=== PATIENT | male | born 1955 | race Two or more races ===

== ENCOUNTER 2020-07-31 11:45 | Emergency (ER) | payer MEDICARE, OTHER ==
[~2020-07-31] VITALS: Ht 175.3 cm; Wt 90.7 kg
[2020-07-31 11:53] VITALS: BP 145/84
[2020-07-31] MEDS ORDERED: METOPROLOL SUCC50 MG ORAL (11:57)
[2020-07-31] MEDS ORDERED: AMBIEN10 M1 ORAL (11:57)
[2020-07-31] MEDS ORDERED: QUETIAPINE FUM300 MG ORAL (11:57)
[2020-07-31] MEDS ORDERED: CLONAZEPAM1 M1 PO (11:57)
[2020-07-31] MEDS ORDERED: NORVASC10 MG ORAL (11:57)
[2020-07-31] MEDS ORDERED: RISPERIDONE2 MG ORAL (11:57)
[2020-07-31] MEDS ORDERED: OMEPRAZOLE20 M3 ORAL (11:57)
[2020-07-31] MEDS ORDERED: UROXATRAL10 MG ORAL (11:57)
[2020-07-31] MEDS ORDERED: MICARDIS40 MG ORAL (11:57)
[2020-07-31] MEDS ORDERED: Fluorescein Strips RIGHT EYE ONE (12:00)
--- NOTE | 2020-07-31 12:08 | Emergency Room Report ---
History of Present Illness General Chief Complaint: Headache Source: Patient, EMS Present Illness HPI Disclaimer: Please note that this report is being documented using DRAGON technology. This can lead to erroneous entry secondary to incorrect interpretation by the dictating instrument. HPI: 65-year-old male presents from retirement today for evaluation of headache and right eye pain. Symptoms began this morning. He reports redness, burning and photosensitivity in the right eye. Reports increased lacrimation and discharge. Denies swelling of the upper or lower lids, pain with extraocular movements. Denies blurred vision or loss of vision. He reports generalized throbbing headache. Denies vertigo, lightheadedness, loss of consciousness, recent head injury. Denies fever, chills. No exacerbating or relieving factors. PMH: Schizophrenia, hypertension, COPD, neuroleptic malignant syndrome PSH: Reviewed Allergies: Reviewed Social Hx: Reviewed Allergies: Coded Allergies: No Known Allergies (Unverified , 07/31/20) COVID-19 Screening Contact w/high risk pt: No Experienced COVID-19 symptoms?: No COVID-19 Testing performed INFORMATION ASSURANCE: No Nursing Documentation-PMH Hx Hypertension: Yes Hx COPD: Yes History Of Psychiatric Problem: Yes - schezophrenia Review of Systems All Other Systems: negative except mentioned in HPI Physical Exam Vital Signs Date Time Temp Pulse Resp B/P (MAP) Pulse Ox O2 Delivery O2 Flow Rate FiO2 07/31/20 11:45 98.2 89 20 95 Room Air 07/31/20 11:53 145/84 General: Awake and alert, no acute distress HEENT: NC/AT. EOMI. PERRLA. Right conjunctiva injected. No chemosis, no hypopyon, no hyphema. Upper and lower lids are nonedematous. Increased lacrimation in the right eye but no purulent drainage. No exophthalmos. Visual acuity: 20/70 OD, 20/70 OS, 20/70 OU. Russell lamp examination: Mild uptake in evidence of superficial corneal abrasion at the 12 o'clock position. No dendrites, no ulcerations, negative Aris sign. Resp: Normal work of breathing Skin: Intact. No abrasions, laceration or rash over the exposed skin MSK: Normal tone and bulk. Moving all extremities. No obvious deformity. Neuro: Awake and alert. Mentating appropriately Medical Decision Making Diagnostic Impression: Primary Impression: Headache Additional Impressions: Corneal abrasion Qualified Codes: S05.01XA - Injury of conjunctiva and corneal abrasion without foreign body, right eye, initial encounter Preseptal cellulitis of right eye ER Course 65-year-old duration of right eye pain and headache. Differential includes was not limited to corneal abrasion, corneal ulcer, conjunctivitis, blepharitis, orbital cellulitis, acute angle-closure glaucoma, intracranial hemorrhage, intracranial mass, entrapment. Patient arrives with stable vital signs no acute distress. He has injected sclera on the right side and what appears to be an early corneal abrasion at the 12 o'clock position. I was unable to obtain reliable measurements of intraocular pressure due to poor patient cooperation with exam. No evidence of entrapment. Head of the bed is elevated. CT scan of the head did not show signs of increased intracranial pressure, mass, bleed or other major findings aside from mild right periorbital soft tissue swelling. This may represent an early preseptal cellulitis. Patient be treated with oral Augmentin and ofloxacin drops. Given Tylenol for headache. Discussed with his PMD, Dr. Liu. Patient stable for outpatient follow-up and will return to a retirement facility. Close follow-up with ophthalmology recommended. Instructed to return with new or worsening symptoms. Arrange for transport Laboratory Tests Test 07/31/20 12:45 Urine Color Pale yellow Urine Appearance Clear Urine pH 8 (4.5-8.0) Urine Specific [place] 1.015 (1.005-1.035) Urine Protein Negative (NEGATIVE) Urine Glucose (UA) Negative (NEGATIVE) Urine Ketones 1+ (NEGATIVE) H Urine Blood Negative (NEGATIVE) Urine Nitrite Negative (NEGATIVE) Urine Bilirubin Negative (NEGATIVE) Urine Urobilinogen Normal MG/DL (0.0-1.0) Urine Leukocyte Esterase Negative (NEGATIVE) Last Vital Signs Date Time Temp Pulse Resp B/P (MAP) Pulse Ox O2 Delivery O2 Flow Rate FiO2 07/31/20 11:53 98.2 76 20 145/84 95 Room Air Disposition: SNF Condition: Stable Scripts Ofloxacin (OCUFLOX) 5 Ml Drops 2 DROP OP Q6HR for 5 Days, #100 ML Prov: Khoa Garcia MD 07/31/20 Amoxicillin/Potassium Clav 875-125* (AUGMENTIN 875-125 TABLET*) 1 Each Tablet 1 TAB ORAL TWICE A DAY, #14 TAB Prov: Khoa Garcia MD 07/31/20 Khoa Garcia MD Jul 31, 2020 12:08
--- NOTE | 2020-07-31 13:03 | Diagnostic Imaging Report ---
CT HEAD WITHOUT CONTRAST INDICATION: Headache and vision changes Technique: Continuous helical CT scanning of the head was performed without intravenous contrast material. Axial and coronal 5 mm sections were generated. Radiation dose was minimized using automated exposure control DOSE: Total Dose Length Product - DLP 1152.[address] Dose Index - CTDIvol(s) 53.4 mGy. COMPARISON: None available FINDINGS: There is no acute intracranial hemorrhage, mass effect or cortical edema. The ventricles, cisterns and sulci are normal for age. Visualized mastoid air cells are clear. Mild bilateral maxillary sinus mucosal thickening. No focal lesions of the bony calvarium or soft tissues of the scalp are seen. There is mild right periorbital soft tissue swelling. IMPRESSION: 1. No evidence of acute intracranial hemorrhage, mass effect or cortical edema. MRI may be obtained for more sensitive evaluation as clinically indicated. 2. Mild right periorbital soft tissue swelling. The CT scanner at [facility] is accredited by the [place] [employer] and the scans are performed using protocols designed to limit radiation exposure to as low as reasonably achievable to attain images of sufficient resolution adequate for diagnostic evaluation.
[2020-07-31] MEDS ORDERED: OCUFLOX5 ML OP (13:15)
[2020-07-31] MEDS ORDERED: AUGMENTIN 875-1 EAC1 ORAL (13:15)
[2020-07-31 13:23] LABS: APPEARANCE,URINE CLEAR; BILIRUBIN, URINE NEGATIVE (NEGATIVE); COLOR,URINE PALE YELLOW; GLUCOSE, URINE (UA) NEGATIVE (NEGATIVE); KETONES,URINE 1+ (NEGATIVE); LEUKOCYTE ESTERASE ,URINE NEGATIVE (NEGATIVE); NITRITE,URINE NEGATIVE (NEGATIVE); PH,URINE 8 (4.5-8.0); PROTEIN,URINE NEGATIVE (NEGATIVE); UROBILINOGEN,URINE NORMAL MG/DL (0.0-1.0)
[2020-07-31] MEDS ORDERED: Augmentin 875mg Tab ORAL ONE (13:30)
[2020-07-31] MEDS ORDERED: Acetaminophen 500mg (ES) tab ORAL ONE (13:30)
[2020-07-31 14:07] VITALS: BP 140/80
== END 2020-07-31 14:11 ==
LOC: EDBD 11:45 → EMR 12:28
DX: R51.9 Headache, unspecified (principal); S05.01XA Injury of conjunctiva and corneal abrasion without foreign body, right eye, initial encounter; L03.213 Periorbital cellulitis; J44.9 Chronic obstructive pulmonary disease, unspecified; I10 Essential (primary) hypertension; F20.9 Schizophrenia, unspecified
CPT/HCPCS: 70450; 81003; 99284

== ENCOUNTER 2020-10-09 09:18 | Inpatient (IN) | payer MEDICARE, OTHER ==
[~2020-10-09] VITALS: Ht 175.3 cm; Wt 87.5 kg
[~2020-10-09 09:18] MED LIST: AMBIEN10 M1 ORAL; AUGMENTIN 875-1 EAC1 ORAL; CLONAZEPAM1 M1 PO; METOPROLOL SUCC50 MG ORAL; MICARDIS40 MG ORAL; NORVASC10 MG ORAL; OCUFLOX5 ML OP; OMEPRAZOLE20 M3 ORAL; QUETIAPINE FUM300 MG ORAL; RISPERIDONE2 MG ORAL; UROXATRAL10 MG ORAL
--- NOTE | 2020-10-09 09:34 | NUR ---
ED Nurse Note: Pt was brought in by ambulance from [facility] d/t bilateral eye pain with 6/10 scale, (-) blurring vision, (+) flu like symptoms of nausea, stomachache and coughing all symptoms onset was last night. Pt is AOx4, calm and cooperative to care, ambulatory with a steady gait, VSS, breathing even and unlabored, afebrile on triage. Pt's a FULL CODE. Pt was placed onbed, droplet isolation prec in placed.
--- NOTE | 2020-10-09 09:37 | NUR ---
ED Nurse Note: ERMD at bedside.
[2020-10-09 09:39] VITALS: BP 164/84
--- NOTE | 2020-10-09 10:16 | Emergency Room Report ---
History of Present Illness General Chief Complaint: General Complaint Source: Patient Present Illness HPI 65-year-old male presents for evaluation. Brought in from boarding care. Noted to have a cough. Afebrile. Denies chest pain or shortness of breath. Also states he has had left eye pain. Patient does have a psych history and is a poor historian. Unable to provide further detail at this time. No other aggravating relieving factors. No other associated symptoms Allergies: Coded Allergies: No Known Allergies (Unverified , 07/31/20) COVID-19 Screening Contact w/high risk pt: No Experienced COVID-19 symptoms?: Yes COVID-19 Testing performed HORTICULTURE SUPERVISOR: No Patient History Past Medical History: HTN, COPD, psych hx Past Surgical History: none Pertinent Family History: none Social History: Denies: smoking, alcohol use, drug use Immunizations: UTD Reviewed Nursing Documentation: PMH: Agreed; PSxH: Agreed Nursing Documentation-PMH Past Medical History: No History, Except For Hx Hypertension: Yes Hx COPD: Yes Review of Systems All Other Systems: negative except mentioned in HPI Physical Exam Vital Signs Date Time Temp Pulse Resp B/P (MAP) Pulse Ox O2 Delivery O2 Flow Rate FiO2 10/09/20 09:19 98.2 88 18 164/84 (110) 94 Room Air Sp02 EP Interpretation: reviewed, normal General Appearance: no apparent distress, alert, GCS 15, non-toxic Head: normocephalic, atraumatic Eyes: bilateral eye PERRL, bilateral eye EOMI, bilateral eye Scleral Injection ENT: hearing grossly normal, normal pharynx, no angioedema, normal voice Neck: full range of motion, supple/symm/no masses Respiratory: chest non-tender, lungs clear, normal breath sounds, speaking full sentences Cardiovascular #1: regular rate, rhythm, no edema Cardiovascular #2: 2+ carotid (R), 2+ carotid (L), 2+ radial (R), 2+ radial (L), 2+ dorsalis pedis (R), 2+ dorsalis pedis (L) Gastrointestinal: normal bowel sounds, non tender, soft, non-distended, no guarding, no rebound Rectal: deferred Genitourinary: normal inspection, no CVA tenderness Musculoskeletal: back normal, normal range of motion, gait/station normal, non- tender Neurologic: alert, motor strength/tone normal, oriented x3, sensory intact, responsive, speech normal Psychiatric: judgement/insight normal, memory normal, mood/affect normal, no suicidal/homicidal ideation Reflexes: 3+ bicep (R), 3+ bicep (L), 3+ tricep (R), 3+ tricep (L), 3+ knee (R), 3+ knee (L) Skin: no rash Lymphatic: no adenopathy Medical Decision Making Diagnostic Impression: Primary Impression: Corneal abrasion Qualified Codes: S05.02XA - Injury of conjunctiva and corneal abrasion without foreign body, left eye, initial encounter Additional Impression: COVID-19 ER Course Hospital Course 65-year-old male presents with cough, weakness, eye pain Differential diagnoses include: Pneumonia, CHF exacerbation, pneumothorax, fluid overload Clinical course Patient placed on stretcher. In isolation.i wore full PPE.. After initial history and physical, I ordered labs, IV fluids, chest x-ray Labs -leukopenia noted, hemoglobin/hematocrit stable, electrolytes ok, CXR - NSR no acute ischemic changes interpreted by me Covid positive Discussed with assisted-living they are not able to accept patient back due to isolation. There is a corneal abrasion noted to the left eye. Ocuflox given D-dimer mildly elevated. Given Lovenox Case discussed with Dr. Liu and he agreed to the patient to his service for further care and support I feel this is a highly complex case requiring extensive working including EKG/Rhythm strip, Xray/CT/US, Blood/urine lab work, repeat exams while in ED, and administration of strong opiates/narcotics for pain control, admission to hospital or close patient follow up. Diagnosis - corneal abrasion, COVID 19 Patient admitted to floor in serious condition Laboratory Tests Test 10/09/20 10:00 White Blood Count 4.7 K/UL (4.8-10.8) L Red Blood Count 4.46 M/UL (4.70-6.10) L Hemoglobin 13.1 G/DL (14.2-18.0) L Hematocrit 35.9 % (42.0-52.0) L Mean Corpuscular Volume 80 FL (80-99) Mean Corpuscular Hemoglobin 29.3 PG (27.0-31.0) Mean Corpuscular Hemoglobin Concent 36.5 G/DL (32.0-36.0) H Red Cell Distribution Width 14.5 % (11.6-14.8) Platelet Count 187 K/UL (150-450) Mean Platelet Volume 6.6 FL (6.5-10.1) Neutrophils (%) (Auto) 58.0 % (45.0-75.0) Lymphocytes (%) (Auto) 30.1 % (20.0-45.0) Monocytes (%) (Auto) 10.9 % (1.0-10.0) H Eosinophils (%) (Auto) 0.5 % (0.0-3.0) Basophils (%) (Auto) 0.7 % (0.0-2.0) Prothrombin Time 11.2 SEC (9.30-11.50) Prothromb Time International Ratio 1.0 (0.9-1.1) Activated Partial Thromboplast Time 31 SEC (23-33) D-Dimer 1.13 mg/L FEU (0.00-0.49) H Urine Color Pale yellow Urine Appearance Clear Urine pH 8 (4.5-8.0) Urine Specific [place] 1.015 (1.005-1.035) Urine Protein Negative (NEGATIVE) Urine Glucose (UA) Negative (NEGATIVE) Urine Ketones 2+ (NEGATIVE) H Urine Blood Negative (NEGATIVE) Urine Nitrite Negative (NEGATIVE) Urine Bilirubin Negative (NEGATIVE) Urine Urobilinogen Normal MG/DL (0.0-1.0) Urine Leukocyte Esterase Negative (NEGATIVE) Sodium Level 138 MMOL/L (136-145) Potassium Level 3.8 MMOL/L (3.5-5.1) Chloride Level 104 MMOL/L (98-107) Carbon Dioxide Level 28 MMOL/L (21-32) Anion Gap 6 mmol/L (5-15) Blood Urea Nitrogen 12 mg/dL (7-18) Creatinine 1.3 MG/DL (0.55-1.30) Estimat Glomerular Filtration Rate 55.1 mL/min (>60) Glucose Level 125 MG/DL (74-106) H Calcium Level 8.1 MG/DL (8.5-10.1) L Ferritin 47 NG/ML (8-388) Total Bilirubin 0.3 MG/DL (0.2-1.0) Aspartate Amino Transf (AST/SGOT) 23 U/L (15-37) Alanine Aminotransferase (ALT/SGPT) 26 U/L (12-78) Alkaline Phosphatase 61 U/L (46-116) Lactate Dehydrogenase 187 U/L (81-234) C-Reactive Protein, Quantitative 2.0 mg/dL (0.00-0.90) H Total Protein 7.8 G/DL (6.4-8.2) Albumin 3.7 G/DL (3.4-5.0) Globulin 4.1 g/dL Albumin/Globulin Ratio 0.9 (1.0-2.7) L Chest X-Ray Diagnostic Results Chest X-Ray Diagnostic Results : Chest X-Ray Ordered: Yes # of Views/Limited/Complete: 1 View Indication: Other EP Interpretation: Yes Interpretation: no consolidation, no effusion, no pneumothorax, no acute cardiopulmonary disease Impression: No acute disease Electronically Signed by: Electronically signed by Alexys Marrero MD Last Vital Signs Date Time Temp Pulse Resp B/P (MAP) Pulse Ox O2 Delivery O2 Flow Rate FiO2 10/09/20 09:39 98.2 18 164/84 94 Room Air 10/09/20 09:39 88 Status: improved Disposition: ADMITTED INPATIENT Condition: Serious Referrals: Deng Liu MD (PCP) Alexys Marrero MD Oct 09, 2020 10:16
--- NOTE | 2020-10-09 10:16 | NUR ---
ED Nurse Note: x-ray at bedside.
[2020-10-09 10:34] LABS: APPEARANCE,URINE CLEAR; BASOPHILS % (AUTO) 0.7 % (0.0-2.0); BILIRUBIN, URINE NEGATIVE (NEGATIVE); COLOR,URINE PALE YELLOW; EOSINOPHILS % (AUTO) 0.5 % (0.0-3.0); GLUCOSE, URINE (UA) NEGATIVE (NEGATIVE); HEMATOCRIT 35.9 % (42.0-52.0); HEMOGLOBIN 13.1 G/DL (14.2-18.0); KETONES,URINE 2+ (NEGATIVE); LEUKOCYTE ESTERASE ,URINE NEGATIVE (NEGATIVE); LYMPHOCYTES % (AUTO) 30.1 % (20.0-45.0); MEAN CORPUSCULAR VOLUME 80 FL (80-99); MONOCYTES % (AUTO) 10.9 % (1.0-10.0); NITRITE,URINE NEGATIVE (NEGATIVE); PH,URINE 8 (4.5-8.0); PLATELET COUNT 187 K/UL (150-450); PROTEIN,URINE NEGATIVE (NEGATIVE); RED BLOOD COUNT 4.46 M/UL (4.70-6.10); RED CELL DISTRIBUTION WIDTH 14.5 % (11.6-14.8); UROBILINOGEN,URINE NORMAL MG/DL (0.0-1.0); WHITE BLOOD COUNT 4.7 K/UL (4.8-10.8)
[2020-10-09 10:56] LABS: CALCIUM 8.1 MG/DL (8.5-10.1); CREATININE 1.3 MG/DL (0.55-1.30); POTASSIUM 3.8 MMOL/L (3.5-5.1)
[2020-10-09 11:01] LABS: ALBUMIN 3.7 G/DL (3.4-5.0); ALBUMIN/GLOBULIN RATIO 0.9 (1.0-2.7); BILIRUBIN,TOTAL 0.3 MG/DL (0.2-1.0)
--- NOTE | 2020-10-09 11:01 | Diagnostic Imaging Report ---
Indication: Cough Technique: XRAY Chest 1v Comparison: None Findings: Heart size and mediastinal contours are within normal limits for AP technique. There is no focal airspace consolidation, pneumothorax or pleural effusion. Osseous structures demonstrate no acute abnormality. Impression: No radiographic evidence of acute cardiopulmonary disease.
[2020-10-09 13:18] VITALS: BP 158/82
[2020-10-09] MEDS ORDERED: Azithromycin 500 MG in NS 275 ML IV ONE (14:45)
[2020-10-09] MEDS ORDERED: cefTRIAXone 1 GM in NS 55 ML IVPB ONE (14:45)
[2020-10-09] MEDS ORDERED: Enoxaparin 40mg Inj SUBQ ONE (14:45)
[2020-10-09 16:44] VITALS: BP 134/70
--- NOTE | 2020-10-09 16:49 | Consultation ---
Consult Note Consult Note Date of Admission: 10/09/2020 DATE OF CONSULTATION: 10/09/2020 CONSULTING PHYSICIAN: Colton Shell MD. ATTENDING PHYSICIAN: Dr. Liu REASON FOR CONSULTATION: COVID-19, cough HISTORY OF PRESENT ILLNESS: This is a 65-year-old male with past medical history of COPD, hypertension, neuroleptic malignant syndrome, and schizophrenia, who presented to the emergency room from [facility] with 6 out of 10 bilateral eye pain, intermittent dry cough and upset stomach. Patient also tested positive for COVID-19 in the ER. Initial laboratory studies are notable for leukopenia, stable H&H with electrolytes that are within normal limits. EKG showed normal sinus rhythm. Chest x-ray showed no evidence of acute cardiopulmonary disease. On exam he is in bed with eyes closed. He does not appear to be short of breath or in acute distress. Patient is saturating well on room air. He is found to be not coughing during my exam. He requests food at this time. Patient denies chest pain, headache, nausea, vomiting, shortness of breath. Patient received IV azithromycin, ceftriaxone, Lovenox, and IV fluids in the ER and is awaiting admission for further management of conjunctivitis and monitoring/management of symptoms associated with COVID-19 positivity. PAST MEDICAL HISTORY: COPD, hypertension, schizophrenia, neuroleptic malignant syndrome MEDICATIONS: Notable for tamsulosin, amlodipine, clonazepam, metoprolol, omeprazole, Quetiapine, risperidone, zolpidem tartrate, and telmisartan ALLERGIES: No known allergies FAMILY HISTORY: Noncontributory PERSONAL/SOCIAL HISTORY: Resident of [facility] facility REVIEW OF SYSTEMS: Negative except for mentioned in HPI PHYSICAL EXAMINATION: VITAL SIGNS: Blood pressure 158/82, heart rate 85, respiratory rate 19, weight 90.7 kg, height 175 cm. HEENT: Head exam reveals that the head is normocephalic, atraumatic without deformity or unusual swelling. Bilateral eyelids edematous and erythematous. CHEST AND LUNGS: Reveals clear, normal, symmetrical breath sounds with no adventitious sounds. CARDIOVASCULAR: Reveals normal S1, S2 without murmurs, rubs, or clicks. ABDOMEN: Obese, soft with no tenderness or organomegaly. A well-healed midline linear vertical scar in the abdomen noted RECTAL: Deferred. MUSCULOSKELETAL: There is no tenderness to palpation. Range of motion is normal. NEUROLOGICAL: Alert and oriented x3 , nonfocal LABORATORY DATA: Laboratory testing shows WBC 4.7, hemoglobin 13.1, hematocrit 35.9. Chemistries show glucose 125, calcium 8.1, CRP 2.0 Coagulation panel shows D-dimer 1.13 Urinalysis shows 2+ ketones, otherwise unremarkable Assessment/Plan 1. COVID-19 infection -Patient is currently saturating well on room air - s/p Azithromycin and ceftriaxone IV once in ER -Given his normoxemia without fever, clear lung sounds, and negative CXR, no specific therapy is required at this time -Continue monitoring SaO2 and provide supplemental oxygen as needed 2. Conjunctivitis -Per primary MD 3. Elevated CRP, D-dimer - s/p Lovenox in ER - DVX ppx recommended 4. Hypertension - recommend continuing home antihypertensive meds - monitor BP The care for this patient was discussed with my supervising physician. Time spent for this case was approximately 31 minutes. Piyush Dent Oct 09, 2020 16:49
--- NOTE | 2020-10-09 17:28 | NUR ---
ED Nurse Note: mrsa cre vre swabs taken sent to lab
--- NOTE | 2020-10-09 17:31 | NUR ---
ED Nurse Note: REPORT GIVEN TO GONZALEZ SUTHERLAND
--- NOTE | 2020-10-09 17:53 | Cardiac Electrophysiology PN ---
Subjective Subjective [id number] Objective Last 24 Hour Vital Signs Date Time Temp Pulse Resp B/P (MAP) Pulse Ox O2 Delivery O2 Flow Rate FiO2 10/09/20 17:36 98.0 77 19 128/74 98 Room Air 10/09/20 16:44 98.6 87 20 134/70 95 Room Air 10/09/20 13:18 98.2 85 19 158/82 99 Room Air 10/09/20 09:39 98.2 18 164/84 94 Room Air 10/09/20 09:39 88 18 Room Air 10/09/20 09:19 98.2 88 18 164/84 (110) 94 Room Air Laboratory Tests Test 10/09/20 10:00 White Blood Count 4.7 K/UL (4.8-10.8) L Red Blood Count 4.46 M/UL (4.70-6.10) L Hemoglobin 13.1 G/DL (14.2-18.0) L Hematocrit 35.9 % (42.0-52.0) L Mean Corpuscular Volume 80 FL (80-99) Mean Corpuscular Hemoglobin 29.3 PG (27.0-31.0) Mean Corpuscular Hemoglobin Concent 36.5 G/DL (32.0-36.0) H Red Cell Distribution Width 14.5 % (11.6-14.8) Platelet Count 187 K/UL (150-450) Mean Platelet Volume 6.6 FL (6.5-10.1) Neutrophils (%) (Auto) 58.0 % (45.0-75.0) Lymphocytes (%) (Auto) 30.1 % (20.0-45.0) Monocytes (%) (Auto) 10.9 % (1.0-10.0) H Eosinophils (%) (Auto) 0.5 % (0.0-3.0) Basophils (%) (Auto) 0.7 % (0.0-2.0) Prothrombin Time 11.2 SEC (9.30-11.50) Prothromb Time International Ratio 1.0 (0.9-1.1) Activated Partial Thromboplast Time 31 SEC (23-33) D-Dimer 1.13 mg/L FEU (0.00-0.49) H Urine Color Pale yellow Urine Appearance Clear Urine pH 8 (4.5-8.0) Urine Specific [place] 1.015 (1.005-1.035) Urine Protein Negative (NEGATIVE) Urine Glucose (UA) Negative (NEGATIVE) Urine Ketones 2+ (NEGATIVE) H Urine Blood Negative (NEGATIVE) Urine Nitrite Negative (NEGATIVE) Urine Bilirubin Negative (NEGATIVE) Urine Urobilinogen Normal MG/DL (0.0-1.0) Urine Leukocyte Esterase Negative (NEGATIVE) Sodium Level 138 MMOL/L (136-145) Potassium Level 3.8 MMOL/L (3.5-5.1) Chloride Level 104 MMOL/L (98-107) Carbon Dioxide Level 28 MMOL/L (21-32) Anion Gap 6 mmol/L (5-15) Blood Urea Nitrogen 12 mg/dL (7-18) Creatinine 1.3 MG/DL (0.55-1.30) Estimat Glomerular Filtration Rate 55.1 mL/min (>60) Glucose Level 125 MG/DL (74-106) H Calcium Level 8.1 MG/DL (8.5-10.1) L Ferritin 47 NG/ML (8-388) Total Bilirubin 0.3 MG/DL (0.2-1.0) Aspartate Amino Transf (AST/SGOT) 23 U/L (15-37) Alanine Aminotransferase (ALT/SGPT) 26 U/L (12-78) Alkaline Phosphatase 61 U/L (46-116) Lactate Dehydrogenase 187 U/L (81-234) C-Reactive Protein, Quantitative 2.0 mg/dL (0.00-0.90) H Total Protein 7.8 G/DL (6.4-8.2) Albumin 3.7 G/DL (3.4-5.0) Globulin 4.1 g/dL Albumin/Globulin Ratio 0.9 (1.0-2.7) L Microbiology Date/Time Source Procedure Growth Status 10/09/20 17:14 Rectum Received 10/09/20 10:00 Nasopharynx SARS-CoV-2 RdRp Gene Assay - Final Complete Kirit Dave MD Oct 09, 2020 17:53
[2020-10-09 17:55] VITALS: BP 115/63
--- NOTE | 2020-10-09 17:55 | NUR ---
NURSE NOTES: PATIENT RECEIVED FROM ER VIA [facility]IN. AOX4. DENIES SOB/CP. NO REPSIRATORY DISTRESS NOTED.
--- NOTE | 2020-10-09 18:35 | NUR ---
NURSE NOTES: PLACED CALL TO DR. LOPEZ. RETURN CALL RECEIVED. ORDERS RECEIVED.
--- NOTE | 2020-10-09 19:02 | Consultation ---
DATE OF CONSULTATION: 10/09/2020 CARDIOLOGY CONSULTATION CONSULTING PHYSICIAN: Kirit Dave MD REFERRING PHYSICIAN: Deng Liu MD REASON FOR CONSULTATION: Shortness of breath and cough in a patient who is COVID-19 positive. HISTORY OF PRESENT ILLNESS: Patient is a 65-year-old gentleman with history of hypertension, COPD, neuroleptic malignant syndrome, and schizophrenia, who was brought to the emergency room from [facility] with bilateral eye pain as well as intermittent cough and upset stomach. Patient was tested positive for COVID-19 in the emergency room. Patient was noted to have leukopenia and EKG showed sinus rhythm and chest x-ray showed no acute cardiopulmonary process. Patient is saturating normally on room air. Patient was admitted and a Cardiology consultation was requested for further evaluation. REVIEW OF SYSTEMS: Negative other than what was mentioned in the history of present illness. PAST MEDICAL HISTORY: As mentioned above. FAMILY HISTORY: Noncontributory. MEDICATIONS: Per reconciliation include metoprolol, amlodipine, Flomax, and telmisartan. ALLERGIES: He has no known drug allergies. SOCIAL HISTORY: Resident of care home facility. Does not drink alcohol or use drugs. PHYSICAL EXAMINATION: VITAL SIGNS: Blood pressure 153/80, pulse is 85, respirations 19. HEAD AND NECK: Shows mild JVD. Bilateral eyelids are edematous and erythematous. LUNGS: Clear. CARDIOVASCULAR: Shows regular S1 and S2 with no gallop. ABDOMEN: Soft. EXTREMITIES: 1+ pitting edema. LABORATORY DATA: Labs show white count of 4.7, hemoglobin 13, hematocrit of 36. Glucose 125. Calcium 8.1. ASSESSMENT AND PLAN: 1. Shortness of breath. This is likely due to patient's COVID-19 infection. Currently saturating well on room air. Patient received azithromycin and ceftriaxone in the emergency room. Further evaluation by Dr. Shell. 2. Hypertension. We will resume patient's antihypertensive medications as an outpatient, which were amlodipine 10 mg daily and Toprol-XL 50 mg daily. For blood pressure, patient is also on Micardis 40 mg daily. 3. Psychiatric history. Thank you very much for allowing me to participate in the care of this patient. Please do not hesitate to contact me for any questions regarding my evaluation. Kirit Dave M.D. DR: SEE JOB#: [id number] CC:
--- NOTE | 2020-10-09 19:45 | NUR ---
NURSE HAND-OFF: Important Events on Shift: NONE Patient Status: STABLE Diet: REGULAR Pending Orders: N/A Pending Results/Labs: N/A Pending MD notification: N/A Latest Vital Signs: Temperature 97.7 , Pulse 82 , B/P 115 /63 , Respiratory Rate 18 , O2 SAT 94 , Room Air. Vital Sign Comment: STABLE Latest Barreto Fall Score: Fall Risk: Safety Measures: Call light , Bed Alarm , Side Rails , Bed position . Fall Precautions: Report given to CAROLINA SHELBY RN.
[2020-10-09 20:00] VITALS: BP 138/76
--- NOTE | 2020-10-09 20:00 | NUR ---
NURSE NOTES: Pt is in bed calm. No acute distress noted. Room air. No SOB or cough, no fever. Admission orders acknowledged from DR. Rodriguez. Admission process will be completed. Pt has no wound on the body. Pt has a hospital gown on and jeans pants on, he refuses to take the jeans off for now. He has belongings: cell phone and $86 leary per ER on belonging sheet, which he states that are in his pocket and refuses to show for confirmation purpose. Patient is otherwise cooperative and calm. Fall precaution in place. Pt oriented to the room. bed locked low in position,side rails up and call light within reach. Pt instructed to call for assistance before getting out of bed. Pt will be monitored.
[2020-10-09] MEDS ORDERED: Zolpidem 5mg tab ORAL PRN (20:15)
[2020-10-09] MEDS: Dyna-Hex 2% Top Sol 2oz TOPIC SCH (21:00)
[2020-10-09] MEDS: Irbesartan 150mg tablet ORAL SCH (21:00)
[2020-10-09] MEDS: Zolpidem 5mg tab ORAL PRN (22:37)
--- NOTE | 2020-10-10 00:01 | History and Physical Report ---
DATE OF ADMISSION: 10/09/2020 HISTORY OF PRESENT ILLNESS: The patient comes from [facility]. The patient has some cough. Denies shortness of breath. Denies fever or chills. The patient also has some left eye pain. Does have history of schizophrenia and psychosis from schizoaffective. The patient is relatively a poor historian. Denies tachycardia. Denies headache. Denies nausea, vomiting, or diarrhea. The patient is found to have COVID positive and is admitted for COVID positive respiratory insufficiency and also eye pain. PAST MEDICAL HISTORY: Significant for COPD, hypertension, history of schizoaffective, history of tachycardia, history of hepatitis C, anxiety, GERD, and psychosis. PAST SURGICAL HISTORY: None. MEDICATIONS: Micardis, risperidone, omeprazole, metoprolol, Klonopin. ALLERGIES: No known allergies. FAMILY HISTORY: Noncontributory. SOCIAL HISTORY: Denies history of smoking. No history of alcohol or illicit drugs. REVIEW OF SYSTEMS: HEENT: Denies headaches. Denies shortness of breath. He does have some cough. CARDIOVASCULAR: Denies chest pain. GASTROINTESTINAL: Denies nausea, vomiting, or diarrhea. EXTREMITIES: Denies pain. CENTRAL NERVOUS SYSTEM: Denies change in speech pattern. Does have change in vision pattern in terms of mild drainage that went away. The patient complains of left eye pain. PHYSICAL EXAMINATION: VITAL SIGNS: Temperature is 98.2, pulse is 88, blood pressure 164/84. HEENT: PERRLA. NECK: Supple. CHEST: Clear to auscultation CARDIOVASCULAR: Regular rate and rhythm. No murmurs or extra sounds. GASTROINTESTINAL: Soft, nontender, nondistended. No organomegaly. EXTREMITIES: No edema. Moves all four extremities. NEUROLOGIC: Sensory intact to light touch. Reflexes equal on both sides. Moves all four extremities. LABORATORY DATA: WBC of 4.7, hemoglobin 13.1, and platelets 187. Sodium 138, potassium 3.8, BUN of 12, creatinine 1.3. ASSESSMENT AND PLAN: COVID positive pneumonia. Some mild blurred vision, change and eye pain. I have asked Dr. Dave, Dr. Alek Sabillon, Dr. Colton Shell, and Dr. Harsh Bowser to see the patient for the management of COVID positive as well as further to put the patient on anticoagulation because of COVID and Dr. Dave for the consideration of history of arrhythmia as well and Dr. Shell for the COVID positive treatment as well. Deng Liu M.D. DR: Brandon JOB#: [id number] CC:
[2020-10-10 04:00] VITALS: BP 125/75
--- NOTE | 2020-10-10 05:00 | NUR ---
NURSE NOTES: Pt is awake, alert and ambulatory. No SOB, room air. Pt is cooperative and calm.
--- NOTE | 2020-10-10 06:40 | Consultation ---
History of Present Illness General Chief Complaint: General Complaint Present Illness Allergies: Coded Allergies: No Known Allergies (Unverified , 07/31/20) Medication History Scheduled Alfuzosin 10Mg (Uroxatral), 10 MG ORAL DAILY, (Reported) Amlodipine Besylate (Norvasc), 10 MG ORAL DAILY, (Reported) Amoxicillin/Potassium Clav 875-125* (Augmentin 875-125 Tablet*), 1 TAB ORAL TWICE A DAY Metoprolol Succinate* (Metoprolol Succinate*), 50 MG ORAL DAILY, (Reported) Ofloxacin (Ocuflox), 2 DROP OP Q6HR Omeprazole (Omeprazole), 20 MG ORAL DAILY, (Reported) Quetiapine Fumarate (Quetiapine Fumarate), 300 MG ORAL DAILY, (Reported) Telmisartan (Micardis), 40 MG ORAL BID, (Reported) Scheduled PRN Zolpidem Tartrate* (Ambien*), 10 MG ORAL HS PRN for Insomnia, (Reported) Miscellaneous Medications Clonazepam (Clonazepam), 1 MG PO, (Reported) Risperidone (Risperidone), 2 MG ORAL, (Reported) Patient History Healthcare decision maker Resuscitation status Advanced Directive on File Physical Exam Last 24 Hour Vital Signs Date Time Temp Pulse Resp B/P (MAP) Pulse Ox O2 Delivery O2 Flow Rate FiO2 10/10/20 04:00 97.8 80 18 125/75 (92) 96 10/09/20 21:04 Room Air 10/09/20 21:00 138/76 10/09/20 20:00 97.5 80 18 138/76 (96) 96 10/09/20 17:55 97.7 82 18 115/63 (80) 94 10/09/20 17:36 98.0 77 19 128/74 98 Room Air 10/09/20 16:44 98.6 87 20 134/70 95 Room Air 10/09/20 13:18 98.2 85 19 158/82 99 Room Air 10/09/20 09:39 98.2 18 164/84 94 Room Air 10/09/20 09:39 88 18 Room Air 10/09/20 09:19 98.2 88 18 164/84 (110) 94 Room Air Intake and Output 10/09/20 10/10/20 19:00 07:00 Intake Total 880 ml Balance 880 ml Intake Oral 880 ml # Voids 1 3 Laboratory Tests Test 10/09/20 10:00 White Blood Count 4.7 K/UL (4.8-10.8) L Red Blood Count 4.46 M/UL (4.70-6.10) L Hemoglobin 13.1 G/DL (14.2-18.0) L Hematocrit 35.9 % (42.0-52.0) L Mean Corpuscular Volume 80 FL (80-99) Mean Corpuscular Hemoglobin 29.3 PG (27.0-31.0) Mean Corpuscular Hemoglobin Concent 36.5 G/DL (32.0-36.0) H Red Cell Distribution Width 14.5 % (11.6-14.8) Platelet Count 187 K/UL (150-450) Mean Platelet Volume 6.6 FL (6.5-10.1) Neutrophils (%) (Auto) 58.0 % (45.0-75.0) Lymphocytes (%) (Auto) 30.1 % (20.0-45.0) Monocytes (%) (Auto) 10.9 % (1.0-10.0) H Eosinophils (%) (Auto) 0.5 % (0.0-3.0) Basophils (%) (Auto) 0.7 % (0.0-2.0) Prothrombin Time 11.2 SEC (9.30-11.50) Prothromb Time International Ratio 1.0 (0.9-1.1) Activated Partial Thromboplast Time 31 SEC (23-33) D-Dimer 1.13 mg/L FEU (0.00-0.49) H Urine Color Pale yellow Urine Appearance Clear Urine pH 8 (4.5-8.0) Urine Specific [place] 1.015 (1.005-1.035) Urine Protein Negative (NEGATIVE) Urine Glucose (UA) Negative (NEGATIVE) Urine Ketones 2+ (NEGATIVE) H Urine Blood Negative (NEGATIVE) Urine Nitrite Negative (NEGATIVE) Urine Bilirubin Negative (NEGATIVE) Urine Urobilinogen Normal MG/DL (0.0-1.0) Urine Leukocyte Esterase Negative (NEGATIVE) Sodium Level 138 MMOL/L (136-145) Potassium Level 3.8 MMOL/L (3.5-5.1) Chloride Level 104 MMOL/L (98-107) Carbon Dioxide Level 28 MMOL/L (21-32) Anion Gap 6 mmol/L (5-15) Blood Urea Nitrogen 12 mg/dL (7-18) Creatinine 1.3 MG/DL (0.55-1.30) Estimat Glomerular Filtration Rate 55.1 mL/min (>60) Glucose Level 125 MG/DL (74-106) H Calcium Level 8.1 MG/DL (8.5-10.1) L Ferritin 47 NG/ML (8-388) Total Bilirubin 0.3 MG/DL (0.2-1.0) Aspartate Amino Transf (AST/SGOT) 23 U/L (15-37) Alanine Aminotransferase (ALT/SGPT) 26 U/L (12-78) Alkaline Phosphatase 61 U/L (46-116) Lactate Dehydrogenase 187 U/L (81-234) C-Reactive Protein, Quantitative 2.0 mg/dL (0.00-0.90) H Total Protein 7.8 G/DL (6.4-8.2) Albumin 3.7 G/DL (3.4-5.0) Globulin 4.1 g/dL Albumin/Globulin Ratio 0.9 (1.0-2.7) L Microbiology Date/Time Source Procedure Growth Status 10/09/20 17:14 Rectum Received 10/09/20 10:00 Nasopharynx SARS-CoV-2 RdRp Gene Assay - Final Complete Height (Feet): 5 Height (Inches): 9.00 Weight (Pounds): 193 Medications Current Medications Medications (Trade) Dose Ordered Sig/Sidney Route PRN Reason Start Time Stop Time Status Last Admin Dose Admin Acetaminophen (Tylenol) 650 mg Q6H PRN ORAL For Headache 10/09/20 22:45 11/08/20 22:44 Alfuzosin HCl (Uroxatrol) 10 mg DAILY ORAL 10/10/20 09:00 11/09/20 08:59 Amlodipine Besylate (Norvasc) 10 mg DAILY ORAL 10/10/20 09:00 11/09/20 08:59 Chlorhexidine Gluconate (Beryl-Hex 2%) 1 applic QHS TOPIC 10/09/20 21:00 01/07/21 20:59 Clonazepam (KlonoPIN) 1 mg Q12HR ORAL 10/09/20 21:00 10/16/20 20:59 10/09/20 21:00 Irbesartan (Avapro) 150 mg Q12HR ORAL 10/09/20 21:00 01/07/21 20:59 10/09/20 21:00 Metoprolol Succinate (Toprol XL) 50 mg DAILY ORAL 10/10/20 09:00 01/08/21 08:59 Pantoprazole (Protonix) 40 mg DAILY ORAL 10/10/20 09:00 11/09/20 08:59 Quetiapine Fumarate (SEROqueL) 300 mg Q12HR ORAL 10/09/20 21:00 11/23/20 20:59 10/09/20 21:00 Risperidone (RisperDAL) 2 mg Q12HR ORAL 10/09/20 21:00 11/23/20 20:59 10/09/20 21:00 Zolpidem Tartrate (Ambien) 5 mg HSPRN PRN ORAL Insomnia 10/09/20 20:30 10/16/20 20:29 10/09/20 22:37 Assessment/Plan Assessment/Plan: Hematology Consultation Date of consultation: 10/10/2020 ATTENDING PHYSICIAN: Dr. Liu REASON FOR CONSULTATION: COVID-19, Anemia ID This is a 65-year-old male with past medical history of COPD, hypertension, neuroleptic malignant syndrome, and schizophrenia, who presented to the emergency room from [facility] with 6 out of 10 bilateral eye pain, intermittent dry cough and upset stomach. Patient also tested positive for COVID-19 in the ER. Initial laboratory studies are notable for leukopenia, stable H&H with electrolytes that are within normal limits. EKG showed normal sinus rhythm. Chest x-ray showed no evidence of acute cardiopulmonary disease. On exam he is in bed with eyes closed. He does not appear to be short of breath or in acute distress. Patient is saturating well on room air. He is found to b e not coughing during my exam. He requests food at this time. Patient denies chest pain, headache, nausea, vomiting, shortness of breath. Patient received IV azithromycin, ceftriaxone, Lovenox, and IV fluids in the ER. PAST MEDICAL HISTORY: COPD, hypertension, schizophrenia, neuroleptic malignant syndrome MEDICATIONS: Notable for tamsulosin, amlodipine, clonazepam, metoprolol, omeprazole, Quetiapine, risperidone, zolpidem tartrate, and telmisartan ALLERGIES: No known allergies FAMILY HISTORY: Noncontributory PERSONAL/SOCIAL HISTORY: [facility] REVIEW OF SYSTEMS: Negative except for mentioned in HPI PHYSICAL EXAMINATION: VITAL SIGNS: reviewed HEENT: Head exam reveals that the head is normocephalic, atraumatic without deformity or unusual swelling. CHEST AND LUNGS: Reveals clear, normal, symmetrical breath sounds with no adventitious sounds. CARDIOVASCULAR: Reveals normal S1, S2 without murmurs, rubs, or clicks. ABDOMEN: Obese, soft with no tenderness or organomegaly. A well-healed midline linear vertical scar in the abdomen ++ RECTAL: Deferred. MUSCULOSKELETAL: There is no tenderness to palpation. Range of motion is normal. NEUROLOGICAL: Alert and oriented x3 , nonfocal LABORATORY DATA: Laboratory testing shows WBC 4.7, hemoglobin 13.1, hematocrit 35.9. Chemistries show glucose 125, calcium 8.1, CRP 2.0 Coagulation panel shows D-dimer 1.13 Urinalysis shows 2+ ketones, otherwise unremarkable Imaging: reviewed Assessment/Plan 1. Leukopenia is related likely to COVID-19 infection++ --> Patient is currently saturating well on room air, per pulm --> s/p Azithromycin and ceftriaxone IV once in ER --> Continue monitoring SaO2 and provide supplemental oxygen as needed --> smear reviewed --> wbc 4.7 2. Anemia due to likely chronic disease, infection --> trend hgb as needed hgb 13 3. Elevated CRP, D-dimer --> s/p Lovenox in ER --> DVX ppx recommended --> duplex lower leg r/o dvt 4. Hypertension --> recommend continuing home antihypertensive meds --> as per cards 5. Covid 19 as per pulm/id 6. Dvt ppx lovenox sq Appreciate consultation and dw Rn Alek Sabillon MD Oct 10, 2020 06:40
[2020-10-10 07:10] LABS: BASOPHILS % (AUTO) 0.1 % (0.0-2.0); EOSINOPHILS % (AUTO) 0.1 % (0.0-3.0); HEMATOCRIT 36.8 % (42.0-52.0); HEMOGLOBIN 12.7 G/DL (14.2-18.0); LYMPHOCYTES % (AUTO) 43.3 % (20.0-45.0); MEAN CORPUSCULAR VOLUME 85 FL (80-99); MONOCYTES % (AUTO) 9.4 % (1.0-10.0); NEUTROPHILS % (AUTO) 47.1 % (45.0-75.0); PLATELET COUNT 169 K/UL (150-450); RED BLOOD COUNT 4.34 M/UL (4.70-6.10); RED CELL DISTRIBUTION WIDTH 13.1 % (11.6-14.8); WHITE BLOOD COUNT 3.8 K/UL (4.8-10.8)
--- NOTE | 2020-10-10 07:30 | NUR ---
NURSE HAND-OFF: Important Events on Shift:[New admit] Patient Status: [Stable] Diet: [Reg] Pending Orders: [] Pending Results/Labs:[] Pending MD notification:[] Latest Vital Signs: Temperature 97.8 , Pulse 80 , B/P 125 /75 , Respiratory Rate 18 , O2 SAT 96 , Room Air, O2 Flow Rate . Vital Sign Comment: [] Latest Barreto Fall Score: 35 Fall Risk: Medium Risk Safety Measures: Call light Within Reach, Bed Alarm Zone 1, Side Rails Side Rails x2, Bed position Low and Locked. Fall Precautions: Yellow Socks Yellow Gown Door Sign Patient Fall Education Report given to [DEYA Holly. Endorsed to apply SCDs after venous duplex. ].
[2020-10-10 07:35] LABS: ALBUMIN 3.3 G/DL (3.4-5.0); ALBUMIN/GLOBULIN RATIO 0.8 (1.0-2.7); ALKALINE PHOSPHATASE 56 U/L (46-116); ANION GAP 6 mmol/L (5-15); ASPARTATE AMINO TRANSFERASE 21 U/L (15-37); BILIRUBIN,TOTAL 0.4 MG/DL (0.2-1.0); BLOOD UREA NITROGEN 9 mg/dL (7-18); CALCIUM 7.8 MG/DL (8.5-10.1); CARBON DIOXIDE 28 MMOL/L (21-32); CHLORIDE 101 MMOL/L (98-107); POTASSIUM 3.4 MMOL/L (3.5-5.1); SODIUM 135 MMOL/L (136-145)
--- NOTE | 2020-10-10 07:45 | NUR ---
NURSE NOTES: RECEIVED PATIENT A/A/OX4. ABLE TO MAKE NEEDS KNOWN. IN BED CALM AND COMFORTABLE. NO ACUTE CARDIO-RESP DISTRESS NOTED. HOB ELEVATED. ABLE TO AMBULATE WITH ASSIST. TOLERATED FOOD INTAKE WELL. PIV PATENT AND INTACT. KEPT BED IN THE LOWEST POSITION. SIDERAILS ARE UPX3. CALL LIGHT IS WITHIN REACH. BED ALARM AND LOCK MODE ENGAGED. WILL CONT TO MONITOR.
[2020-10-10 08:00] VITALS: BP 121/77
[2020-10-10 08:35] LABS: ALANINE AMINOTRANSFERASE 24 U/L (12-78)
[2020-10-10] MEDS ORDERED: Irbesartan 150mg tablet ORAL SCH (09:00)
[2020-10-10] MEDS: Irbesartan 150mg tablet ORAL SCH ×2 (09:08→21:00)
[2020-10-10] MEDS: Metoprolol Succinate XL 50mg tab ORAL SCH (09:08)
[2020-10-10] MEDS: Enoxaparin 40mg Inj SUBQ SCH (09:10)
--- NOTE | 2020-10-10 11:36 | NUR ---
NURSE NOTES: MADE DR WASHINGTON AWARE OF THE K+3.4. AWAITING FOR A CALLBACK. Addendum: 10/10/20 at 1429 by CRYSTAL CHU LVN new order obtained and carried out.
[2020-10-10 12:00] VITALS: BP 137/76
--- NOTE | 2020-10-10 13:53 | Pulmonology Progress Note ---
Subjective Interval Events: none major reported per nursing Constitutional: Reports: no symptoms HEENT: Repors: other - eye pain Respiratory: Reports: no symptoms Cardiovascular: Reports: no symptoms Gastrointestinal/Abdominal: Reports: no symptoms Genitourinary: Reports: no symptoms Allergies: Coded Allergies: No Known Allergies (Unverified , 07/31/20) Objective Last 24 Hour Vital Signs Date Time Temp Pulse Resp B/P (MAP) Pulse Ox O2 Delivery O2 Flow Rate FiO2 10/10/20 12:00 98.2 80 21 137/76 (96) 97 10/10/20 09:09 76 121/77 10/10/20 09:08 121/77 10/10/20 09:08 76 121/77 10/10/20 09:00 Room Air 10/10/20 08:00 98.1 76 19 121/77 (92) 97 10/10/20 04:00 97.8 80 18 125/75 (92) 96 10/09/20 21:04 Room Air 10/09/20 21:00 138/76 10/09/20 20:00 97.5 80 18 138/76 (96) 96 10/09/20 17:55 97.7 82 18 115/63 (80) 94 10/09/20 17:36 98.0 77 19 128/74 98 Room Air 10/09/20 16:44 98.6 87 20 134/70 95 Room Air Intake and Output 10/09/20 10/10/20 19:00 07:00 Intake Total 880 ml Balance 880 ml Intake Oral 880 ml # Voids 1 3 Objective 10/10 on room air saturating well General Appearance: WD/WN, no acute distress HEENT: other - erythematous, edematous eyes Respiratory: lungs clear Cardiovascular: normal rate, regular rhythm Abdomen: soft, non tender Microbiology Date/Time Source Procedure Growth Status 10/09/20 17:14 Rectum Received 10/09/20 10:00 Nasopharynx SARS-CoV-2 RdRp Gene Assay - Final Complete Laboratory Tests 10/10/20 04:30: White Blood Count 3.8L, Red Blood Count 4.34L, Hemoglobin 12.7L, Hematocrit 36.8L, Mean Corpuscular Volume 85, Mean Corpuscular Hemoglobin 29.3, Mean Corpuscular Hemoglobin Concent 34.6, Red Cell Distribution Width 13.1, Platelet Count 169, Mean Platelet Volume 6.4L, Neutrophils (%) (Auto) 47.1, Lymphocytes (%) (Auto) 43.3, Monocytes (%) (Auto) 9.4, Eosinophils (%) (Auto) 0.1, Basophils (%) (Auto) 0.1, Sodium Level 135L, Potassium Level 3.4L, Chloride Level 101, Carbon Dioxide Level 28, Anion Gap 6, Blood Urea Nitrogen 9, Creatinine 1.0, Estimat Glomerular Filtration Rate > 60, Glucose Level 103, Calcium Level 7.8L, Total Bilirubin 0.4, Aspartate Amino Transf (AST/SGOT) 21, Alanine Aminotransferase (ALT/SGPT) 24, Alkaline Phosphatase 56, Troponin I 0.001, Pro-B-Type Natriuretic Peptide 301H, Total Protein 7.3, Albumin 3.3L, Globulin 4.0, Albumin/Globulin Ratio 0.8L Current Medications Medications (Trade) Dose Ordered Sig/Sidney Route PRN Reason Start Time Stop Time Status Last Admin Dose Admin Acetaminophen (Tylenol) 650 mg Q6H PRN ORAL For Headache 10/09/20 22:45 11/08/20 22:44 Alfuzosin HCl (Uroxatrol) 10 mg DAILY ORAL 10/10/20 09:00 11/09/20 08:59 10/10/20 13:23 Amlodipine Besylate (Norvasc) 10 mg DAILY ORAL 10/10/20 09:00 11/09/20 08:59 10/10/20 09:09 Chlorhexidine Gluconate (Beryl-Hex 2%) 1 applic QHS TOPIC 10/09/20 21:00 01/07/21 20:59 Clonazepam (KlonoPIN) 1 mg Q12HR ORAL 10/09/20 21:00 10/16/20 20:59 10/10/20 09:08 Enoxaparin Sodium (Lovenox) 40 mg DAILY SUBQ 10/10/20 09:00 01/08/21 08:59 10/10/20 09:10 Irbesartan (Avapro) 150 mg Q12HR ORAL 10/09/20 21:00 01/07/21 20:59 10/10/20 09:08 Metoprolol Succinate (Toprol XL) 50 mg DAILY ORAL 10/10/20 09:00 01/08/21 08:59 10/10/20 09:08 Pantoprazole (Protonix) 40 mg DAILY ORAL 10/10/20 09:00 11/09/20 08:59 10/10/20 09:08 Quetiapine Fumarate (SEROqueL) 300 mg Q12HR ORAL 10/09/20 21:00 11/23/20 20:59 10/10/20 09:08 Risperidone (RisperDAL) 2 mg Q12HR ORAL 10/09/20 21:00 11/23/20 20:59 10/10/20 09:09 Zolpidem Tartrate (Ambien) 5 mg HSPRN PRN ORAL Insomnia 10/09/20 20:30 10/16/20 20:29 10/09/20 22:37 Assessment/Plan Assessment/Plan 1. COVID-19 infection -Patient is currently saturating well on room air - s/p Azithromycin and ceftriaxone IV once in ER -Given his normoxemia without fever, clear lung sounds, and negative CXR, no specific therapy is required at this time -Continue monitoring SaO2 and provide supplemental oxygen as needed 2. Conjunctivitis -Per primary MD 3. Elevated CRP, D-dimer - s/p Lovenox in ER - Venous duplex US negative for DVT - no Lovenox 4. Hypertension - recommend continuing home antihypertensive meds - monitor BP 5. Kypokalemia - per primary MD The care for this patient was discussed with my supervising physician. Time spent for this case was approximately 31 minutes. Piyush Dent Oct 10, 2020 13:53
--- NOTE | 2020-10-10 14:00 | Diagnostic Imaging Report ---
Indication: Bilateral leg pain and shortness of breath Technique: Grayscale and duplex images of the bilateral lower extremity veins Comparison: Findings: Bilaterally, grayscale and duplex images demonstrate no evidence of intraluminal thrombus. Normal phasic Doppler waveforms, demonstrating normal augmentation response and no evidence of valvular insufficiency. Greater saphenous vein(s) and tibial veins are patent. Normal compressibility. Impression: Negative for evidence of lower extremity deep venous thrombosis bilaterally
--- NOTE | 2020-10-10 15:46 | Cardiac Electrophysiology PN ---
Assessment/Plan Assessment/Plan 1. Shortness of breath due to patient's COVID-19 infection. Currently saturating well on room air. Patient received azithromycin and ceftriaxone in the emergency room. Fu by Dr. Shell. 2. Hypertension. On amlodipine 10 mg daily and Toprol-XL 50 mg daily and Avapro 150 bid 3. Psychiatric history. Subjective Subjective In isolation for Covid. No CP. Eye irritation Objective Last 24 Hour Vital Signs Date Time Temp Pulse Resp B/P (MAP) Pulse Ox O2 Delivery O2 Flow Rate FiO2 10/10/20 12:00 98.2 80 21 137/76 (96) 97 10/10/20 09:09 76 121/77 10/10/20 09:08 121/77 10/10/20 09:08 76 121/77 10/10/20 09:00 Room Air 10/10/20 08:00 98.1 76 19 121/77 (92) 97 10/10/20 04:00 97.8 80 18 125/75 (92) 96 10/09/20 21:04 Room Air 10/09/20 21:00 138/76 10/09/20 20:00 97.5 80 18 138/76 (96) 96 10/09/20 17:55 97.7 82 18 115/63 (80) 94 10/09/20 17:36 98.0 77 19 128/74 98 Room Air 10/09/20 16:44 98.6 87 20 134/70 95 Room Air Intake and Output 10/09/20 10/10/20 19:00 07:00 Intake Total 880 ml Balance 880 ml Intake Oral 880 ml # Voids 1 3 Laboratory Tests Test 10/10/20 04:30 White Blood Count 3.8 K/UL (4.8-10.8) L Red Blood Count 4.34 M/UL (4.70-6.10) L Hemoglobin 12.7 G/DL (14.2-18.0) L Hematocrit 36.8 % (42.0-52.0) L Mean Corpuscular Volume 85 FL (80-99) Mean Corpuscular Hemoglobin 29.3 PG (27.0-31.0) Mean Corpuscular Hemoglobin Concent 34.6 G/DL (32.0-36.0) Red Cell Distribution Width 13.1 % (11.6-14.8) Platelet Count 169 K/UL (150-450) Mean Platelet Volume 6.4 FL (6.5-10.1) L Neutrophils (%) (Auto) 47.1 % (45.0-75.0) Lymphocytes (%) (Auto) 43.3 % (20.0-45.0) Monocytes (%) (Auto) 9.4 % (1.0-10.0) Eosinophils (%) (Auto) 0.1 % (0.0-3.0) Basophils (%) (Auto) 0.1 % (0.0-2.0) Sodium Level 135 MMOL/L (136-145) L Potassium Level 3.4 MMOL/L (3.5-5.1) L Chloride Level 101 MMOL/L (98-107) Carbon Dioxide Level 28 MMOL/L (21-32) Anion Gap 6 mmol/L (5-15) Blood Urea Nitrogen 9 mg/dL (7-18) Creatinine 1.0 MG/DL (0.55-1.30) Estimat Glomerular Filtration Rate > 60 mL/min (>60) Glucose Level 103 MG/DL (74-106) Calcium Level 7.8 MG/DL (8.5-10.1) L Total Bilirubin 0.4 MG/DL (0.2-1.0) Aspartate Amino Transf (AST/SGOT) 21 U/L (15-37) Alanine Aminotransferase (ALT/SGPT) 24 U/L (12-78) Alkaline Phosphatase 56 U/L (46-116) Troponin I 0.001 ng/mL (0.000-0.056) Pro-B-Type Natriuretic Peptide 301 pg/mL (0-125) H Total Protein 7.3 G/DL (6.4-8.2) Albumin 3.3 G/DL (3.4-5.0) L Globulin 4.0 g/dL Albumin/Globulin Ratio 0.8 (1.0-2.7) L Microbiology Date/Time Source Procedure Growth Status 10/09/20 17:14 Rectum Received 10/09/20 10:00 Nasopharynx SARS-CoV-2 RdRp Gene Assay - Final Complete Objective HEAD AND NECK: Shows mild JVD. Bilateral eyelids are edematous and erythematous. LUNGS: Clear. CARDIOVASCULAR: Shows regular S1 and S2 with no gallop. ABDOMEN: Soft. EXTREMITIES: 1+ pitting edema. Kirit Dave MD Oct 10, 2020 15:46
[2020-10-10 16:00] VITALS: BP 145/71
--- NOTE | 2020-10-10 16:45 | NUR ---
CASE MANAGEMENT:INITIAL REVIEW 65 YR OLD MALE BIBA FROM [facility] CC;GENERAL COMPLAINT SI;WEAKNESS. COVID-19 VIRAL INFECTION. 98.6 88 20 164/84 94% ON RA D-DIMER 1.13 UA+ KETONES COVID RAPID ~ POSITIVE CXR ~ No radiographic evidence of acute cardiopulmonary disease. IS;IVF NS BOLUS X2 ZITHROMAX IV ROCEPHIN IV LOVENOX SQ ADMITTED TO MED SURG MED SURG STATUS DCP;PENDING HOSPITAL STAY
--- NOTE | 2020-10-10 19:09 | NUR ---
NURSE HAND-OFF: Important Events on Shift:[uneventful day. no significant event] Patient Status: [stable] Diet: [reg] Pending Orders: [labs] Pending Results/Labs:[daily] Pending MD notification:[] Latest Vital Signs: Temperature 98.0 , Pulse 79 , B/P 145 /71 , Respiratory Rate 20 , O2 SAT 97 , Room Air, O2 Flow Rate . Vital Sign Comment: [] Latest Barreto Fall Score: 35 Fall Risk: Medium Risk Safety Measures: Call light Within Reach, Bed Alarm Zone 2, Side Rails Side Rails x3, Bed position Low and Locked. Fall Precautions: Yellow Socks Yellow Gown Door Sign Patient Fall Education Report given to [kassandra].
[2020-10-10 20:00] VITALS: BP 136/80
--- NOTE | 2020-10-10 20:50 | NUR ---
NURSE NOTES: Pt is in bed, awake and alert.Pt is calm. Pt able to ambulate. No acute distress noted. Room air. Pt instructed to call before getting out of bed. Fall precautions in place. bed locked low in position,side rails up and call light within reach.
[2020-10-10] MEDS: Dyna-Hex 2% Top Sol 2oz TOPIC SCH (21:00)
--- NOTE | 2020-10-10 22:12 | General Progress Note ---
Subjective ROS Limited/Unobtainable: Yes Allergies: Coded Allergies: No Known Allergies (Unverified , 07/31/20) Objective Last 24 Hour Vital Signs Date Time Temp Pulse Resp B/P (MAP) Pulse Ox O2 Delivery O2 Flow Rate FiO2 10/10/20 16:00 98.0 79 20 145/71 (95) 97 10/10/20 12:00 98.2 80 21 137/76 (96) 97 10/10/20 09:09 76 121/77 10/10/20 09:08 121/77 10/10/20 09:08 76 121/77 10/10/20 09:00 Room Air 10/10/20 08:00 98.1 76 19 121/77 (92) 97 10/10/20 04:00 97.8 80 18 125/75 (92) 96 Intake and Output 10/09/20 10/10/20 19:00 07:00 Intake Total 880 ml Balance 880 ml Intake Oral 880 ml # Voids 1 3 Laboratory Tests 10/10/20 04:30: White Blood Count 3.8L, Red Blood Count 4.34L, Hemoglobin 12.7L, Hematocrit 36.8L, Mean Corpuscular Volume 85, Mean Corpuscular Hemoglobin 29.3, Mean Corpuscular Hemoglobin Concent 34.6, Red Cell Distribution Width 13.1, Platelet Count 169, Mean Platelet Volume 6.4L, Neutrophils (%) (Auto) 47.1, Lymphocytes (%) (Auto) 43.3, Monocytes (%) (Auto) 9.4, Eosinophils (%) (Auto) 0.1, Basophils (%) (Auto) 0.1, Sodium Level 135L, Potassium Level 3.4L, Chloride Level 101, Carbon Dioxide Level 28, Anion Gap 6, Blood Urea Nitrogen 9, Creatinine 1.0, Estimat Glomerular Filtration Rate > 60, Glucose Level 103, Calcium Level 7.8L, Total Bilirubin 0.4, Aspartate Amino Transf (AST/SGOT) 21, Alanine Aminotransferase (ALT/SGPT) 24, Alkaline Phosphatase 56, Troponin I 0.001, Pro-B-Type Natriuretic Peptide 301H, Total Protein 7.3, Albumin 3.3L, Globulin 4.0, Albumin/Globulin Ratio 0.8L Height (Feet): 5 Height (Inches): 9.00 Weight (Pounds): 193 Assessment/Plan Problem List: (1) Headache ICD Codes: R51.9 - Headache, unspecified SNOMED: 94259974 (2) COVID-19 ICD Codes: U07.1 - COVID-19 SNOMED: 854650601 Status: progressing, tolerating diet Assessment/Plan: covid positive conjuctivitis abx per id Deng Gordillo MD Oct 10, 2020 22:12
[2020-10-10] MEDS: Zolpidem 5mg tab ORAL PRN (23:03)
[2020-10-11 04:00] VITALS: BP 120/78
--- NOTE | 2020-10-11 06:30 | NUR ---
NURSE NOTES: Pt is in bed calm. No acute distress noted.
--- NOTE | 2020-10-11 06:48 | Hematology/Onc Progress Note ---
Assessment/Plan Assessment/Plan Assessment/Plan 1. Leukopenia is related likely to COVID-19 infection++ --> Patient is currently saturating well on room air, per pulm --> s/p Azithromycin and ceftriaxone IV once in ER --> Continue monitoring SaO2 and provide supplemental oxygen as needed --> smear reviewed --> wbc 4.7-->3.8 2. Anemia due to likely chronic disease, infection --> trend hgb as needed hgb 13 3. Elevated CRP, D-dimer --> s/p Lovenox in ER --> DVX ppx recommended --> duplex lower leg r/o dvt 4. Hypertension --> recommend continuing home antihypertensive meds --> as per cards 5. Covid 19 as per pulm/id 6. Dvt ppx lovenox sq Appreciate consultation and dw Rn Subjective Constitutional: Denies: no symptoms, chills, fever, malaise, weakness, other Cardiovascular: Denies: no symptoms, chest pain, edema, irregular heart rate, lightheadedness, palpitations, syncope, other Gastrointestinal/Abdominal: Denies: no symptoms, abdomen distended, abdominal pain, black stools, tarry stools, blood in stool, constipated, diarrhea, difficulty swallowing, nausea, poor appetite, poor fluid intake, rectal bleeding, vomiting, other Genitourinary: Denies: no symptoms, burning, discharge, frequency, flank pain, hematuria, incontinence, pain, urgency, other Endocrine: Denies: no symptoms, excessive sweating, flushing, intolerance to cold, intolerance to heat, increased hunger, increased thirst, increased urine, unexplained weight gain, unexplained weight loss, other Allergies: Coded Allergies: No Known Allergies (Unverified , 07/31/20) Subjective 10/11 awake, no new events, no bleeding, labs noted, ambulating Objective Objective Current Medications Medications (Trade) Dose Ordered Sig/Sidney Route PRN Reason Start Time Stop Time Status Last Admin Dose Admin Acetaminophen (Tylenol) 650 mg Q6H PRN ORAL For Headache 10/09/20 22:45 11/08/20 22:44 Alfuzosin HCl (Uroxatrol) 10 mg DAILY ORAL 10/10/20 09:00 11/09/20 08:59 10/10/20 13:23 Amlodipine Besylate (Norvasc) 10 mg DAILY ORAL 10/10/20 09:00 11/09/20 08:59 10/10/20 09:09 Chlorhexidine Gluconate (Beryl-Hex 2%) 1 applic QHS TOPIC 10/09/20 21:00 01/07/21 20:59 Clonazepam (KlonoPIN) 1 mg Q12HR ORAL 10/09/20 21:00 10/16/20 20:59 10/10/20 21:00 Enoxaparin Sodium (Lovenox) 40 mg DAILY SUBQ 10/10/20 09:00 01/08/21 08:59 10/10/20 09:10 Irbesartan (Avapro) 150 mg Q12HR ORAL 10/09/20 21:00 01/07/21 20:59 10/10/20 21:00 Metoprolol Succinate (Toprol XL) 50 mg DAILY ORAL 10/10/20 09:00 01/08/21 08:59 10/10/20 09:08 Pantoprazole (Protonix) 40 mg DAILY ORAL 10/10/20 09:00 11/09/20 08:59 10/10/20 09:08 Quetiapine Fumarate (SEROqueL) 300 mg Q12HR ORAL 10/09/20 21:00 11/23/20 20:59 10/10/20 21:00 Risperidone (RisperDAL) 2 mg Q12HR ORAL 10/09/20 21:00 11/23/20 20:59 10/10/20 21:00 Zolpidem Tartrate (Ambien) 5 mg HSPRN PRN ORAL Insomnia 10/09/20 20:30 10/16/20 20:29 10/10/20 23:03 Last 24 Hour Vital Signs Date Time Temp Pulse Resp B/P (MAP) Pulse Ox O2 Delivery O2 Flow Rate FiO2 10/10/20 22:00 Room Air 10/10/20 21:00 136/80 10/10/20 20:00 98.1 89 20 136/80 (98) 97 10/10/20 16:00 98.0 79 20 145/71 (95) 97 10/10/20 12:00 98.2 80 21 137/76 (96) 97 10/10/20 09:09 76 121/77 10/10/20 09:08 121/77 10/10/20 09:08 76 121/77 10/10/20 09:00 Room Air 10/10/20 08:00 98.1 76 19 121/77 (92) 97 10/10/20 04:00 97.8 80 18 125/75 (92) 96 10/09/20 21:04 Room Air 10/09/20 21:00 138/76 10/09/20 20:00 97.5 80 18 138/76 (96) 96 10/09/20 17:55 97.7 82 18 115/63 (80) 94 10/09/20 17:36 98.0 77 19 128/74 98 Room Air 10/09/20 16:44 98.6 87 20 134/70 95 Room Air 10/09/20 13:18 98.2 85 19 158/82 99 Room Air 10/09/20 09:39 98.2 18 164/84 94 Room Air 10/09/20 09:39 88 18 Room Air 10/09/20 09:19 98.2 88 18 164/84 (110) 94 Room Air Intake and Output 10/10/20 10/11/20 19:00 07:00 Intake Total 720 ml Balance 720 ml Intake Oral 720 ml # Voids 1 Labs Test 10/09/20 10:00 10/10/20 04:30 White Blood Count 4.7 K/UL (4.8-10.8) 3.8 K/UL (4.8-10.8) Red Blood Count 4.46 M/UL (4.70-6.10) 4.34 M/UL (4.70-6.10) Hemoglobin 13.1 G/DL (14.2-18.0) 12.7 G/DL (14.2-18.0) Hematocrit 35.9 % (42.0-52.0) 36.8 % (42.0-52.0) Mean Corpuscular Volume 80 FL (80-99) 85 FL (80-99) Mean Corpuscular Hemoglobin 29.3 PG (27.0-31.0) 29.3 PG (27.0-31.0) Mean Corpuscular Hemoglobin Concent 36.5 G/DL (32.0-36.0) 34.6 G/DL (32.0-36.0) Red Cell Distribution Width 14.5 % (11.6-14.8) 13.1 % (11.6-14.8) Platelet Count 187 K/UL (150-450) 169 K/UL (150-450) Mean Platelet Volume 6.6 FL (6.5-10.1) 6.4 FL (6.5-10.1) Neutrophils (%) (Auto) 58.0 % (45.0-75.0) 47.1 % (45.0-75.0) Lymphocytes (%) (Auto) 30.1 % (20.0-45.0) 43.3 % (20.0-45.0) Monocytes (%) (Auto) 10.9 % (1.0-10.0) 9.4 % (1.0-10.0) Eosinophils (%) (Auto) 0.5 % (0.0-3.0) 0.1 % (0.0-3.0) Basophils (%) (Auto) 0.7 % (0.0-2.0) 0.1 % (0.0-2.0) Prothrombin Time 11.2 SEC (9.30-11.50) Prothromb Time International Ratio 1.0 (0.9-1.1) Activated Partial Thromboplast Time 31 SEC (23-33) D-Dimer 1.13 mg/L FEU (0.00-0.49) Urine Color Pale yellow Urine Appearance Clear Urine pH 8 (4.5-8.0) Urine Specific [place] 1.015 (1.005-1.035) Urine Protein Negative (NEGATIVE) Urine Glucose (UA) Negative (NEGATIVE) Urine Ketones 2+ (NEGATIVE) Urine Blood Negative (NEGATIVE) Urine Nitrite Negative (NEGATIVE) Urine Bilirubin Negative (NEGATIVE) Urine Urobilinogen Normal MG/DL (0.0-1.0) Urine Leukocyte Esterase Negative (NEGATIVE) Sodium Level 138 MMOL/L (136-145) 135 MMOL/L (136-145) Potassium Level 3.8 MMOL/L (3.5-5.1) 3.4 MMOL/L (3.5-5.1) Chloride Level 104 MMOL/L (98-107) 101 MMOL/L (98-107) Carbon Dioxide Level 28 MMOL/L (21-32) 28 MMOL/L (21-32) Anion Gap 6 mmol/L (5-15) 6 mmol/L (5-15) Blood Urea Nitrogen 12 mg/dL (7-18) 9 mg/dL (7-18) Creatinine 1.3 MG/DL (0.55-1.30) 1.0 MG/DL (0.55-1.30) Estimat Glomerular Filtration Rate 55.1 mL/min (>60) > 60 mL/min (>60) Glucose Level 125 MG/DL (74-106) 103 MG/DL (74-106) Calcium Level 8.1 MG/DL (8.5-10.1) 7.8 MG/DL (8.5-10.1) Ferritin 47 NG/ML (8-388) Total Bilirubin 0.3 MG/DL (0.2-1.0) 0.4 MG/DL (0.2-1.0) Aspartate Amino Transf (AST/SGOT) 23 U/L (15-37) 21 U/L (15-37) Alanine Aminotransferase (ALT/SGPT) 26 U/L (12-78) 24 U/L (12-78) Alkaline Phosphatase 61 U/L (46-116) 56 U/L (46-116) Lactate Dehydrogenase 187 U/L (81-234) C-Reactive Protein, Quantitative 2.0 mg/dL (0.00-0.90) Total Protein 7.8 G/DL (6.4-8.2) 7.3 G/DL (6.4-8.2) Albumin 3.7 G/DL (3.4-5.0) 3.3 G/DL (3.4-5.0) Globulin 4.1 g/dL 4.0 g/dL Albumin/Globulin Ratio 0.9 (1.0-2.7) 0.8 (1.0-2.7) Troponin I 0.001 ng/mL (0.000-0.056) Pro-B-Type Natriuretic Peptide 301 pg/mL (0-125) Height (Feet): 5 Height (Inches): 9.00 Weight (Pounds): 193 Objective PHYSICAL EXAMINATION: VITAL SIGNS: reviewed HEENT: Head exam reveals that the head is normocephalic, atraumatic without deformity or unusual swelling. CHEST AND LUNGS: Reveals clear, normal, symmetrical breath sounds with no adventitious sounds. CARDIOVASCULAR: Reveals normal S1, S2 without murmurs, rubs, or clicks. ABDOMEN: Obese, soft with no tenderness or organomegaly. A well-healed midline linear vertical scar in the abdomen ++ RECTAL: Deferred. MUSCULOSKELETAL: There is no tenderness to palpation. Range of motion is normal. NEUROLOGICAL: Alert and oriented x3 , nonfocal Alek Sabillon MD Oct 11, 2020 06:48
--- NOTE | 2020-10-11 07:20 | NUR ---
NURSE HAND-OFF: Important Events on Shift:[] Patient Status: [Stable] Diet: [] Pending Orders: [] Pending Results/Labs:[] Pending MD notification:[] Latest Vital Signs: Temperature 98.2 , Pulse 82 , B/P 120 /78 , Respiratory Rate 20 , O2 SAT 97 , Room Air, O2 Flow Rate . Vital Sign Comment: [] Latest Barreto Fall Score: 35 Fall Risk: Medium Risk Safety Measures: Call light Within Reach, Bed Alarm Zone 2, Side Rails Side Rails x3, Bed position Low and Locked. Fall Precautions: Yellow Socks Yellow Gown Door Sign Patient Fall Education Report given to [Magen Caputo RN].
[2020-10-11 07:46] LABS: BASOPHILS % (AUTO) 0.2 % (0.0-2.0); EOSINOPHILS % (AUTO) 0.5 % (0.0-3.0); HEMATOCRIT 41.4 % (42.0-52.0); HEMOGLOBIN 13.2 G/DL (14.2-18.0); LYMPHOCYTES % (AUTO) 34.5 % (20.0-45.0); MEAN CORPUSCULAR VOLUME 90 FL (80-99); MONOCYTES % (AUTO) 9.1 % (1.0-10.0); NEUTROPHILS % (AUTO) 55.8 % (45.0-75.0); PLATELET COUNT 192 K/UL (150-450); RED BLOOD COUNT 4.62 M/UL (4.70-6.10); RED CELL DISTRIBUTION WIDTH 12.9 % (11.6-14.8); WHITE BLOOD COUNT 4.3 K/UL (4.8-10.8)
[2020-10-11 08:00] VITALS: BP 126/78
[2020-10-11 08:11] LABS: CREATININE 1.3 MG/DL (0.55-1.30); POTASSIUM 3.5 MMOL/L (3.5-5.1)
--- NOTE | 2020-10-11 08:17 | NUR ---
NURSE NOTES: Received report from Pk RN. Patient is asleep during in rounds, in no distress, RR even and unlabored, on room air. Side rails upx2, bed low and locked, call light within reach.
[2020-10-11] MEDS: Metoprolol Succinate XL 50mg tab ORAL SCH (10:08)
[2020-10-11] MEDS: Irbesartan 150mg tablet ORAL SCH ×2 (10:08→22:25)
[2020-10-11] MEDS: Enoxaparin 40mg Inj SUBQ SCH (10:09)
[2020-10-11 12:00] VITALS: BP 122/73
--- NOTE | 2020-10-11 12:38 | NUR ---
NURSE NOTES: Notified Dr. Liu that patient has temp 100.5 and was placed on 2L NC for 02 saturation less than 94%. Per MD, ok to order oxygen and given Tylenol for fever. Orders read back and entered.
[2020-10-11 16:00] VITALS: BP 131/68
--- NOTE | 2020-10-11 16:08 | Pulmonology Progress Note ---
Subjective ROS Limited/Unobtainable: Yes Interval Events: new onset fever, better with antipyretics Constitutional: Reports: no symptoms HEENT: Repors: other - eye pain Respiratory: Reports: no symptoms Cardiovascular: Reports: no symptoms Gastrointestinal/Abdominal: Reports: no symptoms Genitourinary: Reports: no symptoms Allergies: Coded Allergies: No Known Allergies (Unverified , 07/31/20) Objective Last 24 Hour Vital Signs Date Time Temp Pulse Resp B/P (MAP) Pulse Ox O2 Delivery O2 Flow Rate FiO2 10/11/20 12:00 100.5 105 16 122/73 (89) 95 10/11/20 10:08 126/78 10/11/20 10:08 111 126/78 10/11/20 10:08 111 126/78 10/11/20 09:00 Nasal Cannula 2.0 10/11/20 08:00 99.3 111 18 126/78 (94) 92 10/11/20 04:00 98.2 82 20 120/78 (92) 97 10/10/20 22:00 Room Air 10/10/20 21:00 136/80 10/10/20 20:00 98.1 89 20 136/80 (98) 97 Intake and Output 10/10/20 10/11/20 19:00 07:00 Intake Total 720 ml 800 ml Balance 720 ml 800 ml Intake Oral 720 ml 800 ml # Voids 1 2 Objective 10/11 now on 2L saturating well 10/10 on room air saturating well General Appearance: WD/WN, no acute distress HEENT: other - erythematous, edematous eyes Respiratory: lungs clear Cardiovascular: normal rate, regular rhythm Abdomen: soft, non tender Microbiology Date/Time Source Procedure Growth Status 10/09/20 17:14 Rectum - Final NO CARBAPENEM-RESISTANT ENTEROBACTERI... Complete 10/09/20 17:14 Rectum VRE Culture - Final NO VANCOMYCIN RESISTANT ENTEROCOCCUS ... Complete 10/09/20 17:14 Nasal Nares MRSA Culture - Final NO METHICILLIN RESISTANT STAPH AUREUS... Complete 10/09/20 10:00 Nasopharynx SARS-CoV-2 RdRp Gene Assay - Final Complete Laboratory Tests 10/11/20 05:15: White Blood Count 4.3L, Red Blood Count 4.62L, Hemoglobin 13.2L, Hematocrit 41.4L, Mean Corpuscular Volume 90, Mean Corpuscular Hemoglobin 28.7, Mean Corpuscular Hemoglobin Concent 32.0, Red Cell Distribution Width 12.9, Platelet Count 192, Mean Platelet Volume 6.0L, Neutrophils (%) (Auto) 55.8, Lymphocytes (%) (Auto) 34.5, Monocytes (%) (Auto) 9.1, Eosinophils (%) (Auto) 0.5, Basophils (%) (Auto) 0.2, Sodium Level 139, Potassium Level 3.5, Chloride Level 104, Carbon Dioxide Level 29, Anion Gap 6, Blood Urea Nitrogen 11, Creatinine 1.3, Estimat Glomerular Filtration Rate 55.1, Glucose Level 85, Calcium Level 8.0L Current Medications Medications (Trade) Dose Ordered Sig/Sidney Route PRN Reason Start Time Stop Time Status Last Admin Dose Admin Acetaminophen (Tylenol) 650 mg Q6H PRN ORAL HEADACHE OR FEVER >100 10/09/20 22:45 11/08/20 22:44 Alfuzosin HCl (Uroxatrol) 10 mg DAILY ORAL 10/10/20 09:00 11/09/20 08:59 10/11/20 10:07 Amlodipine Besylate (Norvasc) 10 mg DAILY ORAL 10/10/20 09:00 11/09/20 08:59 10/11/20 10:08 Chlorhexidine Gluconate (Beryl-Hex 2%) 1 applic QHS TOPIC 10/09/20 21:00 01/07/21 20:59 Clonazepam (KlonoPIN) 1 mg Q12HR ORAL 10/09/20 21:00 10/16/20 20:59 10/11/20 10:08 Enoxaparin Sodium (Lovenox) 40 mg DAILY SUBQ 10/10/20 09:00 01/08/21 08:59 10/11/20 10:09 Irbesartan (Avapro) 150 mg Q12HR ORAL 10/09/20 21:00 01/07/21 20:59 10/11/20 10:08 Metoprolol Succinate (Toprol XL) 50 mg DAILY ORAL 10/10/20 09:00 01/08/21 08:59 10/11/20 10:08 Pantoprazole (Protonix) 40 mg DAILY ORAL 10/10/20 09:00 11/09/20 08:59 10/11/20 10:07 Quetiapine Fumarate (SEROqueL) 300 mg Q12HR ORAL 10/09/20 21:00 11/23/20 20:59 10/11/20 10:08 Risperidone (RisperDAL) 2 mg Q12HR ORAL 10/09/20 21:00 11/23/20 20:59 10/11/20 10:08 Zolpidem Tartrate (Ambien) 5 mg HSPRN PRN ORAL Insomnia 10/09/20 20:30 10/16/20 20:29 10/10/20 23:03 Assessment/Plan Assessment/Plan 1. COVID-19 infection - now saturating well on 2L NC - s/p Azithromycin and ceftriaxone IV once in ER -Given his normoxemia without fever, clear lung sounds, and negative CXR, no specific therapy is required at this time -Continue monitoring SaO2 and provide supplemental oxygen as needed 2. Conjunctivitis -Per primary MD 3. Elevated CRP, D-dimer - s/p Lovenox in ER - Venous duplex US negative for DVT - no Lovenox 4. Hypertension - on metoprolol and amlodipine - monitor BP 5. Kypokalemia - per primary MD 7. New onset fever - better on antipyretics - likely advancement of COVID-19, vs UTI - consider UA if fever persistent - management per primary MD The care for this patient was discussed with my supervising physician. Time spent for this case was approximately 31 minutes. Piyush Dent Oct 11, 2020 16:08
--- NOTE | 2020-10-11 16:41 | General Progress Note ---
Subjective ROS Limited/Unobtainable: Yes Allergies: Coded Allergies: No Known Allergies (Unverified , 07/31/20) Objective Last 24 Hour Vital Signs Date Time Temp Pulse Resp B/P (MAP) Pulse Ox O2 Delivery O2 Flow Rate FiO2 10/11/20 12:00 100.5 105 16 122/73 (89) 95 10/11/20 10:08 126/78 10/11/20 10:08 111 126/78 10/11/20 10:08 111 126/78 10/11/20 09:00 Nasal Cannula 2.0 10/11/20 08:00 99.3 111 18 126/78 (94) 92 10/11/20 04:00 98.2 82 20 120/78 (92) 97 10/10/20 22:00 Room Air 10/10/20 21:00 136/80 10/10/20 20:00 98.1 89 20 136/80 (98) 97 Intake and Output 10/10/20 10/11/20 19:00 07:00 Intake Total 720 ml 800 ml Balance 720 ml 800 ml Intake Oral 720 ml 800 ml # Voids 1 2 Laboratory Tests 10/11/20 05:15: White Blood Count 4.3L, Red Blood Count 4.62L, Hemoglobin 13.2L, Hematocrit 41.4L, Mean Corpuscular Volume 90, Mean Corpuscular Hemoglobin 28.7, Mean Corpuscular Hemoglobin Concent 32.0, Red Cell Distribution Width 12.9, Platelet Count 192, Mean Platelet Volume 6.0L, Neutrophils (%) (Auto) 55.8, Lymphocytes (%) (Auto) 34.5, Monocytes (%) (Auto) 9.1, Eosinophils (%) (Auto) 0.5, Basophils (%) (Auto) 0.2, Sodium Level 139, Potassium Level 3.5, Chloride Level 104, Carbon Dioxide Level 29, Anion Gap 6, Blood Urea Nitrogen 11, Creatinine 1.3, Estimat Glomerular Filtration Rate 55.1, Glucose Level 85, Calcium Level 8.0L Height (Feet): 5 Height (Inches): 9.00 Weight (Pounds): 193 Assessment/Plan Problem List: (1) Headache ICD Codes: R51.9 - Headache, unspecified SNOMED: 64858336 (2) COVID-19 ICD Codes: U07.1 - COVID-19 SNOMED: 412571808 Status: progressing, tolerating diet Assessment/Plan: covid positive afebrile h/o atrial tachycardia abx per id Deng Liu MD Oct 11, 2020 16:41
[2020-10-11] MEDS: Ciprofloxacin Opth Soln 5ml BOTH EYES SCH ×2 (18:32→22:26)
--- NOTE | 2020-10-11 18:44 | Consultation ---
DATE OF CONSULTATION: 10/11/2020 INFECTIOUS DISEASE CONSULT PRIMARY ATTENDING PHYSICIAN: Deng Liu M.D. REASON FOR CONSULT: COVID-19. HISTORY OF PRESENT ILLNESS: This is a 65-year-old white male admitted on October 09, 2020 from a [facility] facility, originally complaining of right eye pain. Also had some coughing. It was found the patient was positive for COVID. Today developed fever and tachycardia with a maximum temperature of 100.5 and heart rate of 104. PAST MEDICAL HISTORY: COPD, Hypertension, schizoaffective disorder, hepatitis C. ALLERGIES: No known drug allergies. MEDICATIONS: Enoxaparin, Protonix, metoprolol, amlodipine, alfuzosin, Seroquel,, clonazepam, Risperdal, Ambien. SOCIAL HISTORY: [facility] resident. Single. Denies alcohol, drug abuse, or smoking. REVIEW OF SYSTEMS: Has eye pain, dry cough, mild shortness of breath. PHYSICAL EXAMINATION: VITAL SIGNS: Temperature 100, pulse 104, blood pressure 131/58. GENERAL APPEARANCE: Well developed. HEAD AND NECK: Bilateral conjunctival erythema. Has some bulbar conjunctival edema also on the left side. HEART: Tachycardic. LUNGS: Clear. Getting oxygen by nasal cannula at 2 L. ABDOMEN: Soft, nontender. EXTREMITIES: No edema. NEUROLOGIC: Awake, alert, responsive, verbal. LABORATORY AND DIAGNOSTIC DATA: Sodium 139, potassium 3.5, chloride 104, bicarb 29, BUN 11, creatinine 1.3, glucose is 85. WBC 4.3, hemoglobin 13.2, hematocrit 41.4, platelets are 192. UA was negative. Chest x-ray was negative. IMPRESSION: 1. Sepsis with low-grade fever and leukocytosis and tachycardia. 2. COVID-19 disease. 3. Conjunctivitis. 4. History of COPD. 5. History of hepatitis C. 6. History of corneal abrasion. RECOMMENDATIONS: We will repeat chest x-ray. We will give the patient Cipro eye drops. Wait for the ophthalmologic evaluation outside. We will follow up on the clinical course. At the end of my exam, I thank Dr. Liu for involving me in the care of this patient. Harsh Bowser M.D. DR: MARRY JOB#: [id number] CC: [email or web address]
--- NOTE | 2020-10-11 19:21 | Cardiac Electrophysiology PN ---
Assessment/Plan Assessment/Plan 1. Shortness of breath due to COVID-19 infection. Currently saturating well on room air. Patient received azithromycin and ceftriaxone. Fu by Dr. Shell. 2. Hypertension. On amlodipine 10 mg daily and Toprol-XL 50 mg daily and Avapro 150 bid 3. Psychiatric history. Subjective Subjective In isolation for Covid. No CP or SOB Objective Last 24 Hour Vital Signs Date Time Temp Pulse Resp B/P (MAP) Pulse Ox O2 Delivery O2 Flow Rate FiO2 10/11/20 16:00 100.0 104 16 131/68 (89) 97 10/11/20 12:00 100.5 105 16 122/73 (89) 95 10/11/20 10:08 126/78 10/11/20 10:08 111 126/78 10/11/20 10:08 111 126/78 10/11/20 09:00 Nasal Cannula 2.0 10/11/20 08:00 99.3 111 18 126/78 (94) 92 10/11/20 04:00 98.2 82 20 120/78 (92) 97 10/10/20 22:00 Room Air 10/10/20 21:00 136/80 10/10/20 20:00 98.1 89 20 136/80 (98) 97 Intake and Output 10/10/20 10/11/20 19:00 07:00 Intake Total 720 ml 800 ml Balance 720 ml 800 ml Intake Oral 720 ml 800 ml # Voids 1 2 Laboratory Tests Test 10/11/20 05:15 White Blood Count 4.3 K/UL (4.8-10.8) L Red Blood Count 4.62 M/UL (4.70-6.10) L Hemoglobin 13.2 G/DL (14.2-18.0) L Hematocrit 41.4 % (42.0-52.0) L Mean Corpuscular Volume 90 FL (80-99) Mean Corpuscular Hemoglobin 28.7 PG (27.0-31.0) Mean Corpuscular Hemoglobin Concent 32.0 G/DL (32.0-36.0) Red Cell Distribution Width 12.9 % (11.6-14.8) Platelet Count 192 K/UL (150-450) Mean Platelet Volume 6.0 FL (6.5-10.1) L Neutrophils (%) (Auto) 55.8 % (45.0-75.0) Lymphocytes (%) (Auto) 34.5 % (20.0-45.0) Monocytes (%) (Auto) 9.1 % (1.0-10.0) Eosinophils (%) (Auto) 0.5 % (0.0-3.0) Basophils (%) (Auto) 0.2 % (0.0-2.0) Sodium Level 139 MMOL/L (136-145) Potassium Level 3.5 MMOL/L (3.5-5.1) Chloride Level 104 MMOL/L (98-107) Carbon Dioxide Level 29 MMOL/L (21-32) Anion Gap 6 mmol/L (5-15) Blood Urea Nitrogen 11 mg/dL (7-18) Creatinine 1.3 MG/DL (0.55-1.30) Estimat Glomerular Filtration Rate 55.1 mL/min (>60) Glucose Level 85 MG/DL (74-106) Calcium Level 8.0 MG/DL (8.5-10.1) L Microbiology Date/Time Source Procedure Growth Status 10/09/20 17:14 Rectum - Final NO CARBAPENEM-RESISTANT ENTEROBACTERI... Complete 10/09/20 17:14 Rectum VRE Culture - Final NO VANCOMYCIN RESISTANT ENTEROCOCCUS ... Complete 10/09/20 17:14 Nasal Nares MRSA Culture - Final NO METHICILLIN RESISTANT STAPH AUREUS... Complete 10/09/20 10:00 Nasopharynx SARS-CoV-2 RdRp Gene Assay - Final Complete Objective HEAD AND NECK: Shows mild JVD. Bilateral eyelids are edematous and erythematous. LUNGS: Clear. CARDIOVASCULAR: Shows regular S1 and S2 with no gallop. ABDOMEN: Soft. EXTREMITIES: 1+ pitting edema. Kirit Dave MD Oct 11, 2020 19:21
--- NOTE | 2020-10-11 19:39 | NUR ---
NURSE HAND-OFF: Important Events on Shift: Febrile, oxygen therapy Patient Status: stable Diet: reg Pending Orders: n/a Pending Results/Labs: n/a Pending MD notification: n/a Latest Vital Signs: Temperature 100.0 , Pulse 104 , B/P 131 /68 , Respiratory Rate 16 , O2 SAT 97 Vital Sign Comment: VS stable Latest Barreto Fall Score: 35 Fall Risk: Medium Risk Safety Measures: Call light Within Reach, Bed Alarm Zone 2, Side Rails Side Rails x3, Bed position Low and Locked. Fall Precautions: Yellow Socks Door Sign Patient Fall Education Report given to Susie ROTH.
--- NOTE | 2020-10-11 19:41 | NUR ---
NURSE NOTES: Pt is in bed, awake and alert.Pt is calm at this time and Pt able to ambulate. No acute distress noted. Room air. Pt instructed to call before getting out of bed. Fall precautions in place. bed locked low in position,side rails up, bed alarm on and call light within reach.
[2020-10-11 20:00] VITALS: BP 144/74
[2020-10-11] MEDS: Dyna-Hex 2% Top Sol 2oz TOPIC SCH (21:00)
[2020-10-11] MEDS: Zolpidem 5mg tab ORAL PRN (22:25)
[2020-10-12 00:29] VITALS: BP 122/70
[2020-10-12 04:00] VITALS: BP 130/76
--- NOTE | 2020-10-12 06:53 | Hematology/Onc Progress Note ---
Assessment/Plan Assessment/Plan Assessment/Plan 1. Leukopenia is related likely to COVID-19 infection+++++++++++ --> Patient is currently saturating well on room air, per pulm --> s/p Azithromycin and ceftriaxone IV once in ER --> Continue monitoring SaO2 and provide supplemental oxygen as needed --> smear reviewed --> wbc 4.7-->3.8 --> neupogen prn 2. Anemia due to likely chronic disease, infection --> trend hgb as needed hgb 13 3. Elevated CRP, D-dimer --> s/p Lovenox in ER --> DVX ppx recommended --> duplex lower leg r/o dvt 4. Hypertension --> recommend continuing home antihypertensive meds --> as per cards 5. Covid 19 as per pulm/id 6. Dvt ppx lovenox sq Appreciate consultation and marly Rn Subjective HEENT: Denies: no symptoms, eye pain, blurred vision, tearing, double vision, ear pain, ear discharge, nose pain, nose congestion, throat pain, throat swelling, mouth pain, mouth swelling, other Cardiovascular: Denies: no symptoms, chest pain, edema, irregular heart rate, lightheadedness, palpitations, syncope, other Respiratory: Denies: no symptoms, cough, shortness of breath, SOB with excertion, SOB at rest, sputum, wheezing, other Gastrointestinal/Abdominal: Denies: no symptoms, abdomen distended, abdominal pain, black stools, tarry stools, blood in stool, constipated, diarrhea, difficulty swallowing, nausea, poor appetite, poor fluid intake, rectal bleeding, vomiting, other Genitourinary: Denies: no symptoms, burning, discharge, frequency, flank pain, hematuria, incontinence, pain, urgency, other Neurologic/Psychiatric: Denies: no symptoms, anxiety, depressed, emotional problems, headache, numbness, paresthesia, pre-existing deficit, seizure, tingling, tremors, weakness, other Endocrine: Denies: no symptoms, excessive sweating, flushing, intolerance to cold, intolerance to heat, increased hunger, increased thirst, increased urine, unexplained weight gain, unexplained weight loss, other Hematologic/Lymphatic: Denies: no symptoms, anemia, easy bleeding, easy bruising, adenopathy, other Allergies: Coded Allergies: No Known Allergies (Unverified , 07/31/20) Subjective 10/11 awake, no new events, no bleeding, labs noted, ambulating 10/12 covid iso, is on ra, no bleeding, labs noted, meds reviewed Objective Objective Current Medications Medications (Trade) Dose Ordered Sig/Sidney Route PRN Reason Start Time Stop Time Status Last Admin Dose Admin Acetaminophen (Tylenol) 650 mg Q6H PRN ORAL HEADACHE OR FEVER >100 10/09/20 22:45 11/08/20 22:44 Alfuzosin HCl (Uroxatrol) 10 mg DAILY ORAL 10/10/20 09:00 11/09/20 08:59 10/11/20 10:07 Amlodipine Besylate (Norvasc) 10 mg DAILY ORAL 10/10/20 09:00 11/09/20 08:59 10/11/20 10:08 Chlorhexidine Gluconate (Beryl-Hex 2%) 1 applic QHS TOPIC 10/09/20 21:00 01/07/21 20:59 Ciprofloxacin (Ciloxan Opth Soln) 1 drop Q6HR BOTH EYES 10/11/20 18:30 10/18/20 18:29 10/11/20 22:26 Clonazepam (KlonoPIN) 1 mg Q12HR ORAL 10/09/20 21:00 10/16/20 20:59 10/11/20 22:24 Enoxaparin Sodium (Lovenox) 40 mg DAILY SUBQ 10/10/20 09:00 01/08/21 08:59 10/11/20 10:09 Irbesartan (Avapro) 150 mg Q12HR ORAL 10/09/20 21:00 01/07/21 20:59 10/11/20 22:25 Metoprolol Succinate (Toprol XL) 50 mg DAILY ORAL 10/10/20 09:00 01/08/21 08:59 10/11/20 10:08 Pantoprazole (Protonix) 40 mg DAILY ORAL 10/10/20 09:00 11/09/20 08:59 10/11/20 10:07 Quetiapine Fumarate (SEROqueL) 300 mg Q12HR ORAL 10/09/20 21:00 11/23/20 20:59 10/11/20 22:25 Risperidone (RisperDAL) 2 mg Q12HR ORAL 10/09/20 21:00 11/23/20 20:59 10/11/20 22:25 Zolpidem Tartrate (Ambien) 5 mg HSPRN PRN ORAL Insomnia 10/09/20 20:30 10/16/20 20:29 10/11/20 22:25 Last 24 Hour Vital Signs Date Time Temp Pulse Resp B/P (MAP) Pulse Ox O2 Delivery O2 Flow Rate FiO2 10/12/20 00:29 99.0 112 20 122/70 (87) 97 10/11/20 22:25 144/74 10/11/20 21:00 Room Air 10/11/20 20:00 98.7 120 20 144/74 (97) 97 10/11/20 16:00 100.0 104 16 131/68 (89) 97 10/11/20 12:00 100.5 105 16 122/73 (89) 95 10/11/20 10:08 126/78 10/11/20 10:08 111 126/78 10/11/20 10:08 111 126/78 10/11/20 09:00 Nasal Cannula 2.0 10/11/20 08:00 99.3 111 18 126/78 (94) 92 10/11/20 04:00 98.2 82 20 120/78 (92) 97 10/10/20 22:00 Room Air 10/10/20 21:00 136/80 10/10/20 20:00 98.1 89 20 136/80 (98) 97 10/10/20 16:00 98.0 79 20 145/71 (95) 97 10/10/20 12:00 98.2 80 21 137/76 (96) 97 10/10/20 09:09 76 121/77 10/10/20 09:08 121/77 10/10/20 09:08 76 121/77 10/10/20 09:00 Room Air 10/10/20 08:00 98.1 76 19 121/77 (92) 97 Intake and Output 10/11/20 10/12/20 19:00 07:00 Intake Total 400 ml Balance 400 ml Intake Oral 400 ml # Voids 1 Labs Test 10/09/20 10:00 10/10/20 04:30 10/11/20 05:15 White Blood Count 4.7 K/UL (4.8-10.8) 3.8 K/UL (4.8-10.8) 4.3 K/UL (4.8-10.8) Red Blood Count 4.46 M/UL (4.70-6.10) 4.34 M/UL (4.70-6.10) 4.62 M/UL (4.70-6.10) Hemoglobin 13.1 G/DL (14.2-18.0) 12.7 G/DL (14.2-18.0) 13.2 G/DL (14.2-18.0) Hematocrit 35.9 % (42.0-52.0) 36.8 % (42.0-52.0) 41.4 % (42.0-52.0) Mean Corpuscular Volume 80 FL (80-99) 85 FL (80-99) 90 FL (80-99) Mean Corpuscular Hemoglobin 29.3 PG (27.0-31.0) 29.3 PG (27.0-31.0) 28.7 PG (27.0-31.0) Mean Corpuscular Hemoglobin Concent 36.5 G/DL (32.0-36.0) 34.6 G/DL (32.0-36.0) 32.0 G/DL (32.0-36.0) Red Cell Distribution Width 14.5 % (11.6-14.8) 13.1 % (11.6-14.8) 12.9 % (11.6-14.8) Platelet Count 187 K/UL (150-450) 169 K/UL (150-450) 192 K/UL (150-450) Mean Platelet Volume 6.6 FL (6.5-10.1) 6.4 FL (6.5-10.1) 6.0 FL (6.5-10.1) Neutrophils (%) (Auto) 58.0 % (45.0-75.0) 47.1 % (45.0-75.0) 55.8 % (45.0-75.0) Lymphocytes (%) (Auto) 30.1 % (20.0-45.0) 43.3 % (20.0-45.0) 34.5 % (20.0-45.0) Monocytes (%) (Auto) 10.9 % (1.0-10.0) 9.4 % (1.0-10.0) 9.1 % (1.0-10.0) Eosinophils (%) (Auto) 0.5 % (0.0-3.0) 0.1 % (0.0-3.0) 0.5 % (0.0-3.0) Basophils (%) (Auto) 0.7 % (0.0-2.0) 0.1 % (0.0-2.0) 0.2 % (0.0-2.0) Prothrombin Time 11.2 SEC (9.30-11.50) Prothromb Time International Ratio 1.0 (0.9-1.1) Activated Partial Thromboplast Time 31 SEC (23-33) D-Dimer 1.13 mg/L FEU (0.00-0.49) Urine Color Pale yellow Urine Appearance Clear Urine pH 8 (4.5-8.0) Urine Specific [place] 1.015 (1.005-1.035) Urine Protein Negative (NEGATIVE) Urine Glucose (UA) Negative (NEGATIVE) Urine Ketones 2+ (NEGATIVE) Urine Blood Negative (NEGATIVE) Urine Nitrite Negative (NEGATIVE) Urine Bilirubin Negative (NEGATIVE) Urine Urobilinogen Normal MG/DL (0.0-1.0) Urine Leukocyte Esterase Negative (NEGATIVE) Sodium Level 138 MMOL/L (136-145) 135 MMOL/L (136-145) 139 MMOL/L (136-145) Potassium Level 3.8 MMOL/L (3.5-5.1) 3.4 MMOL/L (3.5-5.1) 3.5 MMOL/L (3.5-5.1) Chloride Level 104 MMOL/L (98-107) 101 MMOL/L (98-107) 104 MMOL/L (98-107) Carbon Dioxide Level 28 MMOL/L (21-32) 28 MMOL/L (21-32) 29 MMOL/L (21-32) Anion Gap 6 mmol/L (5-15) 6 mmol/L (5-15) 6 mmol/L (5-15) Blood Urea Nitrogen 12 mg/dL (7-18) 9 mg/dL (7-18) 11 mg/dL (7-18) Creatinine 1.3 MG/DL (0.55-1.30) 1.0 MG/DL (0.55-1.30) 1.3 MG/DL (0.55-1.30) Estimat Glomerular Filtration Rate 55.1 mL/min (>60) > 60 mL/min (>60) 55.1 mL/min (>60) Glucose Level 125 MG/DL (74-106) 103 MG/DL (74-106) 85 MG/DL (74-106) Calcium Level 8.1 MG/DL (8.5-10.1) 7.8 MG/DL (8.5-10.1) 8.0 MG/DL (8.5-10.1) Ferritin 47 NG/ML (8-388) Total Bilirubin 0.3 MG/DL (0.2-1.0) 0.4 MG/DL (0.2-1.0) Aspartate Amino Transf (AST/SGOT) 23 U/L (15-37) 21 U/L (15-37) Alanine Aminotransferase (ALT/SGPT) 26 U/L (12-78) 24 U/L (12-78) Alkaline Phosphatase 61 U/L (46-116) 56 U/L (46-116) Lactate Dehydrogenase 187 U/L (81-234) C-Reactive Protein, Quantitative 2.0 mg/dL (0.00-0.90) Total Protein 7.8 G/DL (6.4-8.2) 7.3 G/DL (6.4-8.2) Albumin 3.7 G/DL (3.4-5.0) 3.3 G/DL (3.4-5.0) Globulin 4.1 g/dL 4.0 g/dL Albumin/Globulin Ratio 0.9 (1.0-2.7) 0.8 (1.0-2.7) Troponin I 0.001 ng/mL (0.000-0.056) Pro-B-Type Natriuretic Peptide 301 pg/mL (0-125) Height (Feet): 5 Height (Inches): 9.00 Weight (Pounds): 193 Objective PHYSICAL EXAMINATION: VITAL SIGNS: reviewed HEENT: Head exam reveals that the head is normocephalic, atraumatic without deformity or unusual swelling. CHEST AND LUNGS: Reveals clear, normal, symmetrical breath sounds with no adventitious sounds. CARDIOVASCULAR: Reveals normal S1, S2 without murmurs, rubs, or clicks. ABDOMEN: Obese, soft with no tenderness or organomegaly. A well-healed midline linear vertical scar in the abdomen ++ RECTAL: Deferred. MUSCULOSKELETAL: There is no tenderness to palpation. Range of motion is normal. NEUROLOGICAL: Alert and oriented x3 , nonfocal Alek Sabillon MD Oct 12, 2020 06:53
[2020-10-12] MEDS: Ciprofloxacin Opth Soln 5ml BOTH EYES SCH ×4 (07:00→23:32)
[2020-10-12 07:17] LABS: HEMATOCRIT 37.8 % (42.0-52.0); HEMOGLOBIN 12.1 G/DL (14.2-18.0); MEAN CORPUSCULAR VOLUME 93 FL (80-99); PLATELET COUNT 147 K/UL (150-450); RED BLOOD COUNT 4.07 M/UL (4.70-6.10); RED CELL DISTRIBUTION WIDTH 13.7 % (11.6-14.8)
[2020-10-12 07:40] LABS: CREATININE 1.4 MG/DL (0.55-1.30); POTASSIUM 3.3 MMOL/L (3.5-5.1)
[2020-10-12 08:00] VITALS: BP 144/65
--- NOTE | 2020-10-12 08:04 | NUR ---
NURSE NOTES: Report received from Susie ROTH, rounds made. Patient sleeping, awakens to name. Bilateral eye redness, prescribed (will administer Cipro eye drops). Respirations even/unlabored on O2 2LNC, no cough, no SOB. Will monitor temperature. Call light in reach, bed in lowest position, will continue to monitor.
--- NOTE | 2020-10-12 08:39 | NUR ---
NURSE NOTES: Pt is in bed, awake and alert.Pt is calm at this time and Pt able to ambulate. No acute distress noted. Room air. Pt instructed to call before getting out of bed. Fall precautions in place. bed locked low in position,side rails up, bed alarm on and call light within reach. Addendum: 10/12/20 at 0839 by Susie Mao RN wrong time
--- NOTE | 2020-10-12 08:40 | NUR ---
NURSE HAND-OFF: Important Events on Shift: remained afebrile, oxygen therapy Patient Status: stable Diet: regular Pending Orders: labs drawn this morning bmp cbc Latest Bar[place]to Fall Score: 35 Fall Risk: Medium Risk Safety Measures: Call light Within Reach, Bed Alarm Zone 2, Side Rails Side Rails x3, Bed position Low and Locked. Fall Precautions: Yellow Socks Door Sign Patient Fall Education Report given to Yolanda ROTH
--- NOTE | 2020-10-12 08:50 | Pulmonology Progress Note ---
Subjective ROS Limited/Unobtainable: Yes Interval Events: new onset fever, better with antipyretics Constitutional: Reports: no symptoms HEENT: Repors: other - eye pain Respiratory: Reports: no symptoms Cardiovascular: Reports: no symptoms Gastrointestinal/Abdominal: Reports: no symptoms Genitourinary: Reports: no symptoms Allergies: Coded Allergies: No Known Allergies (Unverified , 07/31/20) Objective Last 24 Hour Vital Signs Date Time Temp Pulse Resp B/P (MAP) Pulse Ox O2 Delivery O2 Flow Rate FiO2 10/12/20 04:00 99.1 110 21 130/76 (94) 97 10/12/20 00:29 99.0 112 20 122/70 (87) 97 10/11/20 22:25 144/74 10/11/20 21:00 Room Air 10/11/20 20:00 98.7 120 20 144/74 (97) 97 10/11/20 16:00 100.0 104 16 131/68 (89) 97 10/11/20 12:00 100.5 105 16 122/73 (89) 95 10/11/20 10:08 126/78 10/11/20 10:08 111 126/78 10/11/20 10:08 111 126/78 10/11/20 09:00 Nasal Cannula 2.0 Intake and Output 10/11/20 10/12/20 19:00 07:00 Intake Total 400 ml Balance 400 ml Intake Oral 400 ml # Voids 1 3 Objective 10/12 saturating at 97% on 2L NC 10/11 now on 2L saturating well 10/10 on room air saturating well General Appearance: WD/WN, no acute distress HEENT: other - erythematous, edematous eyes Respiratory: lungs clear Cardiovascular: normal rate, regular rhythm Abdomen: soft, non tender Microbiology Date/Time Source Procedure Growth Status 10/09/20 17:14 Rectum - Final NO CARBAPENEM-RESISTANT ENTEROBACTERI... Complete 10/09/20 17:14 Rectum VRE Culture - Final NO VANCOMYCIN RESISTANT ENTEROCOCCUS ... Complete 10/09/20 17:14 Nasal Nares MRSA Culture - Final NO METHICILLIN RESISTANT STAPH AUREUS... Complete 10/09/20 10:00 Nasopharynx SARS-CoV-2 RdRp Gene Assay - Final Complete Laboratory Tests 10/12/20 04:40: White Blood Count 3.0L, Red Blood Count 4.07L, Hemoglobin 12.1L, Hematocrit 37.8L, Mean Corpuscular Volume 93, Mean Corpuscular Hemoglobin 29.7, Mean Corpuscular Hemoglobin Concent 32.0, Red Cell Distribution Width 13.7, Platelet Count 147L, Mean Platelet Volume 5.7L, Neutrophils (%) (Auto) , Lymphocytes (%) (Auto) , Monocytes (%) (Auto) , Eosinophils (%) (Auto) , Basophils (%) (Auto) , Neutrophils % (Manual) [Pending], Lymphocytes % (Manual) [Pending], Platelet Estimate [Pending], Platelet Morphology [Pending], Sodium Level 136, Potassium Level 3.3L, Chloride Level 101, Carbon Dioxide Level 28, Anion Gap 7, Blood Urea Nitrogen 15, Creatinine 1.4H, Estimat Glomerular Filtration Rate 50.5, Glucose Level 94, Calcium Level 8.0L Current Medications Medications (Trade) Dose Ordered Sig/Sidney Route PRN Reason Start Time Stop Time Status Last Admin Dose Admin Acetaminophen (Tylenol) 650 mg Q6H PRN ORAL HEADACHE OR FEVER >100 10/09/20 22:45 11/08/20 22:44 Alfuzosin HCl (Uroxatrol) 10 mg DAILY ORAL 10/10/20 09:00 11/09/20 08:59 10/11/20 10:07 Amlodipine Besylate (Norvasc) 10 mg DAILY ORAL 10/10/20 09:00 11/09/20 08:59 10/11/20 10:08 Chlorhexidine Gluconate (Beryl-Hex 2%) 1 applic QHS TOPIC 10/09/20 21:00 01/07/21 20:59 Ciprofloxacin (Ciloxan Opth Soln) 1 drop Q6HR BOTH EYES 10/11/20 18:30 10/18/20 18:29 10/12/20 07:00 Clonazepam (KlonoPIN) 1 mg Q12HR ORAL 10/09/20 21:00 10/16/20 20:59 10/11/20 22:24 Enoxaparin Sodium (Lovenox) 40 mg DAILY SUBQ 10/10/20 09:00 01/08/21 08:59 10/11/20 10:09 Irbesartan (Avapro) 150 mg Q12HR ORAL 10/09/20 21:00 01/07/21 20:59 10/11/20 22:25 Metoprolol Succinate (Toprol XL) 50 mg DAILY ORAL 10/10/20 09:00 01/08/21 08:59 10/11/20 10:08 Pantoprazole (Protonix) 40 mg DAILY ORAL 10/10/20 09:00 11/09/20 08:59 10/11/20 10:07 Quetiapine Fumarate (SEROqueL) 300 mg Q12HR ORAL 10/09/20 21:00 11/23/20 20:59 10/11/20 22:25 Risperidone (RisperDAL) 2 mg Q12HR ORAL 10/09/20 21:00 11/23/20 20:59 10/11/20 22:25 Zolpidem Tartrate (Ambien) 5 mg HSPRN PRN ORAL Insomnia 10/09/20 20:30 10/16/20 20:29 10/11/20 22:25 Assessment/Plan Assessment/Plan 1. COVID-19 infection - Saturating at 97% on 2L NC - s/p Azithromycin and ceftriaxone IV once in ER -Given his normoxemia without fever, clear lung sounds, and negative CXR, no specific therapy is required at this time -Continue monitoring SaO2 and provide supplemental oxygen as needed - Repeat CXR ordered by Dr. Luciano, result pending 2. Conjunctivitis - now on ciprofloxacin ophthalmic solution 3. Elevated CRP, D-dimer - s/p Lovenox in ER - Venous duplex US negative for DVT - no Lovenox 4. Hypertension - on metoprolol and amlodipine - monitor BP 5. Hypokalemia - per primary MD 7. New onset fever with tachycardia - better on antipyretics - likely sepsis secondary to COVID-19, vs UTI - consider UA if fever persistent - Venous duplex US negative for DVT - management per primary MD, and ID The care for this patient was discussed with my supervising physician. Time spent for this case was approximately 31 minutes. Piyush Dent Oct 12, 2020 08:50
[2020-10-12] MEDS: Metoprolol Succinate XL 50mg tab ORAL SCH (10:38)
[2020-10-12] MEDS: Irbesartan 150mg tablet ORAL SCH ×2 (10:39→23:27)
--- NOTE | 2020-10-12 11:05 | NUR ---
NURSE NOTES: Dr. Sabillon notified of K3.3 and platelets 147, orders for KCL 10 meq IV x4 bags, ok for Lovenox and discontinue SCD. Will update patient and follow as ordered.
[2020-10-12] MEDS: Enoxaparin 40mg Inj SUBQ SCH (11:10)
[2020-10-12 12:00] VITALS: BP 135/79
[2020-10-12] MEDS ORDERED: Sodium Chloride for KCL Premix X 4hrs IV SCH (12:00)
--- NOTE | 2020-10-12 13:50 | NUR ---
NURSE NOTES: PCXR done at this time.
--- NOTE | 2020-10-12 14:28 | Infectious Diseases Prog Note ---
Assessment/Plan Assessment/Plan IMPRESSION: 1. Sepsis 2. COVID-19 disease. 3. Conjunctivitis. 4. History of COPD. 5. History of hepatitis C. 6. History of corneal abrasion. RECOMMENDATIONS: We will f/u chest x-ray. Continue Cipro eye drops. Subjective ROS Limited/Unobtainable: Yes Allergies: Coded Allergies: No Known Allergies (Unverified , 07/31/20) Objective Last 24 Hour Vital Signs Date Time Temp Pulse Resp B/P (MAP) Pulse Ox O2 Delivery O2 Flow Rate FiO2 10/12/20 10:40 91 144/65 10/12/20 10:39 144/65 10/12/20 10:38 91 144/65 10/12/20 08:00 99.8 91 20 144/65 (91) 92 10/12/20 04:00 99.1 110 21 130/76 (94) 97 10/12/20 00:29 99.0 112 20 122/70 (87) 97 10/11/20 22:25 144/74 10/11/20 21:00 Room Air 10/11/20 20:00 98.7 120 20 144/74 (97) 97 10/11/20 16:00 100.0 104 16 131/68 (89) 97 Height (Feet): 5 Height (Inches): 9.00 Weight (Pounds): 193 HEENT: mucous membranes moist Respiratory/Chest: other - oxygen by nasal cannula Cardiovascular: normal rate Abdomen: soft, non tender Extremities: no edema Neurologic/Psychiatric: other - sleeping Microbiology Date/Time Source Procedure Growth Status 10/09/20 17:14 Rectum - Final NO CARBAPENEM-RESISTANT ENTEROBACTERI... Complete 10/09/20 17:14 Rectum VRE Culture - Final NO VANCOMYCIN RESISTANT ENTEROCOCCUS ... Complete 10/09/20 17:14 Nasal Nares MRSA Culture - Final NO METHICILLIN RESISTANT STAPH AUREUS... Complete Laboratory Tests Test 10/12/20 04:40 White Blood Count 3.0 K/UL (4.8-10.8) L Red Blood Count 4.07 M/UL (4.70-6.10) L Hemoglobin 12.1 G/DL (14.2-18.0) L Hematocrit 37.8 % (42.0-52.0) L Mean Corpuscular Volume 93 FL (80-99) Mean Corpuscular Hemoglobin 29.7 PG (27.0-31.0) Mean Corpuscular Hemoglobin Concent 32.0 G/DL (32.0-36.0) Red Cell Distribution Width 13.7 % (11.6-14.8) Platelet Count 147 K/UL (150-450) L Mean Platelet Volume 5.7 FL (6.5-10.1) L Neutrophils (%) (Auto) % (45.0-75.0) Lymphocytes (%) (Auto) % (20.0-45.0) Monocytes (%) (Auto) % (1.0-10.0) Eosinophils (%) (Auto) % (0.0-3.0) Basophils (%) (Auto) % (0.0-2.0) Differential Total Cells Counted 100 Neutrophils % (Manual) 28 % (45-75) L Lymphocytes % (Manual) 59 % (20-45) H Monocytes % (Manual) 13 % (1-10) H Eosinophils % (Manual) 0 % (0-3) Basophils % (Manual) 0 % (0-2) Band Neutrophils 0 % (0-8) Platelet Estimate Decreased L Platelet Morphology Normal Sodium Level 136 MMOL/L (136-145) Potassium Level 3.3 MMOL/L (3.5-5.1) L Chloride Level 101 MMOL/L (98-107) Carbon Dioxide Level 28 MMOL/L (21-32) Anion Gap 7 mmol/L (5-15) Blood Urea Nitrogen 15 mg/dL (7-18) Creatinine 1.4 MG/DL (0.55-1.30) H Estimat Glomerular Filtration Rate 50.5 mL/min (>60) Glucose Level 94 MG/DL (74-106) Calcium Level 8.0 MG/DL (8.5-10.1) L Current Medications Medications (Trade) Dose Ordered Sig/Sidney Route PRN Reason Start Time Stop Time Status Last Admin Dose Admin Acetaminophen (Tylenol) 650 mg Q6H PRN ORAL HEADACHE OR FEVER >100 10/09/20 22:45 11/08/20 22:44 Alfuzosin HCl (Uroxatrol) 10 mg DAILY ORAL 10/10/20 09:00 11/09/20 08:59 10/12/20 10:37 Amlodipine Besylate (Norvasc) 10 mg DAILY ORAL 10/10/20 09:00 11/09/20 08:59 10/12/20 10:40 Chlorhexidine Gluconate (Beryl-Hex 2%) 1 applic QHS TOPIC 10/09/20 21:00 01/07/21 20:59 Ciprofloxacin (Ciloxan Opth Soln) 1 drop Q6HR BOTH EYES 10/11/20 18:30 10/18/20 18:29 10/12/20 11:23 Clonazepam (KlonoPIN) 1 mg Q12HR ORAL 10/09/20 21:00 10/16/20 20:59 10/12/20 10:39 Enoxaparin Sodium (Lovenox) 40 mg DAILY SUBQ 10/10/20 09:00 01/08/21 08:59 10/12/20 11:10 Irbesartan (Avapro) 150 mg Q12HR ORAL 10/09/20 21:00 01/07/21 20:59 10/12/20 10:39 Metoprolol Succinate (Toprol XL) 50 mg DAILY ORAL 10/10/20 09:00 01/08/21 08:59 10/12/20 10:38 Pantoprazole (Protonix) 40 mg DAILY ORAL 10/10/20 09:00 11/09/20 08:59 10/12/20 10:37 Potassium Chloride 100 ml @ 100 mls/hr Q1HR IVPB 10/12/20 12:00 10/12/20 15:59 10/12/20 13:21 Quetiapine Fumarate (SEROqueL) 300 mg Q12HR ORAL 10/09/20 21:00 11/23/20 20:59 10/12/20 10:40 Risperidone (RisperDAL) 2 mg Q12HR ORAL 10/09/20 21:00 11/23/20 20:59 10/12/20 10:38 Sodium Chloride 400 ml @ 100 mls/hr Q4H IV 10/12/20 12:00 10/12/20 15:59 10/12/20 13:20 Zolpidem Tartrate (Ambien) 5 mg HSPRN PRN ORAL Insomnia 10/09/20 20:30 10/16/20 20:29 10/11/20 22:25 Harsh Bowser MD Oct 12, 2020 14:28
--- NOTE | 2020-10-12 14:57 | Cardiac Electrophysiology PN ---
Assessment/Plan Assessment/Plan 1. Shortness of breath due to COVID-19 infection. Currently saturating well on room air. Patient received azithromycin and ceftriaxone. Fu by Dr. Shell. 2. Hypertension. On amlodipine 10 mg daily, Toprol-XL 50 mg daily and Avapro 150 bid 3. Psychiatric history. VICTORIA RN Subjective Subjective In isolation for Covid. No CP or SOB Objective Last 24 Hour Vital Signs Date Time Temp Pulse Resp B/P (MAP) Pulse Ox O2 Delivery O2 Flow Rate FiO2 10/12/20 10:40 91 144/65 10/12/20 10:39 144/65 10/12/20 10:38 91 144/65 10/12/20 08:00 99.8 91 20 144/65 (91) 92 10/12/20 04:00 99.1 110 21 130/76 (94) 97 10/12/20 00:29 99.0 112 20 122/70 (87) 97 10/11/20 22:25 144/74 10/11/20 21:00 Room Air 10/11/20 20:00 98.7 120 20 144/74 (97) 97 10/11/20 16:00 100.0 104 16 131/68 (89) 97 Intake and Output 10/11/20 10/12/20 19:00 07:00 Intake Total 400 ml Balance 400 ml Intake Oral 400 ml # Voids 1 3 Laboratory Tests Test 10/12/20 04:40 White Blood Count 3.0 K/UL (4.8-10.8) L Red Blood Count 4.07 M/UL (4.70-6.10) L Hemoglobin 12.1 G/DL (14.2-18.0) L Hematocrit 37.8 % (42.0-52.0) L Mean Corpuscular Volume 93 FL (80-99) Mean Corpuscular Hemoglobin 29.7 PG (27.0-31.0) Mean Corpuscular Hemoglobin Concent 32.0 G/DL (32.0-36.0) Red Cell Distribution Width 13.7 % (11.6-14.8) Platelet Count 147 K/UL (150-450) L Mean Platelet Volume 5.7 FL (6.5-10.1) L Neutrophils (%) (Auto) % (45.0-75.0) Lymphocytes (%) (Auto) % (20.0-45.0) Monocytes (%) (Auto) % (1.0-10.0) Eosinophils (%) (Auto) % (0.0-3.0) Basophils (%) (Auto) % (0.0-2.0) Differential Total Cells Counted 100 Neutrophils % (Manual) 28 % (45-75) L Lymphocytes % (Manual) 59 % (20-45) H Monocytes % (Manual) 13 % (1-10) H Eosinophils % (Manual) 0 % (0-3) Basophils % (Manual) 0 % (0-2) Band Neutrophils 0 % (0-8) Platelet Estimate Decreased L Platelet Morphology Normal Sodium Level 136 MMOL/L (136-145) Potassium Level 3.3 MMOL/L (3.5-5.1) L Chloride Level 101 MMOL/L (98-107) Carbon Dioxide Level 28 MMOL/L (21-32) Anion Gap 7 mmol/L (5-15) Blood Urea Nitrogen 15 mg/dL (7-18) Creatinine 1.4 MG/DL (0.55-1.30) H Estimat Glomerular Filtration Rate 50.5 mL/min (>60) Glucose Level 94 MG/DL (74-106) Calcium Level 8.0 MG/DL (8.5-10.1) L Microbiology Date/Time Source Procedure Growth Status 10/09/20 17:14 Rectum - Final NO CARBAPENEM-RESISTANT ENTEROBACTERI... Complete 10/09/20 17:14 Rectum VRE Culture - Final NO VANCOMYCIN RESISTANT ENTEROCOCCUS ... Complete 10/09/20 17:14 Nasal Nares MRSA Culture - Final NO METHICILLIN RESISTANT STAPH AUREUS... Complete Objective HEAD AND NECK: Shows mild JVD. Bilateral eyelids are edematous and erythematous. LUNGS: Clear. CARDIOVASCULAR: Shows regular S1 and S2 with no gallop. ABDOMEN: Soft. EXTREMITIES: 1+ pitting edema. Kirit Dave MD Oct 12, 2020 14:57
--- NOTE | 2020-10-12 15:27 | Diagnostic Imaging Report ---
EXAM: XR Chest, 1 View CLINICAL HISTORY: INFECT TECHNIQUE: Frontal view of the chest. COMPARISON: Chest x-rays dated 10/09/20 FINDINGS: Lungs: Subsegmental atelectasis in the left lung base. The lungs otherwise appear clear. Pleural space: Unremarkable. The costophrenic angles are sharp. No visible pneumothorax. Heart: Unremarkable. No cardiomegaly. Mediastinum: Unremarkable. Bones/joints: Unremarkable. IMPRESSION: Subsegmental atelectasis in the left lung base.
[2020-10-12 16:00] VITALS: BP 113/75
--- NOTE | 2020-10-12 17:20 | NUR ---
CASE MANAGEMENT: REVIEW 10/12/2020 SI;COVID PNA VS: T 98.5 HR 108 RR 20 B/P 135/79 SATS 92% ON RA LABS: WBC 3 K 3.3 CR 1.4 CA 8 IS:UROXATROL PO QD NORVASC PO QD RISPERIDONE PO Q12H KLONOPIN PO Q12H AVAPRO PO Q12H MED/SURG
--- NOTE | 2020-10-12 19:42 | NUR ---
NURSE HAND-OFF: Important Events on Shift:K3.3 (administered KCL 10meq IV x4 bags), afebrile, PCXR done Patient Status: stable Diet: regular Pending Orders: none Pending Results/Labs:none Pending MD notification:none Latest Vital Signs: Temperature 98.3 , Pulse 100 , B/P 113 /75 , Respiratory Rate 20 , O2 SAT 94 , Room Air, O2 Flow Rate 2.0 . Vital Sign Comment: none Latest Barreto Fall Score: 35 Fall Risk: Medium Risk Safety Measures: Call light Within Reach, Bed Alarm Zone 2, Side Rails Side Rails x3, Bed position Low and Locked. Fall Precautions: Yellow Socks Door Sign Patient Fall Education Report given to Cecilia CROUCH
[2020-10-12 20:00] VITALS: BP 138/79
--- NOTE | 2020-10-12 20:27 | General Progress Note ---
Subjective ROS Limited/Unobtainable: Yes Allergies: Coded Allergies: No Known Allergies (Unverified , 07/31/20) Objective Last 24 Hour Vital Signs Date Time Temp Pulse Resp B/P (MAP) Pulse Ox O2 Delivery O2 Flow Rate FiO2 10/12/20 16:00 98.3 100 20 113/75 (88) 94 10/12/20 12:00 98.5 108 20 135/79 (97) 92 10/12/20 10:40 91 144/65 10/12/20 10:39 144/65 10/12/20 10:38 91 144/65 10/12/20 09:00 Room Air 10/12/20 08:00 99.8 91 20 144/65 (91) 92 10/12/20 04:00 99.1 110 21 130/76 (94) 97 10/12/20 00:29 99.0 112 20 122/70 (87) 97 10/11/20 22:25 144/74 10/11/20 21:00 Room Air Intake and Output 10/11/20 10/12/20 19:00 07:00 Intake Total 400 ml Balance 400 ml Intake Oral 400 ml # Voids 1 3 Laboratory Tests 10/12/20 04:40: White Blood Count 3.0L, Red Blood Count 4.07L, Hemoglobin 12.1L, Hematocrit 37.8L, Mean Corpuscular Volume 93, Mean Corpuscular Hemoglobin 29.7, Mean Corpuscular Hemoglobin Concent 32.0, Red Cell Distribution Width 13.7, Platelet Count 147L, Mean Platelet Volume 5.7L, Neutrophils (%) (Auto) , Lymphocytes (%) (Auto) , Monocytes (%) (Auto) , Eosinophils (%) (Auto) , Basophils (%) (Auto) , Differential Total Cells Counted 100, Neutrophils % (Manual) 28L, Lymphocytes % (Manual) 59H, Monocytes % (Manual) 13H, Eosinophils % (Manual) 0, Basophils % (Manual) 0, Band Neutrophils 0, Platelet Estimate DecreasedL, Platelet Morphology Normal, Sodium Level 136, Potassium Level 3.3L, Chloride Level 101, Carbon Dioxide Level 28, Anion Gap 7, Blood Urea Nitrogen 15, Creatinine 1.4H, Estimat Glomerular Filtration Rate 50.5, Glucose Level 94, Calcium Level 8.0L Height (Feet): 5 Height (Inches): 9.00 Weight (Pounds): 193 Assessment/Plan Problem List: (1) Headache ICD Codes: R51.9 - Headache, unspecified SNOMED: 21846732 (2) COVID-19 ICD Codes: U07.1 - COVID-19 SNOMED: 296294904 Status: progressing, tolerating diet Assessment/Plan: covid positive h/o svt afebrile vision blurriness is improved anticoagulant per Deng Kang MD Oct 12, 2020 20:27
[2020-10-12] MEDS: Dyna-Hex 2% Top Sol 2oz TOPIC SCH (21:00)
[2020-10-12] MEDS: Zolpidem 5mg tab ORAL PRN (23:29)
[2020-10-13] VITALS: BP 132/74
[2020-10-13 04:00] VITALS: BP 118/59
[2020-10-13] MEDS: Ciprofloxacin Opth Soln 5ml BOTH EYES SCH ×3 (04:50→17:55)
--- NOTE | 2020-10-13 07:25 | NUR ---
NURSE NOTES: Handoff received from Kimberly ROTH. Patient is asleep, no signs of acute distress noted. Left hand IV is intact and saline locked. Bed is low and locked, side rails up x2, call light is within reach.
[2020-10-13 07:48] LABS: CREATININE 1.3 MG/DL (0.55-1.30); POTASSIUM 3.9 MMOL/L (3.5-5.1)
--- NOTE | 2020-10-13 07:50 | NUR ---
NURSE HAND-OFF: Important Events on Shift: On previous shift K low, 3.3 (administered KCL 10meq IV x4 bags), afebrile, PCXR done- showing subsegmental atelectasis Patient Status: stable Diet: regular Pending Orders: none Pending Results/Labs:none Pending MD notification:none Latest Vital Signs: Temperature 98.3 , Pulse 100 , B/P 113 /75 , Respiratory Rate 20 , O2 SAT 94 , Room Air, O2 Flow Rate 2.0 . Vital Sign Comment: none Latest Barreto Fall Score: 35 Fall Risk: Medium Risk Safety Measures: Call light Within Reach, Bed Alarm Zone 2, Side Rails Side Rails x3, Bed position Low and Locked. Fall Precautions: Yellow Socks Door Sign Patient Fall Education Report given to Ian ROTH
[2020-10-13 08:00] VITALS: BP 91/58
[2020-10-13 08:17] LABS: HEMATOCRIT 36.9 % (42.0-52.0); HEMOGLOBIN 11.8 G/DL (14.2-18.0); MEAN CORPUSCULAR VOLUME 92 FL (80-99); PLATELET COUNT 155 K/UL (150-450); RED BLOOD COUNT 3.99 M/UL (4.70-6.10); WHITE BLOOD COUNT 3.1 K/UL (4.8-10.8)
[2020-10-13] MEDS: Metoprolol Succinate XL 50mg tab ORAL SCH (08:49)
[2020-10-13] MEDS: Irbesartan 150mg tablet ORAL SCH ×2 (08:50→21:27)
[2020-10-13] MEDS: Enoxaparin 40mg Inj SUBQ SCH (08:51)
--- NOTE | 2020-10-13 08:54 | Pulmonology Progress Note ---
Subjective ROS Limited/Unobtainable: Yes Interval Events: new onset fever, better with antipyretics Constitutional: Reports: no symptoms HEENT: Repors: other - eye pain Respiratory: Reports: no symptoms Cardiovascular: Reports: no symptoms Gastrointestinal/Abdominal: Reports: no symptoms Genitourinary: Reports: no symptoms Allergies: Coded Allergies: No Known Allergies (Unverified , 07/31/20) Objective Last 24 Hour Vital Signs Date Time Temp Pulse Resp B/P (MAP) Pulse Ox O2 Delivery O2 Flow Rate FiO2 10/13/20 08:50 123/59 10/13/20 08:49 96 123/59 10/13/20 08:49 96 123/59 10/13/20 04:00 98.5 98 20 118/59 (78) 94 10/13/20 00:00 99.0 91 20 132/74 (93) 94 10/12/20 23:27 138/79 10/12/20 21:00 Room Air 10/12/20 20:00 98.2 100 20 138/79 (98) 93 10/12/20 16:00 98.3 100 20 113/75 (88) 94 10/12/20 12:00 98.5 108 20 135/79 (97) 92 10/12/20 10:40 91 144/65 10/12/20 10:39 144/65 10/12/20 10:38 91 144/65 10/12/20 09:00 Room Air Intake and Output 10/12/20 10/13/20 19:00 07:00 Intake Total 480 ml Balance 480 ml Intake Oral 480 ml # Voids 2 1 Objective 10/12 saturating at 97% on 2L NC 10/11 now on 2L saturating well 10/10 on room air saturating well General Appearance: WD/WN, no acute distress HEENT: other - erythematous, edematous eyes Respiratory: lungs clear Cardiovascular: normal rate, regular rhythm Abdomen: soft, non tender Laboratory Tests 10/13/20 05:00: White Blood Count 3.1L, Red Blood Count 3.99L, Hemoglobin 11.8L, Hematocrit 36.9L, Mean Corpuscular Volume 92, Mean Corpuscular Hemoglobin 29.6, Mean Corpuscular Hemoglobin Concent 32.1, Red Cell Distribution Width 14.0, Platelet Count 155, Mean Platelet Volume 6.3L, Neutrophils (%) (Auto) , Lymphocytes (%) (Auto) , Monocytes (%) (Auto) , Eosinophils (%) (Auto) , Basophils (%) (Auto) , Neutrophils % (Manual) [Pending], Lymphocytes % (Manual) [Pending], Platelet Estimate [Pending], Platelet Morphology [Pending], Sodium Level 136, Potassium Level 3.9, Chloride Level 102, Carbon Dioxide Level 28, Anion Gap 6, Blood Urea Nitrogen 15, Creatinine 1.3, Estimat Glomerular Filtration Rate 55.1, Glucose Level 88, Calcium Level 8.0L Current Medications Medications (Trade) Dose Ordered Sig/Sidney Route PRN Reason Start Time Stop Time Status Last Admin Dose Admin Acetaminophen (Tylenol) 650 mg Q6H PRN ORAL HEADACHE OR FEVER >100 10/09/20 22:45 11/08/20 22:44 Alfuzosin HCl (Uroxatrol) 10 mg DAILY ORAL 10/10/20 09:00 11/09/20 08:59 10/13/20 08:49 Amlodipine Besylate (Norvasc) 10 mg DAILY ORAL 10/10/20 09:00 11/09/20 08:59 10/13/20 08:49 Chlorhexidine Gluconate (Beryl-Hex 2%) 1 applic QHS TOPIC 10/09/20 21:00 01/07/21 20:59 Ciprofloxacin (Ciloxan Opth Soln) 1 drop Q6HR BOTH EYES 10/11/20 18:30 10/18/20 18:29 10/13/20 04:50 Clonazepam (KlonoPIN) 1 mg Q12HR ORAL 10/09/20 21:00 10/16/20 20:59 10/13/20 08:50 Enoxaparin Sodium (Lovenox) 40 mg DAILY SUBQ 10/10/20 09:00 01/08/21 08:59 10/13/20 08:51 Irbesartan (Avapro) 150 mg Q12HR ORAL 10/09/20 21:00 01/07/21 20:59 10/13/20 08:50 Metoprolol Succinate (Toprol XL) 50 mg DAILY ORAL 10/10/20 09:00 01/08/21 08:59 10/13/20 08:49 Pantoprazole (Protonix) 40 mg DAILY ORAL 10/10/20 09:00 11/09/20 08:59 10/13/20 08:49 Quetiapine Fumarate (SEROqueL) 300 mg Q12HR ORAL 10/09/20 21:00 11/23/20 20:59 10/13/20 08:48 Risperidone (RisperDAL) 2 mg Q12HR ORAL 10/09/20 21:00 11/23/20 20:59 10/13/20 08:50 Zolpidem Tartrate (Ambien) 5 mg HSPRN PRN ORAL Insomnia 10/09/20 20:30 10/16/20 20:29 10/12/20 23:29 Assessment/Plan Assessment/Plan 1. COVID-19 infection - Saturating at at 97% on RA - s/p Azithromycin and ceftriaxone IV once in ER -Given his normoxemia without fever, clear lung sounds, and negative CXR, no specific therapy is required at this time -Continue monitoring SaO2 and provide supplemental oxygen as needed - Repeat CXR 10/12 shows subsegmental atelectasis in the left lung base. 2. Conjunctivitis - now on ciprofloxacin ophthalmic solution 3. Elevated CRP, D-dimer - s/p Lovenox in ER - Venous duplex US negative for DVT - no Lovenox 4. Hypertension - on metoprolol and amlodipine - monitor BP 5. Hypokalemia - per primary MD 7. New onset fever with tachycardia - better on antipyretics - likely sepsis secondary to COVID-19, vs UTI - consider UA if fever persistent - Venous duplex US negative for DVT - management per primary MD, and ID 8. Atelectasis - monitor at this point given his normoxemia The care for this patient was discussed with my supervising physician. Time spent for this case was approximately 31 minutes. Piyush Dent Oct 13, 2020 08:54
[2020-10-13] MEDS ORDERED: NS 500ML ONE (09:24)
[2020-10-13] MEDS ORDERED: Tubing IV Secondary IV ONE (09:24)
[2020-10-13] MEDS ORDERED: D5 1/2NS 1000ml IV ONE (09:24)
--- NOTE | 2020-10-13 10:59 | Hematology/Onc Progress Note ---
Assessment/Plan Assessment/Plan Assessment/Plan 1. Leukopenia is related likely to COVID-19 infection+++++++++++ --> Patient is currently saturating well on room air, per pulm --> s/p Azithromycin and ceftriaxone IV once in ER --> Continue monitoring SaO2 and provide supplemental oxygen as needed --> smear reviewed --> wbc 4.7-->3.8 --> neupogen prn 2. Anemia due to likely chronic disease, infection --> trend hgb as needed hgb 13 3. Elevated CRP, D-dimer --> s/p Lovenox in ER --> DVX ppx recommended --> duplex lower leg r/o dvt 4. Hypertension --> recommend continuing home antihypertensive meds --> as per cards 5. Covid 19 as per pulm/id 6. Dvt ppx lovenox sq Appreciate consultation and marly Rn Subjective Allergies: Coded Allergies: No Known Allergies (Unverified , 07/31/20) Subjective Subjective 10/11 awake, no new events, no bleeding, labs noted, ambulating 10/12 covid iso, is on ra, no bleeding, labs noted, meds reviewed 10/13: on RA saturating well no acute events. Objective Objective Current Medications Medications (Trade) Dose Ordered Sig/Sidney Route PRN Reason Start Time Stop Time Status Last Admin Dose Admin Acetaminophen (Tylenol) 650 mg Q6H PRN ORAL HEADACHE OR FEVER >100 10/09/20 22:45 11/08/20 22:44 Alfuzosin HCl (Uroxatrol) 10 mg DAILY ORAL 10/10/20 09:00 11/09/20 08:59 10/13/20 08:49 Amlodipine Besylate (Norvasc) 10 mg DAILY ORAL 10/10/20 09:00 11/09/20 08:59 10/13/20 08:49 Chlorhexidine Gluconate (Beryl-Hex 2%) 1 applic QHS TOPIC 10/09/20 21:00 01/07/21 20:59 Ciprofloxacin (Ciloxan Opth Soln) 1 drop Q6HR BOTH EYES 10/11/20 18:30 10/18/20 18:29 10/13/20 10:54 Clonazepam (KlonoPIN) 1 mg Q12HR ORAL 10/09/20 21:00 10/16/20 20:59 10/13/20 08:50 Enoxaparin Sodium (Lovenox) 40 mg DAILY SUBQ 10/10/20 09:00 01/08/21 08:59 10/13/20 08:51 Irbesartan (Avapro) 150 mg Q12HR ORAL 10/09/20 21:00 01/07/21 20:59 10/13/20 08:50 Metoprolol Succinate (Toprol XL) 50 mg DAILY ORAL 10/10/20 09:00 01/08/21 08:59 10/13/20 08:49 Pantoprazole (Protonix) 40 mg DAILY ORAL 10/10/20 09:00 11/09/20 08:59 10/13/20 08:49 Quetiapine Fumarate (SEROqueL) 300 mg Q12HR ORAL 10/09/20 21:00 11/23/20 20:59 10/13/20 08:48 Risperidone (RisperDAL) 2 mg Q12HR ORAL 10/09/20 21:00 11/23/20 20:59 10/13/20 08:50 Zolpidem Tartrate (Ambien) 5 mg HSPRN PRN ORAL Insomnia 10/09/20 20:30 10/16/20 20:29 10/12/20 23:29 Last 24 Hour Vital Signs Date Time Temp Pulse Resp B/P (MAP) Pulse Ox O2 Delivery O2 Flow Rate FiO2 10/13/20 09:00 Room Air 10/13/20 08:50 123/59 10/13/20 08:49 96 123/59 10/13/20 08:49 96 123/59 10/13/20 08:00 97.6 109 20 91/58 (69) 96 10/13/20 04:00 98.5 98 20 118/59 (78) 94 10/13/20 00:00 99.0 91 20 132/74 (93) 94 10/12/20 23:27 138/79 10/12/20 21:00 Room Air 10/12/20 20:00 98.2 100 20 138/79 (98) 93 10/12/20 16:00 98.3 100 20 113/75 (88) 94 10/12/20 12:00 98.5 108 20 135/79 (97) 92 10/12/20 10:40 91 144/65 10/12/20 10:39 144/65 10/12/20 10:38 91 144/65 10/12/20 09:00 Room Air 10/12/20 08:00 99.8 91 20 144/65 (91) 92 10/12/20 04:00 99.1 110 21 130/76 (94) 97 10/12/20 00:29 99.0 112 20 122/70 (87) 97 10/11/20 22:25 144/74 10/11/20 21:00 Room Air 10/11/20 20:00 98.7 120 20 144/74 (97) 97 10/11/20 16:00 100.0 104 16 131/68 (89) 97 10/11/20 12:00 100.5 105 16 122/73 (89) 95 Intake and Output 10/12/20 10/13/20 19:00 07:00 Intake Total 480 ml Balance 480 ml Intake Oral 480 ml # Voids 2 1 Labs Test 10/11/20 05:15 10/12/20 04:40 10/13/20 05:00 White Blood Count 4.3 K/UL (4.8-10.8) 3.0 K/UL (4.8-10.8) 3.1 K/UL (4.8-10.8) Red Blood Count 4.62 M/UL (4.70-6.10) 4.07 M/UL (4.70-6.10) 3.99 M/UL (4.70-6.10) Hemoglobin 13.2 G/DL (14.2-18.0) 12.1 G/DL (14.2-18.0) 11.8 G/DL (14.2-18.0) Hematocrit 41.4 % (42.0-52.0) 37.8 % (42.0-52.0) 36.9 % (42.0-52.0) Mean Corpuscular Volume 90 FL (80-99) 93 FL (80-99) 92 FL (80-99) Mean Corpuscular Hemoglobin 28.7 PG (27.0-31.0) 29.7 PG (27.0-31.0) 29.6 PG (27.0-31.0) Mean Corpuscular Hemoglobin Concent 32.0 G/DL (32.0-36.0) 32.0 G/DL (32.0-36.0) 32.1 G/DL (32.0-36.0) Red Cell Distribution Width 12.9 % (11.6-14.8) 13.7 % (11.6-14.8) 14.0 % (11.6-14.8) Platelet Count 192 K/UL (150-450) 147 K/UL (150-450) 155 K/UL (150-450) Mean Platelet Volume 6.0 FL (6.5-10.1) 5.7 FL (6.5-10.1) 6.3 FL (6.5-10.1) Neutrophils (%) (Auto) 55.8 % (45.0-75.0) % (45.0-75.0) % (45.0-75.0) Lymphocytes (%) (Auto) 34.5 % (20.0-45.0) % (20.0-45.0) % (20.0-45.0) Monocytes (%) (Auto) 9.1 % (1.0-10.0) % (1.0-10.0) % (1.0-10.0) Eosinophils (%) (Auto) 0.5 % (0.0-3.0) % (0.0-3.0) % (0.0-3.0) Basophils (%) (Auto) 0.2 % (0.0-2.0) % (0.0-2.0) % (0.0-2.0) Sodium Level 139 MMOL/L (136-145) 136 MMOL/L (136-145) 136 MMOL/L (136-145) Potassium Level 3.5 MMOL/L (3.5-5.1) 3.3 MMOL/L (3.5-5.1) 3.9 MMOL/L (3.5-5.1) Chloride Level 104 MMOL/L (98-107) 101 MMOL/L (98-107) 102 MMOL/L (98-107) Carbon Dioxide Level 29 MMOL/L (21-32) 28 MMOL/L (21-32) 28 MMOL/L (21-32) Anion Gap 6 mmol/L (5-15) 7 mmol/L (5-15) 6 mmol/L (5-15) Blood Urea Nitrogen 11 mg/dL (7-18) 15 mg/dL (7-18) 15 mg/dL (7-18) Creatinine 1.3 MG/DL (0.55-1.30) 1.4 MG/DL (0.55-1.30) 1.3 MG/DL (0.55-1.30) Estimat Glomerular Filtration Rate 55.1 mL/min (>60) 50.5 mL/min (>60) 55.1 mL/min (>60) Glucose Level 85 MG/DL (74-106) 94 MG/DL (74-106) 88 MG/DL (74-106) Calcium Level 8.0 MG/DL (8.5-10.1) 8.0 MG/DL (8.5-10.1) 8.0 MG/DL (8.5-10.1) Differential Total Cells Counted 100 100 Neutrophils % (Manual) 28 % (45-75) 35 % (45-75) Lymphocytes % (Manual) 59 % (20-45) 58 % (20-45) Monocytes % (Manual) 13 % (1-10) 7 % (1-10) Eosinophils % (Manual) 0 % (0-3) 0 % (0-3) Basophils % (Manual) 0 % (0-2) 0 % (0-2) Band Neutrophils 0 % (0-8) 0 % (0-8) Platelet Estimate Decreased Adequate Platelet Morphology Normal Normal Anisocytosis 1+ Height (Feet): 5 Height (Inches): 9.00 Weight (Pounds): 193 Objective PHYSICAL EXAMINATION: VITAL SIGNS: reviewed HEENT: Head exam reveals that the head is normocephalic, atraumatic without deformity or unusual swelling. CHEST AND LUNGS: Reveals clear, normal, symmetrical breath sounds with no adventitious sounds. CARDIOVASCULAR: Reveals normal S1, S2 without murmurs, rubs, or clicks. ABDOMEN: Obese, soft with no tenderness or organomegaly. A well-healed midline linear vertical scar in the abdomen ++ RECTAL: Deferred. MUSCULOSKELETAL: There is no tenderness to palpation. Range of motion is normal. NEUROLOGICAL: Alert and oriented x3 , nonfocal Es Tapia [employer] Oct 13, 2020 10:58
[2020-10-13 12:00] VITALS: BP 104/63
--- NOTE | 2020-10-13 12:27 | NUR ---
CASE MANAGEMENT: REVIEW 10/13/2020 SI;COVID PNA VS: T 99.5 HR 97 RR 20 B/P 104/63 SATS 95% ON RA LABS: WBC 3.1 CA 8 IS:UROXATROL PO QD NORVASC PO QD RISPERIDONE PO Q12H KLONOPIN PO Q12H AVAPRO PO Q12H MED/SURG
--- NOTE | 2020-10-13 15:18 | Infectious Diseases Prog Note ---
Assessment/Plan Assessment/Plan IMPRESSION: 1. Sepsis 2. COVID-19 disease. 3. Conjunctivitis. 4. History of COPD. 5. History of hepatitis C. 6. History of corneal abrasion. 7. Atelectasis RECOMMENDATIONS: Continue Cipro eye drops. Subjective ROS Limited/Unobtainable: Yes Constitutional: Denies: fever Allergies: Coded Allergies: No Known Allergies (Unverified , 07/31/20) Objective Last 24 Hour Vital Signs Date Time Temp Pulse Resp B/P (MAP) Pulse Ox O2 Delivery O2 Flow Rate FiO2 10/13/20 12:00 99.5 97 20 104/63 (77) 95 10/13/20 09:00 Room Air 10/13/20 08:50 123/59 10/13/20 08:49 96 123/59 10/13/20 08:49 96 123/59 10/13/20 08:00 97.6 109 20 91/58 (69) 96 10/13/20 04:00 98.5 98 20 118/59 (78) 94 10/13/20 00:00 99.0 91 20 132/74 (93) 94 10/12/20 23:27 138/79 10/12/20 21:00 Room Air 10/12/20 20:00 98.2 100 20 138/79 (98) 93 10/12/20 16:00 98.3 100 20 113/75 (88) 94 Height (Feet): 5 Height (Inches): 9.00 Weight (Pounds): 193 General Appearance: no acute distress HEENT: mucous membranes moist Respiratory/Chest: other - oxygen by nasal cannula Cardiovascular: normal rate Abdomen: soft, non tender Neurologic/Psychiatric: other - sleeping Laboratory Tests Test 10/13/20 05:00 White Blood Count 3.1 K/UL (4.8-10.8) L Red Blood Count 3.99 M/UL (4.70-6.10) L Hemoglobin 11.8 G/DL (14.2-18.0) L Hematocrit 36.9 % (42.0-52.0) L Mean Corpuscular Volume 92 FL (80-99) Mean Corpuscular Hemoglobin 29.6 PG (27.0-31.0) Mean Corpuscular Hemoglobin Concent 32.1 G/DL (32.0-36.0) Red Cell Distribution Width 14.0 % (11.6-14.8) Platelet Count 155 K/UL (150-450) Mean Platelet Volume 6.3 FL (6.5-10.1) L Neutrophils (%) (Auto) % (45.0-75.0) Lymphocytes (%) (Auto) % (20.0-45.0) Monocytes (%) (Auto) % (1.0-10.0) Eosinophils (%) (Auto) % (0.0-3.0) Basophils (%) (Auto) % (0.0-2.0) Differential Total Cells Counted 100 Neutrophils % (Manual) 35 % (45-75) L Lymphocytes % (Manual) 58 % (20-45) H Monocytes % (Manual) 7 % (1-10) Eosinophils % (Manual) 0 % (0-3) Basophils % (Manual) 0 % (0-2) Band Neutrophils 0 % (0-8) Platelet Estimate Adequate Platelet Morphology Normal Anisocytosis 1+ Sodium Level 136 MMOL/L (136-145) Potassium Level 3.9 MMOL/L (3.5-5.1) Chloride Level 102 MMOL/L (98-107) Carbon Dioxide Level 28 MMOL/L (21-32) Anion Gap 6 mmol/L (5-15) Blood Urea Nitrogen 15 mg/dL (7-18) Creatinine 1.3 MG/DL (0.55-1.30) Estimat Glomerular Filtration Rate 55.1 mL/min (>60) Glucose Level 88 MG/DL (74-106) Calcium Level 8.0 MG/DL (8.5-10.1) L Current Medications Medications (Trade) Dose Ordered Sig/Sidney Route PRN Reason Start Time Stop Time Status Last Admin Dose Admin Acetaminophen (Tylenol) 650 mg Q6H PRN ORAL HEADACHE OR FEVER >100 10/09/20 22:45 11/08/20 22:44 Alfuzosin HCl (Uroxatrol) 10 mg DAILY ORAL 10/10/20 09:00 11/09/20 08:59 10/13/20 08:49 Amlodipine Besylate (Norvasc) 10 mg DAILY ORAL 10/10/20 09:00 11/09/20 08:59 10/13/20 08:49 Chlorhexidine Gluconate (Beryl-Hex 2%) 1 applic QHS TOPIC 10/09/20 21:00 01/07/21 20:59 Ciprofloxacin (Ciloxan Opth Soln) 1 drop Q6HR BOTH EYES 10/11/20 18:30 10/18/20 18:29 10/13/20 10:54 Clonazepam (KlonoPIN) 1 mg Q12HR ORAL 10/09/20 21:00 10/16/20 20:59 10/13/20 08:50 Enoxaparin Sodium (Lovenox) 40 mg DAILY SUBQ 10/10/20 09:00 01/08/21 08:59 10/13/20 08:51 Irbesartan (Avapro) 150 mg Q12HR ORAL 10/09/20 21:00 01/07/21 20:59 10/13/20 08:50 Metoprolol Succinate (Toprol XL) 50 mg DAILY ORAL 10/10/20 09:00 01/08/21 08:59 10/13/20 08:49 Pantoprazole (Protonix) 40 mg DAILY ORAL 10/10/20 09:00 11/09/20 08:59 10/13/20 08:49 Quetiapine Fumarate (SEROqueL) 300 mg Q12HR ORAL 10/09/20 21:00 11/23/20 20:59 10/13/20 08:48 Risperidone (RisperDAL) 2 mg Q12HR ORAL 10/09/20 21:00 11/23/20 20:59 10/13/20 08:50 Zolpidem Tartrate (Ambien) 5 mg HSPRN PRN ORAL Insomnia 10/09/20 20:30 10/16/20 20:29 10/12/20 23:29 Harsh Bowser MD Oct 13, 2020 15:18
--- NOTE | 2020-10-13 15:18 | General Progress Note ---
Subjective ROS Limited/Unobtainable: Yes Allergies: Coded Allergies: No Known Allergies (Unverified , 07/31/20) Objective Last 24 Hour Vital Signs Date Time Temp Pulse Resp B/P (MAP) Pulse Ox O2 Delivery O2 Flow Rate FiO2 10/13/20 12:00 99.5 97 20 104/63 (77) 95 10/13/20 09:00 Room Air 10/13/20 08:50 123/59 10/13/20 08:49 96 123/59 10/13/20 08:49 96 123/59 10/13/20 08:00 97.6 109 20 91/58 (69) 96 10/13/20 04:00 98.5 98 20 118/59 (78) 94 10/13/20 00:00 99.0 91 20 132/74 (93) 94 10/12/20 23:27 138/79 10/12/20 21:00 Room Air 10/12/20 20:00 98.2 100 20 138/79 (98) 93 10/12/20 16:00 98.3 100 20 113/75 (88) 94 Intake and Output 10/12/20 10/13/20 19:00 07:00 Intake Total 480 ml Balance 480 ml Intake Oral 480 ml # Voids 2 1 Laboratory Tests 10/13/20 05:00: White Blood Count 3.1L, Red Blood Count 3.99L, Hemoglobin 11.8L, Hematocrit 36.9L, Mean Corpuscular Volume 92, Mean Corpuscular Hemoglobin 29.6, Mean Corpuscular Hemoglobin Concent 32.1, Red Cell Distribution Width 14.0, Platelet Count 155, Mean Platelet Volume 6.3L, Neutrophils (%) (Auto) , Lymphocytes (%) (Auto) , Monocytes (%) (Auto) , Eosinophils (%) (Auto) , Basophils (%) (Auto) , Differential Total Cells Counted 100, Neutrophils % (Manual) 35L, Lymphocytes % (Manual) 58H, Monocytes % (Manual) 7, Eosinophils % (Manual) 0, Basophils % (Manual) 0, Band Neutrophils 0, Platelet Estimate Adequate, Platelet Morphology Normal, Anisocytosis 1+, Sodium Level 136, Potassium Level 3.9, Chloride Level 102, Carbon Dioxide Level 28, Anion Gap 6, Blood Urea Nitrogen 15, Creatinine 1.3, Estimat Glomerular Filtration Rate 55.1, Glucose Level 88, Calcium Level 8.0L Height (Feet): 5 Height (Inches): 9.00 Weight (Pounds): 193 Assessment/Plan Problem List: (1) Headache ICD Codes: R51.9 - Headache, unspecified SNOMED: 99932576 (2) COVID-19 ICD Codes: U07.1 - COVID-19 SNOMED: 280007773 Status: progressing, tolerating diet Assessment/Plan: covid positive h/o svt no sob no acute distrsess Deng Liu MD Oct 13, 2020 15:18
[2020-10-13 16:00] VITALS: BP 130/75
--- NOTE | 2020-10-13 19:30 | NUR ---
NURSE HAND-OFF: Important Events on Shift:[none] Patient Status: stable Diet: Reg Pending Orders: Pending Results/Labs: Pending MD notification: Latest Vital Signs: Temperature 98.9 , Pulse 95 , B/P 130 /75 , Respiratory Rate 18 , O2 SAT 95 , Room Air, O2 Flow Rate 2.0 . Vital Sign Comment: stable Latest Barreto Fall Score: 35 Fall Risk: Medium Risk Safety Measures: Call light Within Reach, Bed Alarm Zone 2, Side Rails Side Rails x2, Bed position Low and Locked. Fall Precautions: Yellow Socks Door Sign Patient Fall Education Report given to Kimberly ROTH.
--- NOTE | 2020-10-13 19:45 | Cardiac Electrophysiology PN ---
Assessment/Plan Assessment/Plan 1. Shortness of breath due to COVID-19 infection. On 2 liter NC, azithromycin and ceftriaxone. Fu by Dr. Shell. 2. Hypertension. On amlodipine 10 mg daily, Toprol-XL 50 mg daily and Avapro 150 bid 3. Psychiatric history. VICTORIA RN Subjective Subjective In isolation for Covid. No CP or SOB. Now getting Cipro eye drops. RN at bedside On 2 liter NC Objective Last 24 Hour Vital Signs Date Time Temp Pulse Resp B/P (MAP) Pulse Ox O2 Delivery O2 Flow Rate FiO2 10/13/20 16:00 98.9 95 18 130/75 (93) 95 10/13/20 12:00 99.5 97 20 104/63 (77) 95 10/13/20 09:00 Room Air 10/13/20 08:50 123/59 10/13/20 08:49 96 123/59 10/13/20 08:49 96 123/59 10/13/20 08:00 97.6 109 20 91/58 (69) 96 10/13/20 04:00 98.5 98 20 118/59 (78) 94 10/13/20 00:00 99.0 91 20 132/74 (93) 94 10/12/20 23:27 138/79 10/12/20 21:00 Room Air 10/12/20 20:00 98.2 100 20 138/79 (98) 93 Intake and Output 10/12/20 10/13/20 18:59 06:59 Intake Total 480 ml Balance 480 ml Intake Oral 480 ml # Voids 2 1 Laboratory Tests Test 10/13/20 05:00 White Blood Count 3.1 K/UL (4.8-10.8) L Red Blood Count 3.99 M/UL (4.70-6.10) L Hemoglobin 11.8 G/DL (14.2-18.0) L Hematocrit 36.9 % (42.0-52.0) L Mean Corpuscular Volume 92 FL (80-99) Mean Corpuscular Hemoglobin 29.6 PG (27.0-31.0) Mean Corpuscular Hemoglobin Concent 32.1 G/DL (32.0-36.0) Red Cell Distribution Width 14.0 % (11.6-14.8) Platelet Count 155 K/UL (150-450) Mean Platelet Volume 6.3 FL (6.5-10.1) L Neutrophils (%) (Auto) % (45.0-75.0) Lymphocytes (%) (Auto) % (20.0-45.0) Monocytes (%) (Auto) % (1.0-10.0) Eosinophils (%) (Auto) % (0.0-3.0) Basophils (%) (Auto) % (0.0-2.0) Differential Total Cells Counted 100 Neutrophils % (Manual) 35 % (45-75) L Lymphocytes % (Manual) 58 % (20-45) H Monocytes % (Manual) 7 % (1-10) Eosinophils % (Manual) 0 % (0-3) Basophils % (Manual) 0 % (0-2) Band Neutrophils 0 % (0-8) Platelet Estimate Adequate Platelet Morphology Normal Anisocytosis 1+ Sodium Level 136 MMOL/L (136-145) Potassium Level 3.9 MMOL/L (3.5-5.1) Chloride Level 102 MMOL/L (98-107) Carbon Dioxide Level 28 MMOL/L (21-32) Anion Gap 6 mmol/L (5-15) Blood Urea Nitrogen 15 mg/dL (7-18) Creatinine 1.3 MG/DL (0.55-1.30) Estimat Glomerular Filtration Rate 55.1 mL/min (>60) Glucose Level 88 MG/DL (74-106) Calcium Level 8.0 MG/DL (8.5-10.1) L Objective HEAD AND NECK: Shows mild JVD. Bilateral eyelids are edematous and erythematous. LUNGS: Clear. CARDIOVASCULAR: Shows regular S1 and S2 with no gallop. ABDOMEN: Soft. EXTREMITIES: 1+ pitting edema. Kirit Dave MD Oct 13, 2020 19:45
--- NOTE | 2020-10-13 19:55 | NUR ---
NURSE NOTES: Patient is awake, but sleepy, no signs of acute distress noted. Left hand IV is intact and saline locked. Bed is low and locked, side rails up x2, bed alarm on, asked pt to call for assistance, call light is within reach.
[2020-10-13 21:00] VITALS: BP 136/74
[2020-10-13] MEDS: Dyna-Hex 2% Top Sol 2oz TOPIC SCH (21:00)
--- NOTE | 2020-10-13 21:00 | NUR ---
NURSE NOTES: Pt had temp of 100.6, collected urinalysis as ordered for temp >100 temp went down to 99.1 later
[2020-10-14] VITALS: BP 119/71
[2020-10-14] MEDS: Ciprofloxacin Opth Soln 5ml BOTH EYES SCH ×5 (01:40→23:29)
[2020-10-14 04:00] VITALS: BP 120/75
--- NOTE | 2020-10-14 07:25 | NUR ---
NURSE NOTES: received patient in bed, patient awake and alert. no sign of distress, on O2 at 2LPM via NC, On fall and covid isolation precaution, instructed to call before getting out of bed. Fall precautions in place. bed locked low in position,side rails up, bed alarm on and call light within reach GONZALEZ pappas
--- NOTE | 2020-10-14 08:00 | NUR ---
NURSE HAND-OFF: Important Events on Shift:[none] Patient Status: stable Diet: Reg Pending Orders: no labs today, inform re temp- as ordered obtained urinalysis Pending Results/Labs:urinalysis results Pending MD notification: febrile overnight, diaphoretic, temp 100.6 went down to 99.1 after tylenol and cooling measures Patient Fall Education Report given to Zahra Dominique RN
[2020-10-14 08:27] LABS: APPEARANCE,URINE CLEAR; BILIRUBIN, URINE NEGATIVE (NEGATIVE); COLOR,URINE YELLOW; GLUCOSE, URINE (UA) NEGATIVE (NEGATIVE); KETONES,URINE 1+ (NEGATIVE); LEUKOCYTE ESTERASE ,URINE NEGATIVE (NEGATIVE); NITRITE,URINE NEGATIVE (NEGATIVE); PH,URINE 5 (4.5-8.0); PROTEIN,URINE 1+ (NEGATIVE); UROBILINOGEN,URINE NORMAL MG/DL (0.0-1.0)
[2020-10-14 08:30] VITALS: BP 123/72
[2020-10-14] MEDS: Irbesartan 150mg tablet ORAL SCH ×2 (08:40→21:21)
[2020-10-14] MEDS: Metoprolol Succinate XL 50mg tab ORAL SCH (08:40)
[2020-10-14] MEDS: Enoxaparin 40mg Inj SUBQ SCH (08:47)
[2020-10-14 11:35] VITALS: BP 105/65
--- NOTE | 2020-10-14 12:15 | Pulmonology Progress Note ---
Subjective ROS Limited/Unobtainable: Yes Interval Events: no fever overnight Constitutional: Denies: fever HEENT: Repors: other - eye pain Respiratory: Reports: no symptoms Cardiovascular: Reports: no symptoms Gastrointestinal/Abdominal: Reports: no symptoms Genitourinary: Reports: no symptoms Allergies: Coded Allergies: No Known Allergies (Unverified , 07/31/20) Objective Last 24 Hour Vital Signs Date Time Temp Pulse Resp B/P (MAP) Pulse Ox O2 Delivery O2 Flow Rate FiO2 10/14/20 11:35 98.5 89 18 105/65 (78) 93 10/14/20 08:40 123/72 10/14/20 08:40 95 123/72 10/14/20 08:40 95 123/72 10/14/20 08:30 Room Air 10/14/20 08:30 98.2 95 18 123/72 (89) 95 10/14/20 04:00 99.2 95 18 120/75 (90) 95 10/14/20 00:00 99.0 85 18 119/71 (87) 94 10/13/20 22:57 99.1 10/13/20 22:57 99.1 10/13/20 21:27 130/75 10/13/20 21:00 Room Air 10/13/20 21:00 100.6 105 18 136/74 (94) 95 10/13/20 16:00 98.9 95 18 130/75 (93) 95 Intake and Output 10/13/20 10/14/20 19:00 07:00 Intake Total 350 ml Output Total 200 ml Balance 350 ml -200 ml Intake Oral 350 ml Output Urine Total 200 ml # Voids 4 Objective 10/14 saturating at 95% on 2L NC 10/12 saturating at 97% on 2L NC 10/11 now on 2L saturating well 10/10 on room air saturating well General Appearance: WD/WN, no acute distress HEENT: other - erythematous, edematous eyes Respiratory: lungs clear Cardiovascular: normal rate, regular rhythm Abdomen: soft, non tender Laboratory Tests 10/14/20 08:05: Urine Color Yellow, Urine Appearance Clear, Urine pH 5, Urine Specific [place] 1.015, Urine Protein 1+H, Urine Glucose (UA) Negative, Urine Ketones 1+H, Urine Blood Negative, Urine Nitrite Negative, Urine Bilirubin Negative, Urine Urobilinogen Normal, Urine Leukocyte Esterase Negative, Urine RBC 0, Urine WBC 0-2, Urine Squamous Epithelial Cells Occasional, Urine Bacteria Occasional Current Medications Medications (Trade) Dose Ordered Sig/Sidney Route PRN Reason Start Time Stop Time Status Last Admin Dose Admin Acetaminophen (Tylenol) 650 mg Q6H PRN ORAL HEADACHE OR FEVER >100 10/09/20 22:45 11/08/20 22:44 10/13/20 22:27 Alfuzosin HCl (Uroxatrol) 10 mg DAILY ORAL 10/10/20 09:00 11/09/20 08:59 10/14/20 08:40 Amlodipine Besylate (Norvasc) 10 mg DAILY ORAL 10/10/20 09:00 11/09/20 08:59 10/14/20 08:40 Chlorhexidine Gluconate (Beryl-Hex 2%) 1 applic QHS TOPIC 10/09/20 21:00 01/07/21 20:59 Ciprofloxacin (Ciloxan Opth Soln) 1 drop Q6HR BOTH EYES 10/11/20 18:30 10/18/20 18:29 10/14/20 11:30 Clonazepam (KlonoPIN) 1 mg Q12HR ORAL 10/09/20 21:00 10/16/20 20:59 10/14/20 08:40 Enoxaparin Sodium (Lovenox) 40 mg DAILY SUBQ 10/10/20 09:00 01/08/21 08:59 10/14/20 08:47 Irbesartan (Avapro) 150 mg Q12HR ORAL 10/09/20 21:00 01/07/21 20:59 10/14/20 08:40 Metoprolol Succinate (Toprol XL) 50 mg DAILY ORAL 10/10/20 09:00 01/08/21 08:59 10/14/20 08:40 Pantoprazole (Protonix) 40 mg DAILY ORAL 10/10/20 09:00 11/09/20 08:59 10/14/20 08:40 Quetiapine Fumarate (SEROqueL) 300 mg Q12HR ORAL 10/09/20 21:00 11/23/20 20:59 10/14/20 08:40 Risperidone (RisperDAL) 2 mg Q12HR ORAL 10/09/20 21:00 11/23/20 20:59 10/14/20 08:40 Zolpidem Tartrate (Ambien) 5 mg HSPRN PRN ORAL Insomnia 10/09/20 20:30 10/16/20 20:29 10/12/20 23:29 Assessment/Plan Assessment/Plan 1. COVID-19 infection - Saturating at at 95% on 2L NC; wean down as tolerated - s/p Azithromycin and ceftriaxone IV once in ER -Given his normoxemia without fever, clear lung sounds, and negative CXR, no specific therapy is required at this time -Continue monitoring SaO2 and provide supplemental oxygen as needed - Repeat CXR 10/12 shows subsegmental atelectasis in the left lung base. 2. Conjunctivitis - now on ciprofloxacin ophthalmic solution 3. Elevated CRP, D-dimer - s/p Lovenox in ER - Venous duplex US negative for DVT - no Lovenox 4. Hypertension - on metoprolol and amlodipine - monitor BP 5. Hypokalemia - per primary MD 7. New onset fever with tachycardia; resolved - better on antipyretics - likely sepsis secondary to COVID-19, vs UTI - consider UA if fever persistent - Venous duplex US negative for DVT - management per primary MD, and ID 8. Atelectasis - monitor at this point given his normoxemia The care for this patient was discussed with my supervising physician. Time spent for this case was approximately 31 minutes. Piyush Dent Oct 14, 2020 12:15
--- NOTE | 2020-10-14 12:28 | Hematology/Onc Progress Note ---
Assessment/Plan Assessment/Plan Assessment/Plan 1. Leukopenia is related likely to COVID-19 infection+++++++++++ --> Patient is currently saturating well on room air, per pulm --> s/p Azithromycin and ceftriaxone IV once in ER --> Continue monitoring SaO2 and provide supplemental oxygen as needed --> smear reviewed --> wbc 4.7-->3.8 --> neupogen prn 2. Anemia due to likely chronic disease, infection --> trend hgb as needed hgb 13 3. Elevated CRP, D-dimer --> s/p Lovenox in ER --> DVX ppx recommended --> duplex lower leg r/o dvt 4. Hypertension --> recommend continuing home antihypertensive meds --> as per cards 5. Covid 19 as per pulm/id 6. Dvt ppx lovenox sq Appreciate consultation and marly Rn Subjective Allergies: Coded Allergies: No Known Allergies (Unverified , 07/31/20) Subjective Subjective 10/11 awake, no new events, no bleeding, labs noted, ambulating 10/12 covid iso, is on ra, no bleeding, labs noted, meds reviewed 10/13: on RA saturating well no acute events. 10/14: no distress on O2 NC 2L, slight temp last night UA collected Objective Objective Current Medications Medications (Trade) Dose Ordered Sig/Sidney Route PRN Reason Start Time Stop Time Status Last Admin Dose Admin Acetaminophen (Tylenol) 650 mg Q6H PRN ORAL HEADACHE OR FEVER >100 10/09/20 22:45 11/08/20 22:44 10/13/20 22:27 Alfuzosin HCl (Uroxatrol) 10 mg DAILY ORAL 10/10/20 09:00 11/09/20 08:59 10/14/20 08:40 Amlodipine Besylate (Norvasc) 10 mg DAILY ORAL 10/10/20 09:00 11/09/20 08:59 10/14/20 08:40 Chlorhexidine Gluconate (Beryl-Hex 2%) 1 applic QHS TOPIC 10/09/20 21:00 01/07/21 20:59 Ciprofloxacin (Ciloxan Opth Soln) 1 drop Q6HR BOTH EYES 10/11/20 18:30 10/18/20 18:29 10/14/20 11:30 Clonazepam (KlonoPIN) 1 mg Q12HR ORAL 10/09/20 21:00 10/16/20 20:59 10/14/20 08:40 Enoxaparin Sodium (Lovenox) 40 mg DAILY SUBQ 10/10/20 09:00 01/08/21 08:59 10/14/20 08:47 Irbesartan (Avapro) 150 mg Q12HR ORAL 10/09/20 21:00 01/07/21 20:59 10/14/20 08:40 Metoprolol Succinate (Toprol XL) 50 mg DAILY ORAL 10/10/20 09:00 01/08/21 08:59 10/14/20 08:40 Pantoprazole (Protonix) 40 mg DAILY ORAL 10/10/20 09:00 11/09/20 08:59 10/14/20 08:40 Quetiapine Fumarate (SEROqueL) 300 mg Q12HR ORAL 10/09/20 21:00 11/23/20 20:59 10/14/20 08:40 Risperidone (RisperDAL) 2 mg Q12HR ORAL 10/09/20 21:00 11/23/20 20:59 10/14/20 08:40 Zolpidem Tartrate (Ambien) 5 mg HSPRN PRN ORAL Insomnia 10/09/20 20:30 10/16/20 20:29 10/12/20 23:29 Last 24 Hour Vital Signs Date Time Temp Pulse Resp B/P (MAP) Pulse Ox O2 Delivery O2 Flow Rate FiO2 10/14/20 11:35 98.5 89 18 105/65 (78) 93 10/14/20 08:40 123/72 10/14/20 08:40 95 123/72 10/14/20 08:40 95 123/72 10/14/20 08:30 Room Air 10/14/20 08:30 98.2 95 18 123/72 (89) 95 10/14/20 04:00 99.2 95 18 120/75 (90) 95 10/14/20 00:00 99.0 85 18 119/71 (87) 94 10/13/20 22:57 99.1 10/13/20 22:57 99.1 10/13/20 21:27 130/75 10/13/20 21:00 Room Air 10/13/20 21:00 100.6 105 18 136/74 (94) 95 10/13/20 16:00 98.9 95 18 130/75 (93) 95 10/13/20 12:00 99.5 97 20 104/63 (77) 95 10/13/20 09:00 Room Air 10/13/20 08:50 123/59 10/13/20 08:49 96 123/59 10/13/20 08:49 96 123/59 10/13/20 08:00 97.6 109 20 91/58 (69) 96 10/13/20 04:00 98.5 98 20 118/59 (78) 94 10/13/20 00:00 99.0 91 20 132/74 (93) 94 10/12/20 23:27 138/79 10/12/20 21:00 Room Air 10/12/20 20:00 98.2 100 20 138/79 (98) 93 10/12/20 16:00 98.3 100 20 113/75 (88) 94 Intake and Output 10/13/20 10/14/20 19:00 07:00 Intake Total 350 ml Output Total 200 ml Balance 350 ml -200 ml Intake Oral 350 ml Output Urine Total 200 ml # Voids 4 Labs Test 10/12/20 04:40 10/13/20 05:00 10/14/20 08:05 White Blood Count 3.0 K/UL (4.8-10.8) 3.1 K/UL (4.8-10.8) Red Blood Count 4.07 M/UL (4.70-6.10) 3.99 M/UL (4.70-6.10) Hemoglobin 12.1 G/DL (14.2-18.0) 11.8 G/DL (14.2-18.0) Hematocrit 37.8 % (42.0-52.0) 36.9 % (42.0-52.0) Mean Corpuscular Volume 93 FL (80-99) 92 FL (80-99) Mean Corpuscular Hemoglobin 29.7 PG (27.0-31.0) 29.6 PG (27.0-31.0) Mean Corpuscular Hemoglobin Concent 32.0 G/DL (32.0-36.0) 32.1 G/DL (32.0-36.0) Red Cell Distribution Width 13.7 % (11.6-14.8) 14.0 % (11.6-14.8) Platelet Count 147 K/UL (150-450) 155 K/UL (150-450) Mean Platelet Volume 5.7 FL (6.5-10.1) 6.3 FL (6.5-10.1) Neutrophils (%) (Auto) % (45.0-75.0) % (45.0-75.0) Lymphocytes (%) (Auto) % (20.0-45.0) % (20.0-45.0) Monocytes (%) (Auto) % (1.0-10.0) % (1.0-10.0) Eosinophils (%) (Auto) % (0.0-3.0) % (0.0-3.0) Basophils (%) (Auto) % (0.0-2.0) % (0.0-2.0) Differential Total Cells Counted 100 100 Neutrophils % (Manual) 28 % (45-75) 35 % (45-75) Lymphocytes % (Manual) 59 % (20-45) 58 % (20-45) Monocytes % (Manual) 13 % (1-10) 7 % (1-10) Eosinophils % (Manual) 0 % (0-3) 0 % (0-3) Basophils % (Manual) 0 % (0-2) 0 % (0-2) Band Neutrophils 0 % (0-8) 0 % (0-8) Platelet Estimate Decreased Adequate Platelet Morphology Normal Normal Sodium Level 136 MMOL/L (136-145) 136 MMOL/L (136-145) Potassium Level 3.3 MMOL/L (3.5-5.1) 3.9 MMOL/L (3.5-5.1) Chloride Level 101 MMOL/L (98-107) 102 MMOL/L (98-107) Carbon Dioxide Level 28 MMOL/L (21-32) 28 MMOL/L (21-32) Anion Gap 7 mmol/L (5-15) 6 mmol/L (5-15) Blood Urea Nitrogen 15 mg/dL (7-18) 15 mg/dL (7-18) Creatinine 1.4 MG/DL (0.55-1.30) 1.3 MG/DL (0.55-1.30) Estimat Glomerular Filtration Rate 50.5 mL/min (>60) 55.1 mL/min (>60) Glucose Level 94 MG/DL (74-106) 88 MG/DL (74-106) Calcium Level 8.0 MG/DL (8.5-10.1) 8.0 MG/DL (8.5-10.1) Anisocytosis 1+ Urine Color Yellow Urine Appearance Clear Urine pH 5 (4.5-8.0) Urine Specific [place] 1.015 (1.005-1.035) Urine Protein 1+ (NEGATIVE) Urine Glucose (UA) Negative (NEGATIVE) Urine Ketones 1+ (NEGATIVE) Urine Blood Negative (NEGATIVE) Urine Nitrite Negative (NEGATIVE) Urine Bilirubin Negative (NEGATIVE) Urine Urobilinogen Normal MG/DL (0.0-1.0) Urine Leukocyte Esterase Negative (NEGATIVE) Urine RBC 0 /HPF (0 - 0) Urine WBC 0-2 /HPF (0 - 0) Urine Squamous Epithelial Cells Occasional /LPF Urine Bacteria Occasional /HPF (NONE) Height (Feet): 5 Height (Inches): 9.00 Weight (Pounds): 193 Objective PHYSICAL EXAMINATION: VITAL SIGNS: reviewed HEENT: Head exam reveals that the head is normocephalic, atraumatic without deformity or unusual swelling. CHEST AND LUNGS: Reveals clear, normal, symmetrical breath sounds with no adventitious sounds. CARDIOVASCULAR: Reveals normal S1, S2 without murmurs, rubs, or clicks. ABDOMEN: Obese, soft with no tenderness or organomegaly. A well-healed midline linear vertical scar in the abdomen ++ RECTAL: Deferred. MUSCULOSKELETAL: There is no tenderness to palpation. Range of motion is normal. NEUROLOGICAL: Alert and oriented x3 , nonfocal Es Tapia TI[employer] FINISHER Oct 14, 2020 12:28
[2020-10-14 16:05] VITALS: BP 111/82
--- NOTE | 2020-10-14 17:59 | Cardiac Electrophysiology PN ---
Assessment/Plan Assessment/Plan 1. Shortness of breath due to COVID-19 infection. On 2 liter NC, azithromycin and ceftriaxone. Fu by Dr. Shell. 2. Hypertension. On amlodipine 10 mg daily, Toprol-XL 50 mg daily and Avapro 150 bid 3. Psychiatric history. VICTORIA RN Subjective Subjective In isolation for Covid. No CP or SOB.On Cipro eye drops. On 2 liter NC Objective Last 24 Hour Vital Signs Date Time Temp Pulse Resp B/P (MAP) Pulse Ox O2 Delivery O2 Flow Rate FiO2 10/14/20 16:05 98.7 89 18 111/82 (92) 93 10/14/20 11:35 98.5 89 18 105/65 (78) 93 10/14/20 08:40 123/72 10/14/20 08:40 95 123/72 10/14/20 08:40 95 123/72 10/14/20 08:30 Room Air 10/14/20 08:30 98.2 95 18 123/72 (89) 95 10/14/20 04:00 99.2 95 18 120/75 (90) 95 10/14/20 00:00 99.0 85 18 119/71 (87) 94 10/13/20 22:57 99.1 10/13/20 22:57 99.1 10/13/20 21:27 130/75 10/13/20 21:00 Room Air 10/13/20 21:00 100.6 105 18 136/74 (94) 95 Intake and Output 10/13/20 10/14/20 19:00 07:00 Intake Total 350 ml Output Total 200 ml Balance 350 ml -200 ml Intake Oral 350 ml Output Urine Total 200 ml # Voids 4 Laboratory Tests Test 10/14/20 08:05 Urine Color Yellow Urine Appearance Clear Urine pH 5 (4.5-8.0) Urine Specific [place] 1.015 (1.005-1.035) Urine Protein 1+ (NEGATIVE) H Urine Glucose (UA) Negative (NEGATIVE) Urine Ketones 1+ (NEGATIVE) H Urine Blood Negative (NEGATIVE) Urine Nitrite Negative (NEGATIVE) Urine Bilirubin Negative (NEGATIVE) Urine Urobilinogen Normal MG/DL (0.0-1.0) Urine Leukocyte Esterase Negative (NEGATIVE) Urine RBC 0 /HPF (0 - 0) Urine WBC 0-2 /HPF (0 - 0) Urine Squamous Epithelial Cells Occasional /LPF Urine Bacteria Occasional /HPF (NONE) Objective HEAD AND NECK: Shows mild JVD. Bilateral eyelids are edematous and erythematous. LUNGS: Clear. CARDIOVASCULAR: Shows regular S1 and S2 with no gallop. ABDOMEN: Soft. EXTREMITIES: 1+ pitting edema. Kirit Dave MD Oct 14, 2020 17:59
--- NOTE | 2020-10-14 19:22 | NUR ---
NURSE HAND-OFF: Important Events on Shift:NONE] Patient Status: [ON GOING] Diet: [REGULAR] Pending Orders: [NONE] Pending Results/Labs:[NONE] Pending MD notification:[NONE] Latest Vital Signs: Temperature 98.7 , Pulse 89 , B/P 111 /82 , Respiratory Rate 18 , O2 SAT 93 , O2 Flow Rate 2.0 . Vital Sign Comment: [STABLE] Latest Barreto Fall Score: 45 Fall Risk: High Risk Safety Measures: Call light Within Reach, Bed Alarm Zone 2, Side Rails Side Rails x2, Bed position Low and Locked. Fall Precautions: Yellow Socks Door Sign Patient Fall Education ISOLATION FOR COVID Report given to [Ms Charles ROTH].
--- NOTE | 2020-10-14 19:50 | NUR ---
NURSE NOTES: Patient in bed, awake and alert x4. On nasal cannula 2L with no signs of distress or SOB. IV intact and patent. Bed locked and in lowest position. Call light in reach. Will continue plan of care.
[2020-10-14 20:00] VITALS: BP 147/76
[2020-10-14] MEDS: Dyna-Hex 2% Top Sol 2oz TOPIC SCH (20:18)
--- NOTE | 2020-10-14 22:38 | General Progress Note ---
Subjective ROS Limited/Unobtainable: Yes Allergies: Coded Allergies: No Known Allergies (Unverified , 07/31/20) Objective Last 24 Hour Vital Signs Date Time Temp Pulse Resp B/P (MAP) Pulse Ox O2 Delivery O2 Flow Rate FiO2 10/14/20 21:21 147/76 10/14/20 20:00 97.6 90 18 147/76 (99) 94 10/14/20 16:05 98.7 89 18 111/82 (92) 93 10/14/20 11:35 98.5 89 18 105/65 (78) 93 10/14/20 08:40 123/72 10/14/20 08:40 95 123/72 10/14/20 08:40 95 123/72 10/14/20 08:30 Room Air 10/14/20 08:30 98.2 95 18 123/72 (89) 95 10/14/20 04:00 99.2 95 18 120/75 (90) 95 10/14/20 00:00 99.0 85 18 119/71 (87) 94 10/13/20 22:57 99.1 10/13/20 22:57 99.1 Intake and Output 10/13/20 10/14/20 19:00 07:00 Intake Total 350 ml Output Total 200 ml Balance 350 ml -200 ml Intake Oral 350 ml Output Urine Total 200 ml # Voids 4 Laboratory Tests 10/14/20 08:05: Urine Color Yellow, Urine Appearance Clear, Urine pH 5, Urine Specific [place] 1.015, Urine Protein 1+H, Urine Glucose (UA) Negative, Urine Ketones 1+H, Urine Blood Negative, Urine Nitrite Negative, Urine Bilirubin Negative, Urine Urobilinogen Normal, Urine Leukocyte Esterase Negative, Urine RBC 0, Urine WBC 0-2, Urine Squamous Epithelial Cells Occasional, Urine Bacteria Occasional Height (Feet): 5 Height (Inches): 9.00 Weight (Pounds): 193 Assessment/Plan Problem List: (1) Headache ICD Codes: R51.9 - Headache, unspecified SNOMED: [id number] (2) COVID-19 ICD Codes: U07.1 - COVID-19 SNOMED: 125445634 Status: progressing, tolerating diet Assessment/Plan: covid positive improving prn supportive rx afebrile psychiatric patient Deng Liu MD Oct 14, 2020 22:37
[2020-10-15 04:00] VITALS: BP 119/66
[2020-10-15] MEDS: Ciprofloxacin Opth Soln 5ml BOTH EYES SCH ×4 (06:25→23:01)
--- NOTE | 2020-10-15 07:06 | Hematology/Onc Progress Note ---
Assessment/Plan Assessment/Plan Assessment/Plan 1. Leukopenia is related likely to COVID-19 infection+++++++++++ --> Patient is currently saturating well on room air, per pulm --> s/p Azithromycin and ceftriaxone IV once in ER --> Continue monitoring SaO2 and provide supplemental oxygen as needed --> smear reviewed --> wbc 4.7-->3.8 --> neupogen prn 2. Anemia due to likely chronic disease, infection --> trend hgb as needed hgb 13 3. Elevated CRP, D-dimer --> s/p Lovenox in ER --> DVX ppx recommended --> duplex lower leg r/o dvt 4. Hypertension --> recommend continuing home antihypertensive meds --> as per cards 5. Covid 19 as per pulm/id 6. Dvt ppx lovenox sq Appreciate consultation and dw Rn Subjective Cardiovascular: Denies: no symptoms, chest pain, edema, irregular heart rate, lightheadedness, palpitations, syncope, other Respiratory: Denies: no symptoms, cough, shortness of breath, SOB with excertion, SOB at rest, sputum, wheezing, other Gastrointestinal/Abdominal: Denies: no symptoms, abdomen distended, abdominal pain, black stools, tarry stools, blood in stool, constipated, diarrhea, difficulty swallowing, nausea, poor appetite, poor fluid intake, rectal bleeding, vomiting, other Genitourinary: Denies: no symptoms, burning, discharge, frequency, flank pain, hematuria, incontinence, pain, urgency, other Neurologic/Psychiatric: Denies: no symptoms, anxiety, depressed, emotional problems, headache, numbness, paresthesia, pre-existing deficit, seizure, tingling, tremors, weakness, other Hematologic/Lymphatic: Denies: no symptoms, anemia, easy bleeding, easy bruising, adenopathy, other Allergies: Coded Allergies: No Known Allergies (Unverified , 07/31/20) Subjective 10/11 awake, no new events, no bleeding, labs noted, ambulating 10/12 covid iso, is on ra, no bleeding, labs noted, meds reviewed 10/13: on RA saturating well no acute events. 10/14: no distress on O2 NC 2L, slight temp last night UA collected 10/15 is awake, alert, is on 2lnc, no bleeding, labs are noted Objective Objective Current Medications Medications (Trade) Dose Ordered Sig/Sidney Route PRN Reason Start Time Stop Time Status Last Admin Dose Admin Acetaminophen (Tylenol) 650 mg Q6H PRN ORAL HEADACHE OR FEVER >100 10/09/20 22:45 11/08/20 22:44 10/13/20 22:27 Alfuzosin HCl (Uroxatrol) 10 mg DAILY ORAL 10/10/20 09:00 11/09/20 08:59 10/14/20 08:40 Amlodipine Besylate (Norvasc) 10 mg DAILY ORAL 10/10/20 09:00 11/09/20 08:59 10/14/20 08:40 Chlorhexidine Gluconate (Beryl-Hex 2%) 1 applic QHS TOPIC 10/09/20 21:00 01/07/21 20:59 Ciprofloxacin (Ciloxan Opth Soln) 1 drop Q6HR BOTH EYES 10/11/20 18:30 10/18/20 18:29 10/15/20 06:25 Clonazepam (KlonoPIN) 1 mg Q12HR ORAL 10/09/20 21:00 10/16/20 20:59 10/14/20 21:21 Enoxaparin Sodium (Lovenox) 40 mg DAILY SUBQ 10/10/20 09:00 01/08/21 08:59 10/14/20 08:47 Irbesartan (Avapro) 150 mg Q12HR ORAL 10/09/20 21:00 01/07/21 20:59 10/14/20 21:21 Metoprolol Succinate (Toprol XL) 50 mg DAILY ORAL 10/10/20 09:00 01/08/21 08:59 10/14/20 08:40 Pantoprazole (Protonix) 40 mg DAILY ORAL 10/10/20 09:00 11/09/20 08:59 10/14/20 08:40 Quetiapine Fumarate (SEROqueL) 300 mg Q12HR ORAL 10/09/20 21:00 11/23/20 20:59 10/14/20 21:22 Risperidone (RisperDAL) 2 mg Q12HR ORAL 10/09/20 21:00 11/23/20 20:59 10/14/20 21:22 Zolpidem Tartrate (Ambien) 5 mg HSPRN PRN ORAL Insomnia 10/09/20 20:30 10/16/20 20:29 10/12/20 23:29 Last 24 Hour Vital Signs Date Time Temp Pulse Resp B/P (MAP) Pulse Ox O2 Delivery O2 Flow Rate FiO2 10/15/20 04:00 98.2 104 18 119/66 (83) 94 10/14/20 21:21 147/76 10/14/20 21:00 Room Air 10/14/20 20:00 97.6 90 18 147/76 (99) 94 10/14/20 16:05 98.7 89 18 111/82 (92) 93 10/14/20 11:35 98.5 89 18 105/65 (78) 93 10/14/20 08:40 123/72 10/14/20 08:40 95 123/72 10/14/20 08:40 95 123/72 10/14/20 08:30 Room Air 10/14/20 08:30 98.2 95 18 123/72 (89) 95 10/14/20 04:00 99.2 95 18 120/75 (90) 95 10/14/20 00:00 99.0 85 18 119/71 (87) 94 10/13/20 22:57 99.1 10/13/20 22:57 99.1 10/13/20 21:27 130/75 10/13/20 21:00 Room Air 10/13/20 21:00 100.6 105 18 136/74 (94) 95 10/13/20 16:00 98.9 95 18 130/75 (93) 95 10/13/20 12:00 99.5 97 20 104/63 (77) 95 10/13/20 09:00 Room Air 10/13/20 08:50 123/59 10/13/20 08:49 96 123/59 10/13/20 08:49 96 123/59 10/13/20 08:00 97.6 109 20 91/58 (69) 96 Intake and Output 0 10/14/20 10/15/20 19:00 07:00 Intake Total 600 ml 200 ml Output Total 300 ml Balance 300 ml 200 ml Intake Oral 600 ml 200 ml Output Urine Total 300 ml # Voids 2 Labs Test 10/13/20 05:00 1/3/21 08:05 White Blood Count 3.1 K/UL (4.8-10.8) Red Blood Count 3.99 M/UL (4.70-6.10) Hemoglobin 11.8 G/DL (14.2-18.0) Hematocrit 36.9 % (42.0-52.0) Mean Corpuscular Volume 92 FL (80-99) Mean Corpuscular Hemoglobin 29.6 PG (27.0-31.0) Mean Corpuscular Hemoglobin Concent 32.1 G/DL (32.0-36.0) Red Cell Distribution Width 14.0 % (11.6-14.8) Platelet Count 155 K/UL (150-450) Mean Platelet Volume 6.3 FL (6.5-10.1) Neutrophils (%) (Auto) % (45.0-75.0) Lymphocytes (%) (Auto) % (20.0-45.0) Monocytes (%) (Auto) % (1.0-10.0) Eosinophils (%) (Auto) % (0.0-3.0) Basophils (%) (Auto) % (0.0-2.0) Differential Total Cells Counted 100 Neutrophils % (Manual) 35 % (45-75) Lymphocytes % (Manual) 58 % (20-45) Monocytes % (Manual) 7 % (1-10) Eosinophils % (Manual) 0 % (0-3) Basophils % (Manual) 0 % (0-2) Band Neutrophils 0 % (0-8) Platelet Estimate Adequate Platelet Morphology Normal Anisocytosis 1+ Sodium Level 136 MMOL/L (136-145) Potassium Level 3.9 MMOL/L (3.5-5.1) Chloride Level 102 MMOL/L (98-107) Carbon Dioxide Level 28 MMOL/L (21-32) Anion Gap 6 mmol/L (5-15) Blood Urea Nitrogen 15 mg/dL (7-18) Creatinine 1.3 MG/DL (0.55-1.30) Estimat Glomerular Filtration Rate 55.1 mL/min (>60) Glucose Level 88 MG/DL (74-106) Calcium Level 8.0 MG/DL (8.5-10.1) Urine Color Yellow Urine Appearance Clear Urine pH 5 (4.5-8.0) Urine Specific [place] 1.015 (1.005-1.035) Urine Protein 1+ (NEGATIVE) Urine Glucose (UA) Negative (NEGATIVE) Urine Ketones 1+ (NEGATIVE) Urine Blood Negative (NEGATIVE) Urine Nitrite Negative (NEGATIVE) Urine Bilirubin Negative (NEGATIVE) Urine Urobilinogen Normal MG/DL (0.0-1.0) Urine Leukocyte Esterase Negative (NEGATIVE) Urine RBC 0 /HPF (0 - 0) Urine WBC 0-2 /HPF (0 - 0) Urine Squamous Epithelial Cells Occasional /LPF Urine Bacteria Occasional /HPF (NONE) Height (Feet): 5 Height (Inches): 9.00 Weight (Pounds): 193 Objective PHYSICAL EXAMINATION: VITAL SIGNS: reviewed HEENT: Head exam reveals that the head is normocephalic, atraumatic without deformity or unusual swelling. CHEST AND LUNGS: Reveals clear, normal, symmetrical breath sounds with no adventitious sounds. CARDIOVASCULAR: Reveals normal S1, S2 without murmurs, rubs, or clicks. ABDOMEN: Obese, soft with no tenderness or organomegaly. A well-healed midline linear vertical scar in the abdomen ++ RECTAL: Deferred. MUSCULOSKELETAL: There is no tenderness to palpation. Range of motion is normal. NEUROLOGICAL: Alert and oriented x3 , nonfocal Alek Sabillon MD Oct 15, 2020 07:06
--- NOTE | 2020-10-15 07:39 | NUR ---
NURSE HAND-OFF: Important Events on Shift: Oxygen decreased to 1L - O2 sat 94% Patient Status: Stable Diet: Reg Pending Orders: N/A Pending Results/Labs: No AM labs Pending MD notification: N/A Latest Vital Signs: Temperature 98.2 , Pulse 104 , B/P 119 /66 , Respiratory Rate 18 , O2 SAT 94 , Room Air, O2 Flow Rate 2.0 . Vital Sign Comment: N/A Latest [place] Fall Score: 45 Fall Risk: High Risk Safety Measures: Call light Within Reach, Bed Alarm Zone 2, Side Rails Side Rails x2, Bed position Low and Locked. Fall Precautions: Yellow Socks Door Sign Patient Fall Education Report given to GONZALEZ Johnston.
--- NOTE | 2020-10-15 07:54 | NUR ---
NURSE NOTES: Received report from GONZALEZ Bajwa. Patient awake, alert x4. Seen lying in bed with hob elevated currently on room 1L NC no s/sx of SOB/Distress, no c/o any pain or discomfort. Patient with IV site located on Left Hand 20 asymptomatic, inplace and intact. Bed placed on lowest and locked, call light placed within reach and will continue to monitor for any changes in patient's condition.
[2020-10-15 08:00] VITALS: BP 114/71
[2020-10-15] MEDS: Enoxaparin 40mg Inj SUBQ SCH (09:00)
[2020-10-15] MEDS: Irbesartan 150mg tablet ORAL SCH ×2 (09:26→20:27)
[2020-10-15] MEDS: Metoprolol Succinate XL 50mg tab ORAL SCH (09:26)
--- NOTE | 2020-10-15 09:27 | Pulmonology Progress Note ---
Subjective ROS Limited/Unobtainable: Yes Interval Events: no fever overnight Constitutional: Denies: fever HEENT: Repors: other - eye pain Respiratory: Reports: no symptoms Cardiovascular: Reports: no symptoms Gastrointestinal/Abdominal: Reports: no symptoms Genitourinary: Reports: no symptoms Allergies: Coded Allergies: No Known Allergies (Unverified , 07/31/20) Objective Last 24 Hour Vital Signs Date Time Temp Pulse Resp B/P (MAP) Pulse Ox O2 Delivery O2 Flow Rate FiO2 10/15/20 04:00 98.2 104 18 119/66 (83) 94 10/14/20 21:21 147/76 10/14/20 21:00 Room Air 10/14/20 20:00 97.6 90 18 147/76 (99) 94 10/14/20 16:05 98.7 89 18 111/82 (92) 93 10/14/20 11:35 98.5 89 18 105/65 (78) 93 Intake and Output 10/14/20 10/15/20 19:00 07:00 Intake Total 600 ml 200 ml Output Total 300 ml Balance 300 ml 200 ml Intake Oral 600 ml 200 ml Output Urine Total 300 ml # Voids 2 Objective 10/15 now saturating at 95% on 1L NC; will wean again as tolerated 10/14 saturating at 95% on 2L NC 10/12 saturating at 97% on 2L NC 10/11 now on 2L saturating well 10/10 on room air saturating well General Appearance: WD/WN, no acute distress HEENT: other - erythematous, edematous eyes Respiratory: lungs clear Cardiovascular: normal rate, regular rhythm Abdomen: soft, non tender Current Medications Medications (Trade) Dose Ordered Sig/Sidney Route PRN Reason Start Time Stop Time Status Last Admin Dose Admin Acetaminophen (Tylenol) 650 mg Q6H PRN ORAL HEADACHE OR FEVER >100 10/09/20 22:45 11/08/20 22:44 10/13/20 22:27 Alfuzosin HCl (Uroxatrol) 10 mg DAILY ORAL 10/10/20 09:00 11/09/20 08:59 10/14/20 08:40 Amlodipine Besylate (Norvasc) 10 mg DAILY ORAL 10/10/20 09:00 11/09/20 08:59 10/14/20 08:40 Chlorhexidine Gluconate (Beryl-Hex 2%) 1 applic QHS TOPIC 10/09/20 21:00 01/07/21 20:59 Ciprofloxacin (Ciloxan Opth Soln) 1 drop Q6HR BOTH EYES 10/11/20 18:30 10/18/20 18:29 10/15/20 06:25 Clonazepam (KlonoPIN) 1 mg Q12HR ORAL 10/09/20 21:00 10/16/20 20:59 10/14/20 21:21 Enoxaparin Sodium (Lovenox) 40 mg DAILY SUBQ 10/10/20 09:00 01/08/21 08:59 10/14/20 08:47 Irbesartan (Avapro) 150 mg Q12HR ORAL 10/09/20 21:00 01/07/21 20:59 10/14/20 21:21 Metoprolol Succinate (Toprol XL) 50 mg DAILY ORAL 10/10/20 09:00 01/08/21 08:59 10/14/20 08:40 Pantoprazole (Protonix) 40 mg DAILY ORAL 10/10/20 09:00 11/09/20 08:59 10/14/20 08:40 Quetiapine Fumarate (SEROqueL) 300 mg Q12HR ORAL 10/09/20 21:00 11/23/20 20:59 10/14/20 21:22 Risperidone (RisperDAL) 2 mg Q12HR ORAL 10/09/20 21:00 11/23/20 20:59 10/14/20 21:22 Zolpidem Tartrate (Ambien) 5 mg HSPRN PRN ORAL Insomnia 10/09/20 20:30 10/16/20 20:29 10/12/20 23:29 Assessment/Plan Assessment/Plan 1. COVID-19 infection - Saturating at at 95% on 1L NC; wean down as tolerated - s/p Azithromycin and ceftriaxone IV once in ER -Given his normoxemia without fever, clear lung sounds, and negative CXR, no specific therapy is required at this time -Continue monitoring SaO2 and provide supplemental oxygen as needed - Repeat CXR 10/12 shows subsegmental atelectasis in the left lung base. 2. Conjunctivitis - now on ciprofloxacin ophthalmic solution 3. Elevated CRP, D-dimer - s/p Lovenox in ER - Venous duplex US negative for DVT - no Lovenox 4. Hypertension - on metoprolol and amlodipine - monitor BP 5. Hypokalemia - per primary MD 7. New onset fever with tachycardia; resolved - better on antipyretics - likely sepsis secondary to COVID-19, vs UTI - consider UA if fever persistent - Venous duplex US negative for DVT - management per primary MD, and ID 8. Atelectasis - monitor at this point given his normoxemia The care for this patient was discussed with my supervising physician. Time spent for this case was approximately 31 minutes. Piyush Dent Oct 15, 2020 09:27
--- NOTE | 2020-10-15 09:43 | NUR ---
NURSE NOTES: Documented for Lovenox 40mg patient refused but Medication currently not available per pharmacy will await delivery for more stock.
[2020-10-15] MEDS ORDERED: Enoxaparin 60mg Inj SUBQ SCH (09:50)
[2020-10-15 12:00] VITALS: BP 111/63
--- NOTE | 2020-10-15 12:48 | NUR ---
DISCHARGE PLANNING S/W BRIAN AT [facility] IN RE TO DC PLANNING. BRIAN CONFIRMED PATIENT RESIDES IN ASSISTED LIVING. NO O2 AVAILABLE. SHE WILL CONFIRM WITH PROCESS CONTROL SUPERVISOR IF PATIENT ABLE TO RETURN UPON DC WITH COVID POSITIVE STATUS. WILL FOLLOW UP. Addendum: 10/15/20 at 1313 by DARIUS NICOLE LVN CM S/W HEALTH SPECIALIST MEL. PATIENT WILL NEED TO ADMIT TO A SNF UNTIL COVID NEGATIVE. PER MEL, REQUESTED INQUIRY BE SENT TO HIM. HE WILL REACH OUT TO THEIR SISTER SNF IN [facility] [place] TO OBTAIN BED INFORMATION AND F/U WITH THIS CM.
--- NOTE | 2020-10-15 15:44 | NUR ---
BLENDING MACHINE FEEDER NOTE S/W MEL [facility] ADMIN IN RE TO SNF PLACEMENT FOR CONTINUED COVID ISOLATION. PER MEL, HIS ASSOCIATED SNF WILL ANTICIPATE TO HAVE A BED AVAILABLE TOMORROW 10/16/20
--- NOTE | 2020-10-15 15:51 | Cardiac Electrophysiology PN ---
Assessment/Plan Assessment/Plan 1. Shortness of breath due to COVID-19 infection. On 2 liter NC, azithromycin and ceftriaxone. Fu by Dr. Shell. 2. Hypertension. On amlodipine 10 mg daily, Toprol-XL 50 mg daily and Avapro 150 bid 3. Psychiatric history. 4. Placement DW RN Subjective Subjective In isolation for Covid. No CP or SOB. On Cipro eye drops. On 2 liter NC Placement pending Objective Last 24 Hour Vital Signs Date Time Temp Pulse Resp B/P (MAP) Pulse Ox O2 Delivery O2 Flow Rate FiO2 10/15/20 12:00 98.9 105 20 111/63 (79) 94 10/15/20 09:26 114/71 10/15/20 09:26 108 114/71 10/15/20 09:26 108 114/71 10/15/20 09:00 Room Air 10/15/20 08:00 99.1 108 19 114/71 (85) 96 10/15/20 04:00 98.2 104 18 119/66 (83) 94 10/14/20 21:21 147/76 10/14/20 21:00 Room Air 10/14/20 20:00 97.6 90 18 147/76 (99) 94 10/14/20 16:05 98.7 89 18 111/82 (92) 93 Intake and Output 10/14/20 10/15/20 19:00 07:00 Intake Total 600 ml 200 ml Output Total 300 ml Balance 300 ml 200 ml Intake Oral 600 ml 200 ml Output Urine Total 300 ml # Voids 2 Objective HEAD AND NECK: Shows mild JVD. Bilateral eyelids are edematous and erythematous. LUNGS: Clear. CARDIOVASCULAR: Shows regular S1 and S2 with no gallop. ABDOMEN: Soft. EXTREMITIES: 1+ pitting edema. Kirit Dave MD Oct 15, 2020 15:51
[2020-10-15 16:00] VITALS: BP 119/61
--- NOTE | 2020-10-15 17:12 | NUR ---
CASE MANAGEMENT:REVIEW SI;COVID PNA 99.1 108 20 119/66 94% IS;LOVENOX SQ QD PROTONIX PO QD NORVASC PO QD TOPROL XL PO QD KLONOPIN O Q12 MED SURG STATUS DCP;FROM [facility]
--- NOTE | 2020-10-15 17:40 | Infectious Diseases Prog Note ---
Assessment/Plan Assessment/Plan IMPRESSION: 1. Sepsis 2. COVID-19 disease. 3. Conjunctivitis. 4. History of COPD. 5. History of hepatitis C. 6. History of corneal abrasion. 7. Atelectasis RECOMMENDATIONS: Continue Cipro eye drops. Subjective ROS Limited/Unobtainable: Yes Constitutional: Denies: fever Allergies: Coded Allergies: No Known Allergies (Unverified , 07/31/20) Objective Last 24 Hour Vital Signs Date Time Temp Pulse Resp B/P (MAP) Pulse Ox O2 Delivery O2 Flow Rate FiO2 10/15/20 12:00 98.9 105 20 111/63 (79) 94 10/15/20 09:26 114/71 10/15/20 09:26 108 114/71 10/15/20 09:26 108 114/71 10/15/20 09:00 Room Air 10/15/20 08:00 99.1 108 19 114/71 (85) 96 10/15/20 04:00 98.2 104 18 119/66 (83) 94 10/14/20 21:21 147/76 10/14/20 21:00 Room Air 10/14/20 20:00 97.6 90 18 147/76 (99) 94 Height (Feet): 5 Height (Inches): 9.00 Weight (Pounds): 193 General Appearance: no acute distress HEENT: mucous membranes moist Respiratory/Chest: other - oxygen by nasal cannula 1 L/min Cardiovascular: tachycardia Abdomen: soft, non tender Extremities: no edema Neurologic/Psychiatric: other - sleeping Current Medications Medications (Trade) Dose Ordered Sig/Sidney Route PRN Reason Start Time Stop Time Status Last Admin Dose Admin Acetaminophen (Tylenol) 650 mg Q6H PRN ORAL HEADACHE OR FEVER >100 10/09/20 22:45 11/08/20 22:44 10/13/20 22:27 Alfuzosin HCl (Uroxatrol) 10 mg DAILY ORAL 10/10/20 09:00 11/09/20 08:59 10/15/20 09:26 Amlodipine Besylate (Norvasc) 10 mg DAILY ORAL 10/10/20 09:00 11/09/20 08:59 10/15/20 09:26 Chlorhexidine Gluconate (Beryl-Hex 2%) 1 applic QHS TOPIC 10/09/20 21:00 01/07/21 20:59 Ciprofloxacin (Ciloxan Opth Soln) 1 drop Q6HR BOTH EYES 10/11/20 18:30 10/18/20 18:29 10/15/20 12:09 Clonazepam (KlonoPIN) 1 mg Q12HR ORAL 10/09/20 21:00 10/16/20 20:59 10/15/20 09:25 Dronabinol (Marinol) 2.5 mg BID ORAL 10/15/20 18:00 01/13/21 17:59 UNV Enoxaparin Sodium (Lovenox) 40 mg DAILY SUBQ 10/16/20 09:00 01/14/21 08:59 Irbesartan (Avapro) 150 mg Q12HR ORAL 10/09/20 21:00 01/07/21 20:59 10/15/20 09:26 Metoprolol Succinate (Toprol XL) 50 mg DAILY ORAL 10/10/20 09:00 01/08/21 08:59 10/15/20 09:26 Pantoprazole (Protonix) 40 mg DAILY ORAL 10/10/20 09:00 11/09/20 08:59 10/15/20 09:25 Quetiapine Fumarate (SEROqueL) 300 mg Q12HR ORAL 10/09/20 21:00 11/23/20 20:59 10/15/20 09:25 Risperidone (RisperDAL) 2 mg Q12HR ORAL 10/09/20 21:00 11/23/20 20:59 10/15/20 09:26 Zolpidem Tartrate (Ambien) 5 mg HSPRN PRN ORAL Insomnia 10/09/20 20:30 10/16/20 20:29 10/12/20 23:29 Harsh Bowser MD Oct 15, 2020 17:39
[2020-10-15] MEDS ORDERED: Dronabinol 2.5mg Cap ORAL SCH (18:00)
--- NOTE | 2020-10-15 18:52 | General Progress Note ---
Subjective Allergies: Coded Allergies: No Known Allergies (Unverified , 07/31/20) Subjective GI CONSULT ATSP for poor po intake Assessment - Poor po intake due to "inability to see" the food (patient's own claim) - Decreased visual acuity and eye discomfort - ? COVID related - COVID PNA - COPD - Schizoaffective disorder, anxiety - hepatitis C Recommendations - d/w medical staffing coordinator --> will begin trial of hand feeding patient - Consider Opthamology consultation - push po - outpatient HCV management - will follow Thank you Rudolph Griggs MD Objective Last 24 Hour Vital Signs Date Time Temp Pulse Resp B/P (MAP) Pulse Ox O2 Delivery O2 Flow Rate FiO2 10/15/20 16:00 97.7 100 21 119/61 (80) 92 10/15/20 12:00 98.9 105 20 111/63 (79) 94 10/15/20 09:26 114/71 10/15/20 09:26 108 114/71 10/15/20 09:26 108 114/71 10/15/20 09:00 Room Air 10/15/20 08:00 99.1 108 19 114/71 (85) 96 10/15/20 04:00 98.2 104 18 119/66 (83) 94 10/14/20 21:21 147/76 10/14/20 21:00 Room Air 10/14/20 20:00 97.6 90 18 147/76 (99) 94 Intake and Output 10/14/20 10/15/20 19:00 07:00 Intake Total 600 ml 200 ml Output Total 300 ml Balance 300 ml 200 ml Intake Oral 600 ml 200 ml Output Urine Total 300 ml # Voids 2 Height (Feet): 5 Height (Inches): 9.00 Weight (Pounds): 193 Assessment/Plan Status: progressing, tolerating diet Rudolph Griggs MD Oct 15, 2020 18:52
--- NOTE | 2020-10-15 19:10 | NUR ---
NURSE HAND-OFF: Important Events on Shift:COVID Monitoring Patient Status: stable Diet: reg Pending Orders: n/a Pending Results/Labs:n/a Pending MD notification:n/a Latest Vital Signs: Temperature 97.7 , Pulse 100 , B/P 119 /61 , Respiratory Rate 21 , O2 SAT 92 , Room Air, O2 Flow Rate 2.0 . Vital Sign Comment: stable Latest Barreto Fall Score: 45 Fall Risk: High Risk Safety Measures: Call light Within Reach, Bed Alarm Zone 2, Side Rails Side Rails x2, Bed position Low and Locked. Fall Precautions: Yellow Socks Door Sign Patient Fall Education Report given to GONZALEZ Bajwa.
[2020-10-15 20:00] VITALS: BP 116/72
[2020-10-15] MEDS: Dyna-Hex 2% Top Sol 2oz TOPIC SCH (20:27)
--- NOTE | 2020-10-15 21:14 | Consultation ---
DATE OF CONSULTATION: 10/15/2020 GASTROENTEROLOGY CONSULTATION CONSULTING PHYSICIAN: Rudolph Griggs MD REFERRING PHYSICIAN: Deng Liu MD CHIEF COMPLAINT: I was asked to see this patient by Dr. Deng Liu for evaluation of anorexia and poor oral intake. HISTORY OF PRESENT ILLNESS: The patient is a 65-year-old man, who was admitted to the hospital on October 09 with a chief complaint of eye pain and difficulty with vision. The patient states that he was at home and he felt his eyes hurt bilaterally with some photophobia, discharge, and tearing. He came to the emergency room where he also was found to have cough and 6/10 bilateral eye pain. There was some chart notation about upset stomach as well, but to me he denies any GI complaints. The patient was tested for COVID-19 and tested positive and therefore is being treated for this condition. He has also been given a diagnosis of conjunctivitis and has been given antibiotic eyedrops. He reports some degree of improvement, but he says he cannot see his food. I asked him if he could count his fingers and he says that with his outstretched hands, he could barely count his fingers at all due to blurriness of his vision. When I asked him why often he does not eat, he says it is simply because he cannot see his food. Specifically, he denies any abdominal pain, nausea, vomiting, diarrhea, constipation, or anorexia; however, he says that he is unable to visualize his food and says that he will probably eat more if he could be fed. The patient states he has never had an endoscopy or colonoscopy in the past. He does however have omeprazole medication; however, the medication was filled on admission. He lives in a [facility] where his medications are given. He has a list of medical problems as outlined below. The patient was interviewed based on a telehealth evaluation system in order to make a rapid evaluation with respect to his nutritional needs. The patient agreed to proceed with this methodology. PAST MEDICAL HISTORY: History of COPD, history of hypertension, schizophrenia, and neuroleptic malignant syndrome. MEDICATIONS: Outpatient medications include tamsulosin, amlodipine, clonazepam, metoprolol, omeprazole, quetiapine, risperidone, zolpidem, and telmisartan. ALLERGIES: None. FAMILY HISTORY: Noncontributory. SOCIAL HISTORY: The patient is single. He has no children. He does not smoke or drink alcohol. He lives in a board and care. REVIEW OF SYSTEMS: Otherwise negative. PHYSICAL EXAMINATION: VITAL SIGNS: The patient's vital signs are noted. GENERAL: Examination was deferred at this time per telehealth methodology. LABORATORY DATA: Noted. ASSESSMENT: This patient has had a reported degree of anorexia, but he denies all GI symptoms at this time and claims the poor oral intake is more of a functional issue. I discussed the matter with the nursing staff and asked that the patient to be fed by the hospital staff. Should his oral intake significantly improve, then the problem may be resolved. Otherwise, further evaluation may be necessary and again a course of appetite stimulants may be worthwhile. I will first engage in this feeding assistance program before going on to the next step. In the meantime, an Ophthalmology consultation can also be considered for managing the patient's eye symptoms. RECOMMENDATIONS: Per above discussion and per orders written in the chart. Thank you for asking me to participate in the care of this patient. Rudolph Griggs M.D. DR: BREANNE JOB#: [id number] CC:
--- NOTE | 2020-10-15 21:44 | General Progress Note ---
Subjective ROS Limited/Unobtainable: Yes Allergies: Coded Allergies: No Known Allergies (Unverified , 07/31/20) Objective Last 24 Hour Vital Signs Date Time Temp Pulse Resp B/P (MAP) Pulse Ox O2 Delivery O2 Flow Rate FiO2 10/15/20 20:27 116/72 10/15/20 20:00 97.7 94 20 116/72 (87) 92 10/15/20 16:00 97.7 100 21 119/61 (80) 92 10/15/20 12:00 98.9 105 20 111/63 (79) 94 10/15/20 09:26 114/71 10/15/20 09:26 108 114/71 10/15/20 09:26 108 114/71 10/15/20 09:00 Room Air 10/15/20 08:00 99.1 108 19 114/71 (85) 96 10/15/20 04:00 98.2 104 18 119/66 (83) 94 Intake and Output 10/14/20 10/15/20 19:00 07:00 Intake Total 600 ml 200 ml Output Total 300 ml Balance 300 ml 200 ml Intake Oral 600 ml 200 ml Output Urine Total 300 ml # Voids 2 Height (Feet): 5 Height (Inches): 9.00 Weight (Pounds): 193 Assessment/Plan Problem List: (1) Headache ICD Codes: R51.9 - Headache, unspecified SNOMED: [id number] (2) COVID-19 ICD Codes: U07.1 - COVID-19 SNOMED: 757381355 Status: progressing, tolerating diet Assessment/Plan: poor po intake consulted dr adela hairston + h/o atrial tachycardia Deng Liu MD Oct 15, 2020 21:44
[2020-10-16] VITALS: BP 123/69
[2020-10-16 04:00] VITALS: BP 99/57
[2020-10-16] MEDS: Ciprofloxacin Opth Soln 5ml BOTH EYES SCH ×3 (05:54→18:06)
--- NOTE | 2020-10-16 06:03 | NUR ---
NURSE NOTES: Lowered oxygen to 1L per MD weaning orders. Patient currently has O2 sat of 94% on 1L oxygen. Will continue to monitor.
--- NOTE | 2020-10-16 06:10 | NUR ---
NURSE HAND-OFF: Important Events on Shift: No acute events Patient Status: Stable Diet: Clear liquid Pending Orders: Discharge Pending Results/Labs: AM labs Pending MD notification: N/A Latest Vital Signs: Temperature 98.0 , Pulse 99 , B/P 99 /57 , Respiratory Rate 20 , O2 SAT 94 , Room Air, O2 Flow Rate 2.0 . Vital Sign Comment: N/A Latest Barreto Fall Score: 45 Fall Risk: High Risk Safety Measures: Call light Within Reach, Bed Alarm Zone 2, Side Rails Side Rails x2, Bed position Low and Locked. Fall Precautions: Yellow Socks Door Sign Patient Fall Education Addendum: 10/16/20 at 0613 by NETO CAMARA RN Regular diet No AM labs Addendum: 10/16/20 at 0708 by NETO CAMARA RN Report given to GONZALEZ Sanchez
--- NOTE | 2020-10-16 06:57 | Hematology/Onc Progress Note ---
Assessment/Plan Assessment/Plan Assessment/Plan 1. Leukopenia is related likely to COVID-19 infection+++++++++++ --> Patient is currently saturating well on room air, per pulm --> s/p Azithromycin and ceftriaxone IV once in ER --> Continue monitoring SaO2 and provide supplemental oxygen as needed --> smear reviewed --> wbc 4.7-->3.8 --> neupogen prn 2. Anemia due to likely chronic disease, infection --> trend hgb as needed hgb 13 3. Elevated CRP, D-dimer --> s/p Lovenox in ER --> DVX ppx recommended --> duplex lower leg r/o dvt 4. Hypertension --> recommend continuing home antihypertensive meds --> as per cards 5. Covid 19 as per pulm/id 6. Dvt ppx lovenox sq Appreciate consultation and dw Rn Subjective Constitutional: Denies: no symptoms, chills, fever, malaise, weakness, other Cardiovascular: Denies: no symptoms, chest pain, edema, irregular heart rate, lightheadedness, palpitations, syncope, other Respiratory: Denies: no symptoms, cough, shortness of breath, SOB with excertion, SOB at rest, sputum, wheezing, other Gastrointestinal/Abdominal: Denies: no symptoms, abdomen distended, abdominal pain, black stools, tarry stools, blood in stool, constipated, diarrhea, difficulty swallowing, nausea, poor appetite, poor fluid intake, rectal bleeding, vomiting, other Neurologic/Psychiatric: Denies: no symptoms, anxiety, depressed, emotional problems, headache, numbness, paresthesia, pre-existing deficit, seizure, tingling, tremors, weakness, other Endocrine: Denies: no symptoms, excessive sweating, flushing, intolerance to cold, intolerance to heat, increased hunger, increased thirst, increased urine, unexplained weight gain, unexplained weight loss, other Allergies: Coded Allergies: No Known Allergies (Unverified , 07/31/20) Subjective 10/11 awake, no new events, no bleeding, labs noted, ambulating 10/12 covid iso, is on ra, no bleeding, labs noted, meds reviewed 10/13: on RA saturating well no acute events. 10/14: no distress on O2 NC 2L, slight temp last night UA collected 10/15 is awake, alert, is on 2lnc, no bleeding, labs are noted 10/16 on 1lnc, no bleeding, labs ordered for am, no new events Objective Objective Current Medications Medications (Trade) Dose Ordered Sig/Sidney Route PRN Reason Start Time Stop Time Status Last Admin Dose Admin Acetaminophen (Tylenol) 650 mg Q6H PRN ORAL HEADACHE OR FEVER >100 10/09/20 22:45 11/08/20 22:44 10/13/20 22:27 Alfuzosin HCl (Uroxatrol) 10 mg DAILY ORAL 10/10/20 09:00 11/09/20 08:59 10/15/20 09:26 Amlodipine Besylate (Norvasc) 10 mg DAILY ORAL 10/10/20 09:00 11/09/20 08:59 10/15/20 09:26 Chlorhexidine Gluconate (Beryl-Hex 2%) 1 applic QHS TOPIC 10/09/20 21:00 01/07/21 20:59 Ciprofloxacin (Ciloxan Opth Soln) 1 drop Q6HR BOTH EYES 10/11/20 18:30 10/18/20 18:29 10/16/20 05:54 Clonazepam (KlonoPIN) 1 mg Q12HR ORAL 10/09/20 21:00 10/16/20 20:59 10/15/20 20:21 Enoxaparin Sodium (Lovenox) 40 mg DAILY SUBQ 10/16/20 09:00 01/14/21 08:59 Irbesartan (Avapro) 150 mg Q12HR ORAL 10/09/20 21:00 01/07/21 20:59 10/15/20 20:27 Metoprolol Succinate (Toprol XL) 50 mg DAILY ORAL 10/10/20 09:00 01/08/21 08:59 10/15/20 09:26 Pantoprazole (Protonix) 40 mg DAILY ORAL 10/10/20 09:00 11/09/20 08:59 10/15/20 09:25 Quetiapine Fumarate (SEROqueL) 300 mg Q12HR ORAL 10/09/20 21:00 11/23/20 20:59 10/15/20 20:27 Risperidone (RisperDAL) 2 mg Q12HR ORAL 10/09/20 21:00 11/23/20 20:59 10/15/20 20:27 Zolpidem Tartrate (Ambien) 5 mg HSPRN PRN ORAL Insomnia 10/09/20 20:30 10/16/20 20:29 10/12/20 23:29 Last 24 Hour Vital Signs Date Time Temp Pulse Resp B/P (MAP) Pulse Ox O2 Delivery O2 Flow Rate FiO2 10/16/20 04:00 98.0 99 20 99/57 (71) 94 10/16/20 00:00 98.2 97 20 123/69 (87) 93 10/15/20 21:00 Room Air 10/15/20 20:27 116/72 10/15/20 20:00 97.7 94 20 116/72 (87) 92 10/15/20 16:00 97.7 100 21 119/61 (80) 92 10/15/20 12:00 98.9 105 20 111/63 (79) 94 10/15/20 09:26 114/71 10/15/20 09:26 108 114/71 10/15/20 09:26 108 114/71 10/15/20 09:00 Room Air 10/15/20 08:00 99.1 108 19 114/71 (85) 96 10/15/20 04:00 98.2 104 18 119/66 (83) 94 10/14/20 21:21 147/76 10/14/20 21:00 Room Air 10/14/20 20:00 97.6 90 18 147/76 (99) 94 10/14/20 16:05 98.7 89 18 111/82 (92) 93 10/14/20 11:35 98.5 89 18 105/65 (78) 93 10/14/20 08:40 123/72 10/14/20 08:40 95 123/72 10/14/20 08:40 95 123/72 10/14/20 08:30 Room Air 10/14/20 08:30 98.2 95 18 123/72 (89) 95 Intake and Output 10/15/20 10/16/20 19:00 07:00 Intake Total 120 ml 200 ml Output Total 1200 ml Balance -1080 ml 200 ml Intake Oral 120 ml 200 ml Output Urine Total 1200 ml # Voids 3 2 Labs Test 10/14/20 08:05 Urine Color Yellow Urine Appearance Clear Urine pH 5 (4.5-8.0) Urine Specific [place] 1.015 (1.005-1.035) Urine Protein 1+ (NEGATIVE) Urine Glucose (UA) Negative (NEGATIVE) Urine Ketones 1+ (NEGATIVE) Urine Blood Negative (NEGATIVE) Urine Nitrite Negative (NEGATIVE) Urine Bilirubin Negative (NEGATIVE) Urine Urobilinogen Normal MG/DL (0.0-1.0) Urine Leukocyte Esterase Negative (NEGATIVE) Urine RBC 0 /HPF (0 - 0) Urine WBC 0-2 /HPF (0 - 0) Urine Squamous Epithelial Cells Occasional /LPF Urine Bacteria Occasional /HPF (NONE) Height (Feet): 5 Height (Inches): 9.00 Weight (Pounds): 193 Objective PHYSICAL EXAMINATION: VITAL SIGNS: reviewed HEENT: Head exam reveals that the head is normocephalic, atraumatic without deformity or unusual swelling. CHEST AND LUNGS: Reveals clear, normal, symmetrical breath sounds with no adventitious sounds. CARDIOVASCULAR: Reveals normal S1, S2 without murmurs, rubs, or clicks. ABDOMEN: Obese, soft with no tenderness or organomegaly. A well-healed midline linear vertical scar in the abdomen ++ RECTAL: Deferred. MUSCULOSKELETAL: There is no tenderness to palpation. Range of motion is normal. NEUROLOGICAL: Alert and oriented x3 , nonfocal Alek Sabillon MD Oct 16, 2020 06:57
--- NOTE | 2020-10-16 07:30 | NUR ---
NURSE NOTES: RN received report from GONZALEZ Bajwa. RN received the patient in bed. Patient aaoX4, verbally responsive, no s/s of respiratory distress on 1 L of NC. Eyes red. IV intact, dry, patent, asymptomatic. Bed in lowest position and locked, HOB raised for optimal breathing. Call light within reach. Will continue to monitor.
[2020-10-16 08:00] VITALS: BP 126/73
--- NOTE | 2020-10-16 09:14 | Pulmonology Progress Note ---
Subjective ROS Limited/Unobtainable: Yes Interval Events: no fever overnight Constitutional: Denies: fever HEENT: Repors: other - eye pain Respiratory: Reports: no symptoms Cardiovascular: Reports: no symptoms Gastrointestinal/Abdominal: Reports: no symptoms Genitourinary: Reports: no symptoms Allergies: Coded Allergies: No Known Allergies (Unverified , 07/31/20) Objective Last 24 Hour Vital Signs Date Time Temp Pulse Resp B/P (MAP) Pulse Ox O2 Delivery O2 Flow Rate FiO2 10/16/20 04:00 98.0 99 20 99/57 (71) 94 10/16/20 00:00 98.2 97 20 123/69 (87) 93 10/15/20 21:00 Room Air 10/15/20 20:27 116/72 10/15/20 20:00 97.7 94 20 116/72 (87) 92 10/15/20 16:00 97.7 100 21 119/61 (80) 92 10/15/20 12:00 98.9 105 20 111/63 (79) 94 10/15/20 09:26 114/71 10/15/20 09:26 108 114/71 10/15/20 09:26 108 114/71 Intake and Output 10/15/20 10/16/20 19:00 07:00 Intake Total 120 ml 200 ml Output Total 1200 ml Balance -1080 ml 200 ml Intake Oral 120 ml 200 ml Output Urine Total 1200 ml # Voids 3 2 Objective 10/16 saturating at 94% on 1L NC; failed weaning yesterday 10/15 now saturating at 95% on 1L NC; will wean again as tolerated 10/14 saturating at 95% on 2L NC 10/12 saturating at 97% on 2L NC 10/11 now on 2L saturating well 10/10 on room air saturating well General Appearance: WD/WN, no acute distress HEENT: other - erythematous, edematous eyes Respiratory: lungs clear Cardiovascular: normal rate, regular rhythm Abdomen: soft, non tender Current Medications Medications (Trade) Dose Ordered Sig/Sidney Route PRN Reason Start Time Stop Time Status Last Admin Dose Admin Acetaminophen (Tylenol) 650 mg Q6H PRN ORAL HEADACHE OR FEVER >100 10/09/20 22:45 11/08/20 22:44 10/13/20 22:27 Alfuzosin HCl (Uroxatrol) 10 mg DAILY ORAL 10/10/20 09:00 11/09/20 08:59 10/15/20 09:26 Amlodipine Besylate (Norvasc) 10 mg DAILY ORAL 10/10/20 09:00 11/09/20 08:59 10/15/20 09:26 Chlorhexidine Gluconate (Beryl-Hex 2%) 1 applic QHS TOPIC 10/09/20 21:00 01/07/21 20:59 Ciprofloxacin (Ciloxan Opth Soln) 1 drop Q6HR BOTH EYES 10/11/20 18:30 10/18/20 18:29 10/16/20 05:54 Clonazepam (KlonoPIN) 1 mg Q12HR ORAL 10/09/20 21:00 10/16/20 20:59 10/15/20 20:21 Enoxaparin Sodium (Lovenox) 40 mg DAILY SUBQ 10/16/20 09:00 01/14/21 08:59 Irbesartan (Avapro) 150 mg Q12HR ORAL 10/09/20 21:00 01/07/21 20:59 10/15/20 20:27 Metoprolol Succinate (Toprol XL) 50 mg DAILY ORAL 10/10/20 09:00 01/08/21 08:59 10/15/20 09:26 Pantoprazole (Protonix) 40 mg DAILY ORAL 10/10/20 09:00 11/09/20 08:59 10/15/20 09:25 Quetiapine Fumarate (SEROqueL) 300 mg Q12HR ORAL 10/09/20 21:00 11/23/20 20:59 10/15/20 20:27 Risperidone (RisperDAL) 2 mg Q12HR ORAL 10/09/20 21:00 11/23/20 20:59 10/15/20 20:27 Zolpidem Tartrate (Ambien) 5 mg HSPRN PRN ORAL Insomnia 10/09/20 20:30 10/16/20 20:29 10/12/20 23:29 Assessment/Plan Assessment/Plan 1. COVID-19 infection - Saturating at 94% on 1L NC; wean down as tolerated - s/p Azithromycin and ceftriaxone IV once in ER -Given his normoxemia without fever, clear lung sounds, and negative CXR, no specific therapy is required at this time -Continue monitoring SaO2 and provide supplemental oxygen as needed - Repeat CXR 10/12 shows subsegmental atelectasis in the left lung base. 2. Conjunctivitis - now on ciprofloxacin ophthalmic solution 3. Elevated CRP, D-dimer - s/p Lovenox in ER - Venous duplex US negative for DVT - no Lovenox 4. Hypertension - on metoprolol and amlodipine - monitor BP 5. Hypokalemia - per primary MD 7. New onset fever with tachycardia; resolved - better on antipyretics - likely sepsis secondary to COVID-19, vs UTI - consider UA if fever persistent - Venous duplex US negative for DVT - management per primary MD, and ID 8. Atelectasis - monitor at this point given his normoxemia 9. anorexia - per pt, he "can't see" his food due to conjunctivitis/corneal abrasion - seen by GI, who recommends feeding assistance prior to considering appetite stimulants - management per GI Medically stable for dc to SNF with oxygen if SaO2 >92% from pulmonary stand point The care for this patient was discussed with my supervising physician. Time spent for this case was approximately 31 minutes. Piyush Dent Oct 16, 2020 09:14
[2020-10-16] MEDS: Irbesartan 150mg tablet ORAL SCH ×2 (09:20→21:29)
[2020-10-16] MEDS: Metoprolol Succinate XL 50mg tab ORAL SCH (09:25)
[2020-10-16] MEDS: Enoxaparin 40mg Inj SUBQ SCH (09:34)
--- NOTE | 2020-10-16 11:35 | Cardiac Electrophysiology PN ---
Assessment/Plan Assessment/Plan 1. Shortness of breath due to COVID-19 infection. On 2 liter NC, azithromycin and ceftriaxone. Fu by Dr. Shell. 2. Hypertension. On amlodipine 10 mg daily, Toprol-XL 50 mg daily and Avapro 150 bid 3. Psychiatric history. 4. DC to [facility] pending DW RN Subjective Subjective In isolation for Covid. No CP or SOB. On Cipro eye drops. On 2 liter NC DC to SNIF pending Objective Last 24 Hour Vital Signs Date Time Temp Pulse Resp B/P (MAP) Pulse Ox O2 Delivery O2 Flow Rate FiO2 10/16/20 09:26 100 126/73 10/16/20 09:25 100 126/73 10/16/20 09:20 126/73 10/16/20 04:00 98.0 99 20 99/57 (71) 94 10/16/20 00:00 98.2 97 20 123/69 (87) 93 10/15/20 21:00 Room Air 10/15/20 20:27 116/72 10/15/20 20:00 97.7 94 20 116/72 (87) 92 10/15/20 16:00 97.7 100 21 119/61 (80) 92 10/15/20 12:00 98.9 105 20 111/63 (79) 94 Intake and Output 10/15/20 10/16/20 19:00 07:00 Intake Total 120 ml 200 ml Output Total 1200 ml Balance -1080 ml 200 ml Intake Oral 120 ml 200 ml Output Urine Total 1200 ml # Voids 3 2 Objective HEAD AND NECK: Shows mild JVD. Bilateral eyelids are edematous and erythematous. LUNGS: Clear. CARDIOVASCULAR: Shows regular S1 and S2 with no gallop. ABDOMEN: Soft. EXTREMITIES: 1+ pitting edema. Kirit Dave MD Oct 16, 2020 11:35
[2020-10-16 12:00] VITALS: BP 98/62
--- NOTE | 2020-10-16 12:01 | Infectious Diseases Prog Note ---
Assessment/Plan Assessment/Plan IMPRESSION: 1. Sepsis 2. COVID-19 disease. 3. Conjunctivitis. 4. History of COPD. 5. History of hepatitis C. 6. History of corneal abrasion. 7. Atelectasis RECOMMENDATIONS: Continue Cipro eye drops. Subjective ROS Limited/Unobtainable: Yes Constitutional: Denies: fever Allergies: Coded Allergies: No Known Allergies (Unverified , 07/31/20) Objective Last 24 Hour Vital Signs Date Time Temp Pulse Resp B/P (MAP) Pulse Ox O2 Delivery O2 Flow Rate FiO2 10/16/20 09:26 100 126/73 10/16/20 09:25 100 126/73 10/16/20 09:20 126/73 10/16/20 04:00 98.0 99 20 99/57 (71) 94 10/16/20 00:00 98.2 97 20 123/69 (87) 93 10/15/20 21:00 Room Air 10/15/20 20:27 116/72 10/15/20 20:00 97.7 94 20 116/72 (87) 92 10/15/20 16:00 97.7 100 21 119/61 (80) 92 Height (Feet): 5 Height (Inches): 9.00 Weight (Pounds): 193 HEENT: mucous membranes moist Respiratory/Chest: no respiratory distress, other - oxygen by nasal cannula Cardiovascular: tachycardia Abdomen: soft, non tender Extremities: no edema Neurologic/Psychiatric: other - sleeping Current Medications Medications (Trade) Dose Ordered Sig/Sidney Route PRN Reason Start Time Stop Time Status Last Admin Dose Admin Acetaminophen (Tylenol) 650 mg Q6H PRN ORAL HEADACHE OR FEVER >100 10/09/20 22:45 11/08/20 22:44 10/13/20 22:27 Alfuzosin HCl (Uroxatrol) 10 mg DAILY ORAL 10/10/20 09:00 11/09/20 08:59 10/16/20 09:18 Amlodipine Besylate (Norvasc) 10 mg DAILY ORAL 10/10/20 09:00 11/09/20 08:59 10/16/20 09:26 Chlorhexidine Gluconate (Beryl-Hex 2%) 1 applic QHS TOPIC 10/09/20 21:00 01/07/21 20:59 Ciprofloxacin (Ciloxan Opth Soln) 1 drop Q6HR BOTH EYES 10/11/20 18:30 10/18/20 18:29 10/16/20 05:54 Clonazepam (KlonoPIN) 1 mg Q12HR ORAL 10/09/20 21:00 10/16/20 20:59 10/16/20 09:19 Enoxaparin Sodium (Lovenox) 40 mg DAILY SUBQ 10/16/20 09:00 01/14/21 08:59 10/16/20 09:34 Irbesartan (Avapro) 150 mg Q12HR ORAL 10/09/20 21:00 01/07/21 20:59 10/16/20 09:20 Metoprolol Succinate (Toprol XL) 50 mg DAILY ORAL 10/10/20 09:00 01/08/21 08:59 10/16/20 09:25 Pantoprazole (Protonix) 40 mg DAILY ORAL 10/10/20 09:00 11/09/20 08:59 10/16/20 09:19 Quetiapine Fumarate (SEROqueL) 300 mg Q12HR ORAL 10/09/20 21:00 11/23/20 20:59 10/16/20 09:37 Risperidone (RisperDAL) 2 mg Q12HR ORAL 10/09/20 21:00 11/23/20 20:59 10/16/20 09:26 Zolpidem Tartrate (Ambien) 5 mg HSPRN PRN ORAL Insomnia 10/09/20 20:30 10/16/20 20:29 10/12/20 23:29 Harsh Bowser MD Oct 16, 2020 12:01
[2020-10-16 16:00] VITALS: BP 139/76
--- NOTE | 2020-10-16 17:22 | NUR ---
[employer] MANAGER NOTE PER DR LOPEZ, GAVE T.O. TO CANCEL DC ORDER PLACED ON 10/15/20. PER MD, PATIENT NOT READY FOR DC. NOTED AND CARRIED OUT ORDERED. RN INFORMED.
[2020-10-16 20:00] VITALS: BP 136/75
--- NOTE | 2020-10-16 20:02 | NUR ---
NURSE HAND-OFF: Important Events on Shift:dc cancelled Patient Status: stable with oxygen Diet: regular Pending Orders: n/a Pending Results/Labs:n/a Pending MD notification:n/a Latest Vital Signs: Temperature 97.6 , Pulse 98 , B/P 139 /76 , Respiratory Rate 20 , O2 SAT 96 , Room Air, O2 Flow Rate 2.0 . Vital Sign Comment: desatting without oxygen Latest Barreto Fall Score: 45 Fall Risk: High Risk Safety Measures: Call light Within Reach, Bed Alarm Zone 2, Side Rails Side Rails x2, Bed position Low and Locked. Fall Precautions: Yellow Socks Door Sign Patient Fall Education Report given to Pk Tripp RN.
[2020-10-16] MEDS: Dyna-Hex 2% Top Sol 2oz TOPIC SCH (21:00)
--- NOTE | 2020-10-16 21:00 | NUR ---
NURSE NOTES: Pt is in bed, awake and alert. On 2L N/C. No SOB. Pt states that he has trouble seeing. Pt has Hx of corneal abrasion. Pt took his evening medicine. Fall precaution in place. Pt asked to call before getting out of bed. Pt will be monitored.
--- NOTE | 2020-10-16 21:01 | General Progress Note ---
Subjective ROS Limited/Unobtainable: Yes Allergies: Coded Allergies: No Known Allergies (Unverified , 07/31/20) Objective Last 24 Hour Vital Signs Date Time Temp Pulse Resp B/P (MAP) Pulse Ox O2 Delivery O2 Flow Rate FiO2 10/16/20 16:00 97.6 98 20 139/76 (97) 96 10/16/20 12:00 97.1 95 20 98/62 (74) 95 10/16/20 09:26 100 126/73 10/16/20 09:25 100 126/73 10/16/20 09:20 126/73 10/16/20 09:00 Room Air 10/16/20 08:00 98.4 100 20 126/73 (90) 95 10/16/20 04:00 98.0 99 20 99/57 (71) 94 10/16/20 00:00 98.2 97 20 123/69 (87) 93 10/15/20 21:00 Room Air Intake and Output 10/15/20 10/16/20 19:00 07:00 Intake Total 120 ml 200 ml Output Total 1200 ml Balance -1080 ml 200 ml Intake Oral 120 ml 200 ml Output Urine Total 1200 ml # Voids 3 2 Height (Feet): 5 Height (Inches): 9.00 Weight (Pounds): 193 Assessment/Plan Problem List: (1) Headache ICD Codes: R51.9 - Headache, unspecified SNOMED: 54574306 (2) COVID-19 ICD Codes: U07.1 - COVID-19 SNOMED: 590979182 Status: progressing, tolerating diet Assessment/Plan: poor po intake not safe for dc resp insuff dehydration weak marika + Deng Liu MD Oct 16, 2020 21:01
--- NOTE | 2020-10-16 23:07 | General Progress Note ---
Subjective Allergies: Coded Allergies: No Known Allergies (Unverified , 07/31/20) Subjective Feels OK no abdominal symptoms eating better Objective Last 24 Hour Vital Signs Date Time Temp Pulse Resp B/P (MAP) Pulse Ox O2 Delivery O2 Flow Rate FiO2 10/16/20 21:29 136/75 10/16/20 16:00 97.6 98 20 139/76 (97) 96 10/16/20 12:00 97.1 95 20 98/62 (74) 95 10/16/20 09:26 100 126/73 10/16/20 09:25 100 126/73 10/16/20 09:20 126/73 10/16/20 09:00 Room Air 10/16/20 08:00 98.4 100 20 126/73 (90) 95 10/16/20 04:00 98.0 99 20 99/57 (71) 94 10/16/20 00:00 98.2 97 20 123/69 (87) 93 Intake and Output 10/15/20 10/16/20 19:00 07:00 Intake Total 120 ml 200 ml Output Total 1200 ml Balance -1080 ml 200 ml Intake Oral 120 ml 200 ml Output Urine Total 1200 ml # Voids 3 2 Height (Feet): 5 Height (Inches): 9.00 Weight (Pounds): 193 Objective Elderly man NCAT, (+) conjunctival and eye lid erythema neck supple CTA RR abd soft no edema Assessment/Plan Status: progressing, tolerating diet Assessment/Plan: Assessment - Poor po intake due to "inability to see" the food (patient's own claim) - Decreased visual acuity and conjunctivitis - ? COVID related - COVID PNA - COPD - Schizoaffective disorder, anxiety - hepatitis C Recommendations - d/w staff nurse icu resource team --> hand feed patient - Consider Opthamology consultation - push po - outpatient HCV management - will follow Rudolph Griggs MD Oct 16, 2020 23:07
[2020-10-17] VITALS: BP 135/77
[2020-10-17 04:00] VITALS: BP 127/74
--- NOTE | 2020-10-17 05:00 | NUR ---
NURSE NOTES: Pt is in bed asleep. No acute distress noted.
[2020-10-17] MEDS: Ciprofloxacin Opth Soln 5ml BOTH EYES SCH ×4 (05:51→17:30)
--- NOTE | 2020-10-17 06:40 | Hematology/Onc Progress Note ---
Assessment/Plan Assessment/Plan Assessment/Plan 1. Leukopenia is related likely to COVID-19 infection+++++++++++ --> Patient is currently saturating well on room air, per pulm --> s/p Azithromycin and ceftriaxone IV once in ER --> Continue monitoring SaO2 and provide supplemental oxygen as needed --> smear reviewed --> wbc 4.7-->3.8 --> neupogen prn 2. Anemia due to likely chronic disease, infection --> trend hgb as needed hgb 13 3. Elevated CRP, D-dimer --> s/p Lovenox in ER --> DVX ppx recommended --> duplex lower leg r/o dvt 4. Hypertension --> recommend continuing home antihypertensive meds --> as per cards 5. Covid 19 as per pulm/id 6. Dvt ppx lovenox sq Appreciate consultation and dw Rn Subjective HEENT: Denies: no symptoms, eye pain, blurred vision, tearing, double vision, ear pain, ear discharge, nose pain, nose congestion, throat pain, throat swelling, mouth pain, mouth swelling, other Cardiovascular: Denies: no symptoms, chest pain, edema, irregular heart rate, lightheadedness, palpitations, syncope, other Respiratory: Denies: no symptoms, cough, shortness of breath, SOB with excertion, SOB at rest, sputum, wheezing, other Gastrointestinal/Abdominal: Denies: no symptoms, abdomen distended, abdominal pain, black stools, tarry stools, blood in stool, constipated, diarrhea, difficulty swallowing, nausea, poor appetite, poor fluid intake, rectal bleeding, vomiting, other Genitourinary: Denies: no symptoms, burning, discharge, frequency, flank pain, hematuria, incontinence, pain, urgency, other Neurologic/Psychiatric: Denies: no symptoms, anxiety, depressed, emotional problems, headache, numbness, paresthesia, pre-existing deficit, seizure, tingling, tremors, weakness, other Endocrine: Denies: no symptoms, excessive sweating, flushing, intolerance to cold, intolerance to heat, increased hunger, increased thirst, increased urine, unexplained weight gain, unexplained weight loss, other Allergies: Coded Allergies: No Known Allergies (Unverified , 07/31/20) Subjective 10/11 awake, no new events, no bleeding, labs noted, ambulating 10/12 covid iso, is on ra, no bleeding, labs noted, meds reviewed 10/13: on RA saturating well no acute events. 10/14: no distress on O2 NC 2L, slight temp last night UA collected 10/15 is awake, alert, is on 2lnc, no bleeding, labs are noted 10/16 on 1lnc, no bleeding, labs ordered for am, no new events 10/17 nc, no bleeding, labs are pending, can't see, potential optho eval Objective Objective Current Medications Medications (Trade) Dose Ordered Sig/Sidney Route PRN Reason Start Time Stop Time Status Last Admin Dose Admin Acetaminophen (Tylenol) 650 mg Q6H PRN ORAL HEADACHE OR FEVER >100 10/09/20 22:45 11/08/20 22:44 10/13/20 22:27 Alfuzosin HCl (Uroxatrol) 10 mg DAILY ORAL 10/10/20 09:00 11/09/20 08:59 10/16/20 09:18 Amlodipine Besylate (Norvasc) 10 mg DAILY ORAL 10/10/20 09:00 11/09/20 08:59 10/16/20 09:26 Chlorhexidine Gluconate (Beryl-Hex 2%) 1 applic QHS TOPIC 10/09/20 21:00 01/07/21 20:59 Ciprofloxacin (Ciloxan Opth Soln) 1 drop Q6HR BOTH EYES 10/11/20 18:30 10/18/20 18:29 10/17/20 05:51 Enoxaparin Sodium (Lovenox) 40 mg DAILY SUBQ 10/16/20 09:00 01/14/21 08:59 10/16/20 09:34 Irbesartan (Avapro) 150 mg Q12HR ORAL 10/09/20 21:00 01/07/21 20:59 10/16/20 21:29 Metoprolol Succinate (Toprol XL) 50 mg DAILY ORAL 10/10/20 09:00 01/08/21 08:59 10/16/20 09:25 Pantoprazole (Protonix) 40 mg DAILY ORAL 10/10/20 09:00 11/09/20 08:59 10/16/20 09:19 Quetiapine Fumarate (SEROqueL) 300 mg Q12HR ORAL 10/09/20 21:00 11/23/20 20:59 10/16/20 21:29 Risperidone (RisperDAL) 2 mg Q12HR ORAL 10/09/20 21:00 11/23/20 20:59 10/16/20 21:29 Last 24 Hour Vital Signs Date Time Temp Pulse Resp B/P (MAP) Pulse Ox O2 Delivery O2 Flow Rate FiO2 10/17/20 04:00 98.0 100 20 127/74 (91) 93 10/17/20 00:00 98.2 99 17 135/77 (96) 93 10/16/20 21:29 136/75 10/16/20 21:00 Room Air 10/16/20 20:00 98.6 98 18 136/75 (95) 94 10/16/20 16:00 97.6 98 20 139/76 (97) 96 10/16/20 12:00 97.1 95 20 98/62 (74) 95 10/16/20 09:26 100 126/73 10/16/20 09:25 100 126/73 10/16/20 09:20 126/73 10/16/20 09:00 Room Air 10/16/20 08:00 98.4 100 20 126/73 (90) 95 10/16/20 04:00 98.0 99 20 99/57 (71) 94 10/16/20 00:00 98.2 97 20 123/69 (87) 93 10/15/20 21:00 Room Air 10/15/20 20:27 116/72 10/15/20 20:00 97.7 94 20 116/72 (87) 92 10/15/20 16:00 97.7 100 21 119/61 (80) 92 10/15/20 12:00 98.9 105 20 111/63 (79) 94 10/15/20 09:26 114/71 10/15/20 09:26 108 114/71 10/15/20 09:26 108 114/71 10/15/20 09:00 Room Air 10/15/20 08:00 99.1 108 19 114/71 (85) 96 Intake and Output 10/16/20 10/17/20 19:00 07:00 Intake Total 800 ml 360 ml Balance 800 ml 360 ml Intake Oral 800 ml Other 360 ml # Voids 3 2 Labs Test 10/14/20 08:05 Urine Color Yellow Urine Appearance Clear Urine pH 5 (4.5-8.0) Urine Specific [place] 1.015 (1.005-1.035) Urine Protein 1+ (NEGATIVE) Urine Glucose (UA) Negative (NEGATIVE) Urine Ketones 1+ (NEGATIVE) Urine Blood Negative (NEGATIVE) Urine Nitrite Negative (NEGATIVE) Urine Bilirubin Negative (NEGATIVE) Urine Urobilinogen Normal MG/DL (0.0-1.0) Urine Leukocyte Esterase Negative (NEGATIVE) Urine RBC 0 /HPF (0 - 0) Urine WBC 0-2 /HPF (0 - 0) Urine Squamous Epithelial Cells Occasional /LPF Urine Bacteria Occasional /HPF (NONE) Height (Feet): 5 Height (Inches): 9.00 Weight (Pounds): 193 Objective PHYSICAL EXAMINATION: VITAL SIGNS: reviewed HEENT: Head exam reveals that the head is normocephalic, atraumatic without deformity or unusual swelling. CHEST AND LUNGS: Reveals clear, normal, symmetrical breath sounds with no adventitious sounds. CARDIOVASCULAR: Reveals normal S1, S2 without murmurs, rubs, or clicks. ABDOMEN: Obese, soft with no tenderness or organomegaly. A well-healed midline linear vertical scar in the abdomen ++ RECTAL: Deferred. MUSCULOSKELETAL: There is no tenderness to palpation. Range of motion is normal. NEUROLOGICAL: Alert and oriented x3 , nonfocal Alek Sabillon MD Oct 17, 2020 06:40
--- NOTE | 2020-10-17 07:20 | NUR ---
NURSE HAND-OFF: Important Events on Shift:[] Patient Status: [Stable] Diet: [] Pending Orders: [] Pending Results/Labs:[] Pending MD notification:[] Latest Vital Signs: Temperature 98.0 , Pulse 100 , B/P 127 /74 , Respiratory Rate 20 , O2 SAT 93 , Room Air, O2 Flow Rate 2.0 . Vital Sign Comment: [] Latest Barreto Fall Score: 45 Fall Risk: High Risk Safety Measures: Call light Within Reach, Bed Alarm Zone 2, Side Rails Side Rails x2, Bed position Low and Locked. Fall Precautions: Yellow Socks Door Sign Patient Fall Education Report given to [Gui Whitehead RN. Informed that patient is fall risk. ].
[2020-10-17 07:45] LABS: HEMATOCRIT 34.3 % (42.0-52.0); HEMOGLOBIN 11.7 G/DL (14.2-18.0); MEAN CORPUSCULAR VOLUME 88 FL (80-99); PLATELET COUNT 175 K/UL (150-450); RED BLOOD COUNT 3.91 M/UL (4.70-6.10); RED CELL DISTRIBUTION WIDTH 12.8 % (11.6-14.8); WHITE BLOOD COUNT 3.2 K/UL (4.8-10.8)
[2020-10-17 07:51] LABS: CALCIUM 8.3 MG/DL (8.5-10.1); CREATININE 1.3 MG/DL (0.55-1.30); POTASSIUM 3.7 MMOL/L (3.5-5.1)
[2020-10-17 08:00] VITALS: BP 113/74
--- NOTE | 2020-10-17 08:38 | Pulmonology Progress Note ---
Subjective ROS Limited/Unobtainable: Yes Interval Events: no fever overnight Constitutional: Denies: fever HEENT: Repors: other - eye pain Respiratory: Reports: no symptoms Cardiovascular: Reports: no symptoms Gastrointestinal/Abdominal: Reports: no symptoms Genitourinary: Reports: no symptoms Allergies: Coded Allergies: No Known Allergies (Unverified , 07/31/20) Objective Last 24 Hour Vital Signs Date Time Temp Pulse Resp B/P (MAP) Pulse Ox O2 Delivery O2 Flow Rate FiO2 10/17/20 04:00 98.0 100 20 127/74 (91) 93 10/17/20 00:00 98.2 99 17 135/77 (96) 93 10/16/20 21:29 136/75 10/16/20 21:00 Room Air 10/16/20 20:00 98.6 98 18 136/75 (95) 94 10/16/20 16:00 97.6 98 20 139/76 (97) 96 10/16/20 12:00 97.1 95 20 98/62 (74) 95 10/16/20 09:26 100 126/73 10/16/20 09:25 100 126/73 10/16/20 09:20 126/73 10/16/20 09:00 Room Air Intake and Output 10/16/20 10/17/20 19:00 07:00 Intake Total 800 ml 360 ml Balance 800 ml 360 ml Intake Oral 800 ml Other 360 ml # Voids 3 2 Objective 10/17 no change; remains on 2L NC since weaning failed again yesterday 10/16 saturating at 94% on 1L NC; failed weaning yesterday 10/15 now saturating at 95% on 1L NC; will wean again as tolerated 10/14 saturating at 95% on 2L NC 10/12 saturating at 97% on 2L NC 10/11 now on 2L saturating well 10/10 on room air saturating well General Appearance: WD/WN, no acute distress HEENT: other - erythematous, edematous eyes Respiratory: lungs clear Cardiovascular: normal rate, regular rhythm Abdomen: soft, non tender Laboratory Tests 10/17/20 05:30: White Blood Count 3.2L, Red Blood Count 3.91L, Hemoglobin 11.7L, Hematocrit 34.3L, Mean Corpuscular Volume 88, Mean Corpuscular Hemoglobin 29.9, Mean Corpuscular Hemoglobin Concent 34.1, Red Cell Distribution Width 12.8, Platelet Count 175, Mean Platelet Volume 5.6L, Neutrophils (%) (Auto) , Lymphocytes (%) (Auto) , Monocytes (%) (Auto) , Eosinophils (%) (Auto) , Basophils (%) (Auto) , Neutrophils % (Manual) [Pending], Lymphocytes % (Manual) [Pending], Platelet Estimate [Pending], Platelet Morphology [Pending], Sodium Level 136, Potassium Level 3.7, Chloride Level 100, Carbon Dioxide Level 30, Anion Gap 6, Blood Urea Nitrogen 14, Creatinine 1.3, Estimat Glomerular Filtration Rate 55.1, Glucose Level 98, Calcium Level 8.3L Current Medications Medications (Trade) Dose Ordered Sig/Sidney Route PRN Reason Start Time Stop Time Status Last Admin Dose Admin Acetaminophen (Tylenol) 650 mg Q6H PRN ORAL HEADACHE OR FEVER >100 10/09/20 22:45 11/08/20 22:44 10/13/20 22:27 Alfuzosin HCl (Uroxatrol) 10 mg DAILY ORAL 10/10/20 09:00 11/09/20 08:59 10/16/20 09:18 Amlodipine Besylate (Norvasc) 10 mg DAILY ORAL 10/10/20 09:00 11/09/20 08:59 10/16/20 09:26 Chlorhexidine Gluconate (Beryl-Hex 2%) 1 applic QHS TOPIC 10/09/20 21:00 01/07/21 20:59 Ciprofloxacin (Ciloxan Opth Soln) 1 drop Q6HR BOTH EYES 10/11/20 18:30 10/18/20 18:29 10/17/20 05:51 Enoxaparin Sodium (Lovenox) 40 mg DAILY SUBQ 10/16/20 09:00 01/14/21 08:59 10/16/20 09:34 Irbesartan (Avapro) 150 mg Q12HR ORAL 10/09/20 21:00 01/07/21 20:59 10/16/20 21:29 Metoprolol Succinate (Toprol XL) 50 mg DAILY ORAL 10/10/20 09:00 01/08/21 08:59 10/16/20 09:25 Pantoprazole (Protonix) 40 mg DAILY ORAL 10/10/20 09:00 11/09/20 08:59 10/16/20 09:19 Quetiapine Fumarate (SEROqueL) 300 mg Q12HR ORAL 10/09/20 21:00 11/23/20 20:59 10/16/20 21:29 Risperidone (RisperDAL) 2 mg Q12HR ORAL 10/09/20 21:00 11/23/20 20:59 10/16/20 21:29 Assessment/Plan Assessment/Plan 1. COVID-19 infection - Saturating at 94% on 2L NC; wean down as tolerated - s/p Azithromycin and ceftriaxone IV once in ER -Given his normoxemia without fever, clear lung sounds, and negative CXR, no specific therapy is required at this time -Continue monitoring SaO2 and provide supplemental oxygen as needed - Repeat CXR 10/12 shows subsegmental atelectasis in the left lung base. 2. Conjunctivitis - now on ciprofloxacin ophthalmic solution 3. Elevated CRP, D-dimer - s/p Lovenox in ER - Venous duplex US negative for DVT - on Lovenox 4. Hypertension - on metoprolol and amlodipine - monitor BP 5. Hypokalemia - per primary MD 7. New onset fever with tachycardia; resolved - better on antipyretics - likely sepsis secondary to COVID-19, vs UTI - consider UA if fever persistent - Venous duplex US negative for DVT - management per primary MD, and ID 8. Atelectasis - monitor at this point given his normoxemia 9. anorexia - per pt, he "can't see" his food due to conjunctivitis/corneal abrasion - seen by GI, who recommends feeding assistance prior to considering appetite stimulants - management per GI Medically stable for dc to SNF with oxygen if SaO2 >92% from pulmonary stand point The care for this patient was discussed with my supervising physician. Time spent for this case was approximately 31 minutes. Piyush Dent Oct 17, 2020 08:38
[2020-10-17] MEDS: Irbesartan 150mg tablet ORAL SCH ×2 (09:45→21:44)
[2020-10-17] MEDS: Metoprolol Succinate XL 50mg tab ORAL SCH (09:46)
[2020-10-17] MEDS: Enoxaparin 40mg Inj SUBQ SCH (09:48)
[2020-10-17 12:00] VITALS: BP 133/77
--- NOTE | 2020-10-17 13:10 | NUR ---
RD ASSESSMENT & RECOMMENDATIONS SEE CARE ACTIVITY FOR COMPLETE ASSESSMENT DAILY ESTIMATED NEEDS: Needs based on Cardiac, Pulmonary, 76.5kg abw 25-30 kcals/kg 0127-9138 total kcals 1-1.3 g protein/kg 76-99 g total protein 25-30 mL/kg 3954-5445 total fluid mLs NUTRITION DIAGNOSIS: Inadequate oral intake R/T "unable to see food" as per pt's report as evidenced by pt admitted w/ dx of conjunctivitis, poor and variable intake, mostly 0-25% since adm, now improved w/ meal assistance. CURRENT DIET:REGULAR PO DIET RECOMMENDATIONS: REGULAR/ texture as tolerated ADDITIONAL RECOMMENDATIONS: * Calibrated bedscale wt * Monitor for improved PO intake -> cont to assist pt with meals and snacks * Monitor lytes, replete as needed
--- NOTE | 2020-10-17 14:36 | Infectious Diseases Prog Note ---
Assessment/Plan Assessment/Plan IMPRESSION: 1. Sepsis 2. COVID-19 disease. 3. Conjunctivitis. 4. History of COPD. 5. History of hepatitis C. 6. History of corneal abrasion. 7. Atelectasis RECOMMENDATIONS: Continue Cipro eye drop X 1 day Subjective ROS Limited/Unobtainable: Yes Constitutional: Denies: fever Allergies: Coded Allergies: No Known Allergies (Unverified , 07/31/20) Objective Last 24 Hour Vital Signs Date Time Temp Pulse Resp B/P (MAP) Pulse Ox O2 Delivery O2 Flow Rate FiO2 10/17/20 12:00 97.6 109 21 133/77 (95) 94 10/17/20 09:46 100 113/74 10/17/20 09:46 100 113/74 10/17/20 09:45 113/74 10/17/20 09:00 Room Air 10/17/20 08:00 98.6 100 20 113/74 (87) 94 10/17/20 04:00 98.0 100 20 127/74 (91) 93 10/17/20 00:00 98.2 99 17 135/77 (96) 93 10/16/20 21:29 136/75 10/16/20 21:00 Room Air 10/16/20 20:00 98.6 98 18 136/75 (95) 94 10/16/20 16:00 97.6 98 20 139/76 (97) 96 Height (Feet): 5 Height (Inches): 9.00 Weight (Pounds): 193 HEENT: mucous membranes moist Respiratory/Chest: no respiratory distress, other - oxygen by nasal cannula Cardiovascular: normal rate Abdomen: soft, non tender Extremities: no edema Neurologic/Psychiatric: other - sleeping Laboratory Tests Test 10/17/20 05:30 White Blood Count 3.2 K/UL (4.8-10.8) L Red Blood Count 3.91 M/UL (4.70-6.10) L Hemoglobin 11.7 G/DL (14.2-18.0) L Hematocrit 34.3 % (42.0-52.0) L Mean Corpuscular Volume 88 FL (80-99) Mean Corpuscular Hemoglobin 29.9 PG (27.0-31.0) Mean Corpuscular Hemoglobin Concent 34.1 G/DL (32.0-36.0) Red Cell Distribution Width 12.8 % (11.6-14.8) Platelet Count 175 K/UL (150-450) Mean Platelet Volume 5.6 FL (6.5-10.1) L Neutrophils (%) (Auto) % (45.0-75.0) Lymphocytes (%) (Auto) % (20.0-45.0) Monocytes (%) (Auto) % (1.0-10.0) Eosinophils (%) (Auto) % (0.0-3.0) Basophils (%) (Auto) % (0.0-2.0) Differential Total Cells Counted 100 Neutrophils % (Manual) 58 % (45-75) Lymphocytes % (Manual) 31 % (20-45) Monocytes % (Manual) 10 % (1-10) Eosinophils % (Manual) 1 % (0-3) Basophils % (Manual) 0 % (0-2) Band Neutrophils 0 % (0-8) Platelet Estimate Adequate Platelet Morphology Normal Red Blood Cell Morphology Normal Sodium Level 136 MMOL/L (136-145) Potassium Level 3.7 MMOL/L (3.5-5.1) Chloride Level 100 MMOL/L (98-107) Carbon Dioxide Level 30 MMOL/L (21-32) Anion Gap 6 mmol/L (5-15) Blood Urea Nitrogen 14 mg/dL (7-18) Creatinine 1.3 MG/DL (0.55-1.30) Estimat Glomerular Filtration Rate 55.1 mL/min (>60) Glucose Level 98 MG/DL (74-106) Calcium Level 8.3 MG/DL (8.5-10.1) L Current Medications Medications (Trade) Dose Ordered Sig/Sidney Route PRN Reason Start Time Stop Time Status Last Admin Dose Admin Acetaminophen (Tylenol) 650 mg Q6H PRN ORAL HEADACHE OR FEVER >100 10/09/20 22:45 11/08/20 22:44 10/13/20 22:27 Alfuzosin HCl (Uroxatrol) 10 mg DAILY ORAL 10/10/20 09:00 11/09/20 08:59 10/17/20 09:46 Amlodipine Besylate (Norvasc) 10 mg DAILY ORAL 10/10/20 09:00 11/09/20 08:59 10/17/20 09:46 Chlorhexidine Gluconate (Beryl-Hex 2%) 1 applic QHS TOPIC 10/09/20 21:00 01/07/21 20:59 Ciprofloxacin (Ciloxan Opth Soln) 1 drop Q6HR BOTH EYES 10/11/20 18:30 10/18/20 18:29 10/17/20 12:17 Enoxaparin Sodium (Lovenox) 40 mg DAILY SUBQ 10/16/20 09:00 01/14/21 08:59 10/17/20 09:48 Irbesartan (Avapro) 150 mg Q12HR ORAL 10/09/20 21:00 01/07/21 20:59 10/17/20 09:45 Metoprolol Succinate (Toprol XL) 50 mg DAILY ORAL 10/10/20 09:00 01/08/21 08:59 10/17/20 09:46 Pantoprazole (Protonix) 40 mg DAILY ORAL 10/10/20 09:00 11/09/20 08:59 10/17/20 09:45 Quetiapine Fumarate (SEROqueL) 300 mg Q12HR ORAL 10/09/20 21:00 11/23/20 20:59 10/17/20 09:46 Risperidone (RisperDAL) 2 mg Q12HR ORAL 10/09/20 21:00 11/23/20 20:59 10/17/20 09:46 Harsh Bowser MD Oct 17, 2020 14:36
[2020-10-17 16:00] VITALS: BP 126/76
--- NOTE | 2020-10-17 16:03 | Cardiology Report ---
APPROVED REPORT EKG Measurement Heart [id number] <Conclusion> Normal sinus rhythm Left axis deviation Abnormal ECG
--- NOTE | 2020-10-17 16:13 | Cardiology Report ---
APPROVED REPORT EKG Measurement Heart [id number] <Conclusion> Normal sinus rhythm Low voltage QRS Nonspecific T wave abnormality Abnormal ECG
--- NOTE | 2020-10-17 16:32 | NUR ---
CASE MANAGEMENT:REVIEW SI;COVID PNEUMOIA' 98.6 109 21 133/77 93% ON RA IS;LOVENOX SQ QD PROTONIX PO QD TOPROL XL PO QD NORVASC PO QD MED SURG STATUS DCP;FROM [facility] PLAN;SNF PLACEMENT
--- NOTE | 2020-10-17 16:52 | Cardiac Electrophysiology PN ---
Assessment/Plan Assessment/Plan 1. Shortness of breath due to COVID-19 infection. On 2 liter NC, azithromycin and ceftriaxone. Fu by Dr. Shell. 2. Hypertension. On amlodipine 10 mg daily, Toprol-XL 50 mg daily and Avapro 150 bid 3. Psychiatric history. 4. DC to [facility] pending DW RN Subjective Subjective In isolation for Covid. No CP or SOB. On Cipro eye drops. On 2 liter NC Objective Last 24 Hour Vital Signs Date Time Temp Pulse Resp B/P (MAP) Pulse Ox O2 Delivery O2 Flow Rate FiO2 10/17/20 12:00 97.6 109 21 133/77 (95) 94 10/17/20 09:46 100 113/74 10/17/20 09:46 100 113/74 10/17/20 09:45 113/74 10/17/20 09:00 Room Air 10/17/20 08:00 98.6 100 20 113/74 (87) 94 10/17/20 04:00 98.0 100 20 127/74 (91) 93 10/17/20 00:00 98.2 99 17 135/77 (96) 93 10/16/20 21:29 136/75 10/16/20 21:00 Room Air 10/16/20 20:00 98.6 98 18 136/75 (95) 94 Intake and Output 10/16/20 10/17/20 19:00 07:00 Intake Total 800 ml 360 ml Balance 800 ml 360 ml Intake Oral 800 ml Other 360 ml # Voids 3 2 Laboratory Tests Test 10/17/20 05:30 White Blood Count 3.2 K/UL (4.8-10.8) L Red Blood Count 3.91 M/UL (4.70-6.10) L Hemoglobin 11.7 G/DL (14.2-18.0) L Hematocrit 34.3 % (42.0-52.0) L Mean Corpuscular Volume 88 FL (80-99) Mean Corpuscular Hemoglobin 29.9 PG (27.0-31.0) Mean Corpuscular Hemoglobin Concent 34.1 G/DL (32.0-36.0) Red Cell Distribution Width 12.8 % (11.6-14.8) Platelet Count 175 K/UL (150-450) Mean Platelet Volume 5.6 FL (6.5-10.1) L Neutrophils (%) (Auto) % (45.0-75.0) Lymphocytes (%) (Auto) % (20.0-45.0) Monocytes (%) (Auto) % (1.0-10.0) Eosinophils (%) (Auto) % (0.0-3.0) Basophils (%) (Auto) % (0.0-2.0) Differential Total Cells Counted 100 Neutrophils % (Manual) 58 % (45-75) Lymphocytes % (Manual) 31 % (20-45) Monocytes % (Manual) 10 % (1-10) Eosinophils % (Manual) 1 % (0-3) Basophils % (Manual) 0 % (0-2) Band Neutrophils 0 % (0-8) Platelet Estimate Adequate Platelet Morphology Normal Red Blood Cell Morphology Normal Sodium Level 136 MMOL/L (136-145) Potassium Level 3.7 MMOL/L (3.5-5.1) Chloride Level 100 MMOL/L (98-107) Carbon Dioxide Level 30 MMOL/L (21-32) Anion Gap 6 mmol/L (5-15) Blood Urea Nitrogen 14 mg/dL (7-18) Creatinine 1.3 MG/DL (0.55-1.30) Estimat Glomerular Filtration Rate 55.1 mL/min (>60) Glucose Level 98 MG/DL (74-106) Calcium Level 8.3 MG/DL (8.5-10.1) L Objective HEAD AND NECK: Shows mild JVD. Bilateral eyelids are edematous and erythematous. LUNGS: Clear. CARDIOVASCULAR: Shows regular S1 and S2 with no gallop. ABDOMEN: Soft. EXTREMITIES: 1+ pitting edema. Kirit Dave MD Oct 17, 2020 16:52
--- NOTE | 2020-10-17 19:45 | NUR ---
NURSE HAND-OFF: Important Events on Shift:monitor O2 sat. Oxygen tx Patient Status: stable Diet: regular Pending Orders: n/a Pending Results/Labs:n/a Pending MD notification:n/a Latest Vital Signs: Temperature 98.3 , Pulse 108 , B/P 126 /76 , Respiratory Rate 21 , O2 SAT 92 , Room Air, O2 Flow Rate 2.0 . Vital Sign Comment: sable Latest Barreto Fall Score: 45 Fall Risk: High Risk Safety Measures: Call light Within Reach, Bed Alarm Zone 2, Side Rails Side Rails x2, Bed position Low and Locked. Fall Precautions: Yellow Socks Door Sign Patient Fall Education Report given to GONZALEZ Riggs.
--- NOTE | 2020-10-17 19:46 | NUR ---
NURSE NOTES: Received patient in no apparent distress. A&OX4. NC 2L on. IV site patent and intact. Bed in lowest position. Call light within reach. Will continue to monitor.
[2020-10-17 20:00] VITALS: BP 136/76
[2020-10-17] MEDS: Dyna-Hex 2% Top Sol 2oz TOPIC SCH (21:00)
--- NOTE | 2020-10-17 21:34 | General Progress Note ---
Subjective ROS Limited/Unobtainable: Yes Allergies: Coded Allergies: No Known Allergies (Unverified , 07/31/20) Objective Last 24 Hour Vital Signs Date Time Temp Pulse Resp B/P (MAP) Pulse Ox O2 Delivery O2 Flow Rate FiO2 10/17/20 16:00 98.3 108 21 126/76 (93) 92 10/17/20 12:00 97.6 109 21 133/77 (95) 94 10/17/20 09:46 100 113/74 10/17/20 09:46 100 113/74 10/17/20 09:45 113/74 10/17/20 09:00 Room Air 10/17/20 08:00 98.6 100 20 113/74 (87) 94 10/17/20 04:00 98.0 100 20 127/74 (91) 93 10/17/20 00:00 98.2 99 17 135/77 (96) 93 Intake and Output 10/16/20 10/17/20 19:00 07:00 Intake Total 800 ml 360 ml Balance 800 ml 360 ml Intake Oral 800 ml Other 360 ml # Voids 3 2 Laboratory Tests 10/17/20 05:30: White Blood Count 3.2L, Red Blood Count 3.91L, Hemoglobin 11.7L, Hematocrit 34.3L, Mean Corpuscular Volume 88, Mean Corpuscular Hemoglobin 29.9, Mean Corpuscular Hemoglobin Concent 34.1, Red Cell Distribution Width 12.8, Platelet Count 175, Mean Platelet Volume 5.6L, Neutrophils (%) (Auto) , Lymphocytes (%) (Auto) , Monocytes (%) (Auto) , Eosinophils (%) (Auto) , Basophils (%) (Auto) , Differential Total Cells Counted 100, Neutrophils % (Manual) 58, Lymphocytes % (Manual) 31, Monocytes % (Manual) 10, Eosinophils % (Manual) 1, Basophils % (Manual) 0, Band Neutrophils 0, Platelet Estimate Adequate, Platelet Morphology Normal, Red Blood Cell Morphology Normal, Sodium Level 136, Potassium Level 3.7, Chloride Level 100, Carbon Dioxide Level 30, Anion Gap 6, Blood Urea Nitrogen 14, Creatinine 1.3, Estimat Glomerular Filtration Rate 55.1, Glucose Level 98, Calcium Level 8.3L Height (Feet): 5 Height (Inches): 9.00 Weight (Pounds): 193 Assessment/Plan Problem List: (1) Headache ICD Codes: R51.9 - Headache, unspecified SNOMED: 48279317 (2) COVID-19 ICD Codes: U07.1 - COVID-19 SNOMED: 389844956 Status: progressing, tolerating diet Assessment/Plan: resp insuff very poor appetitie psychosis covid + Deng Liu MD Oct 17, 2020 21:34
--- NOTE | 2020-10-17 22:25 | General Progress Note ---
Subjective Allergies: Coded Allergies: No Known Allergies (Unverified , 07/31/20) Subjective Feels OK no abdominal symptoms eating better Objective Last 24 Hour Vital Signs Date Time Temp Pulse Resp B/P (MAP) Pulse Ox O2 Delivery O2 Flow Rate FiO2 10/17/20 21:44 136/76 10/17/20 20:00 98.4 102 18 136/76 (96) 96 10/17/20 16:00 98.3 108 21 126/76 (93) 92 10/17/20 12:00 97.6 109 21 133/77 (95) 94 10/17/20 09:46 100 113/74 10/17/20 09:46 100 113/74 10/17/20 09:45 113/74 10/17/20 09:00 Room Air 10/17/20 08:00 98.6 100 20 113/74 (87) 94 10/17/20 04:00 98.0 100 20 127/74 (91) 93 10/17/20 00:00 98.2 99 17 135/77 (96) 93 Intake and Output 10/16/20 10/17/20 19:00 07:00 Intake Total 800 ml 360 ml Balance 800 ml 360 ml Intake Oral 800 ml Other 360 ml # Voids 3 2 Laboratory Tests 10/17/20 05:30: White Blood Count 3.2L, Red Blood Count 3.91L, Hemoglobin 11.7L, Hematocrit 34.3L, Mean Corpuscular Volume 88, Mean Corpuscular Hemoglobin 29.9, Mean Corpuscular Hemoglobin Concent 34.1, Red Cell Distribution Width 12.8, Platelet Count 175, Mean Platelet Volume 5.6L, Neutrophils (%) (Auto) , Lymphocytes (%) (Auto) , Monocytes (%) (Auto) , Eosinophils (%) (Auto) , Basophils (%) (Auto) , Differential Total Cells Counted 100, Neutrophils % (Manual) 58, Lymphocytes % (Manual) 31, Monocytes % (Manual) 10, Eosinophils % (Manual) 1, Basophils % (Manual) 0, Band Neutrophils 0, Platelet Estimate Adequate, Platelet Morphology Normal, Red Blood Cell Morphology Normal, Sodium Level 136, Potassium Level 3.7, Chloride Level 100, Carbon Dioxide Level 30, Anion Gap 6, Blood Urea Nitrogen 14, Creatinine 1.3, Estimat Glomerular Filtration Rate 55.1, Glucose Level 98, Calcium Level 8.3L Height (Feet): 5 Height (Inches): 9.00 Weight (Pounds): 193 Objective Elderly man NCAT, (+) conjunctival and eye lid erythema neck supple CTA RR abd soft no edema Assessment/Plan Status: progressing, tolerating diet Assessment/Plan: Assessment - Poor po intake due to "inability to see" the food (patient's own claim) - Decreased visual acuity and conjunctivitis - ? COVID related - COVID PNA - COPD - Schizoaffective disorder, anxiety - hepatitis C Recommendations - d/w public health staff nurse --> hand feed patient - Consider Ophthalmology consultation - push po - outpatient HCV management - will follow Rudolph Griggs MD Oct 17, 2020 22:25
[2020-10-18] VITALS: BP 148/79
[2020-10-18] MEDS: Ciprofloxacin Opth Soln 5ml BOTH EYES SCH ×4 (00:33→17:30)
[2020-10-18 04:00] VITALS: BP 131/73
--- NOTE | 2020-10-18 06:37 | Hematology/Onc Progress Note ---
Assessment/Plan Assessment/Plan Assessment/Plan 1. Leukopenia is related likely to COVID-19 infection+++++++++++ --> Patient is currently saturating well on room air, per pulm --> s/p Azithromycin and ceftriaxone IV once in ER --> Continue monitoring SaO2 and provide supplemental oxygen as needed --> smear reviewed --> wbc 4.7-->3.8 --> neupogen prn 2. Anemia due to likely chronic disease, infection --> trend hgb as needed hgb 13 3. Elevated CRP, D-dimer --> s/p Lovenox in ER --> DVX ppx recommended --> duplex lower leg r/o dvt 4. Hypertension --> recommend continuing home antihypertensive meds --> as per cards 5. Covid 19 as per pulm/id 6. Dvt ppx lovenox sq Appreciate consultation and marly Rn Subjective HEENT: Denies: no symptoms, eye pain, blurred vision, tearing, double vision, ear pain, ear discharge, nose pain, nose congestion, throat pain, throat swelling, mouth pain, mouth swelling, other Cardiovascular: Denies: no symptoms, chest pain, edema, irregular heart rate, lightheadedness, palpitations, syncope, other Respiratory: Denies: no symptoms, cough, shortness of breath, SOB with excertion, SOB at rest, sputum, wheezing, other Genitourinary: Denies: no symptoms, burning, discharge, frequency, flank pain, hematuria, incontinence, pain, urgency, other Neurologic/Psychiatric: Denies: no symptoms, anxiety, depressed, emotional problems, headache, numbness, paresthesia, pre-existing deficit, seizure, tingling, tremors, weakness, other Endocrine: Denies: no symptoms, excessive sweating, flushing, intolerance to cold, intolerance to heat, increased hunger, increased thirst, increased urine, unexplained weight gain, unexplained weight loss, other Allergies: Coded Allergies: No Known Allergies (Unverified , 07/31/20) Subjective 10/11 awake, no new events, no bleeding, labs noted, ambulating 10/12 covid iso, is on ra, no bleeding, labs noted, meds reviewed 10/13: on RA saturating well no acute events. 10/14: no distress on O2 NC 2L, slight temp last night UA collected 10/15 is awake, alert, is on 2lnc, no bleeding, labs are noted 10/16 on 1lnc, no bleeding, labs ordered for am, no new events 10/17 nc, no bleeding, labs are pending, can't see, potential optho eval 10/18 nc, no bleeding, wbc 3, no new changes, dw rn Objective Objective Current Medications Medications (Trade) Dose Ordered Sig/Sidney Route PRN Reason Start Time Stop Time Status Last Admin Dose Admin Acetaminophen (Tylenol) 650 mg Q6H PRN ORAL HEADACHE OR FEVER >100 10/09/20 22:45 11/08/20 22:44 10/13/20 22:27 Alfuzosin HCl (Uroxatrol) 10 mg DAILY ORAL 10/10/20 09:00 11/09/20 08:59 10/17/20 09:46 Amlodipine Besylate (Norvasc) 10 mg DAILY ORAL 10/10/20 09:00 11/09/20 08:59 10/17/20 09:46 Chlorhexidine Gluconate (Beryl-Hex 2%) 1 applic QHS TOPIC 10/09/20 21:00 01/07/21 20:59 Ciprofloxacin (Ciloxan Opth Soln) 1 drop Q6HR BOTH EYES 10/11/20 18:30 10/18/20 18:29 10/18/20 05:13 Enoxaparin Sodium (Lovenox) 40 mg DAILY SUBQ 10/16/20 09:00 01/14/21 08:59 10/17/20 09:48 Irbesartan (Avapro) 150 mg Q12HR ORAL 10/09/20 21:00 01/07/21 20:59 10/17/20 21:44 Metoprolol Succinate (Toprol XL) 50 mg DAILY ORAL 10/10/20 09:00 01/08/21 08:59 10/17/20 09:46 Pantoprazole (Protonix) 40 mg DAILY ORAL 10/10/20 09:00 11/09/20 08:59 10/17/20 09:45 Quetiapine Fumarate (SEROqueL) 300 mg Q12HR ORAL 10/09/20 21:00 11/23/20 20:59 10/17/20 21:45 Risperidone (RisperDAL) 2 mg Q12HR ORAL 10/09/20 21:00 11/23/20 20:59 10/17/20 21:44 Last 24 Hour Vital Signs Date Time Temp Pulse Resp B/P (MAP) Pulse Ox O2 Delivery O2 Flow Rate FiO2 10/18/20 04:00 98.3 105 20 131/73 (92) 93 10/18/20 00:00 98.2 101 20 148/79 (102) 93 10/17/20 21:44 136/76 10/17/20 21:00 Nasal Cannula 2.0 10/17/20 20:00 98.4 102 18 136/76 (96) 96 10/17/20 16:00 98.3 108 21 126/76 (93) 92 10/17/20 12:00 97.6 109 21 133/77 (95) 94 10/17/20 09:46 100 113/74 10/17/20 09:46 100 113/74 10/17/20 09:45 113/74 10/17/20 09:00 Room Air 10/17/20 08:00 98.6 100 20 113/74 (87) 94 10/17/20 04:00 98.0 100 20 127/74 (91) 93 10/17/20 00:00 98.2 99 17 135/77 (96) 93 10/16/20 21:29 136/75 10/16/20 21:00 Room Air 10/16/20 20:00 98.6 98 18 136/75 (95) 94 10/16/20 16:00 97.6 98 20 139/76 (97) 96 10/16/20 12:00 97.1 95 20 98/62 (74) 95 10/16/20 09:26 100 126/73 10/16/20 09:25 100 126/73 10/16/20 09:20 126/73 10/16/20 09:00 Room Air 10/16/20 08:00 98.4 100 20 126/73 (90) 95 Intake and Output 10/17/20 10/18/20 19:00 07:00 Intake Total 600 ml Output Total 400 ml Balance 600 ml -400 ml Intake Oral 600 ml Output Urine Total 400 ml # Voids 3 2 # Bowel Movements 1 Labs Test 10/17/20 05:30 White Blood Count 3.2 K/UL (4.8-10.8) Red Blood Count 3.91 M/UL (4.70-6.10) Hemoglobin 11.7 G/DL (14.2-18.0) Hematocrit 34.3 % (42.0-52.0) Mean Corpuscular Volume 88 FL (80-99) Mean Corpuscular Hemoglobin 29.9 PG (27.0-31.0) Mean Corpuscular Hemoglobin Concent 34.1 G/DL (32.0-36.0) Red Cell Distribution Width 12.8 % (11.6-14.8) Platelet Count 175 K/UL (150-450) Mean Platelet Volume 5.6 FL (6.5-10.1) Neutrophils (%) (Auto) % (45.0-75.0) Lymphocytes (%) (Auto) % (20.0-45.0) Monocytes (%) (Auto) % (1.0-10.0) Eosinophils (%) (Auto) % (0.0-3.0) Basophils (%) (Auto) % (0.0-2.0) Differential Total Cells Counted 100 Neutrophils % (Manual) 58 % (45-75) Lymphocytes % (Manual) 31 % (20-45) Monocytes % (Manual) 10 % (1-10) Eosinophils % (Manual) 1 % (0-3) Basophils % (Manual) 0 % (0-2) Band Neutrophils 0 % (0-8) Platelet Estimate Adequate Platelet Morphology Normal Red Blood Cell Morphology Normal Sodium Level 136 MMOL/L (136-145) Potassium Level 3.7 MMOL/L (3.5-5.1) Chloride Level 100 MMOL/L (98-107) Carbon Dioxide Level 30 MMOL/L (21-32) Anion Gap 6 mmol/L (5-15) Blood Urea Nitrogen 14 mg/dL (7-18) Creatinine 1.3 MG/DL (0.55-1.30) Estimat Glomerular Filtration Rate 55.1 mL/min (>60) Glucose Level 98 MG/DL (74-106) Calcium Level 8.3 MG/DL (8.5-10.1) Height (Feet): 5 Height (Inches): 9.00 Weight (Pounds): 193 Objective PHYSICAL EXAMINATION: VITAL SIGNS: reviewed HEENT: Head exam reveals that the head is normocephalic, atraumatic without deformity or unusual swelling. CHEST AND LUNGS: Reveals clear, normal, symmetrical breath sounds with no adventitious sounds. CARDIOVASCULAR: Reveals normal S1, S2 without murmurs, rubs, or clicks. ABDOMEN: Obese, soft with no tenderness or organomegaly. A well-healed midline linear vertical scar in the abdomen ++ RECTAL: Deferred. MUSCULOSKELETAL: There is no tenderness to palpation. Range of motion is normal. NEUROLOGICAL: Alert and oriented x3 , nonfocal Alek Sabillon MD Oct 18, 2020 06:37
--- NOTE | 2020-10-18 07:21 | NUR ---
NURSE HAND-OFF: Important Events on Shift: Patient Status: Diet: Regular Pending Orders: Pending Results/Labs: Pending MD notification: Latest Vital Signs: Temperature 98.3 , Pulse 105 , B/P 131 /73 , Respiratory Rate 20 , O2 SAT 93 , Room Air, O2 Flow Rate 2.0 . Vital Sign Comment: Latest Barreto Fall Score: 45 Fall Risk: High Risk Safety Measures: Call light Within Reach, Bed Alarm Zone 1, Side Rails Side Rails x2, Bed position Low and Locked. Fall Precautions: Yellow Socks Door Sign Patient Fall Education Report given to Gui ROTH.
[2020-10-18 08:00] VITALS: BP 114/78
--- NOTE | 2020-10-18 08:15 | NUR ---
NURSE NOTES: received report from GONZALEZ Riggs. patient in bed. sleeping. no respiratory distress noted on 2L via NC. no facial grimacing. IV on LH intact. flushed. ambulatory. bed in the lowest position and locked. call light within reach. will continue to provide plan of care.
[2020-10-18] MEDS: Irbesartan 150mg tablet ORAL SCH ×2 (09:30→20:26)
[2020-10-18] MEDS: Metoprolol Succinate XL 50mg tab ORAL SCH (09:30)
[2020-10-18] MEDS: Enoxaparin 40mg Inj SUBQ SCH (09:33)
--- NOTE | 2020-10-18 11:20 | Pulmonology Progress Note ---
Subjective ROS Limited/Unobtainable: Yes Interval Events: no fever overnight Constitutional: Denies: fever HEENT: Repors: other - eye pain Respiratory: Reports: no symptoms Cardiovascular: Reports: no symptoms Gastrointestinal/Abdominal: Reports: no symptoms Genitourinary: Reports: no symptoms Allergies: Coded Allergies: No Known Allergies (Unverified , 07/31/20) Objective Last 24 Hour Vital Signs Date Time Temp Pulse Resp B/P (MAP) Pulse Ox O2 Delivery O2 Flow Rate FiO2 10/18/20 09:30 114/78 10/18/20 09:30 100 114/78 10/18/20 09:30 100 114/78 10/18/20 09:00 Nasal Cannula 2.0 10/18/20 08:00 97.8 100 20 114/78 (90) 98 10/18/20 04:00 98.3 105 20 131/73 (92) 93 10/18/20 00:00 98.2 101 20 148/79 (102) 93 10/17/20 21:44 136/76 10/17/20 21:00 Nasal Cannula 2.0 10/17/20 20:00 98.4 102 18 136/76 (96) 96 10/17/20 16:00 98.3 108 21 126/76 (93) 92 10/17/20 12:00 97.6 109 21 133/77 (95) 94 Intake and Output 10/17/20 10/18/20 19:00 07:00 Intake Total 600 ml Output Total 400 ml Balance 600 ml -400 ml Intake Oral 600 ml Output Urine Total 400 ml # Voids 3 2 # Bowel Movements 1 Objective 10/18 desated on room air to 89%, back on 2L NC saturating at 92% 10/17 no change; remains on 2L NC since weaning failed again yesterday 10/16 saturating at 94% on 1L NC; failed weaning yesterday 10/15 now saturating at 95% on 1L NC; will wean again as tolerated 10/14 saturating at 95% on 2L NC 10/12 saturating at 97% on 2L NC 10/11 now on 2L saturating well 10/10 on room air saturating well General Appearance: WD/WN, no acute distress HEENT: other - erythematous, edematous eyes Respiratory: lungs clear Cardiovascular: normal rate, regular rhythm Abdomen: soft, non tender Current Medications Medications (Trade) Dose Ordered Sig/Sidney Route PRN Reason Start Time Stop Time Status Last Admin Dose Admin Acetaminophen (Tylenol) 650 mg Q6H PRN ORAL HEADACHE OR FEVER >100 10/09/20 22:45 11/08/20 22:44 10/13/20 22:27 Alfuzosin HCl (Uroxatrol) 10 mg DAILY ORAL 10/10/20 09:00 11/09/20 08:59 10/18/20 09:30 Amlodipine Besylate (Norvasc) 10 mg DAILY ORAL 10/10/20 09:00 11/09/20 08:59 10/18/20 09:30 Chlorhexidine Gluconate (Beryl-Hex 2%) 1 applic QHS TOPIC 10/09/20 21:00 01/07/21 20:59 Ciprofloxacin (Ciloxan Opth Soln) 1 drop Q6HR BOTH EYES 10/11/20 18:30 10/18/20 18:29 10/18/20 05:13 Enoxaparin Sodium (Lovenox) 40 mg DAILY SUBQ 10/16/20 09:00 01/14/21 08:59 10/18/20 09:33 Irbesartan (Avapro) 150 mg Q12HR ORAL 10/09/20 21:00 01/07/21 20:59 10/18/20 09:30 Metoprolol Succinate (Toprol XL) 50 mg DAILY ORAL 10/10/20 09:00 01/08/21 08:59 10/18/20 09:30 Pantoprazole (Protonix) 40 mg DAILY ORAL 10/10/20 09:00 11/09/20 08:59 10/18/20 09:31 Quetiapine Fumarate (SEROqueL) 300 mg Q12HR ORAL 10/09/20 21:00 11/23/20 20:59 10/18/20 09:30 Risperidone (RisperDAL) 2 mg Q12HR ORAL 10/09/20 21:00 11/23/20 20:59 10/18/20 09:30 Assessment/Plan Assessment/Plan 1. COVID-19 infection - Saturating at 92% on 2L NC; wean down as tolerated - s/p Azithromycin and ceftriaxone IV once in ER -Given his normoxemia without fever, clear lung sounds, and negative CXR, no specific therapy is required at this time -Continue monitoring SaO2 and provide supplemental oxygen as needed - Repeat CXR 10/12 shows subsegmental atelectasis in the left lung base. 2. Conjunctivitis - now on ciprofloxacin ophthalmic solution 3. Elevated CRP, D-dimer - s/p Lovenox in ER - Venous duplex US negative for DVT - on Lovenox 4. Hypertension - on metoprolol and amlodipine - monitor BP 5. Hypokalemia - per primary MD 7. New onset fever with tachycardia; resolved - better on antipyretics - likely sepsis secondary to COVID-19, vs UTI - consider UA if fever persistent - Venous duplex US negative for DVT - management per primary MD, and ID 8. Atelectasis - monitor at this point given his normoxemia 9. anorexia - per pt, he "can't see" his food due to conjunctivitis/corneal abrasion - seen by GI, who recommends feeding assistance prior to considering appetite stimulants - management per GI Medically stable for dc to SNF with oxygen if SaO2 >92% from pulmonary stand point The care for this patient was discussed with my supervising physician. Time spent for this case was approximately 31 minutes. Piyush Dent Oct 18, 2020 11:20 Colton Shell MD Oct 18, 2020 14:39
[2020-10-18 12:00] VITALS: BP 118/51
[2020-10-18 16:00] VITALS: BP 127/69
[2020-10-18 16:12] LABS: HEMATOCRIT 34.4 % (42.0-52.0); HEMOGLOBIN 11.3 G/DL (14.2-18.0); MEAN CORPUSCULAR VOLUME 90 FL (80-99); PLATELET COUNT 236 K/UL (150-450); RED BLOOD COUNT 3.83 M/UL (4.70-6.10); RED CELL DISTRIBUTION WIDTH 12.6 % (11.6-14.8); WHITE BLOOD COUNT 2.6 K/UL (4.8-10.8)
[2020-10-18 16:27] LABS: ANION GAP 7 mmol/L (5-15); BLOOD UREA NITROGEN 10 mg/dL (7-18); CALCIUM 8.4 MG/DL (8.5-10.1); CARBON DIOXIDE 29 MMOL/L (21-32); CHLORIDE 104 MMOL/L (98-107); CREATININE 1.1 MG/DL (0.55-1.30); POTASSIUM 3.8 MMOL/L (3.5-5.1); SODIUM 140 MMOL/L (136-145)
--- NOTE | 2020-10-18 16:55 | Cardiac Electrophysiology PN ---
Assessment/Plan Assessment/Plan 1. Shortness of breath due to COVID-19 infection. On RA. Fu by Dr. Shell. 2. Hypertension. On amlodipine 10 mg daily, Toprol-XL 50 mg daily and Avapro 150 bid 3. Psychiatric history. DC to [facility] pending DW RN Subjective Subjective In isolation for Covid. No CP or SOB. On RA Objective Last 24 Hour Vital Signs Date Time Temp Pulse Resp B/P (MAP) Pulse Ox O2 Delivery O2 Flow Rate FiO2 10/18/20 12:00 97.7 99 19 118/51 (73) 98 10/18/20 09:30 114/78 10/18/20 09:30 100 114/78 10/18/20 09:30 100 114/78 10/18/20 09:00 Nasal Cannula 2.0 10/18/20 08:00 97.8 100 20 114/78 (90) 98 10/18/20 04:00 98.3 105 20 131/73 (92) 93 10/18/20 00:00 98.2 101 20 148/79 (102) 93 10/17/20 21:44 136/76 10/17/20 21:00 Nasal Cannula 2.0 10/17/20 20:00 98.4 102 18 136/76 (96) 96 Intake and Output 10/17/20 10/18/20 19:00 07:00 Intake Total 600 ml Output Total 400 ml Balance 600 ml -400 ml Intake Oral 600 ml Output Urine Total 400 ml # Voids 3 2 # Bowel Movements 1 Laboratory Tests Test 10/18/20 16:00 White Blood Count 2.6 K/UL (4.8-10.8) L Red Blood Count 3.83 M/UL (4.70-6.10) L Hemoglobin 11.3 G/DL (14.2-18.0) L Hematocrit 34.4 % (42.0-52.0) L Mean Corpuscular Volume 90 FL (80-99) Mean Corpuscular Hemoglobin 29.4 PG (27.0-31.0) Mean Corpuscular Hemoglobin Concent 32.7 G/DL (32.0-36.0) Red Cell Distribution Width 12.6 % (11.6-14.8) Platelet Count 236 K/UL (150-450) Mean Platelet Volume 5.2 FL (6.5-10.1) L Neutrophils (%) (Auto) % (45.0-75.0) Lymphocytes (%) (Auto) % (20.0-45.0) Monocytes (%) (Auto) % (1.0-10.0) Eosinophils (%) (Auto) % (0.0-3.0) Basophils (%) (Auto) % (0.0-2.0) Neutrophils % (Manual) Pending Lymphocytes % (Manual) Pending Platelet Estimate Pending Platelet Morphology Pending Sodium Level 140 MMOL/L (136-145) Potassium Level 3.8 MMOL/L (3.5-5.1) Chloride Level 104 MMOL/L (98-107) Carbon Dioxide Level 29 MMOL/L (21-32) Anion Gap 7 mmol/L (5-15) Blood Urea Nitrogen 10 mg/dL (7-18) Creatinine 1.1 MG/DL (0.55-1.30) Estimat Glomerular Filtration Rate > 60 mL/min (>60) Glucose Level 141 MG/DL (74-106) H Calcium Level 8.4 MG/DL (8.5-10.1) L Objective HEAD AND NECK: Shows mild JVD. Bilateral eyelids are edematous and erythematous. LUNGS: Clear. CARDIOVASCULAR: Shows regular S1 and S2 with no gallop. ABDOMEN: Soft. EXTREMITIES: 1+ pitting edema. Kirit Dave MD Oct 18, 2020 16:55
--- NOTE | 2020-10-18 19:20 | NUR ---
NURSE HAND-OFF: Important Events on Shift: Monitor O2sat Patient Status: stable Diet: regular Pending Orders: n/a Pending Results/Labs:j/a Pending MD notification:n/a Latest Vital Signs: Temperature 97.3 , Pulse 95 , B/P 127 /69 , Respiratory Rate 19 , O2 SAT 96 , Room Air, O2 Flow Rate 2.0 . Vital Sign Comment: stable Latest Barreto Fall Score: 45 Fall Risk: High Risk Safety Measures: Call light Within Reach, Bed Alarm Zone 1, Side Rails Side Rails x2, Bed position Low and Locked. Fall Precautions: Yellow Socks Door Sign Patient Fall Education Report given to GONZALEZ Doe.
--- NOTE | 2020-10-18 19:30 | NUR ---
NURSE NOTES: Received report & pt from GONZALEZ Messer. Pt in bed, a&ox4, on O2 via NX @ 3LPM. No s/s of acute distress & no c/o pain at this time. IV site intact & S/L'd. Plan of care discussed.
[2020-10-18 19:59] VITALS: BP 146/84
--- NOTE | 2020-10-18 20:20 | General Progress Note ---
Subjective Allergies: Coded Allergies: No Known Allergies (Unverified , 07/31/20) Subjective Feels OK no abdominal symptoms d/w RN eating better Objective Last 24 Hour Vital Signs Date Time Temp Pulse Resp B/P (MAP) Pulse Ox O2 Delivery O2 Flow Rate FiO2 10/18/20 19:59 98.0 102 18 146/84 (104) 93 10/18/20 16:00 97.3 95 19 127/69 (88) 96 10/18/20 12:00 97.7 99 19 118/51 (73) 98 10/18/20 09:30 114/78 10/18/20 09:30 100 114/78 10/18/20 09:30 100 114/78 10/18/20 09:00 Nasal Cannula 2.0 10/18/20 08:00 97.8 100 20 114/78 (90) 98 10/18/20 04:00 98.3 105 20 131/73 (92) 93 10/18/20 00:00 98.2 101 20 148/79 (102) 93 10/17/20 21:44 136/76 10/17/20 21:00 Nasal Cannula 2.0 Intake and Output 10/17/20 10/18/20 19:00 07:00 Intake Total 600 ml Output Total 400 ml Balance 600 ml -400 ml Intake Oral 600 ml Output Urine Total 400 ml # Voids 3 2 # Bowel Movements 1 Laboratory Tests 10/18/20 16:00: White Blood Count 2.6L, Red Blood Count 3.83L, Hemoglobin 11.3L, Hematocrit 34.4L, Mean Corpuscular Volume 90, Mean Corpuscular Hemoglobin 29.4, Mean Corpuscular Hemoglobin Concent 32.7, Red Cell Distribution Width 12.6, Platelet Count 236, Mean Platelet Volume 5.2L, Neutrophils (%) (Auto) , Lymphocytes (%) (Auto) , Monocytes (%) (Auto) , Eosinophils (%) (Auto) , Basophils (%) (Auto) , Differential Total Cells Counted 100, Neutrophils % (Manual) 54, Lymphocytes % (Manual) 39, Monocytes % (Manual) 7, Eosinophils % (Manual) 0, Basophils % (Manual) 0, Band Neutrophils 0, Platelet Estimate Adequate, Platelet Morphology Normal, Red Blood Cell Morphology Normal, Sodium Level 140, Potassium Level 3.8, Chloride Level 104, Carbon Dioxide Level 29, Anion Gap 7, Blood Urea Nitrogen 10, Creatinine 1.1, Estimat Glomerular Filtration Rate > 60, Glucose Level 141H, Calcium Level 8.4L Height (Feet): 5 Height (Inches): 9.00 Weight (Pounds): 193 Objective Elderly man NCAT, (+) conjunctival and eye lid erythema neck supple CTA RR abd soft no edema Assessment/Plan Status: progressing, tolerating diet Assessment/Plan: Assessment - Poor po intake due to "inability to see" the food (patient's own claim) - Decreased visual acuity and conjunctivitis - ? COVID related - COVID PNA - COPD - Schizoaffective disorder, anxiety - hepatitis C Recommendations - d/w senior staff accountant - Consider Ophthalmology consultation - push po - outpatient HCV management - will follow Rudolph Griggs MD Oct 18, 2020 20:20
[2020-10-18] MEDS: Dyna-Hex 2% Top Sol 2oz TOPIC SCH (20:21)
--- NOTE | 2020-10-18 20:31 | General Progress Note ---
Subjective ROS Limited/Unobtainable: Yes Allergies: Coded Allergies: No Known Allergies (Unverified , 07/31/20) Objective Last 24 Hour Vital Signs Date Time Temp Pulse Resp B/P (MAP) Pulse Ox O2 Delivery O2 Flow Rate FiO2 10/18/20 20:26 146/84 10/18/20 19:59 98.0 102 18 146/84 (104) 93 10/18/20 16:00 97.3 95 19 127/69 (88) 96 10/18/20 12:00 97.7 99 19 118/51 (73) 98 10/18/20 09:30 114/78 10/18/20 09:30 100 114/78 10/18/20 09:30 100 114/78 10/18/20 09:00 Nasal Cannula 2.0 10/18/20 08:00 97.8 100 20 114/78 (90) 98 10/18/20 04:00 98.3 105 20 131/73 (92) 93 10/18/20 00:00 98.2 101 20 148/79 (102) 93 10/17/20 21:44 136/76 10/17/20 21:00 Nasal Cannula 2.0 Intake and Output 10/17/20 10/18/20 19:00 07:00 Intake Total 600 ml Output Total 400 ml Balance 600 ml -400 ml Intake Oral 600 ml Output Urine Total 400 ml # Voids 3 2 # Bowel Movements 1 Laboratory Tests 10/18/20 16:00: White Blood Count 2.6L, Red Blood Count 3.83L, Hemoglobin 11.3L, Hematocrit 34.4L, Mean Corpuscular Volume 90, Mean Corpuscular Hemoglobin 29.4, Mean Corpuscular Hemoglobin Concent 32.7, Red Cell Distribution Width 12.6, Platelet Count 236, Mean Platelet Volume 5.2L, Neutrophils (%) (Auto) , Lymphocytes (%) (Auto) , Monocytes (%) (Auto) , Eosinophils (%) (Auto) , Basophils (%) (Auto) , Differential Total Cells Counted 100, Neutrophils % (Manual) 54, Lymphocytes % (Manual) 39, Monocytes % (Manual) 7, Eosinophils % (Manual) 0, Basophils % (Manual) 0, Band Neutrophils 0, Platelet Estimate Adequate, Platelet Morphology Normal, Red Blood Cell Morphology Normal, Sodium Level 140, Potassium Level 3.8, Chloride Level 104, Carbon Dioxide Level 29, Anion Gap 7, Blood Urea Nitrogen 10, Creatinine 1.1, Estimat Glomerular Filtration Rate > 60, Glucose Level 141H, Calcium Level 8.4L Height (Feet): 5 Height (Inches): 9.00 Weight (Pounds): 193 Assessment/Plan Problem List: (1) Headache ICD Codes: R51.9 - Headache, unspecified SNOMED: 29980002 (2) COVID-19 ICD Codes: U07.1 - COVID-19 SNOMED: 074171651 Status: progressing, tolerating diet Assessment/Plan: appetite is improving resp insuff h/o arrythmia covid + Deng Liu MD Oct 18, 2020 20:31
[2020-10-19] VITALS: BP 139/79
[2020-10-19 04:00] VITALS: BP 148/80
[2020-10-19 05:54] LABS: BASOPHILS % (AUTO) 0.3 % (0.0-2.0); EOSINOPHILS % (AUTO) 0.7 % (0.0-3.0); HEMATOCRIT 34.3 % (42.0-52.0); HEMOGLOBIN 11.6 G/DL (14.2-18.0); MEAN CORPUSCULAR VOLUME 88 FL (80-99); MONOCYTES % (AUTO) 10.6 % (1.0-10.0); NEUTROPHILS % (AUTO) 63.4 % (45.0-75.0); PLATELET COUNT 256 K/UL (150-450); RED BLOOD COUNT 3.91 M/UL (4.70-6.10); RED CELL DISTRIBUTION WIDTH 12.6 % (11.6-14.8)
[2020-10-19 06:20] LABS: CALCIUM 8.8 MG/DL (8.5-10.1); CREATININE 1.3 MG/DL (0.55-1.30); POTASSIUM 3.8 MMOL/L (3.5-5.1)
--- NOTE | 2020-10-19 06:33 | NUR ---
NURSE HAND-OFF: Important Events on Shift:none Patient Status: stable Diet: regular Pending Orders: Pending Results/Labs: Pending MD notification: Latest Vital Signs: Temperature 97.2 , Pulse 105 , B/P 148 /80 , Respiratory Rate 20 , O2 SAT 92 , Room Air, O2 Flow Rate 3.0 . Vital Sign Comment: Latest Barreto Fall Score: 45 Fall Risk: High Risk Safety Measures: Call light Within Reach, Bed Alarm Zone 1, Side Rails Side Rails x2, Bed position Low and Locked. Fall Precautions: Yellow Socks Door Sign Patient Fall Education Report given to GONZALEZ Pro.
--- NOTE | 2020-10-19 07:36 | NUR ---
NURSE NOTES: Patient in stable condition, breathing even and unlabored, anxious, seen tapping feet, provided talk therapy, expressed feeling anxious and unknown source. Alert and oriented to baseline (x3), able to state name, , setting, current events, tolerating food and medications well, no adverse reactions noted.
--- NOTE | 2020-10-19 07:40 | NUR ---
NURSE NOTES: Bed in lowest and locked position, call light within reach, vital signs WNL, bed alarm on. No complaints or s/s of pain / pressure.
[2020-10-19 08:00] VITALS: BP 141/79
[2020-10-19] MEDS: Metoprolol Succinate XL 50mg tab ORAL SCH (09:31)
[2020-10-19] MEDS: Irbesartan 150mg tablet ORAL SCH ×2 (09:31→21:40)
[2020-10-19] MEDS: Enoxaparin 40mg Inj SUBQ SCH (09:33)
--- NOTE | 2020-10-19 10:26 | Pulmonology Progress Note ---
Subjective ROS Limited/Unobtainable: Yes Interval Events: no fever overnight Constitutional: Denies: fever HEENT: Repors: other - eye pain Respiratory: Reports: no symptoms Cardiovascular: Reports: no symptoms Gastrointestinal/Abdominal: Reports: no symptoms Genitourinary: Reports: no symptoms Allergies: Coded Allergies: No Known Allergies (Unverified , 07/31/20) Objective Last 24 Hour Vital Signs Date Time Temp Pulse Resp B/P (MAP) Pulse Ox O2 Delivery O2 Flow Rate FiO2 10/19/20 09:31 141/79 10/19/20 09:31 112 141/79 10/19/20 09:31 112 141/79 10/19/20 08:00 97.9 112 19 141/79 (99) 95 10/19/20 04:00 97.2 105 20 148/80 (102) 92 10/19/20 00:00 97.1 97 18 139/79 (99) 94 10/18/20 21:00 Nasal Cannula 3.0 10/18/20 20:26 146/84 10/18/20 19:59 98.0 102 18 146/84 (104) 93 10/18/20 16:00 97.3 95 19 127/69 (88) 96 10/18/20 12:00 97.7 99 19 118/51 (73) 98 Intake and Output 10/18/20 10/19/20 19:00 07:00 Intake Total 380 ml 300 ml Balance 380 ml 300 ml Intake Oral 380 ml 300 ml # Voids 1 Objective 10/19 saturating at 89% on RA; 92-94% on 3L NC 10/18 desated on room air to 89%, back on 2L NC saturating at 92% 10/17 no change; remains on 2L NC since weaning failed again yesterday 10/16 saturating at 94% on 1L NC; failed weaning yesterday 10/15 now saturating at 95% on 1L NC; will wean again as tolerated 10/14 saturating at 95% on 2L NC 10/12 saturating at 97% on 2L NC 10/11 now on 2L saturating well 10/10 on room air saturating well General Appearance: WD/WN, no acute distress HEENT: other - erythematous, edematous eyes Respiratory: lungs clear Cardiovascular: normal rate, regular rhythm Abdomen: soft, non tender Laboratory Tests 10/18/20 16:00: White Blood Count 2.6L, Red Blood Count 3.83L, Hemoglobin 11.3L, Hematocrit 34.4L, Mean Corpuscular Volume 90, Mean Corpuscular Hemoglobin 29.4, Mean Corpuscular Hemoglobin Concent 32.7, Red Cell Distribution Width 12.6, Platelet Count 236, Mean Platelet Volume 5.2L, Neutrophils (%) (Auto) , Lymphocytes (%) (Auto) , Monocytes (%) (Auto) , Eosinophils (%) (Auto) , Basophils (%) (Auto) , Differential Total Cells Counted 100, Neutrophils % (Manual) 54, Lymphocytes % (Manual) 39, Monocytes % (Manual) 7, Eosinophils % (Manual) 0, Basophils % (M anual) 0, Band Neutrophils 0, Platelet Estimate Adequate, Platelet Morphology Normal, Red Blood Cell Morphology Normal, Sodium Level 140, Potassium Level 3.8, Chloride Level 104, Carbon Dioxide Level 29, Anion Gap 7, Blood Urea Nitrogen 10, Creatinine 1.1, Estimat Glomerular Filtration Rate > 60, Glucose Level 141H, Calcium Level 8.4L 10/19/20 04:30: White Blood Count 4.0#L, Red Blood Count 3.91L, Hemoglobin 11.6L, Hematocrit 34.3L, Mean Corpuscular Volume 88, Mean Corpuscular Hemoglobin 29.6, Mean Corpuscular Hemoglobin Concent 33.8, Red Cell Distribution Width 12.6, Platelet Count 256, Mean Platelet Volume 5.2L, Neutrophils (%) (Auto) 63.4, Lymphocytes (%) (Auto) 25.0, Monocytes (%) (Auto) 10.6H, Eosinophils (%) (Auto) 0.7, Basophils (%) (Auto) 0.3, Sodium Level 138, Potassium Level 3.8, Chloride Level 102, Carbon Dioxide Level 27, Anion Gap 9, Blood Urea Nitrogen 12, Creatinine 1.3, Estimat Glomerular Filtration Rate 55.1, Glucose Level 108H, Calcium Level 8.8 Current Medications Medications (Trade) Dose Ordered Sig/Sidney Route PRN Reason Start Time Stop Time Status Last Admin Dose Admin Acetaminophen (Tylenol) 650 mg Q6H PRN ORAL HEADACHE OR FEVER >100 10/09/20 22:45 11/08/20 22:44 10/13/20 22:27 Alfuzosin HCl (Uroxatrol) 10 mg DAILY ORAL 10/10/20 09:00 11/09/20 08:59 10/19/20 09:30 Amlodipine Besylate (Norvasc) 10 mg DAILY ORAL 10/10/20 09:00 11/09/20 08:59 10/19/20 09:31 Chlorhexidine Gluconate (Beryl-Hex 2%) 1 applic QHS TOPIC 10/09/20 21:00 01/07/21 20:59 Enoxaparin Sodium (Lovenox) 40 mg DAILY SUBQ 10/16/20 09:00 01/14/21 08:59 10/19/20 09:33 Irbesartan (Avapro) 150 mg Q12HR ORAL 10/09/20 21:00 01/07/21 20:59 10/19/20 09:31 Metoprolol Succinate (Toprol XL) 50 mg DAILY ORAL 10/10/20 09:00 01/08/21 08:59 10/19/20 09:31 Pantoprazole (Protonix) 40 mg DAILY ORAL 10/10/20 09:00 11/09/20 08:59 10/19/20 09:30 Quetiapine Fumarate (SEROqueL) 300 mg Q12HR ORAL 10/09/20 21:00 11/23/20 20:59 10/19/20 09:31 Risperidone (RisperDAL) 2 mg Q12HR ORAL 10/09/20 21:00 11/23/20 20:59 10/19/20 09:31 Assessment/Plan Assessment/Plan 1. COVID-19 infection - Saturating at 92-94% on 3L NC; wean down as tolerated - s/p Azithromycin and ceftriaxone IV once in ER -Given his normoxemia without fever, clear lung sounds, and negative CXR, no specific therapy is required at this time -Continue monitoring SaO2 and provide supplemental oxygen as needed - Repeat CXR 10/12 shows subsegmental atelectasis in the left lung base. 2. Conjunctivitis - now on ciprofloxacin ophthalmic solution 3. Elevated CRP, D-dimer - s/p Lovenox in ER - Venous duplex US negative for DVT - on Lovenox 4. Hypertension - on metoprolol and amlodipine - monitor BP 5. Hypokalemia - per primary MD 7. New onset fever with tachycardia; resolved - better on antipyretics - likely sepsis secondary to COVID-19, vs UTI - consider UA if fever persistent - Venous duplex US negative for DVT - management per primary MD, and ID 8. Atelectasis - monitor at this point given his normoxemia 9. anorexia - per pt, he "can't see" his food due to conjunctivitis/corneal abrasion - seen by GI, who recommends feeding assistance prior to considering appetite stimulants - management per GI Medically stable for dc to SNF with oxygen if SaO2 >92% from pulmonary stand point The care for this patient was discussed with my supervising physician. Time spent for this case was approximately 31 minutes. Piyush Dent Oct 19, 2020 10:26
--- NOTE | 2020-10-19 11:37 | Hematology/Onc Progress Note ---
Assessment/Plan Assessment/Plan Assessment/Plan 1. Leukopenia is related likely to COVID-19 infection+++++++++++ --> Patient is currently saturating well on room air, per pulm --> s/p Azithromycin and ceftriaxone IV once in ER --> Continue monitoring SaO2 and provide supplemental oxygen as needed --> smear reviewed --> wbc 4.7-->3.8--> 4.0 --> neupogen prn 2. Anemia due to likely chronic disease, infection --> trend hgb as needed hgb 13--> 11.6 3. Elevated CRP, D-dimer --> s/p Lovenox in ER --> DVX ppx recommended --> duplex lower leg r/o dvt 4. Hypertension --> recommend continuing home antihypertensive meds --> as per cards 5. Covid 19 as per pulm/id 6. Dvt ppx lovenox sq Appreciate consultation and marly Rn Subjective Allergies: Coded Allergies: No Known Allergies (Unverified , 07/31/20) Subjective Subjective 10/11 awake, no new events, no bleeding, labs noted, ambulating 10/12 covid iso, is on ra, no bleeding, labs noted, meds reviewed 10/13: on RA saturating well no acute events. 10/14: no distress on O2 NC 2L, slight temp last night UA collected 10/19: no acute events, no bleeding reported. Objective Objective Current Medications Medications (Trade) Dose Ordered Sig/Sidney Route PRN Reason Start Time Stop Time Status Last Admin Dose Admin Acetaminophen (Tylenol) 650 mg Q6H PRN ORAL HEADACHE OR FEVER >100 10/09/20 22:45 11/08/20 22:44 10/13/20 22:27 Alfuzosin HCl (Uroxatrol) 10 mg DAILY ORAL 10/10/20 09:00 11/09/20 08:59 10/19/20 09:30 Amlodipine Besylate (Norvasc) 10 mg DAILY ORAL 10/10/20 09:00 11/09/20 08:59 10/19/20 09:31 Chlorhexidine Gluconate (Beryl-Hex 2%) 1 applic QHS TOPIC 10/09/20 21:00 01/07/21 20:59 Enoxaparin Sodium (Lovenox) 40 mg DAILY SUBQ 10/16/20 09:00 01/14/21 08:59 10/19/20 09:33 Irbesartan (Avapro) 150 mg Q12HR ORAL 10/09/20 21:00 01/07/21 20:59 10/19/20 09:31 Metoprolol Succinate (Toprol XL) 50 mg DAILY ORAL 10/10/20 09:00 01/08/21 08:59 10/19/20 09:31 Pantoprazole (Protonix) 40 mg DAILY ORAL 10/10/20 09:00 11/09/20 08:59 10/19/20 09:30 Quetiapine Fumarate (SEROqueL) 300 mg Q12HR ORAL 10/09/20 21:00 11/23/20 20:59 10/19/20 09:31 Risperidone (RisperDAL) 2 mg Q12HR ORAL 10/09/20 21:00 11/23/20 20:59 10/19/20 09:31 Last 24 Hour Vital Signs Date Time Temp Pulse Resp B/P (MAP) Pulse Ox O2 Delivery O2 Flow Rate FiO2 10/19/20 09:31 141/79 10/19/20 09:31 112 141/79 10/19/20 09:31 112 141/79 10/19/20 08:00 97.9 112 19 141/79 (99) 95 10/19/20 04:00 97.2 105 20 148/80 (102) 92 10/19/20 00:00 97.1 97 18 139/79 (99) 94 10/18/20 21:00 Nasal Cannula 3.0 10/18/20 20:26 146/84 10/18/20 19:59 98.0 102 18 146/84 (104) 93 10/18/20 16:00 97.3 95 19 127/69 (88) 96 10/18/20 12:00 97.7 99 19 118/51 (73) 98 10/18/20 09:30 114/78 10/18/20 09:30 100 114/78 10/18/20 09:30 100 114/78 10/18/20 09:00 Nasal Cannula 2.0 10/18/20 08:00 97.8 100 20 114/78 (90) 98 10/18/20 04:00 98.3 105 20 131/73 (92) 93 10/18/20 00:00 98.2 101 20 148/79 (102) 93 10/17/20 21:44 136/76 10/17/20 21:00 Nasal Cannula 2.0 10/17/20 20:00 98.4 102 18 136/76 (96) 96 10/17/20 16:00 98.3 108 21 126/76 (93) 92 10/17/20 12:00 97.6 109 21 133/77 (95) 94 Intake and Output 10/18/20 10/19/20 19:00 07:00 Intake Total 380 ml 300 ml Balance 380 ml 300 ml Intake Oral 380 ml 300 ml # Voids 1 Labs Test 10/17/20 05:30 10/18/20 16:00 10/19/20 04:30 White Blood Count 3.2 K/UL (4.8-10.8) 2.6 K/UL (4.8-10.8) 4.0 K/UL (4.8-10.8) Red Blood Count 3.91 M/UL (4.70-6.10) 3.83 M/UL (4.70-6.10) 3.91 M/UL (4.70-6.10) Hemoglobin 11.7 G/DL (14.2-18.0) 11.3 G/DL (14.2-18.0) 11.6 G/DL (14.2-18.0) Hematocrit 34.3 % (42.0-52.0) 34.4 % (42.0-52.0) 34.3 % (42.0-52.0) Mean Corpuscular Volume 88 FL (80-99) 90 FL (80-99) 88 FL (80-99) Mean Corpuscular Hemoglobin 29.9 PG (27.0-31.0) 29.4 PG (27.0-31.0) 29.6 PG (27.0-31.0) Mean Corpuscular Hemoglobin Concent 34.1 G/DL (32.0-36.0) 32.7 G/DL (32.0-36.0) 33.8 G/DL (32.0-36.0) Red Cell Distribution Width 12.8 % (11.6-14.8) 12.6 % (11.6-14.8) 12.6 % (11.6-14.8) Platelet Count 175 K/UL (150-450) 236 K/UL (150-450) 256 K/UL (150-450) Mean Platelet Volume 5.6 FL (6.5-10.1) 5.2 FL (6.5-10.1) 5.2 FL (6.5-10.1) Neutrophils (%) (Auto) % (45.0-75.0) % (45.0-75.0) 63.4 % (45.0-75.0) Lymphocytes (%) (Auto) % (20.0-45.0) % (20.0-45.0) 25.0 % (20.0-45.0) Monocytes (%) (Auto) % (1.0-10.0) % (1.0-10.0) 10.6 % (1.0-10.0) Eosinophils (%) (Auto) % (0.0-3.0) % (0.0-3.0) 0.7 % (0.0-3.0) Basophils (%) (Auto) % (0.0-2.0) % (0.0-2.0) 0.3 % (0.0-2.0) Differential Total Cells Counted 100 100 Neutrophils % (Manual) 58 % (45-75) 54 % (45-75) Lymphocytes % (Manual) 31 % (20-45) 39 % (20-45) Monocytes % (Manual) 10 % (1-10) 7 % (1-10) Eosinophils % (Manual) 1 % (0-3) 0 % (0-3) Basophils % (Manual) 0 % (0-2) 0 % (0-2) Band Neutrophils 0 % (0-8) 0 % (0-8) Platelet Estimate Adequate Adequate Platelet Morphology Normal Normal Red Blood Cell Morphology Normal Normal Sodium Level 136 MMOL/L (136-145) 140 MMOL/L (136-145) 138 MMOL/L (136-145) Potassium Level 3.7 MMOL/L (3.5-5.1) 3.8 MMOL/L (3.5-5.1) 3.8 MMOL/L (3.5-5.1) Chloride Level 100 MMOL/L (98-107) 104 MMOL/L (98-107) 102 MMOL/L (98-107) Carbon Dioxide Level 30 MMOL/L (21-32) 29 MMOL/L (21-32) 27 MMOL/L (21-32) Anion Gap 6 mmol/L (5-15) 7 mmol/L (5-15) 9 mmol/L (5-15) Blood Urea Nitrogen 14 mg/dL (7-18) 10 mg/dL (7-18) 12 mg/dL (7-18) Creatinine 1.3 MG/DL (0.55-1.30) 1.1 MG/DL (0.55-1.30) 1.3 MG/DL (0.55-1.30) Estimat Glomerular Filtration Rate 55.1 mL/min (>60) > 60 mL/min (>60) 55.1 mL/min (>60) Glucose Level 98 MG/DL (74-106) 141 MG/DL (74-106) 108 MG/DL (74-106) Calcium Level 8.3 MG/DL (8.5-10.1) 8.4 MG/DL (8.5-10.1) 8.8 MG/DL (8.5-10.1) Height (Feet): 5 Height (Inches): 9.00 Weight (Pounds): 193 Objective PHYSICAL EXAMINATION: VITAL SIGNS: reviewed HEENT: Head exam reveals that the head is normocephalic, atraumatic without deformity or unusual swelling. CHEST AND LUNGS: Reveals clear, normal, symmetrical breath sounds with no adventitious sounds. CARDIOVASCULAR: Reveals normal S1, S2 without murmurs, rubs, or clicks. ABDOMEN: Obese, soft with no tenderness or organomegaly. A well-healed midline linear vertical scar in the abdomen ++ RECTAL: Deferred. MUSCULOSKELETAL: There is no tenderness to palpation. Range of motion is normal. NEUROLOGICAL: Alert and oriented x3 , nonfocal Es Tapia [employer] FLOOR[employer] Oct 19, 2020 11:36
[2020-10-19 12:00] VITALS: BP 151/76
--- NOTE | 2020-10-19 13:16 | Infectious Diseases Prog Note ---
Assessment/Plan Assessment/Plan IMPRESSION: 1. Sepsis 2. COVID-19 disease. 3. Conjunctivitis. 4. History of COPD. 5. History of hepatitis C. 6. History of corneal abrasion. 7. Atelectasis RECOMMENDATIONS: Obseve off antibiotic Subjective ROS Limited/Unobtainable: Yes Constitutional: Reports: other - feels better; Denies: fever Respiratory: Reports: no symptoms Gastrointestinal/Abdominal: Reports: no symptoms Allergies: Coded Allergies: No Known Allergies (Unverified , 07/31/20) Objective Last 24 Hour Vital Signs Date Time Temp Pulse Resp B/P (MAP) Pulse Ox O2 Delivery O2 Flow Rate FiO2 10/19/20 09:31 141/79 10/19/20 09:31 112 141/79 10/19/20 09:31 112 141/79 10/19/20 08:00 97.9 112 19 141/79 (99) 95 10/19/20 04:00 97.2 105 20 148/80 (102) 92 10/19/20 00:00 97.1 97 18 139/79 (99) 94 10/18/20 21:00 Nasal Cannula 3.0 10/18/20 20:26 146/84 10/18/20 19:59 98.0 102 18 146/84 (104) 93 10/18/20 16:00 97.3 95 19 127/69 (88) 96 Height (Feet): 5 Height (Inches): 9.00 Weight (Pounds): 193 General Appearance: no acute distress HEENT: other - decreased eyes erythema Respiratory/Chest: lungs clear Cardiovascular: normal rate Abdomen: soft, non tender Extremities: no edema Neurologic/Psychiatric: alert, responsive, other - drowsy Laboratory Tests Test 10/18/20 16:00 10/19/20 04:30 White Blood Count 2.6 K/UL (4.8-10.8) L 4.0 K/UL (4.8-10.8) #L Red Blood Count 3.83 M/UL (4.70-6.10) L 3.91 M/UL (4.70-6.10) L Hemoglobin 11.3 G/DL (14.2-18.0) L 11.6 G/DL (14.2-18.0) L Hematocrit 34.4 % (42.0-52.0) L 34.3 % (42.0-52.0) L Mean Corpuscular Volume 90 FL (80-99) 88 FL (80-99) Mean Corpuscular Hemoglobin 29.4 PG (27.0-31.0) 29.6 PG (27.0-31.0) Mean Corpuscular Hemoglobin Concent 32.7 G/DL (32.0-36.0) 33.8 G/DL (32.0-36.0) Red Cell Distribution Width 12.6 % (11.6-14.8) 12.6 % (11.6-14.8) Platelet Count 236 K/UL (150-450) 256 K/UL (150-450) Mean Platelet Volume 5.2 FL (6.5-10.1) L 5.2 FL (6.5-10.1) L Neutrophils (%) (Auto) % (45.0-75.0) 63.4 % (45.0-75.0) Lymphocytes (%) (Auto) % (20.0-45.0) 25.0 % (20.0-45.0) Monocytes (%) (Auto) % (1.0-10.0) 10.6 % (1.0-10.0) H Eosinophils (%) (Auto) % (0.0-3.0) 0.7 % (0.0-3.0) Basophils (%) (Auto) % (0.0-2.0) 0.3 % (0.0-2.0) Differential Total Cells Counted 100 Neutrophils % (Manual) 54 % (45-75) Lymphocytes % (Manual) 39 % (20-45) Monocytes % (Manual) 7 % (1-10) Eosinophils % (Manual) 0 % (0-3) Basophils % (Manual) 0 % (0-2) Band Neutrophils 0 % (0-8) Platelet Estimate Adequate Platelet Morphology Normal Red Blood Cell Morphology Normal Sodium Level 140 MMOL/L (136-145) 138 MMOL/L (136-145) Potassium Level 3.8 MMOL/L (3.5-5.1) 3.8 MMOL/L (3.5-5.1) Chloride Level 104 MMOL/L (98-107) 102 MMOL/L (98-107) Carbon Dioxide Level 29 MMOL/L (21-32) 27 MMOL/L (21-32) Anion Gap 7 mmol/L (5-15) 9 mmol/L (5-15) Blood Urea Nitrogen 10 mg/dL (7-18) 12 mg/dL (7-18) Creatinine 1.1 MG/DL (0.55-1.30) 1.3 MG/DL (0.55-1.30) Estimat Glomerular Filtration Rate > 60 mL/min (>60) 55.1 mL/min (>60) Glucose Level 141 MG/DL (74-106) H 108 MG/DL (74-106) H Calcium Level 8.4 MG/DL (8.5-10.1) L 8.8 MG/DL (8.5-10.1) Current Medications Medications (Trade) Dose Ordered Sig/Sidney Route PRN Reason Start Time Stop Time Status Last Admin Dose Admin Acetaminophen (Tylenol) 650 mg Q6H PRN ORAL HEADACHE OR FEVER >100 10/09/20 22:45 11/08/20 22:44 10/13/20 22:27 Alfuzosin HCl (Uroxatrol) 10 mg DAILY ORAL 10/10/20 09:00 11/09/20 08:59 10/19/20 09:30 Amlodipine Besylate (Norvasc) 10 mg DAILY ORAL 10/10/20 09:00 11/09/20 08:59 10/19/20 09:31 Chlorhexidine Gluconate (Beryl-Hex 2%) 1 applic QHS TOPIC 10/09/20 21:00 01/07/21 20:59 Enoxaparin Sodium (Lovenox) 40 mg DAILY SUBQ 10/16/20 09:00 01/14/21 08:59 10/19/20 09:33 Irbesartan (Avapro) 150 mg Q12HR ORAL 10/09/20 21:00 01/07/21 20:59 10/19/20 09:31 Metoprolol Succinate (Toprol XL) 50 mg DAILY ORAL 10/10/20 09:00 01/08/21 08:59 10/19/20 09:31 Pantoprazole (Protonix) 40 mg DAILY ORAL 10/10/20 09:00 11/09/20 08:59 10/19/20 09:30 Quetiapine Fumarate (SEROqueL) 300 mg Q12HR ORAL 10/09/20 21:00 11/23/20 20:59 10/19/20 09:31 Risperidone (RisperDAL) 2 mg Q12HR ORAL 10/09/20 21:00 11/23/20 20:59 10/19/20 09:31 Harsh Bowser MD Oct 19, 2020 13:16
--- NOTE | 2020-10-19 15:31 | NUR ---
CASE MANAGEMENT:REVIEW SI;COVID PNEUMONIA 97.9 112 20 151/79 92% 2L NC IS;LOVENOX SQ QD PROTONIX PO QD TOPROL XL PO QD NORVASC PO QD SEROQUEL PO Q12 AVAPRO PO Q12 MED SURG STATUS DCP;FROM [facility]
--- NOTE | 2020-10-19 15:46 | Cardiac Electrophysiology PN ---
Assessment/Plan Assessment/Plan 1. Shortness of breath due to COVID-19 infection. On RA. Fu by Dr. Shell. 2. Hypertension. On amlodipine 10 mg daily, Toprol-XL 50 mg daily and Avapro 150 bid 3. Psychiatric history. DC to [facility] pending DW RN Subjective Subjective In isolation for Covid. No CP or SOB. On 2 liter NC Objective Last 24 Hour Vital Signs Date Time Temp Pulse Resp B/P (MAP) Pulse Ox O2 Delivery O2 Flow Rate FiO2 10/19/20 12:00 97.0 104 16 151/76 (101) 94 10/19/20 09:31 141/79 10/19/20 09:31 112 141/79 10/19/20 09:31 112 141/79 10/19/20 09:00 Nasal Cannula 2.0 10/19/20 08:00 97.9 112 19 141/79 (99) 95 10/19/20 04:00 97.2 105 20 148/80 (102) 92 10/19/20 00:00 97.1 97 18 139/79 (99) 94 10/18/20 21:00 Nasal Cannula 3.0 10/18/20 20:26 146/84 10/18/20 19:59 98.0 102 18 146/84 (104) 93 10/18/20 16:00 97.3 95 19 127/69 (88) 96 Intake and Output 10/18/20 10/19/20 19:00 07:00 Intake Total 380 ml 300 ml Balance 380 ml 300 ml Intake Oral 380 ml 300 ml # Voids 1 Laboratory Tests Test 10/18/20 16:00 10/19/20 04:30 White Blood Count 2.6 K/UL (4.8-10.8) L 4.0 K/UL (4.8-10.8) #L Red Blood Count 3.83 M/UL (4.70-6.10) L 3.91 M/UL (4.70-6.10) L Hemoglobin 11.3 G/DL (14.2-18.0) L 11.6 G/DL (14.2-18.0) L Hematocrit 34.4 % (42.0-52.0) L 34.3 % (42.0-52.0) L Mean Corpuscular Volume 90 FL (80-99) 88 FL (80-99) Mean Corpuscular Hemoglobin 29.4 PG (27.0-31.0) 29.6 PG (27.0-31.0) Mean Corpuscular Hemoglobin Concent 32.7 G/DL (32.0-36.0) 33.8 G/DL (32.0-36.0) Red Cell Distribution Width 12.6 % (11.6-14.8) 12.6 % (11.6-14.8) Platelet Count 236 K/UL (150-450) 256 K/UL (150-450) Mean Platelet Volume 5.2 FL (6.5-10.1) L 5.2 FL (6.5-10.1) L Neutrophils (%) (Auto) % (45.0-75.0) 63.4 % (45.0-75.0) Lymphocytes (%) (Auto) % (20.0-45.0) 25.0 % (20.0-45.0) Monocytes (%) (Auto) % (1.0-10.0) 10.6 % (1.0-10.0) H Eosinophils (%) (Auto) % (0.0-3.0) 0.7 % (0.0-3.0) Basophils (%) (Auto) % (0.0-2.0) 0.3 % (0.0-2.0) Differential Total Cells Counted 100 Neutrophils % (Manual) 54 % (45-75) Lymphocytes % (Manual) 39 % (20-45) Monocytes % (Manual) 7 % (1-10) Eosinophils % (Manual) 0 % (0-3) Basophils % (Manual) 0 % (0-2) Band Neutrophils 0 % (0-8) Platelet Estimate Adequate Platelet Morphology Normal Red Blood Cell Morphology Normal Sodium Level 140 MMOL/L (136-145) 138 MMOL/L (136-145) Potassium Level 3.8 MMOL/L (3.5-5.1) 3.8 MMOL/L (3.5-5.1) Chloride Level 104 MMOL/L (98-107) 102 MMOL/L (98-107) Carbon Dioxide Level 29 MMOL/L (21-32) 27 MMOL/L (21-32) Anion Gap 7 mmol/L (5-15) 9 mmol/L (5-15) Blood Urea Nitrogen 10 mg/dL (7-18) 12 mg/dL (7-18) Creatinine 1.1 MG/DL (0.55-1.30) 1.3 MG/DL (0.55-1.30) Estimat Glomerular Filtration Rate > 60 mL/min (>60) 55.1 mL/min (>60) Glucose Level 141 MG/DL (74-106) H 108 MG/DL (74-106) H Calcium Level 8.4 MG/DL (8.5-10.1) L 8.8 MG/DL (8.5-10.1) Objective HEAD AND NECK: Shows mild JVD. Bilateral eyelids are edematous and erythematous. LUNGS: Clear. CARDIOVASCULAR: Shows regular S1 and S2 with no gallop. ABDOMEN: Soft. EXTREMITIES: 1+ pitting edema. Kirit Dave MD Oct 19, 2020 15:46
[2020-10-19 16:00] VITALS: BP 148/84
--- NOTE | 2020-10-19 19:30 | NUR ---
NURSE HAND-OFF REPORT: Important Events on Shift: appetite adequate, eye drops administered Patient Status: stable condition, vital signs WNL Diet: [] Pending Orders: [] Pending Results/Labs:[] Pending MD notification:[] Latest Vital Signs: Temperature 97.2 , Pulse 100 , B/P 148 /84 , Respiratory Rate 18 , O2 SAT 96 , Room Air, O2 Flow Rate 2.0 . Vital Sign Comment: [] EKG Rhythm: Rhythm change?: MD Notified?: - MD Response: Latest Barreto Fall Score: 25 Fall Risk: Medium Risk Safety Measures: Call light Within Reach, Bed Alarm Zone 1, Side Rails Side Rails x2, Bed position Low and Locked. Fall Precautions: Yellow Socks Door Sign Patient Fall Education Report given to Swati Silva RN.
[2020-10-19 20:00] VITALS: BP 145/88
--- NOTE | 2020-10-19 20:00 | NUR ---
Pt lying in bed awake oriented x3 able to make needs known. no acute distress noted. Nasal cannula @ 2 L/min. O2 sat at 95 %. Pt ambulates to the restroom no distress observed gait steady . IV to Left hand SL intact. COVID precautions implemented and enforced. will continue to monitor patient condition and give treatment as ordered. Call light in reach bed to lowest position
--- NOTE | 2020-10-19 20:18 | General Progress Note ---
Subjective Allergies: Coded Allergies: No Known Allergies (Unverified , 07/31/20) Objective Last 24 Hour Vital Signs Date Time Temp Pulse Resp B/P (MAP) Pulse Ox O2 Delivery O2 Flow Rate FiO2 10/19/20 16:00 97.2 100 18 148/84 (105) 96 10/19/20 12:00 97.0 104 16 151/76 (101) 94 10/19/20 09:31 141/79 10/19/20 09:31 112 141/79 10/19/20 09:31 112 141/79 10/19/20 09:00 Nasal Cannula 2.0 10/19/20 08:00 97.9 112 19 141/79 (99) 95 10/19/20 04:00 97.2 105 20 148/80 (102) 92 10/19/20 00:00 97.1 97 18 139/79 (99) 94 10/18/20 21:00 Nasal Cannula 3.0 10/18/20 20:26 146/84 Intake and Output 10/18/20 10/19/20 19:00 07:00 Intake Total 380 ml 300 ml Balance 380 ml 300 ml Intake Oral 380 ml 300 ml # Voids 1 Laboratory Tests 10/19/20 04:30: White Blood Count 4.0#L, Red Blood Count 3.91L, Hemoglobin 11.6L, Hematocrit 34.3L, Mean Corpuscular Volume 88, Mean Corpuscular Hemoglobin 29.6, Mean Corpuscular Hemoglobin Concent 33.8, Red Cell Distribution Width 12.6, Platelet Count 256, Mean Platelet Volume 5.2L, Neutrophils (%) (Auto) 63.4, Lymphocytes (%) (Auto) 25.0, Monocytes (%) (Auto) 10.6H, Eosinophils (%) (Auto) 0.7, Basophils (%) (Auto) 0.3, Sodium Level 138, Potassium Level 3.8, Chloride Level 102, Carbon Dioxide Level 27, Anion Gap 9, Blood Urea Nitrogen 12, Creatinine 1.3, Estimat Glomerular Filtration Rate 55.1, Glucose Level 108H, Calcium Level 8.8 Height (Feet): 5 Height (Inches): 9.00 Weight (Pounds): 193 Assessment/Plan Problem List: (1) Headache ICD Codes: R51.9 - Headache, unspecified SNOMED: 81211416 (2) COVID-19 ICD Codes: U07.1 - COVID-19 SNOMED: 859739807 Status: progressing, tolerating diet Assessment/Plan: appetite is improving resp insuff h/o arrythmia covid + no sob prn supportive rx Deng Liu MD Oct 19, 2020 20:18
--- NOTE | 2020-10-19 21:28 | General Progress Note ---
Subjective Allergies: Coded Allergies: No Known Allergies (Unverified , 07/31/20) Subjective Feels OK no abdominal symptoms ate well Objective Last 24 Hour Vital Signs Date Time Temp Pulse Resp B/P (MAP) Pulse Ox O2 Delivery O2 Flow Rate FiO2 10/19/20 16:00 97.2 100 18 148/84 (105) 96 10/19/20 12:00 97.0 104 16 151/76 (101) 94 10/19/20 09:31 141/79 10/19/20 09:31 112 141/79 10/19/20 09:31 112 141/79 10/19/20 09:00 Nasal Cannula 2.0 10/19/20 08:00 97.9 112 19 141/79 (99) 95 10/19/20 04:00 97.2 105 20 148/80 (102) 92 10/19/20 00:00 97.1 97 18 139/79 (99) 94 Intake and Output 10/18/20 10/19/20 19:00 07:00 Intake Total 380 ml 300 ml Balance 380 ml 300 ml Intake Oral 380 ml 300 ml # Voids 1 Laboratory Tests 10/19/20 04:30: White Blood Count 4.0#L, Red Blood Count 3.91L, Hemoglobin 11.6L, Hematocrit 34.3L, Mean Corpuscular Volume 88, Mean Corpuscular Hemoglobin 29.6, Mean Corpuscular Hemoglobin Concent 33.8, Red Cell Distribution Width 12.6, Platelet Count 256, Mean Platelet Volume 5.2L, Neutrophils (%) (Auto) 63.4, Lymphocytes (%) (Auto) 25.0, Monocytes (%) (Auto) 10.6H, Eosinophils (%) (Auto) 0.7, Basophils (%) (Auto) 0.3, Sodium Level 138, Potassium Level 3.8, Chloride Level 102, Carbon Dioxide Level 27, Anion Gap 9, Blood Urea Nitrogen 12, Creatinine 1.3, Estimat Glomerular Filtration Rate 55.1, Glucose Level 108H, Calcium Level 8.8 Height (Feet): 5 Height (Inches): 9.00 Weight (Pounds): 193 Objective Elderly man NCAT, (+) conjunctival and eye lid erythema neck supple CTA RR abd soft no edema Assessment/Plan Status: progressing, tolerating diet Assessment/Plan: Assessment - Poor po intake due to "inability to see" the food (patient's own claim) - Decreased visual acuity and conjunctivitis - ? COVID related - COVID PNA - COPD - Schizoaffective disorder, anxiety - hepatitis C Recommendations - d/w staff readiness officer - Consider Ophthalmology consultation - push po - outpatient HCV management - will follow next week Rudolph Griggs MD Oct 19, 2020 21:28
[2020-10-19] MEDS: Dyna-Hex 2% Top Sol 2oz TOPIC SCH (21:57)
[2020-10-20] VITALS: BP 142/87
[2020-10-20 04:00] VITALS: BP 140/80
--- NOTE | 2020-10-20 07:23 | General Progress Note ---
Subjective ROS Limited/Unobtainable: No Allergies: Coded Allergies: No Known Allergies (Unverified , 07/31/20) Objective Last 24 Hour Vital Signs Date Time Temp Pulse Resp B/P (MAP) Pulse Ox O2 Delivery O2 Flow Rate FiO2 10/20/20 04:00 97.3 102 18 140/80 (100) 94 10/20/20 00:00 97.9 105 18 142/87 (105) 96 10/19/20 21:40 145/88 10/19/20 21:00 Nasal Cannula 2.0 10/19/20 20:00 97.0 105 19 145/88 (107) 96 10/19/20 16:00 97.2 100 18 148/84 (105) 96 10/19/20 12:00 97.0 104 16 151/76 (101) 94 10/19/20 09:31 141/79 10/19/20 09:31 112 141/79 10/19/20 09:31 112 141/79 10/19/20 09:00 Nasal Cannula 2.0 10/19/20 08:00 97.9 112 19 141/79 (99) 95 Intake and Output 10/19/20 10/20/20 19:00 07:00 Intake Total 380 ml Balance 380 ml Intake Oral 380 ml # Voids 2 3 Height (Feet): 5 Height (Inches): 9.00 Weight (Pounds): 193 General Appearance: no apparent distress EENT: normal ENT inspection Neck: supple Cardiovascular: tachycardia Respiratory/Chest: decreased breath sounds Abdomen: normal bowel sounds, non tender, soft Extremities: non-tender Assessment/Plan Status: progressing, tolerating diet Assessment/Plan: Assessment - Poor po intake due to "inability to see" the food (patient's own claim) - Decreased visual acuity and conjunctivitis - ? COVID related - COVID PNA - COPD - Schizoaffective disorder, anxiety - hepatitis C Recommendations - d/w field staff manager - Consider Ophthalmology consultation - push po - outpatient HCV management Irwin Munoz MD Oct 20, 2020 07:23
--- NOTE | 2020-10-20 07:50 | NUR ---
NURSE NOTES: RN received report from, Swati Silva RN. RN received patient in bed, awake oriented x3 able to make needs known. No acute distress noted. Nasal cannula @ 2 L/min. O2 sat at 95 %. Pt ambulates to the restroom no distress observed gait steady. IV to Left hand SL intact. COVID precautions implemented and enforced. will continue to monitor patient condition and give treatment as ordered. Call light in reach bed to lowest position
[2020-10-20 08:00] VITALS: BP 154/77
[2020-10-20] MEDS: Enoxaparin 40mg Inj SUBQ SCH (09:00)
[2020-10-20] MEDS: Metoprolol Succinate XL 50mg tab ORAL SCH (11:38)
[2020-10-20] MEDS: Irbesartan 150mg tablet ORAL SCH ×2 (11:38→20:36)
[2020-10-20 12:00] VITALS: BP 128/71
--- NOTE | 2020-10-20 13:26 | Pulmonology Progress Note ---
Subjective ROS Limited/Unobtainable: No Interval Events: no fever overnight Constitutional: Reports: other - feels better; Denies: fever HEENT: Repors: other - eye pain Respiratory: Reports: no symptoms Cardiovascular: Reports: no symptoms Gastrointestinal/Abdominal: Reports: no symptoms Genitourinary: Reports: no symptoms Allergies: Coded Allergies: No Known Allergies (Unverified , 07/31/20) Objective Last 24 Hour Vital Signs Date Time Temp Pulse Resp B/P (MAP) Pulse Ox O2 Delivery O2 Flow Rate FiO2 10/20/20 11:45 105 154/77 10/20/20 11:38 154/77 10/20/20 11:38 105 154/77 10/20/20 08:00 97.3 105 20 154/77 (102) 94 10/20/20 04:00 97.3 102 18 140/80 (100) 94 10/20/20 00:00 97.9 105 18 142/87 (105) 96 10/19/20 21:40 145/88 10/19/20 21:00 Nasal Cannula 2.0 10/19/20 20:00 97.0 105 19 145/88 (107) 96 10/19/20 16:00 97.2 100 18 148/84 (105) 96 Intake and Output 10/19/20 10/20/20 19:00 07:00 Intake Total 380 ml Balance 380 ml Intake Oral 380 ml # Voids 2 3 General Appearance: WD/WN, no acute distress HEENT: other - erythematous, edematous eyes Respiratory: lungs clear Cardiovascular: normal rate, regular rhythm Abdomen: soft, non tender Current Medications Medications (Trade) Dose Ordered Sig/Sidney Route PRN Reason Start Time Stop Time Status Last Admin Dose Admin Acetaminophen (Tylenol) 650 mg Q6H PRN ORAL HEADACHE OR FEVER >100 10/09/20 22:45 11/08/20 22:44 10/13/20 22:27 Alfuzosin HCl (Uroxatrol) 10 mg DAILY ORAL 10/10/20 09:00 11/09/20 08:59 10/20/20 11:35 Amlodipine Besylate (Norvasc) 10 mg DAILY ORAL 10/10/20 09:00 11/09/20 08:59 10/20/20 11:45 Chlorhexidine Gluconate (Beryl-Hex 2%) 1 applic QHS TOPIC 10/09/20 21:00 01/07/21 20:59 10/19/20 21:57 Enoxaparin Sodium (Lovenox) 40 mg DAILY SUBQ 10/16/20 09:00 01/14/21 08:59 10/20/20 09:00 Irbesartan (Avapro) 150 mg Q12HR ORAL 10/09/20 21:00 01/07/21 20:59 10/20/20 11:38 Metoprolol Succinate (Toprol XL) 50 mg DAILY ORAL 10/10/20 09:00 01/08/21 08:59 10/20/20 11:38 Pantoprazole (Protonix) 40 mg DAILY ORAL 10/10/20 09:00 11/09/20 08:59 10/20/20 11:38 Quetiapine Fumarate (SEROqueL) 300 mg Q12HR ORAL 10/09/20 21:00 11/23/20 20:59 10/20/20 11:36 Risperidone (RisperDAL) 2 mg Q12HR ORAL 10/09/20 21:00 11/23/20 20:59 10/20/20 11:46 Assessment/Plan Assessment/Plan Assessment 1. COVID-19 infection 2. Conjunctivitis 3. Hypertension PLAN: Agree with current treatment. Saturating at 93% at 2L O2 The care for this patient was discussed with my supervising physician. Oct 19, 2020 10:26 Raymond Dee NP Oct 20, 2020 13:26
[2020-10-20 16:00] VITALS: BP 120/73
--- NOTE | 2020-10-20 19:43 | General Progress Note ---
Subjective ROS Limited/Unobtainable: Yes Allergies: Coded Allergies: No Known Allergies (Unverified , 07/31/20) Objective Last 24 Hour Vital Signs Date Time Temp Pulse Resp B/P (MAP) Pulse Ox O2 Delivery O2 Flow Rate FiO2 10/20/20 16:00 98.4 95 20 120/73 (89) 95 10/20/20 12:00 97.0 109 20 128/71 (90) 95 10/20/20 11:45 105 154/77 10/20/20 11:38 154/77 10/20/20 11:38 105 154/77 10/20/20 09:00 Nasal Cannula 2.0 10/20/20 08:00 97.3 105 20 154/77 (102) 94 10/20/20 04:00 97.3 102 18 140/80 (100) 94 10/20/20 00:00 97.9 105 18 142/87 (105) 96 10/19/20 21:40 145/88 10/19/20 21:00 Nasal Cannula 2.0 10/19/20 20:00 97.0 105 19 145/88 (107) 96 Intake and Output 10/19/20 10/20/20 19:00 07:00 Intake Total 380 ml Balance 380 ml Intake Oral 380 ml # Voids 2 3 Height (Feet): 5 Height (Inches): 9.00 Weight (Pounds): 193 Assessment/Plan Problem List: (1) Headache ICD Codes: R51.9 - Headache, unspecified SNOMED: 43026965 (2) COVID-19 ICD Codes: U07.1 - COVID-19 SNOMED: 067496673 Status: progressing, tolerating diet Assessment/Plan: covid + resp insuff improving Deng Liu MD Oct 20, 2020 19:43
--- NOTE | 2020-10-20 19:59 | NUR ---
NURSE HAND-OFF: Important Events on Shift:titrated O2 to 1L, guide the placement of food on the tray with his hands Patient Status: stable Diet: regular Pending Orders: n/a Pending Results/Labs:n/a Pending MD notification:n/a Latest Vital Signs: Temperature 98.4 , Pulse 95 , B/P 120 /73 , Respiratory Rate 20 , O2 SAT 95 , Room Air, O2 Flow Rate 2.0 . Vital Sign Comment: stable Latest [place] Fall Score: 25 Fall Risk: Medium Risk Safety Measures: Call light Within Reach, Bed Alarm Zone 1, Side Rails Side Rails x2, Bed position Low and Locked. Fall Precautions: Yellow Socks Door Sign Patient Fall Education Report given to Domenico.
[2020-10-20 20:00] VITALS: BP 124/71
--- NOTE | 2020-10-20 20:00 | NUR ---
NURSE NOTES: RECEIVED PATIENT LYING IN BED, AWAKE, ALERT/ORIENTED X3, DENIES PAIN. NO SIGNS AND SYMPTOMS OF ACUTE CARDIO RESPIRATORY DISTRESS/SHORTNESS OF BREATH, PENG CHEST PAIN, NO PERIPHERAL EDEMA NOTED, 02 SATURATION 92 ON ROOM AIR. IV INTACT, NO REDNESS/SWELLING NOTED TO SITE, NO SIGNS OF INFILTRATION. ABDOMEN SOFT/NON DISTENDED/NON TENDER/AUDIBLE BOWEL SOUNDS, DENIES N/V/D. SIDE RAILS UP X3/BED IN LOWEST POSITION FOR SAFETY, ENCOURAGED PATIENT TO UTILIZE CALL LIGHT FOR ASSISTANCE, VERBALIZED UNDERSTANDING. CONTINUE WITH CURRENT PLAN OF CARE. NAD.
[2020-10-20] MEDS: Dyna-Hex 2% Top Sol 2oz TOPIC SCH (20:37)
--- NOTE | 2020-10-20 21:57 | Cardiac Electrophysiology PN ---
Assessment/Plan Assessment/Plan 1. Shortness of breath due to COVID-19 infection. On 2lit ND. Fu by Dr. Shell. 2. Hypertension. On amlodipine 10 mg daily, Toprol-XL 50 mg daily and Avapro 150 bid 3. Psychiatric history. VICTORIA RN Subjective Subjective In isolation for Covid on 2 liter NC off tele. Objective Last 24 Hour Vital Signs Date Time Temp Pulse Resp B/P (MAP) Pulse Ox O2 Delivery O2 Flow Rate FiO2 10/20/20 20:36 134/76 10/20/20 16:00 98.4 95 20 120/73 (89) 95 10/20/20 12:00 97.0 109 20 128/71 (90) 95 10/20/20 11:45 105 154/77 10/20/20 11:38 154/77 10/20/20 11:38 105 154/77 10/20/20 09:00 Nasal Cannula 2.0 10/20/20 08:00 97.3 105 20 154/77 (102) 94 10/20/20 04:00 97.3 102 18 140/80 (100) 94 10/20/20 00:00 97.9 105 18 142/87 (105) 96 Intake and Output 10/19/20 10/20/20 19:00 07:00 Intake Total 380 ml Balance 380 ml Intake Oral 380 ml # Voids 2 3 Objective HEAD AND NECK: Shows mild JVD. Bilateral eyelids are edematous and erythematous. LUNGS: Clear. CARDIOVASCULAR: Shows regular S1 and S2 with no gallop. ABDOMEN: Soft. EXTREMITIES: 1+ pitting edema. Kirit Dave MD Oct 20, 2020 21:57
[2020-10-21] VITALS: BP 131/75
[2020-10-21 04:00] VITALS: BP 134/76
--- NOTE | 2020-10-21 06:57 | General Progress Note ---
Subjective ROS Limited/Unobtainable: Yes Allergies: Coded Allergies: No Known Allergies (Unverified , 07/31/20) Objective Last 24 Hour Vital Signs Date Time Temp Pulse Resp B/P (MAP) Pulse Ox O2 Delivery O2 Flow Rate FiO2 10/21/20 04:00 97.9 92 18 134/76 (95) 96 10/21/20 00:00 97.6 98 18 131/75 (93) 96 10/20/20 21:00 Nasal Cannula 2.0 10/20/20 20:36 134/76 10/20/20 20:00 98.2 101 20 124/71 (88) 96 10/20/20 16:00 98.4 95 20 120/73 (89) 95 10/20/20 12:00 97.0 109 20 128/71 (90) 95 10/20/20 11:45 105 154/77 10/20/20 11:38 154/77 10/20/20 11:38 105 154/77 10/20/20 09:00 Nasal Cannula 2.0 10/20/20 08:00 97.3 105 20 154/77 (102) 94 Intake and Output 10/20/20 10/21/20 19:00 07:00 Intake Total 800 ml 840 ml Output Total 600 ml Balance 800 ml 240 ml Intake Oral 800 ml 840 ml Output Urine Total 600 ml # Voids 1 Height (Feet): 5 Height (Inches): 9.00 Weight (Pounds): 193 General Appearance: no apparent distress EENT: normal ENT inspection Neck: supple Cardiovascular: normal rate Respiratory/Chest: decreased breath sounds Abdomen: hypoactive bowel sounds Extremities: non-tender Assessment/Plan Status: progressing, tolerating diet Assessment/Plan: Assessment - Poor po intake due to "inability to see" the food (patient's own claim) - Decreased visual acuity and conjunctivitis - ? COVID related - COVID PNA - COPD - Schizoaffective disorder, anxiety - hepatitis C Recommendations - d/w rn staff - Consider Ophthalmology consultation - push po - outpatient HCV management Irwin Munoz MD Oct 21, 2020 06:57
[2020-10-21 08:00] VITALS: BP 143/78
--- NOTE | 2020-10-21 08:00 | NUR ---
NURSE NOTES: RN received report from DEYA Acuña. RN received the patient in bed, AAOX3, no s/s or respiratory distress on NC at 1 L. Patient denies any pain or discomfort. IV found disconnected per patient. RN communicated plan of care with the patient. Patient's eyes less red from the previous days. Bed in lowest position and locked. Call light within reach. Will continue to monitor.
--- NOTE | 2020-10-21 08:08 | NUR ---
NURSE HAND-OFF: Important Events on Shift:[PATIENT BECAME VERY CONFUSED, DISORIENTATED THIS AM WHICH LASTED APPROXIMATELY 5 MIN, ABLE TO REORIENTATE WITHOUT DIFFICULTY] Patient Status: [STABLE, AFEBRILE] Diet: [RENAL, CCHO M-OK FOR DAILY DIET COKE] Pending Orders: [AM LABS] Pending Results/Labs:[] Pending MD notification:[] Latest Vital Signs: Temperature 97.9 , Pulse 92 , B/P 134 /76 , Respiratory Rate 18 , O2 SAT 96 , Room Air, O2 Flow Rate 2.0 . Vital Sign Comment: [STABLE, AFEBRILE] Latest [place] Fall Score: 25 Fall Risk: Medium Risk Safety Measures: Call light Within Reach, Bed Alarm Zone 1, Side Rails Side Rails x2, Bed position Low and Locked. Fall Precautions: Yellow Socks Door Sign Patient Fall Education Report given to [GONZALEZ HARGROVE]. Addendum: 10/21/20 at 0815 by CYNDI DERAS LVN NURSE NOTES: DIET REGULAR
[2020-10-21] MEDS: Metoprolol Succinate XL 50mg tab ORAL SCH (08:37)
[2020-10-21] MEDS: Enoxaparin 40mg Inj SUBQ SCH (08:37)
[2020-10-21] MEDS: Irbesartan 150mg tablet ORAL SCH ×2 (08:38→20:20)
--- NOTE | 2020-10-21 10:11 | Hematology/Onc Progress Note ---
Assessment/Plan Assessment/Plan 1. Leukopenia is related likely to COVID-19 infection+++++++++++ --> Patient is currently saturating well on room air, per pulm --> s/p Azithromycin and ceftriaxone IV once in ER --> Continue monitoring SaO2 and provide supplemental oxygen as needed --> smear reviewed --> wbc 4.7-->3.8 --> neupogen prn 2. Anemia due to likely chronic disease, infection --> trend hgb as needed hgb 13 3. Elevated CRP, D-dimer --> s/p Lovenox in ER --> DVX ppx recommended --> duplex lower leg r/o dvt 4. Hypertension --> recommend continuing home antihypertensive meds --> as per cards 5. Covid 19 as per pulm/id 6. Dvt ppx lovenox sq Appreciate consultation and dw Rn Subjective Constitutional: Denies: no symptoms, chills, fever, malaise, weakness, other HEENT: Denies: no symptoms, eye pain, blurred vision, tearing, double vision, ear pain, ear discharge, nose pain, nose congestion, throat pain, throat swell ing, mouth pain, mouth swelling, other Cardiovascular: Denies: no symptoms, chest pain, edema, irregular heart rate, lightheadedness, palpitations, syncope, other Respiratory: Denies: no symptoms, cough, shortness of breath, SOB with excertion, SOB at rest, sputum, wheezing, other Gastrointestinal/Abdominal: Denies: no symptoms, abdomen distended, abdominal pain, black stools, tarry stools, blood in stool, constipated, diarrhea, difficulty swallowing, nausea, poor appetite, poor fluid intake, rectal bleeding, vomiting, other Genitourinary: Denies: no symptoms, burning, discharge, frequency, flank pain, hematuria, incontinence, pain, urgency, other Endocrine: Denies: no symptoms, excessive sweating, flushing, intolerance to cold, intolerance to heat, increased hunger, increased thirst, increased urine, unexplained weight gain, unexplained weight loss, other Allergies: Coded Allergies: No Known Allergies (Unverified , 07/31/20) Subjective 10/11 awake, no new events, no bleeding, labs noted, ambulating 10/12 covid iso, is on ra, no bleeding, labs noted, meds reviewed 10/13: on RA saturating well no acute events. 10/14: no distress on O2 NC 2L, slight temp last night UA collected 10/15 is awake, alert, is on 2lnc, no bleeding, labs are noted 10/16 on 1lnc, no bleeding, labs ordered for am, no new events 10/17 nc, no bleeding, labs are pending, can't see, potential optho eval 10/18 nc, no bleeding, wbc 3, no new changes, dw rn 10/19: no acute events, no bleeding reported. 10/21 confused, remains disoriented, no bleeding, labs reviewed Objective Objective Current Medications Medications (Trade) Dose Ordered Sig/Sidney Route PRN Reason Start Time Stop Time Status Last Admin Dose Admin Acetaminophen (Tylenol) 650 mg Q6H PRN ORAL HEADACHE OR FEVER >100 10/09/20 22:45 11/08/20 22:44 10/13/20 22:27 Alfuzosin HCl (Uroxatrol) 10 mg DAILY ORAL 10/10/20 09:00 11/09/20 08:59 10/21/20 08:38 Amlodipine Besylate (Norvasc) 10 mg DAILY ORAL 10/10/20 09:00 11/09/20 08:59 10/21/20 08:37 Chlorhexidine Gluconate (Beryl-Hex 2%) 1 applic QHS TOPIC 10/09/20 21:00 01/07/21 20:59 10/19/20 21:57 Enoxaparin Sodium (Lovenox) 40 mg DAILY SUBQ 10/16/20 09:00 01/14/21 08:59 10/21/20 08:37 Irbesartan (Avapro) 150 mg Q12HR ORAL 10/09/20 21:00 01/07/21 20:59 10/21/20 08:38 Metoprolol Succinate (Toprol XL) 50 mg DAILY ORAL 10/10/20 09:00 01/08/21 08:59 10/21/20 08:37 Pantoprazole (Protonix) 40 mg DAILY ORAL 10/10/20 09:00 11/09/20 08:59 10/21/20 08:38 Quetiapine Fumarate (SEROqueL) 300 mg Q12HR ORAL 10/09/20 21:00 11/23/20 20:59 10/21/20 08:43 Risperidone (RisperDAL) 2 mg Q12HR ORAL 10/09/20 21:00 11/23/20 20:59 10/21/20 08:37 Last 24 Hour Vital Signs Date Time Temp Pulse Resp B/P (MAP) Pulse Ox O2 Delivery O2 Flow Rate FiO2 10/21/20 08:38 143/78 10/21/20 08:37 114 143/78 10/21/20 08:37 114 143/78 10/21/20 08:00 96.6 114 20 143/78 (99) 93 10/21/20 04:00 97.9 92 18 134/76 (95) 96 10/21/20 00:00 97.6 98 18 131/75 (93) 96 10/20/20 21:00 Nasal Cannula 2.0 10/20/20 20:36 134/76 10/20/20 20:00 98.2 101 20 124/71 (88) 96 10/20/20 16:00 98.4 95 20 120/73 (89) 95 10/20/20 12:00 97.0 109 20 128/71 (90) 95 10/20/20 11:45 105 154/77 10/20/20 11:38 154/77 10/20/20 11:38 105 154/77 10/20/20 09:00 Nasal Cannula 2.0 10/20/20 08:00 97.3 105 20 154/77 (102) 94 10/20/20 04:00 97.3 102 18 140/80 (100) 94 10/20/20 00:00 97.9 105 18 142/87 (105) 96 10/19/20 21:40 145/88 10/19/20 21:00 Nasal Cannula 2.0 10/19/20 20:00 97.0 105 19 145/88 (107) 96 10/19/20 16:00 97.2 100 18 148/84 (105) 96 10/19/20 12:00 97.0 104 16 151/76 (101) 94 Intake and Output 10/20/20 10/21/20 19:00 07:00 Intake Total 800 ml 840 ml Output Total 600 ml Balance 800 ml 240 ml Intake Oral 800 ml 840 ml Output Urine Total 600 ml # Voids 1 Labs Test 10/18/20 16:00 10/19/20 04:30 White Blood Count 2.6 K/UL (4.8-10.8) 4.0 K/UL (4.8-10.8) Red Blood Count 3.83 M/UL (4.70-6.10) 3.91 M/UL (4.70-6.10) Hemoglobin 11.3 G/DL (14.2-18.0) 11.6 G/DL (14.2-18.0) Hematocrit 34.4 % (42.0-52.0) 34.3 % (42.0-52.0) Mean Corpuscular Volume 90 FL (80-99) 88 FL (80-99) Mean Corpuscular Hemoglobin 29.4 PG (27.0-31.0) 29.6 PG (27.0-31.0) Mean Corpuscular Hemoglobin Concent 32.7 G/DL (32.0-36.0) 33.8 G/DL (32.0-36.0) Red Cell Distribution Width 12.6 % (11.6-14.8) 12.6 % (11.6-14.8) Platelet Count 236 K/UL (150-450) 256 K/UL (150-450) Mean Platelet Volume 5.2 FL (6.5-10.1) 5.2 FL (6.5-10.1) Neutrophils (%) (Auto) % (45.0-75.0) 63.4 % (45.0-75.0) Lymphocytes (%) (Auto) % (20.0-45.0) 25.0 % (20.0-45.0) Monocytes (%) (Auto) % (1.0-10.0) 10.6 % (1.0-10.0) Eosinophils (%) (Auto) % (0.0-3.0) 0.7 % (0.0-3.0) Basophils (%) (Auto) % (0.0-2.0) 0.3 % (0.0-2.0) Differential Total Cells Counted 100 Neutrophils % (Manual) 54 % (45-75) Lymphocytes % (Manual) 39 % (20-45) Monocytes % (Manual) 7 % (1-10) Eosinophils % (Manual) 0 % (0-3) Basophils % (Manual) 0 % (0-2) Band Neutrophils 0 % (0-8) Platelet Estimate Adequate Platelet Morphology Normal Red Blood Cell Morphology Normal Sodium Level 140 MMOL/L (136-145) 138 MMOL/L (136-145) Potassium Level 3.8 MMOL/L (3.5-5.1) 3.8 MMOL/L (3.5-5.1) Chloride Level 104 MMOL/L (98-107) 102 MMOL/L (98-107) Carbon Dioxide Level 29 MMOL/L (21-32) 27 MMOL/L (21-32) Anion Gap 7 mmol/L (5-15) 9 mmol/L (5-15) Blood Urea Nitrogen 10 mg/dL (7-18) 12 mg/dL (7-18) Creatinine 1.1 MG/DL (0.55-1.30) 1.3 MG/DL (0.55-1.30) Estimat Glomerular Filtration Rate > 60 mL/min (>60) 55.1 mL/min (>60) Glucose Level 141 MG/DL (74-106) 108 MG/DL (74-106) Calcium Level 8.4 MG/DL (8.5-10.1) 8.8 MG/DL (8.5-10.1) Height (Feet): 5 Height (Inches): 9.00 Weight (Pounds): 193 Objective PHYSICAL EXAMINATION: VITAL SIGNS: reviewed HEENT: Head exam reveals that the head is normocephalic, atraumatic without deformity or unusual swelling. CHEST AND LUNGS: Reveals clear, normal, symmetrical breath sounds with no adventitious sounds. CARDIOVASCULAR: Reveals normal S1, S2 without murmurs, rubs, or clicks. ABDOMEN: Obese, soft with no tenderness or organomegaly. A well-healed midline linear vertical scar in the abdomen ++ RECTAL: Deferred. MUSCULOSKELETAL: There is no tenderness to palpation. Range of motion is normal. NEUROLOGICAL: Alert and oriented x3 , nonfocal Alek Sabillon MD Oct 21, 2020 10:11
[2020-10-21 12:00] VITALS: BP 132/74
--- NOTE | 2020-10-21 12:31 | Pulmonology Progress Note ---
Subjective ROS Limited/Unobtainable: Yes Interval Events: no fever overnight Constitutional: Reports: other - feels better; Denies: fever HEENT: Repors: other - eye pain Respiratory: Reports: no symptoms Cardiovascular: Reports: no symptoms Gastrointestinal/Abdominal: Reports: no symptoms Genitourinary: Reports: no symptoms Allergies: Coded Allergies: No Known Allergies (Unverified , 07/31/20) Objective Last 24 Hour Vital Signs Date Time Temp Pulse Resp B/P (MAP) Pulse Ox O2 Delivery O2 Flow Rate FiO2 10/21/20 12:00 98.6 95 20 132/74 (93) 94 10/21/20 08:38 143/78 10/21/20 08:37 114 143/78 10/21/20 08:37 114 143/78 10/21/20 08:00 96.6 114 20 143/78 (99) 93 10/21/20 04:00 97.9 92 18 134/76 (95) 96 10/21/20 00:00 97.6 98 18 131/75 (93) 96 10/20/20 21:00 Nasal Cannula 2.0 10/20/20 20:36 134/76 10/20/20 20:00 98.2 101 20 124/71 (88) 96 10/20/20 16:00 98.4 95 20 120/73 (89) 95 Intake and Output 10/20/20 10/21/20 19:00 07:00 Intake Total 800 ml 840 ml Output Total 600 ml Balance 800 ml 240 ml Intake Oral 800 ml 840 ml Output Urine Total 600 ml # Voids 1 General Appearance: WD/WN, no acute distress HEENT: other - erythematous, edematous eyes Respiratory: lungs clear Cardiovascular: normal rate, regular rhythm Abdomen: soft, non tender Current Medications Medications (Trade) Dose Ordered Sig/Sidney Route PRN Reason Start Time Stop Time Status Last Admin Dose Admin Acetaminophen (Tylenol) 650 mg Q6H PRN ORAL HEADACHE OR FEVER >100 10/09/20 22:45 11/08/20 22:44 10/13/20 22:27 Alfuzosin HCl (Uroxatrol) 10 mg DAILY ORAL 10/10/20 09:00 11/09/20 08:59 10/21/20 08:38 Amlodipine Besylate (Norvasc) 10 mg DAILY ORAL 10/10/20 09:00 11/09/20 08:59 10/21/20 08:37 Chlorhexidine Gluconate (Beryl-Hex 2%) 1 applic QHS TOPIC 10/09/20 21:00 01/07/21 20:59 10/19/20 21:57 Enoxaparin Sodium (Lovenox) 40 mg DAILY SUBQ 10/16/20 09:00 01/14/21 08:59 10/21/20 08:37 Irbesartan (Avapro) 150 mg Q12HR ORAL 10/09/20 21:00 01/07/21 20:59 10/21/20 08:38 Metoprolol Succinate (Toprol XL) 50 mg DAILY ORAL 10/10/20 09:00 01/08/21 08:59 10/21/20 08:37 Pantoprazole (Protonix) 40 mg DAILY ORAL 10/10/20 09:00 11/09/20 08:59 10/21/20 08:38 Quetiapine Fumarate (SEROqueL) 300 mg Q12HR ORAL 10/09/20 21:00 11/23/20 20:59 10/21/20 08:43 Risperidone (RisperDAL) 2 mg Q12HR ORAL 10/09/20 21:00 11/23/20 20:59 10/21/20 08:37 Assessment/Plan Assessment/Plan Assessment 1. COVID-19 infection 2. Conjunctivitis 3. Hypertension PLAN: Agree with current treatment. Saturating at 93- 95% at 1L O2 The care for this patient was discussed with my supervising physician. Oct 19, 2020 10:26 Raymond Dee NP Oct 21, 2020 12:31
[2020-10-21 16:00] VITALS: BP 122/73
--- NOTE | 2020-10-21 18:01 | General Progress Note ---
Subjective ROS Limited/Unobtainable: Yes Allergies: Coded Allergies: No Known Allergies (Unverified , 07/31/20) Objective Last 24 Hour Vital Signs Date Time Temp Pulse Resp B/P (MAP) Pulse Ox O2 Delivery O2 Flow Rate FiO2 10/21/20 12:00 98.6 95 20 132/74 (93) 94 10/21/20 09:00 Nasal Cannula 2.0 10/21/20 08:38 143/78 10/21/20 08:37 114 143/78 10/21/20 08:37 114 143/78 10/21/20 08:00 96.6 114 20 143/78 (99) 93 10/21/20 04:00 97.9 92 18 134/76 (95) 96 10/21/20 00:00 97.6 98 18 131/75 (93) 96 10/20/20 21:00 Nasal Cannula 2.0 10/20/20 20:36 134/76 10/20/20 20:00 98.2 101 20 124/71 (88) 96 Intake and Output 10/20/20 10/21/20 19:00 07:00 Intake Total 800 ml 840 ml Output Total 600 ml Balance 800 ml 240 ml Intake Oral 800 ml 840 ml Output Urine Total 600 ml # Voids 1 Height (Feet): 5 Height (Inches): 9.00 Weight (Pounds): 193 Assessment/Plan Problem List: (1) Headache ICD Codes: R51.9 - Headache, unspecified SNOMED: [id number] (2) COVID-19 ICD Codes: U07.1 - COVID-19 SNOMED: 919869547 Status: progressing, tolerating diet Assessment/Plan: covid + resp insuff afebrile lappetite improving vitals stable h/o arrythmia Deng Liu MD Oct 21, 2020 18:01
--- NOTE | 2020-10-21 19:51 | NUR ---
NURSE HAND-OFF: Important Events on Shift:in need of new IV access Patient Status: stable Diet: regular Pending Orders: n/a Pending Results/Labs:n/a Pending MD notification:n/a Latest Vital Signs: Temperature 97.9 , Pulse 88 , B/P 122 /73 , Respiratory Rate 20 , O2 SAT 92 , Room Air, O2 Flow Rate 2.0 . Vital Sign Comment: stable Latest [place] Fall Score: 25 Fall Risk: Medium Risk Safety Measures: Call light Within Reach, Bed Alarm Zone 1, Side Rails Side Rails x2, Bed position Low and Locked. Fall Precautions: Yellow Socks Door Sign Patient Fall Education Report given to Antonio.
[2020-10-21 20:00] VITALS: BP 137/76
--- NOTE | 2020-10-21 20:30 | NUR ---
NURSE NOTES: New IV access inserted. Right hand 24g. Patient tolerated well.
[2020-10-21] MEDS: Dyna-Hex 2% Top Sol 2oz TOPIC SCH (20:31)
[2020-10-22 04:00] VITALS: BP 110/56
--- NOTE | 2020-10-22 06:51 | Hematology/Onc Progress Note ---
Assessment/Plan Assessment/Plan 1. Leukopenia is related likely to COVID-19 infection+++++++++++ --> Patient is currently saturating well on room air, per pulm --> s/p Azithromycin and ceftriaxone IV once in ER --> Continue monitoring SaO2 and provide supplemental oxygen as needed --> smear reviewed --> wbc 4.7-->3.8 --> neupogen prn 2. Anemia due to likely chronic disease, infection --> trend hgb as needed --> hgb 13->11 3. Elevated CRP, D-dimer --> s/p Lovenox in ER --> DVX ppx recommended --> duplex lower leg r/o dvt 4. Hypertension --> recommend continuing home antihypertensive meds --> as per cards 5. Covid 19 as per pulm/id 6. Dvt ppx lovenox sq Appreciate consultation and marly Rn Subjective HEENT: Denies: no symptoms, eye pain, blurred vision, tearing, double vision, ear pain, ear discharge, nose pain, nose congestion, throat pain, throat swelling, mouth pain, mouth swelling, other Cardiovascular: Denies: no symptoms, chest pain, edema, irregular heart rate, lightheadedness, palpitations, syncope, other Respiratory: Denies: no symptoms, cough, shortness of breath, SOB with excertion, SOB at rest, sputum, wheezing, other Gastrointestinal/Abdominal: Denies: no symptoms, abdomen distended, abdominal pain, black stools, tarry stools, blood in stool, constipated, diarrhea, difficulty swallowing, nausea, poor appetite, poor fluid intake, rectal bleeding, vomiting, other Genitourinary: Denies: no symptoms, burning, discharge, frequency, flank pain, hematuria, incontinence, pain, urgency, other Neurologic/Psychiatric: Denies: no symptoms, anxiety, depressed, emotional problems, headache, numbness, paresthesia, pre-existing deficit, seizure, tingling, tremors, weakness, other Endocrine: Denies: no symptoms, excessive sweating, flushing, intolerance to cold, intolerance to heat, increased hunger, increased thirst, increased urine, unexplained weight gain, unexplained weight loss, other Allergies: Coded Allergies: No Known Allergies (Unverified , 07/31/20) Subjective 10/11 awake, no new events, no bleeding, labs noted, ambulating 10/12 covid iso, is on ra, no bleeding, labs noted, meds reviewed 10/13: on RA saturating well no acute events. 10/14: no distress on O2 NC 2L, slight temp last night UA collected 10/15 is awake, alert, is on 2lnc, no bleeding, labs are noted 10/16 on 1lnc, no bleeding, labs ordered for am, no new events 10/17 nc, no bleeding, labs are pending, can't see, potential optho eval 10/18 nc, no bleeding, wbc 3, no new changes, dw rn 10/19: no acute events, no bleeding reported. 10/21 confused, remains disoriented, no bleeding, labs reviewed 111 confused, labs reviewed, meds noted, no bleeding, labs reviewed Objective Objective Current Medications Medications (Trade) Dose Ordered Sig/Sidney Route PRN Reason Start Time Stop Time Status Last Admin Dose Admin Acetaminophen (Tylenol) 650 mg Q6H PRN ORAL HEADACHE OR FEVER >100 10/09/20 22:45 11/08/20 22:44 10/13/20 22:27 Alfuzosin HCl (Uroxatrol) 10 mg DAILY ORAL 10/10/20 09:00 11/09/20 08:59 10/21/20 08:38 Amlodipine Besylate (Norvasc) 10 mg DAILY ORAL 10/10/20 09:00 11/09/20 08:59 10/21/20 08:37 Chlorhexidine Gluconate (Beryl-Hex 2%) 1 applic QHS TOPIC 10/09/20 21:00 01/07/21 20:59 10/19/20 21:57 Enoxaparin Sodium (Lovenox) 40 mg DAILY SUBQ 10/16/20 09:00 01/14/21 08:59 10/21/20 08:37 Irbesartan (Avapro) 150 mg Q12HR ORAL 10/09/20 21:00 01/07/21 20:59 10/21/20 20:20 Metoprolol Succinate (Toprol XL) 50 mg DAILY ORAL 10/10/20 09:00 01/08/21 08:59 10/21/20 08:37 Pantoprazole (Protonix) 40 mg DAILY ORAL 10/10/20 09:00 11/09/20 08:59 10/21/20 08:38 Quetiapine Fumarate (SEROqueL) 300 mg Q12HR ORAL 10/09/20 21:00 11/23/20 20:59 10/21/20 20:20 Risperidone (RisperDAL) 2 mg Q12HR ORAL 10/09/20 21:00 11/23/20 20:59 10/21/20 20:20 Last 24 Hour Vital Signs Date Time Temp Pulse Resp B/P (MAP) Pulse Ox O2 Delivery O2 Flow Rate FiO2 10/22/20 04:00 97.7 81 18 110/56 (74) 94 10/21/20 21:50 Nasal Cannula 2.0 10/21/20 20:20 122/73 10/21/20 20:00 98.0 95 18 137/76 (96) 92 10/21/20 16:00 97.9 88 20 122/73 (89) 92 10/21/20 12:00 98.6 95 20 132/74 (93) 94 10/21/20 09:00 Nasal Cannula 2.0 10/21/20 08:38 143/78 10/21/20 08:37 114 143/78 10/21/20 08:37 114 143/78 10/21/20 08:00 96.6 114 20 143/78 (99) 93 10/21/20 04:00 97.9 92 18 134/76 (95) 96 10/21/20 00:00 97.6 98 18 131/75 (93) 96 10/20/20 21:00 Nasal Cannula 2.0 10/20/20 20:36 134/76 10/20/20 20:00 98.2 101 20 124/71 (88) 96 10/20/20 16:00 98.4 95 20 120/73 (89) 95 10/20/20 12:00 97.0 109 20 128/71 (90) 95 10/20/20 11:45 105 154/77 10/20/20 11:38 154/77 10/20/20 11:38 105 154/77 10/20/20 09:00 Nasal Cannula 2.0 10/20/20 08:00 97.3 105 20 154/77 (102) 94 Intake and Output 10/21/20 10/22/20 19:00 07:00 Intake Total 800 ml 350 ml Balance 800 ml 350 ml Intake Oral 800 ml 350 ml # Voids 2 3 Height (Feet): 5 Height (Inches): 9.00 Weight (Pounds): 193 Objective PHYSICAL EXAMINATION: VITAL SIGNS: reviewed HEENT: Head exam reveals that the head is normocephalic, atraumatic without deformity or unusual swelling. CHEST AND LUNGS: Reveals clear, normal, symmetrical breath sounds with no adventitious sounds. CARDIOVASCULAR: Reveals normal S1, S2 without murmurs, rubs, or clicks. ABDOMEN: Obese, soft with no tenderness or organomegaly. A well-healed midline linear vertical scar in the abdomen ++ RECTAL: Deferred. MUSCULOSKELETAL: There is no tenderness to palpation. Range of motion is normal. NEUROLOGICAL: Alert and oriented x3 , nonfocal Alek Sabillon MD Oct 22, 2020 06:51
[2020-10-22 07:24] LABS: BASOPHILS % (AUTO) 0.3 % (0.0-2.0); EOSINOPHILS % (AUTO) 1.2 % (0.0-3.0); HEMATOCRIT 34.7 % (42.0-52.0); HEMOGLOBIN 11.5 G/DL (14.2-18.0); LYMPHOCYTES % (AUTO) 38.4 % (20.0-45.0); MEAN CORPUSCULAR VOLUME 90 FL (80-99); MONOCYTES % (AUTO) 10.9 % (1.0-10.0); NEUTROPHILS % (AUTO) 49.2 % (45.0-75.0); PLATELET COUNT 398 K/UL (150-450); RED BLOOD COUNT 3.86 M/UL (4.70-6.10); RED CELL DISTRIBUTION WIDTH 12.8 % (11.6-14.8); WHITE BLOOD COUNT 4.2 K/UL (4.8-10.8)
--- NOTE | 2020-10-22 07:47 | NUR ---
HAND-OFF: Report given to GONZALEZ Pena.
--- NOTE | 2020-10-22 07:48 | NUR ---
NURSE NOTES: Received patient in bed,awake, on room air, no coughing or SOB. Denies pain or discomfort, changed whole linens. Patient is ambulatory,steady. Bed is in lowest position and locked. Patient is calm @ this time. Will continue plan of care.
[2020-10-22 08:00] VITALS: BP 131/81
[2020-10-22 08:37] LABS: ALANINE AMINOTRANSFERASE 38 U/L (12-78); ALBUMIN 3.3 G/DL (3.4-5.0); ALBUMIN/GLOBULIN RATIO 0.8 (1.0-2.7); ALKALINE PHOSPHATASE 47 U/L (46-116); ANION GAP 7 mmol/L (5-15); ASPARTATE AMINO TRANSFERASE 38 U/L (15-37); BILIRUBIN,TOTAL 0.5 MG/DL (0.2-1.0); BLOOD UREA NITROGEN 14 mg/dL (7-18); CALCIUM 8.1 MG/DL (8.5-10.1); CARBON DIOXIDE 27 MMOL/L (21-32); CHLORIDE 104 MMOL/L (98-107); CREATININE 1.1 MG/DL (0.55-1.30); POTASSIUM 4.2 MMOL/L (3.5-5.1); SODIUM 138 MMOL/L (136-145)
[2020-10-22] MEDS: Metoprolol Succinate XL 50mg tab ORAL SCH (09:27)
[2020-10-22] MEDS: Enoxaparin 40mg Inj SUBQ SCH (09:28)
[2020-10-22] MEDS: Irbesartan 150mg tablet ORAL SCH ×2 (09:28→20:59)
--- NOTE | 2020-10-22 09:53 | NUR ---
RD ASSESSMENT & RECOMMENDATIONS SEE CARE ACTIVITY FOR COMPLETE ASSESSMENT DAILY ESTIMATED NEEDS: Needs based on Cardiac, Pulmonary, 76.5kg abw 25-30 kcals/kg 6800-0288 total kcals 1-1.3 g protein/kg 76-99 g total protein 25-30 mL/kg 3560-8025 total fluid mLs NUTRITION DIAGNOSIS: Inadequate oral intake R/T "unable to see food" as per pt's report as evidenced by pt admitted w/ dx of conjunctivitis, poor and variable intake, mostly 0-25% since adm, now improved w/ meal assistance. CURRENT DIET:REGULAR PO DIET RECOMMENDATIONS: LOW NA/ texture as tolerated ADDITIONAL RECOMMENDATIONS: * Calibrated bedscale wt * Monitor for improved PO intake-> now 50-75% -> cont to assist pt with meals and snacks * Monitor lytes, replete as needed
--- NOTE | 2020-10-22 10:52 | Cardiac Electrophysiology PN ---
Assessment/Plan Assessment/Plan 1. Shortness of breath due to COVID-19 infection. On RA. Fu by Dr. Shell. 2. Hypertension. On amlodipine 10 mg daily, Toprol-XL 50 mg daily and Avapro 150 bid 3. Psychiatric history. VICTORIA RN Subjective Subjective In isolation for Covid on RA off tele. Objective Last 24 Hour Vital Signs Date Time Temp Pulse Resp B/P (MAP) Pulse Ox O2 Delivery O2 Flow Rate FiO2 10/22/20 09:28 130/86 10/22/20 09:27 118 130/86 10/22/20 09:27 118 130/86 10/22/20 04:00 97.7 81 18 110/56 (74) 94 10/21/20 21:50 Nasal Cannula 2.0 10/21/20 20:20 122/73 10/21/20 20:00 98.0 95 18 137/76 (96) 92 10/21/20 16:00 97.9 88 20 122/73 (89) 92 10/21/20 12:00 98.6 95 20 132/74 (93) 94 Intake and Output 10/21/20 10/22/20 19:00 07:00 Intake Total 800 ml 350 ml Balance 800 ml 350 ml Intake Oral 800 ml 350 ml # Voids 2 3 Laboratory Tests Test 10/22/20 04:35 White Blood Count 4.2 K/UL (4.8-10.8) L Red Blood Count 3.86 M/UL (4.70-6.10) L Hemoglobin 11.5 G/DL (14.2-18.0) L Hematocrit 34.7 % (42.0-52.0) L Mean Corpuscular Volume 90 FL (80-99) Mean Corpuscular Hemoglobin 29.9 PG (27.0-31.0) Mean Corpuscular Hemoglobin Concent 33.2 G/DL (32.0-36.0) Red Cell Distribution Width 12.8 % (11.6-14.8) Platelet Count 398 K/UL (150-450) Mean Platelet Volume 4.7 FL (6.5-10.1) L Neutrophils (%) (Auto) 49.2 % (45.0-75.0) Lymphocytes (%) (Auto) 38.4 % (20.0-45.0) Monocytes (%) (Auto) 10.9 % (1.0-10.0) H Eosinophils (%) (Auto) 1.2 % (0.0-3.0) Basophils (%) (Auto) 0.3 % (0.0-2.0) Sodium Level 138 MMOL/L (136-145) Potassium Level 4.2 MMOL/L (3.5-5.1) Chloride Level 104 MMOL/L (98-107) Carbon Dioxide Level 27 MMOL/L (21-32) Anion Gap 7 mmol/L (5-15) Blood Urea Nitrogen 14 mg/dL (7-18) Creatinine 1.1 MG/DL (0.55-1.30) Estimat Glomerular Filtration Rate > 60 mL/min (>60) Glucose Level 86 MG/DL (74-106) Calcium Level 8.1 MG/DL (8.5-10.1) L Total Bilirubin 0.5 MG/DL (0.2-1.0) Aspartate Amino Transf (AST/SGOT) 38 U/L (15-37) H Alanine Aminotransferase (ALT/SGPT) 38 U/L (12-78) Alkaline Phosphatase 47 U/L (46-116) Total Protein 7.4 G/DL (6.4-8.2) Albumin 3.3 G/DL (3.4-5.0) L Globulin 4.1 g/dL Albumin/Globulin Ratio 0.8 (1.0-2.7) L Objective HEAD AND NECK: Shows mild JVD. Bilateral eyelids are edematous and erythematous. LUNGS: Clear. CARDIOVASCULAR: Shows regular S1 and S2 with no gallop. ABDOMEN: Soft. EXTREMITIES: 1+ pitting edema. Kirit Dave MD Oct 22, 2020 10:52
[2020-10-22 12:00] VITALS: BP 137/84
--- NOTE | 2020-10-22 12:41 | Infectious Diseases Prog Note ---
Assessment/Plan Assessment/Plan IMPRESSION: 1. Sepsis 2. COVID-19 disease. 3. Conjunctivitis. 4. History of COPD. 5. History of hepatitis C. 6. History of corneal abrasion. 7. Atelectasis RECOMMENDATIONS: Obseve off antibiotic Subjective ROS Limited/Unobtainable: Yes Allergies: Coded Allergies: No Known Allergies (Unverified , 07/31/20) Objective Last 24 Hour Vital Signs Date Time Temp Pulse Resp B/P (MAP) Pulse Ox O2 Delivery O2 Flow Rate FiO2 10/22/20 12:00 98.0 101 20 137/84 (101) 93 10/22/20 09:28 130/86 10/22/20 09:27 118 130/86 10/22/20 09:27 118 130/86 10/22/20 09:00 Room Air 10/22/20 08:00 98.6 118 21 131/81 (98) 93 10/22/20 04:00 97.7 81 18 110/56 (74) 94 10/21/20 21:50 Nasal Cannula 2.0 10/21/20 20:20 122/73 10/21/20 20:00 98.0 95 18 137/76 (96) 92 10/21/20 16:00 97.9 88 20 122/73 (89) 92 Height (Feet): 5 Height (Inches): 9.00 Weight (Pounds): 193 General Appearance: no acute distress HEENT: mucous membranes moist Respiratory/Chest: no respiratory distress Cardiovascular: tachycardia Abdomen: soft, non tender Extremities: no edema Neurologic/Psychiatric: other - sleeping Laboratory Tests Test 10/22/20 04:35 White Blood Count 4.2 K/UL (4.8-10.8) L Red Blood Count 3.86 M/UL (4.70-6.10) L Hemoglobin 11.5 G/DL (14.2-18.0) L Hematocrit 34.7 % (42.0-52.0) L Mean Corpuscular Volume 90 FL (80-99) Mean Corpuscular Hemoglobin 29.9 PG (27.0-31.0) Mean Corpuscular Hemoglobin Concent 33.2 G/DL (32.0-36.0) Red Cell Distribution Width 12.8 % (11.6-14.8) Platelet Count 398 K/UL (150-450) Mean Platelet Volume 4.7 FL (6.5-10.1) L Neutrophils (%) (Auto) 49.2 % (45.0-75.0) Lymphocytes (%) (Auto) 38.4 % (20.0-45.0) Monocytes (%) (Auto) 10.9 % (1.0-10.0) H Eosinophils (%) (Auto) 1.2 % (0.0-3.0) Basophils (%) (Auto) 0.3 % (0.0-2.0) Sodium Level 138 MMOL/L (136-145) Potassium Level 4.2 MMOL/L (3.5-5.1) Chloride Level 104 MMOL/L (98-107) Carbon Dioxide Level 27 MMOL/L (21-32) Anion Gap 7 mmol/L (5-15) Blood Urea Nitrogen 14 mg/dL (7-18) Creatinine 1.1 MG/DL (0.55-1.30) Estimat Glomerular Filtration Rate > 60 mL/min (>60) Glucose Level 86 MG/DL (74-106) Calcium Level 8.1 MG/DL (8.5-10.1) L Total Bilirubin 0.5 MG/DL (0.2-1.0) Aspartate Amino Transf (AST/SGOT) 38 U/L (15-37) H Alanine Aminotransferase (ALT/SGPT) 38 U/L (12-78) Alkaline Phosphatase 47 U/L (46-116) Total Protein 7.4 G/DL (6.4-8.2) Albumin 3.3 G/DL (3.4-5.0) L Globulin 4.1 g/dL Albumin/Globulin Ratio 0.8 (1.0-2.7) L Current Medications Medications (Trade) Dose Ordered Sig/Sidney Route PRN Reason Start Time Stop Time Status Last Admin Dose Admin Acetaminophen (Tylenol) 650 mg Q6H PRN ORAL HEADACHE OR FEVER >100 10/09/20 22:45 11/08/20 22:44 10/13/20 22:27 Alfuzosin HCl (Uroxatrol) 10 mg DAILY ORAL 10/10/20 09:00 11/09/20 08:59 10/22/20 09:27 Amlodipine Besylate (Norvasc) 10 mg DAILY ORAL 10/10/20 09:00 11/09/20 08:59 10/22/20 09:27 Chlorhexidine Gluconate (Beryl-Hex 2%) 1 applic QHS TOPIC 10/09/20 21:00 01/07/21 20:59 10/19/20 21:57 Enoxaparin Sodium (Lovenox) 40 mg DAILY SUBQ 10/16/20 09:00 01/14/21 08:59 10/22/20 09:28 Irbesartan (Avapro) 150 mg Q12HR ORAL 10/09/20 21:00 01/07/21 20:59 10/22/20 09:28 Metoprolol Succinate (Toprol XL) 50 mg DAILY ORAL 10/10/20 09:00 01/08/21 08:59 10/22/20 09:27 Pantoprazole (Protonix) 40 mg DAILY ORAL 10/10/20 09:00 11/09/20 08:59 10/22/20 09:27 Quetiapine Fumarate (SEROqueL) 300 mg Q12HR ORAL 10/09/20 21:00 11/23/20 20:59 10/22/20 09:27 Risperidone (RisperDAL) 2 mg Q12HR ORAL 10/09/20 21:00 11/23/20 20:59 10/22/20 09:26 Harsh Bowser MD Oct 22, 2020 12:41
--- NOTE | 2020-10-22 14:10 | Pulmonology Progress Note ---
Subjective ROS Limited/Unobtainable: Yes Interval Events: no fever overnight Constitutional: Reports: other - feels better; Denies: fever HEENT: Repors: other - eye pain Respiratory: Reports: no symptoms Cardiovascular: Reports: no symptoms Gastrointestinal/Abdominal: Reports: no symptoms Genitourinary: Reports: no symptoms Allergies: Coded Allergies: No Known Allergies (Unverified , 07/31/20) Objective Last 24 Hour Vital Signs Date Time Temp Pulse Resp B/P (MAP) Pulse Ox O2 Delivery O2 Flow Rate FiO2 10/22/20 12:00 98.0 101 20 137/84 (101) 93 10/22/20 09:28 130/86 10/22/20 09:27 118 130/86 10/22/20 09:27 118 130/86 10/22/20 09:00 Room Air 10/22/20 08:00 98.6 118 21 131/81 (98) 93 10/22/20 04:00 97.7 81 18 110/56 (74) 94 10/21/20 21:50 Nasal Cannula 2.0 10/21/20 20:20 122/73 10/21/20 20:00 98.0 95 18 137/76 (96) 92 10/21/20 16:00 97.9 88 20 122/73 (89) 92 Intake and Output 10/21/20 10/22/20 19:00 07:00 Intake Total 800 ml 350 ml Balance 800 ml 350 ml Intake Oral 800 ml 350 ml # Voids 2 3 Objective 10/22 saturating at 92% on RA 10/19 saturating at 89% on RA; 92-94% on 3L NC 10/18 desated on room air to 89%, back on 2L NC saturating at 92% 10/17 no change; remains on 2L NC since weaning failed again yesterday 10/16 saturating at 94% on 1L NC; failed weaning yesterday 10/15 now saturating at 95% on 1L NC; will wean again as tolerated 10/14 saturating at 95% on 2L NC 10/12 saturating at 97% on 2L NC 10/11 now on 2L saturating well 10/10 on room air saturating well General Appearance: WD/WN, no acute distress HEENT: other - erythematous, edematous eyes Respiratory: lungs clear Cardiovascular: normal rate, regular rhythm Abdomen: soft, non tender Laboratory Tests 10/22/20 04:35: White Blood Count 4.2L, Red Blood Count 3.86L, Hemoglobin 11.5L, Hematocrit 34.7L, Mean Corpuscular Volume 90, Mean Corpuscular Hemoglobin 29.9, Mean Corpuscular Hemoglobin Concent 33.2, Red Cell Distribution Width 12.8, Platelet Count 398, Mean Platelet Volume 4.7L, Neutrophils (%) (Auto) 49.2, Lymphocytes (%) (Auto) 38.4, Monocytes (%) (Auto) 10.9H, Eosinophils (%) (Auto) 1.2, Basophils (%) (Auto) 0.3, Sodium Level 138, Potassium Level 4.2, Chloride Level 104, Carbon Dioxide Level 27, Anion Gap 7, Blood Urea Nitrogen 14, Creatinine 1.1, Estimat Glomerular Filtration Rate > 60, Glucose Level 86, Calcium Level 8.1L, Total Bilirubin 0.5, Aspartate Amino Transf (AST/SGOT) 38H, Alanine Aminotransferase (ALT/SGPT) 38, Alkaline Phosphatase 47, Total Protein 7.4, Albumin 3.3L, Globulin 4.1, Albumin/Globulin Ratio 0.8L Current Medications Medications (Trade) Dose Ordered Sig/Sidney Route PRN Reason Start Time Stop Time Status Last Admin Dose Admin Acetaminophen (Tylenol) 650 mg Q6H PRN ORAL HEADACHE OR FEVER >100 10/09/20 22:45 11/08/20 22:44 10/13/20 22:27 Alfuzosin HCl (Uroxatrol) 10 mg DAILY ORAL 10/10/20 09:00 11/09/20 08:59 10/22/20 09:27 Amlodipine Besylate (Norvasc) 10 mg DAILY ORAL 10/10/20 09:00 11/09/20 08:59 10/22/20 09:27 Chlorhexidine Gluconate (Beryl-Hex 2%) 1 applic QHS TOPIC 10/09/20 21:00 01/07/21 20:59 10/19/20 21:57 Enoxaparin Sodium (Lovenox) 40 mg DAILY SUBQ 10/16/20 09:00 01/14/21 08:59 10/22/20 09:28 Irbesartan (Avapro) 150 mg Q12HR ORAL 10/09/20 21:00 01/07/21 20:59 10/22/20 09:28 Metoprolol Succinate (Toprol XL) 50 mg DAILY ORAL 10/10/20 09:00 01/08/21 08:59 10/22/20 09:27 Pantoprazole (Protonix) 40 mg DAILY ORAL 10/10/20 09:00 11/09/20 08:59 10/22/20 09:27 Quetiapine Fumarate (SEROqueL) 300 mg Q12HR ORAL 10/09/20 21:00 11/23/20 20:59 10/22/20 09:27 Risperidone (RisperDAL) 2 mg Q12HR ORAL 10/09/20 21:00 11/23/20 20:59 10/22/20 09:26 Assessment/Plan Assessment/Plan 1. COVID-19 infection - Saturating at 92% on RA - s/p Azithromycin and ceftriaxone IV once in ER -Given his normoxemia without fever, clear lung sounds, and negative CXR, no specific therapy is required at this time -Continue monitoring SaO2 and provide supplemental oxygen as needed - Repeat CXR 10/12 shows subsegmental atelectasis in the left lung base. 2. Conjunctivitis - s/p ciprofloxacin ophthalmic solution 3. Elevated CRP, D-dimer - s/p Lovenox in ER - Venous duplex US negative for DVT - on Lovenox 4. Hypertension - on metoprolol and amlodipine - monitor BP 5. Hypokalemia - per primary MD 7. New onset fever with tachycardia; resolved - better on antipyretics - likely sepsis secondary to COVID-19, vs UTI - consider UA if fever persistent - Venous duplex US negative for DVT - management per primary MD, and ID 8. Atelectasis - monitor at this point given his normoxemia 9. anorexia - per pt, he "can't see" his food due to conjunctivitis/corneal abrasion - seen by GI, who recommends feeding assistance prior to considering appetite stimulants - management per GI Medically stable for dc to SNF with oxygen if SaO2 >92% from pulmonary stand point Discharge pending placement The care for this patient was discussed with my supervising physician. Time spent for this case was approximately 31 minutes. Piyush Dent Oct 22, 2020 14:10
--- NOTE | 2020-10-22 14:30 | NUR ---
NURSE NOTES: Patient stated that " My vision is getting worse." RN checked patient's eyes, still noted with redness, but no discharges but complains of itchiness, patient was able to read big letters from 3 feets away. RN followed up with Dr. Liu who cate judge call Dr. Harsh Bowser. RN followed up with Dr. Bowser who said patient needs to seen by opthalmologist due to corneal abrasion. Will follow up.
[2020-10-22 16:00] VITALS: BP 136/87
--- NOTE | 2020-10-22 19:40 | NUR ---
NURSE HAND-OFF: Important Events on Shift: complains of vision changes. MD Liu and Hellen mota is aware. Patient Status: stable Diet: regular Pending Orders: Pending Results/Labs: Pending MD notification: Latest Vital Signs: Temperature 98.3 , Pulse 97 , B/P 136 /87 , Respiratory Rate 18 , O2 SAT 94 , Room Air, O2 Flow Rate 2.0 . Vital Sign Comment: Latest Barreto Fall Score: 25 Fall Risk: Medium Risk Safety Measures: Call light Within Reach, Bed Alarm Zone 1, Side Rails Side Rails x2, Bed position Low and Locked. Fall Precautions: Yellow Socks Door Sign Patient Fall Education Report given to Johnny and endorsed plan of care .
--- NOTE | 2020-10-22 19:45 | NUR ---
NURSE NOTES: Received patient awake, ambulating in room, noted to have steady gait. No s/s of acute distress, cooperative with care. IV access patent, dressing dry and intact. Bed low and locked, patient wearing non slip socks. Patient verbalized having a bowel movement today.
[2020-10-22 20:00] VITALS: BP 134/77
--- NOTE | 2020-10-22 20:44 | General Progress Note ---
Subjective ROS Limited/Unobtainable: Yes Allergies: Coded Allergies: No Known Allergies (Unverified , 07/31/20) Objective Last 24 Hour Vital Signs Date Time Temp Pulse Resp B/P (MAP) Pulse Ox O2 Delivery O2 Flow Rate FiO2 10/22/20 16:00 98.3 97 18 136/87 (103) 94 10/22/20 12:00 98.0 101 20 137/84 (101) 93 10/22/20 09:28 130/86 10/22/20 09:27 118 130/86 10/22/20 09:27 118 130/86 10/22/20 09:00 Room Air 10/22/20 08:00 98.6 118 21 131/81 (98) 93 10/22/20 04:00 97.7 81 18 110/56 (74) 94 10/21/20 21:50 Nasal Cannula 2.0 Intake and Output 10/21/20 10/22/20 19:00 07:00 Intake Total 800 ml 350 ml Balance 800 ml 350 ml Intake Oral 800 ml 350 ml # Voids 2 3 Laboratory Tests 10/22/20 04:35: White Blood Count 4.2L, Red Blood Count 3.86L, Hemoglobin 11.5L, Hematocrit 34.7L, Mean Corpuscular Volume 90, Mean Corpuscular Hemoglobin 29.9, Mean Corpuscular Hemoglobin Concent 33.2, Red Cell Distribution Width 12.8, Platelet Count 398, Mean Platelet Volume 4.7L, Neutrophils (%) (Auto) 49.2, Lymphocytes (%) (Auto) 38.4, Monocytes (%) (Auto) 10.9H, Eosinophils (%) (Auto) 1.2, Basophils (%) (Auto) 0.3, Sodium Level 138, Potassium Level 4.2, Chloride Level 104, Carbon Dioxide Level 27, Anion Gap 7, Blood Urea Nitrogen 14, Creatinine 1.1, Estimat Glomerular Filtration Rate > 60, Glucose Level 86, Calcium Level 8 .1L, Total Bilirubin 0.5, Aspartate Amino Transf (AST/SGOT) 38H, Alanine Aminotransferase (ALT/SGPT) 38, Alkaline Phosphatase 47, Total Protein 7.4, Albumin 3.3L, Globulin 4.1, Albumin/Globulin Ratio 0.8L Height (Feet): 5 Height (Inches): 9.00 Weight (Pounds): 193 Assessment/Plan Problem List: (1) Headache ICD Codes: R51.9 - Headache, unspecified SNOMED: 53775046 (2) COVID-19 ICD Codes: U07.1 - COVID-19 SNOMED: 744079095 Status: progressing, tolerating diet Assessment/Plan: covid + conjuctivitis.rx per dr mota there is no opthomologist that can and will see the pt for opthomology consult( iasked from various sources without any success) Deng Liu MD Oct 22, 2020 20:44
[2020-10-22] MEDS: Dyna-Hex 2% Top Sol 2oz TOPIC SCH (20:59)
--- NOTE | 2020-10-22 22:04 | General Progress Note ---
Subjective Allergies: Coded Allergies: No Known Allergies (Unverified , 07/31/20) Subjective above noted d/w RN eating OK no abd pain Objective Last 24 Hour Vital Signs Date Time Temp Pulse Resp B/P (MAP) Pulse Ox O2 Delivery O2 Flow Rate FiO2 10/22/20 21:43 Room Air 10/22/20 20:59 136/87 10/22/20 20:00 97.5 84 18 134/77 (96) 94 10/22/20 16:00 98.3 97 18 136/87 (103) 94 10/22/20 12:00 98.0 101 20 137/84 (101) 93 10/22/20 09:28 130/86 10/22/20 09:27 118 130/86 10/22/20 09:27 118 130/86 10/22/20 09:00 Room Air 10/22/20 08:00 98.6 118 21 131/81 (98) 93 10/22/20 04:00 97.7 81 18 110/56 (74) 94 Intake and Output 10/21/20 10/22/20 19:00 07:00 Intake Total 800 ml 350 ml Balance 800 ml 350 ml Intake Oral 800 ml 350 ml # Voids 2 3 Laboratory Tests 10/22/20 04:35: White Blood Count 4.2L, Red Blood Count 3.86L, Hemoglobin 11.5L, Hematocrit 34.7L, Mean Corpuscular Volume 90, Mean Corpuscular Hemoglobin 29.9, Mean Corpuscular Hemoglobin Concent 33.2, Red Cell Distribution Width 12.8, Platelet Count 398, Mean Platelet Volume 4.7L, Neutrophils (%) (Auto) 49.2, Lymphocytes (%) (Auto) 38.4, Monocytes (%) (Auto) 10.9H, Eosinophils (%) (Auto) 1.2, Basophils (%) (Auto) 0.3, Sodium Level 138, Potassium Level 4.2, Chloride Level 104, Carbon Dioxide Level 27, Anion Gap 7, Blood Urea Nitrogen 14, Creatinine 1. 1, Estimat Glomerular Filtration Rate > 60, Glucose Level 86, Calcium Level 8.1L , Total Bilirubin 0.5, Aspartate Amino Transf (AST/SGOT) 38H, Alanine Aminotransferase (ALT/SGPT) 38, Alkaline Phosphatase 47, Total Protein 7.4, Albumin 3.3L, Globulin 4.1, Albumin/Globulin Ratio 0.8L Height (Feet): 5 Height (Inches): 9.00 Weight (Pounds): 193 Objective exam limited due to COVID isolation Assessment/Plan Status: progressing, tolerating diet Assessment/Plan: Assessment - Poor po intake - improved - Decreased visual acuity and conjunctivitis - ? COVID related - COVID PNA - COPD - Schizoaffective disorder, anxiety - hepatitis C Recommendations - eye care - push po - outpatient HCV management Rudolph Griggs MD Oct 22, 2020 22:04
[2020-10-23] VITALS: BP 130/70
[2020-10-23 04:00] VITALS: BP 146/83
--- NOTE | 2020-10-23 06:44 | Hematology/Onc Progress Note ---
Assessment/Plan Assessment/Plan 1. Leukopenia is related likely to COVID-19 infection+++++++++++ --> Patient is currently saturating well on room air, per pulm --> s/p Azithromycin and ceftriaxone IV once in ER --> Continue monitoring SaO2 and provide supplemental oxygen as needed --> smear reviewed --> wbc 4.7-->3.8 --> neupogen prn 2. Anemia due to likely chronic disease, infection --> trend hgb as needed --> hgb 13->11 3. Elevated CRP, D-dimer --> s/p Lovenox in ER --> DVX ppx recommended --> duplex lower leg r/o dvt 4. Hypertension --> recommend continuing home antihypertensive meds --> as per cards 5. Covid 19 as per pulm/id 6. Dvt ppx lovenox sq Appreciate consultation and marly Rn Subjective HEENT: Denies: no symptoms, eye pain, blurred vision, tearing, double vision, ear pain, ear discharge, nose pain, nose congestion, throat pain, throat swelling, mouth pain, mouth swelling, other Cardiovascular: Denies: no symptoms, chest pain, edema, irregular heart rate, lightheadedness, palpitations, syncope, other Respiratory: Denies: no symptoms, cough, shortness of breath, SOB with excertion, SOB at rest, sputum, wheezing, other Gastrointestinal/Abdominal: Denies: no symptoms, abdomen distended, abdominal pain, black stools, tarry stools, blood in stool, constipated, diarrhea, difficulty swallowing, nausea, poor appetite, poor fluid intake, rectal bleeding, vomiting, other Neurologic/Psychiatric: Denies: no symptoms, anxiety, depressed, emotional problems, headache, numbness, paresthesia, pre-existing deficit, seizure, tingling, tremors, weakness, other Endocrine: Denies: no symptoms, excessive sweating, flushing, intolerance to cold, intolerance to heat, increased hunger, increased thirst, increased urine, unexplained weight gain, unexplained weight loss, other Hematologic/Lymphatic: Denies: no symptoms, anemia, easy bleeding, easy bruising, adenopathy, other Allergies: Coded Allergies: No Known Allergies (Unverified , 07/31/20) Subjective 10/11 awake, no new events, no bleeding, labs noted, ambulating 1/1 covid iso, is on ra, no bleeding, labs noted, meds reviewed 10/13: on RA saturating well no acute events. 10/14: no distress on O2 NC 2L, slight temp last night UA collected 10/15 is awake, alert, is on 2lnc, no bleeding, labs are noted 10/16 on 1lnc, no bleeding, labs ordered for am, no new events 10/17 nc, no bleeding, labs are pending, can't see, potential optho eval 10/18 nc, no bleeding, wbc 3, no new changes, dw rn 10/19: no acute events, no bleeding reported. 10/21 confused, remains disoriented, no bleeding, labs reviewed 10/22 confused, labs reviewed, meds noted, no bleeding, labs reviewed 10/23 less abd pain, no bleeding, labs noted, meds reviewed Objective Objective Current Medications Medications (Trade) Dose Ordered Sig/Sidney Route PRN Reason Start Time Stop Time Status Last Admin Dose Admin Acetaminophen (Tylenol) 650 mg Q6H PRN ORAL HEADACHE OR FEVER >100 10/09/20 22:45 11/08/20 22:44 10/13/20 22:27 Alfuzosin HCl (Uroxatrol) 10 mg DAILY ORAL 10/10/20 09:00 11/09/20 08:59 10/22/20 09:27 Amlodipine Besylate (Norvasc) 10 mg DAILY ORAL 10/10/20 09:00 11/09/20 08:59 10/22/20 09:27 Chlorhexidine Gluconate (Beryl-Hex 2%) 1 applic QHS TOPIC 10/09/20 21:00 01/07/21 20:59 10/19/20 21:57 Enoxaparin Sodium (Lovenox) 40 mg DAILY SUBQ 10/16/20 09:00 01/14/21 08:59 10/22/20 09:28 Irbesartan (Avapro) 150 mg Q12HR ORAL 10/09/20 21:00 01/07/21 20:59 10/22/20 20:59 Metoprolol Succinate (Toprol XL) 50 mg DAILY ORAL 10/10/20 09:00 01/08/21 08:59 10/22/20 09:27 Pantoprazole (Protonix) 40 mg DAILY ORAL 10/10/20 09:00 11/09/20 08:59 10/22/20 09:27 Quetiapine Fumarate (SEROqueL) 300 mg Q12HR ORAL 10/09/20 21:00 11/23/20 20:59 10/22/20 20:59 Risperidone (RisperDAL) 2 mg Q12HR ORAL 10/09/20 21:00 11/23/20 20:59 10/22/20 20:59 Last 24 Hour Vital Signs Date Time Temp Pulse Resp B/P (MAP) Pulse Ox O2 Delivery O2 Flow Rate FiO2 10/23/20 04:00 98.0 87 18 146/83 (104) 94 10/23/20 00:00 97.8 90 18 130/70 (90) 94 10/22/20 21:43 Room Air 10/22/20 20:59 136/87 10/22/20 20:00 97.5 84 18 134/77 (96) 94 10/22/20 16:00 98.3 97 18 136/87 (103) 94 10/22/20 12:00 98.0 101 20 137/84 (101) 93 10/22/20 09:28 130/86 10/22/20 09:27 118 130/86 10/22/20 09:27 118 130/86 10/22/20 09:00 Room Air 10/22/20 08:00 98.6 118 21 131/81 (98) 93 10/22/20 04:00 97.7 81 18 110/56 (74) 94 10/21/20 21:50 Nasal Cannula 2.0 10/21/20 20:20 122/73 10/21/20 20:00 98.0 95 18 137/76 (96) 92 10/21/20 16:00 97.9 88 20 122/73 (89) 92 10/21/20 12:00 98.6 95 20 132/74 (93) 94 10/21/20 09:00 Nasal Cannula 2.0 10/21/20 08:38 143/78 10/21/20 08:37 114 143/78 10/21/20 08:37 114 143/78 10/21/20 08:00 96.6 114 20 143/78 (99) 93 Intake and Output 10/22/20 10/23/20 19:00 07:00 Intake Total 900 ml Balance 900 ml Other 900 ml Labs Test 10/22/20 04:35 White Blood Count 4.2 K/UL (4.8-10.8) Red Blood Count 3.86 M/UL (4.70-6.10) Hemoglobin 11.5 G/DL (14.2-18.0) Hematocrit 34.7 % (42.0-52.0) Mean Corpuscular Volume 90 FL (80-99) Mean Corpuscular Hemoglobin 29.9 PG (27.0-31.0) Mean Corpuscular Hemoglobin Concent 33.2 G/DL (32.0-36.0) Red Cell Distribution Width 12.8 % (11.6-14.8) Platelet Count 398 K/UL (150-450) Mean Platelet Volume 4.7 FL (6.5-10.1) Neutrophils (%) (Auto) 49.2 % (45.0-75.0) Lymphocytes (%) (Auto) 38.4 % (20.0-45.0) Monocytes (%) (Auto) 10.9 % (1.0-10.0) Eosinophils (%) (Auto) 1.2 % (0.0-3.0) Basophils (%) (Auto) 0.3 % (0.0-2.0) Sodium Level 138 MMOL/L (136-145) Potassium Level 4.2 MMOL/L (3.5-5.1) Chloride Level 104 MMOL/L (98-107) Carbon Dioxide Level 27 MMOL/L (21-32) Anion Gap 7 mmol/L (5-15) Blood Urea Nitrogen 14 mg/dL (7-18) Creatinine 1.1 MG/DL (0.55-1.30) Estimat Glomerular Filtration Rate > 60 mL/min (>60) Glucose Level 86 MG/DL (74-106) Calcium Level 8.1 MG/DL (8.5-10.1) Total Bilirubin 0.5 MG/DL (0.2-1.0) Aspartate Amino Transf (AST/SGOT) 38 U/L (15-37) Alanine Aminotransferase (ALT/SGPT) 38 U/L (12-78) Alkaline Phosphatase 47 U/L (46-116) Total Protein 7.4 G/DL (6.4-8.2) Albumin 3.3 G/DL (3.4-5.0) Globulin 4.1 g/dL Albumin/Globulin Ratio 0.8 (1.0-2.7) Height (Feet): 5 Height (Inches): 9.00 Weight (Pounds): 193 Objective PHYSICAL EXAMINATION: VITAL SIGNS: reviewed HEENT: Head exam reveals that the head is normocephalic, atraumatic without deformity or unusual swelling. CHEST AND LUNGS: Reveals clear, normal, symmetrical breath sounds with no a dventitious sounds. CARDIOVASCULAR: Reveals normal S1, S2 without murmurs, rubs, or clicks. ABDOMEN: Obese, soft with no tenderness or organomegaly. A well-healed midline linear vertical scar in the abdomen ++ RECTAL: Deferred. MUSCULOSKELETAL: There is no tenderness to palpation. Range of motion is normal. NEUROLOGICAL: Alert and oriented x3 , nonfocal Alek Sabillon MD Oct 23, 2020 06:44
[2020-10-23 07:25] LABS: BASOPHILS % (AUTO) 0.6 % (0.0-2.0); EOSINOPHILS % (AUTO) 0.7 % (0.0-3.0); HEMATOCRIT 35.3 % (42.0-52.0); HEMOGLOBIN 11.7 G/DL (14.2-18.0); LYMPHOCYTES % (AUTO) 44.5 % (20.0-45.0); MEAN CORPUSCULAR VOLUME 90 FL (80-99); MONOCYTES % (AUTO) 12.1 % (1.0-10.0); NEUTROPHILS % (AUTO) 42.2 % (45.0-75.0); PLATELET COUNT 435 K/UL (150-450); RED BLOOD COUNT 3.95 M/UL (4.70-6.10); RED CELL DISTRIBUTION WIDTH 12.5 % (11.6-14.8); WHITE BLOOD COUNT 4.5 K/UL (4.8-10.8)
--- NOTE | 2020-10-23 07:25 | NUR ---
HAND-OFF: Report given to GONZALEZ Johnston.
--- NOTE | 2020-10-23 07:30 | NUR ---
NURSE NOTES: Received report from GONZALEZ Turner. Patient observed to be awake, alert, and oriented x3. Seen on room air, lying in bed, no s/sx of SOB/Distress, no c/o any pain or discomfort. Patient with IV site on Rhand gauge 24, asymptomatic, inplace and intact. Bed placed on lowest and locked, call light placed within reach and will continue to monitor for any changes in patient's condition.
[2020-10-23 07:46] LABS: ANION GAP 9 mmol/L (5-15); BLOOD UREA NITROGEN 14 mg/dL (7-18); CALCIUM 8.1 MG/DL (8.5-10.1); CARBON DIOXIDE 26 MMOL/L (21-32); CHLORIDE 103 MMOL/L (98-107); CREATININE 1.1 MG/DL (0.55-1.30); POTASSIUM 4.2 MMOL/L (3.5-5.1); SODIUM 138 MMOL/L (136-145)
[2020-10-23 08:00] VITALS: BP 146/79
[2020-10-23] MEDS: Irbesartan 150mg tablet ORAL SCH ×2 (08:33→20:25)
[2020-10-23] MEDS: Metoprolol Succinate XL 50mg tab ORAL SCH (08:34)
[2020-10-23] MEDS: Enoxaparin 40mg Inj SUBQ SCH (08:36)
--- NOTE | 2020-10-23 09:30 | Pulmonology Progress Note ---
Subjective ROS Limited/Unobtainable: Yes Interval Events: none reported per nursing Constitutional: Reports: other - feels better; Denies: fever HEENT: Repors: other - eye pain Respiratory: Reports: no symptoms Cardiovascular: Reports: no symptoms Gastrointestinal/Abdominal: Reports: no symptoms Genitourinary: Reports: no symptoms Allergies: Coded Allergies: No Known Allergies (Unverified , 07/31/20) Objective Last 24 Hour Vital Signs Date Time Temp Pulse Resp B/P (MAP) Pulse Ox O2 Delivery O2 Flow Rate FiO2 10/23/20 08:34 92 146/79 10/23/20 08:33 146/79 10/23/20 08:33 92 146/79 10/23/20 08:00 98.2 92 20 146/79 (101) 99 10/23/20 04:00 98.0 87 18 146/83 (104) 94 10/23/20 00:00 97.8 90 18 130/70 (90) 94 10/22/20 21:43 Room Air 10/22/20 20:59 136/87 10/22/20 20:00 97.5 84 18 134/77 (96) 94 10/22/20 16:00 98.3 97 18 136/87 (103) 94 10/22/20 12:00 98.0 101 20 137/84 (101) 93 Intake and Output 10/22/20 10/23/20 19:00 07:00 Intake Total 900 ml 400 ml Balance 900 ml 400 ml Other 900 ml 400 ml # Voids 2 Objective 10/23 saturating at 99% on 1L NC 10/22 saturating at 92% on RA 10/19 saturating at 89% on RA; 92-94% on 3L NC 10/18 desated on room air to 89%, back on 2L NC saturating at 92% 10/17 no change; remains on 2L NC since weaning failed again yesterday 10/16 saturating at 94% on 1L NC; failed weaning yesterday 10/15 now saturating at 95% on 1L NC; will wean again as tolerated 10/14 saturating at 95% on 2L NC 10/12 saturating at 97% on 2L NC 10/11 now on 2L saturating well 10/10 on room air saturating well General Appearance: WD/WN, no acute distress Respiratory: lungs clear Cardiovascular: normal rate, regular rhythm Abdomen: soft, non tender Laboratory Tests 10/23/20 07:05: White Blood Count 4.5L, Red Blood Count 3.95L, Hemoglobin 11.7L, Hematocrit 35.3L, Mean Corpuscular Volume 90, Mean Corpuscular Hemoglobin 29.6, Mean Corpuscular Hemoglobin Concent 33.0, Red Cell Distribution Width 12.5, Platelet Count 435, Mean Platelet Volume 4.7L, Neutrophils (%) (Auto) 42.2L, Lymphocytes (%) (Auto) 44.5, Monocytes (%) (Auto) 12.1H, Eosinophils (%) (Auto) 0.7, Basophils (%) (Auto) 0.6, Sodium Level 138, Potassium Level 4.2, Chloride Level 103, Carbon Dioxide Level 26, Anion Gap 9, Blood Urea Nitrogen 14, Creatinine 1.1, Estimat Glomerular Filtration Rate > 60, Glucose Level 91, Calcium Level 8.1L Current Medications Medications (Trade) Dose Ordered Sig/Sidney Route PRN Reason Start Time Stop Time Status Last Admin Dose Admin Acetaminophen (Tylenol) 650 mg Q6H PRN ORAL HEADACHE OR FEVER >100 10/09/20 22:45 11/08/20 22:44 10/13/20 22:27 Alfuzosin HCl (Uroxatrol) 10 mg DAILY ORAL 10/10/20 09:00 11/09/20 08:59 10/23/20 08:25 Amlodipine Besylate (Norvasc) 10 mg DAILY ORAL 10/10/20 09:00 11/09/20 08:59 10/23/20 08:33 Chlorhexidine Gluconate (Beryl-Hex 2%) 1 applic QHS TOPIC 10/09/20 21:00 01/07/21 20:59 10/19/20 21:57 Enoxaparin Sodium (Lovenox) 40 mg DAILY SUBQ 10/16/20 09:00 01/14/21 08:59 10/23/20 08:36 Irbesartan (Avapro) 150 mg Q12HR ORAL 10/09/20 21:00 01/07/21 20:59 10/23/20 08:33 Metoprolol Succinate (Toprol XL) 50 mg DAILY ORAL 10/10/20 09:00 01/08/21 08:59 10/23/20 08:34 Pantoprazole (Protonix) 40 mg DAILY ORAL 10/10/20 09:00 11/09/20 08:59 10/23/20 08:25 Quetiapine Fumarate (SEROqueL) 300 mg Q12HR ORAL 10/09/20 21:00 11/23/20 20:59 10/23/20 08:25 Risperidone (RisperDAL) 2 mg Q12HR ORAL 10/09/20 21:00 11/23/20 20:59 10/23/20 08:34 Assessment/Plan Assessment/Plan 1. COVID-19 infection - Saturating at 99% on 1L NC - s/p Azithromycin and ceftriaxone IV once in ER -Given his normoxemia without fever, clear lung sounds, and negative CXR, no specific therapy is required at this time -Continue monitoring SaO2 and provide supplemental oxygen as needed - Repeat CXR 10/12 shows subsegmental atelectasis in the left lung base. 2. Conjunctivitis - s/p ciprofloxacin ophthalmic solution - no ophthalmology consult available per primary MD despite much effort 3. Elevated CRP, D-dimer - s/p Lovenox in ER - Venous duplex US negative for DVT - on Lovenox 4. Hypertension - on metoprolol and amlodipine - monitor BP 5. Hypokalemia - per primary MD 7. New onset fever with tachycardia; resolved - better on antipyretics - likely sepsis secondary to COVID-19, vs UTI - consider UA if fever persistent - Venous duplex US negative for DVT - management per primary MD, and ID 8. Atelectasis - monitor at this point given his normoxemia 9. anorexia - per pt, he "can't see" his food due to conjunctivitis/corneal abrasion - seen by GI, who recommends feeding assistance prior to considering appetite stimulants - management per GI Medically stable for dc to SNF with oxygen if SaO2 >92% from pulmonary stand point Discharge pending placement The care for this patient was discussed with my supervising physician. Time spent for this case was approximately 31 minutes. Piyush Dent Oct 23, 2020 09:30
--- NOTE | 2020-10-23 11:43 | Cardiac Electrophysiology PN ---
Assessment/Plan Assessment/Plan 1. Shortness of breath due to COVID-19 infection. On RA. Fu by Dr. Shell. 2. Hypertension. On amlodipine 10 mg daily, Toprol-XL 50 mg daily and Avapro 150 bid 3. Psychiatric history. 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 Subjective In isolation for Covid on RA off tele.Placement pending Objective Last 24 Hour Vital Signs Date Time Temp Pulse Resp B/P (MAP) Pulse Ox O2 Delivery O2 Flow Rate FiO2 10/23/20 09:00 Room Air 10/23/20 08:34 92 146/79 10/23/20 08:33 146/79 10/23/20 08:33 92 146/79 10/23/20 08:00 98.2 92 20 146/79 (101) 99 10/23/20 04:00 98.0 87 18 146/83 (104) 94 10/23/20 00:00 97.8 90 18 130/70 (90) 94 10/22/20 21:43 Room Air 10/22/20 20:59 136/87 10/22/20 20:00 97.5 84 18 134/77 (96) 94 10/22/20 16:00 98.3 97 18 136/87 (103) 94 10/22/20 12:00 98.0 101 20 137/84 (101) 93 Intake and Output 10/22/20 10/23/20 19:00 07:00 Intake Total 900 ml 400 ml Balance 900 ml 400 ml Other 900 ml 400 ml # Voids 2 Laboratory Tests Test 10/23/20 07:05 White Blood Count 4.5 K/UL (4.8-10.8) L Red Blood Count 3.95 M/UL (4.70-6.10) L Hemoglobin 11.7 G/DL (14.2-18.0) L Hematocrit 35.3 % (42.0-52.0) L Mean Corpuscular Volume 90 FL (80-99) Mean Corpuscular Hemoglobin 29.6 PG (27.0-31.0) Mean Corpuscular Hemoglobin Concent 33.0 G/DL (32.0-36.0) Red Cell Distribution Width 12.5 % (11.6-14.8) Platelet Count 435 K/UL (150-450) Mean Platelet Volume 4.7 FL (6.5-10.1) L Neutrophils (%) (Auto) 42.2 % (45.0-75.0) L Lymphocytes (%) (Auto) 44.5 % (20.0-45.0) Monocytes (%) (Auto) 12.1 % (1.0-10.0) H Eosinophils (%) (Auto) 0.7 % (0.0-3.0) Basophils (%) (Auto) 0.6 % (0.0-2.0) Sodium Level 138 MMOL/L (136-145) Potassium Level 4.2 MMOL/L (3.5-5.1) Chloride Level 103 MMOL/L (98-107) Carbon Dioxide Level 26 MMOL/L (21-32) Anion Gap 9 mmol/L (5-15) Blood Urea Nitrogen 14 mg/dL (7-18) Creatinine 1.1 MG/DL (0.55-1.30) Estimat Glomerular Filtration Rate > 60 mL/min (>60) Glucose Level 91 MG/DL (74-106) Calcium Level 8.1 MG/DL (8.5-10.1) L Objective HEAD AND NECK: Shows mild JVD. Bilateral eyelids are edematous and erythematous. LUNGS: Clear. CARDIOVASCULAR: Shows regular S1 and S2 with no gallop. ABDOMEN: Soft. EXTREMITIES: 1+ pitting edema. Kirit Dave MD Oct 23, 2020 11:43
[2020-10-23 11:50] VITALS: BP 126/66
--- NOTE | 2020-10-23 12:00 | NUR ---
CASE MANAGEMENT:REVIEW 10/22/20 SI;COVID PNEUMONIA 98.6 118 21 131/81 93% ON RA AST 38 ALB 3.3 IS;LOVENOX SQ QD PROTONIX PO QD TOPROL XL PO QD NORVASC PO QD UROXATRAL PO QD AVAPRO O Q12 MED SURG STATUS DCP;FROM [facility]
[2020-10-23 16:00] VITALS: BP 145/82
--- NOTE | 2020-10-23 18:55 | General Progress Note ---
Subjective Allergies: Coded Allergies: No Known Allergies (Unverified , 07/31/20) Subjective above noted no complaints eating OK Objective Last 24 Hour Vital Signs Date Time Temp Pulse Resp B/P (MAP) Pulse Ox O2 Delivery O2 Flow Rate FiO2 10/23/20 16:00 98.3 77 21 145/82 (103) 99 10/23/20 11:50 98.2 95 20 126/66 (86) 99 10/23/20 09:00 Room Air 10/23/20 08:34 92 146/79 10/23/20 08:33 146/79 10/23/20 08:33 92 146/79 10/23/20 08:00 98.2 92 20 146/79 (101) 99 10/23/20 04:00 98.0 87 18 146/83 (104) 94 10/23/20 00:00 97.8 90 18 130/70 (90) 94 10/22/20 21:43 Room Air 10/22/20 20:59 136/87 10/22/20 20:00 97.5 84 18 134/77 (96) 94 Intake and Output 10/22/20 10/23/20 19:00 07:00 Intake Total 900 ml 400 ml Balance 900 ml 400 ml Other 900 ml 400 ml # Voids 2 Laboratory Tests 10/23/20 07:05: White Blood Count 4.5L, Red Blood Count 3.95L, Hemoglobin 11.7L, Hematocrit 35.3L, Mean Corpuscular Volume 90, Mean Corpuscular Hemoglobin 29.6, Mean Corpuscular Hemoglobin Concent 33.0, Red Cell Distribution Width 12.5, Platelet Count 435, Mean Platelet Volume 4.7L, Neutrophils (%) (Auto) 42.2L, Lymphocytes (%) (Auto) 44.5, Monocytes (%) (Auto) 12.1H, Eosinophils (%) (Auto) 0.7, Basophils (%) (Auto) 0.6, Sodium Level 138, Potassium Level 4.2, Chloride Level 103, Carbon Dioxide Level 26, Anion Gap 9, Blood Urea Nitrogen 14, Creatinine 1.1, Estimat Glomerular Filtration Rate > 60, Glucose Level 91, Calcium Level 8.1L Height (Feet): 5 Height (Inches): 9.00 Weight (Pounds): 193 Objective NCAT supple CTA RR abd soft no edema Assessment/Plan Status: progressing, tolerating diet Assessment/Plan: Assessment - Poor po intake - improved - Decreased visual acuity and conjunctivitis - ? COVID related - COVID PNA - COPD - Schizoaffective disorder, anxiety - hepatitis C Recommendations - eye care - push po - outpatient HCV management Rudolph Griggs MD Oct 23, 2020 18:55
--- NOTE | 2020-10-23 19:07 | NUR ---
NURSE HAND-OFF: Important Events on Shift:no new events Patient Status: stable Diet: reg Pending Orders: n/a Pending Results/Labs:n/a Pending MD notification:n/a Latest Vital Signs: Temperature 98.3 , Pulse 77 , B/P 145 /82 , Respiratory Rate 21 , O2 SAT 99 , Room Air, O2 Flow Rate 2.0 . Vital Sign Comment: stable Latest Barreto Fall Score: 25 Fall Risk: Medium Risk Safety Measures: Call light Within Reach, Bed Alarm Zone 1, Side Rails Side Rails x2, Bed position Low and Locked. Fall Precautions: Yellow Socks Door Sign Patient Fall Education Report given to GONZALEZ Turner.
[2020-10-23 20:00] VITALS: BP 124/74
[2020-10-23] MEDS: Dyna-Hex 2% Top Sol 2oz TOPIC SCH (20:26)
--- NOTE | 2020-10-23 23:07 | General Progress Note ---
Subjective ROS Limited/Unobtainable: Yes Allergies: Coded Allergies: No Known Allergies (Unverified , 07/31/20) Objective Last 24 Hour Vital Signs Date Time Temp Pulse Resp B/P (MAP) Pulse Ox O2 Delivery O2 Flow Rate FiO2 10/23/20 20:25 145/82 10/23/20 16:00 98.3 77 21 145/82 (103) 99 10/23/20 11:50 98.2 95 20 126/66 (86) 99 10/23/20 09:00 Room Air 10/23/20 08:34 92 146/79 10/23/20 08:33 146/79 10/23/20 08:33 92 146/79 10/23/20 08:00 98.2 92 20 146/79 (101) 99 10/23/20 04:00 98.0 87 18 146/83 (104) 94 10/23/20 00:00 97.8 90 18 130/70 (90) 94 Intake and Output 10/22/20 10/23/20 19:00 07:00 Intake Total 900 ml 400 ml Balance 900 ml 400 ml Other 900 ml 400 ml # Voids 2 Laboratory Tests 10/23/20 07:05: White Blood Count 4.5L, Red Blood Count 3.95L, Hemoglobin 11.7L, Hematocrit 35.3L, Mean Corpuscular Volume 90, Mean Corpuscular Hemoglobin 29.6, Mean Corpuscular Hemoglobin Concent 33.0, Red Cell Distribution Width 12.5, Platelet Count 435, Mean Platelet Volume 4.7L, Neutrophils (%) (Auto) 42.2L, Lymphocytes (%) (Auto) 44.5, Monocytes (%) (Auto) 12.1H, Eosinophils (%) (Auto) 0.7, Basophils (%) (Auto) 0.6, Sodium Level 138, Potassium Level 4.2, Chloride Level 103, Carbon Dioxide Level 26, Anion Gap 9, Blood Urea Nitrogen 14, Creatinine 1.1, Estimat Glomerular Filtration Rate > 60, Glucose Level 91, Calcium Level 8.1L Height (Feet): 5 Height (Inches): 9.00 Weight (Pounds): 193 Assessment/Plan Problem List: (1) Headache ICD Codes: R51.9 - Headache, unspecified SNOMED: [id number] (2) COVID-19 ICD Codes: U07.1 - COVID-19 SNOMED: 507964545 Status: progressing, tolerating diet Assessment/Plan: covid + conjuctivitis.rx per dr mota supportive care wasnt able to get opthomologist to see him for consult afebrile Deng Liu MD Oct 23, 2020 23:07
[2020-10-24] VITALS: BP 147/87
[2020-10-24 04:00] VITALS: BP 158/82
--- NOTE | 2020-10-24 06:51 | Hematology/Onc Progress Note ---
Assessment/Plan Assessment/Plan 1. Leukopenia is related likely to COVID-19 infection+++++++++++ --> Patient is currently saturating well on room air, per pulm --> s/p Azithromycin and ceftriaxone IV once in ER --> Continue monitoring SaO2 and provide supplemental oxygen as needed --> smear reviewed --> wbc 4.7-->3.8->4 --> neupogen prn 2. Anemia due to likely chronic disease, infection --> trend hgb as needed --> hgb 13->11-->11 3. Elevated CRP, D-dimer --> s/p Lovenox in ER --> DVX ppx recommended --> duplex lower leg r/o dvt 4. Hypertension --> recommend continuing home antihypertensive meds --> as per cards 5. Covid 19 as per pulm/id 6. Dvt ppx lovenox sq Appreciate consultation and marly Rn Subjective Cardiovascular: Denies: no symptoms, chest pain, edema, irregular heart rate, lightheadedness, palpitations, syncope, other Respiratory: Denies: no symptoms, cough, shortness of breath, SOB with excertion, SOB at rest, sputum, wheezing, other Gastrointestinal/Abdominal: Denies: no symptoms, abdomen distended, abdominal pain, black stools, tarry stools, blood in stool, constipated, diarrhea, difficulty swallowing, nausea, poor appetite, poor fluid intake, rectal bleeding, vomiting, other Genitourinary: Denies: no symptoms, burning, discharge, frequency, flank pain, hematuria, incontinence, pain, urgency, other Neurologic/Psychiatric: Denies: no symptoms, anxiety, depressed, emotional problems, headache, numbness, paresthesia, pre-existing deficit, seizure, tingling, tremors, weakness, other Endocrine: Denies: no symptoms, excessive sweating, flushing, intolerance to cold, intolerance to heat, increased hunger, increased thirst, increased urine, unexplained weight gain, unexplained weight loss, other Allergies: Coded Allergies: No Known Allergies (Unverified , 07/31/20) Subjective 10/11 awake, no new events, no bleeding, labs noted, ambulating 10/12 covid iso, is on ra, no bleeding, labs noted, meds reviewed 10/13: on RA saturating well no acute events. 10/14: no distress on O2 NC 2L, slight temp last night UA collected 10/15 is awake, alert, is on 2lnc, no bleeding, labs are noted 10/16 on 1lnc, no bleeding, labs ordered for am, no new events 10/17 nc, no bleeding, labs are pending, can't see, potential optho eval 10/18 nc, no bleeding, wbc 3, no new changes, dw rn 10/19: no acute events, no bleeding reported. 10/21 confused, remains disoriented, no bleeding, labs reviewed 10/22 confused, labs reviewed, meds noted, no bleeding, labs reviewed 10/23 less abd pain, no bleeding, labs noted, meds reviewed 10/24 labs noted, no night sweats, wbc 4, hgb 11 Objective Objective Current Medications Medications (Trade) Dose Ordered Sig/Sidney Route PRN Reason Start Time Stop Time Status Last Admin Dose Admin Acetaminophen (Tylenol) 650 mg Q6H PRN ORAL HEADACHE OR FEVER >100 10/09/20 22:45 11/08/20 22:44 10/13/20 22:27 Alfuzosin HCl (Uroxatrol) 10 mg DAILY ORAL 10/10/20 09:00 11/09/20 08:59 10/23/20 08:25 Amlodipine Besylate (Norvasc) 10 mg DAILY ORAL 10/10/20 09:00 11/09/20 08:59 10/23/20 08:33 Chlorhexidine Gluconate (Beryl-Hex 2%) 1 applic QHS TOPIC 10/09/20 21:00 01/07/21 20:59 10/19/20 21:57 Enoxaparin Sodium (Lovenox) 40 mg DAILY SUBQ 10/16/20 09:00 01/14/21 08:59 10/23/20 08:36 Irbesartan (Avapro) 150 mg Q12HR ORAL 10/09/20 21:00 01/07/21 20:59 10/23/20 20:25 Metoprolol Succinate (Toprol XL) 50 mg DAILY ORAL 10/10/20 09:00 01/08/21 08:59 10/23/20 08:34 Pantoprazole (Protonix) 40 mg DAILY ORAL 10/10/20 09:00 1/29/21 08:59 10/23/20 08:25 Quetiapine Fumarate (SEROqueL) 300 mg Q12HR ORAL 10/09/20 21:00 11/23/20 20:59 10/23/20 20:25 Risperidone (RisperDAL) 2 mg Q12HR ORAL 10/09/20 21:00 11/23/20 20:59 10/23/20 20:25 Last 24 Hour Vital Signs Date Time Temp Pulse Resp B/P (MAP) Pulse Ox O2 Delivery O2 Flow Rate FiO2 10/24/20 04:00 96.8 91 18 158/82 (107) 95 10/24/20 00:00 97.0 87 20 147/87 (107) 99 10/23/20 23:20 Room Air 10/23/20 20:25 145/82 10/23/20 20:00 97.5 88 20 124/74 (91) 99 10/23/20 16:00 98.3 77 21 145/82 (103) 99 10/23/20 11:50 98.2 95 20 126/66 (86) 99 10/23/20 09:00 Room Air 10/23/20 08:34 92 146/79 10/23/20 08:33 146/79 10/23/20 08:33 92 146/79 10/23/20 08:00 98.2 92 20 146/79 (101) 99 10/23/20 04:00 98.0 87 18 146/83 (104) 94 10/23/20 00:00 97.8 90 18 130/70 (90) 94 10/22/20 21:43 Room Air 10/22/20 20:59 136/87 10/22/20 20:00 97.5 84 18 134/77 (96) 94 10/22/20 16:00 98.3 97 18 136/87 (103) 94 10/22/20 12:00 98.0 101 20 137/84 (101) 93 10/22/20 09:28 130/86 10/22/20 09:27 118 130/86 10/22/20 09:27 118 130/86 10/22/20 09:00 Room Air 10/22/20 08:00 98.6 118 21 131/81 (98) 93 Intake and Output 10/23/20 10/24/20 19:00 07:00 Intake Total 480 ml 360 ml Balance 480 ml 360 ml Intake Oral 480 ml Other 360 ml # Voids 2 Labs Test 10/22/20 04:35 10/23/20 07:05 White Blood Count 4.2 K/UL (4.8-10.8) 4.5 K/UL (4.8-10.8) Red Blood Count 3.86 M/UL (4.70-6.10) 3.95 M/UL (4.70-6.10) Hemoglobin 11.5 G/DL (14.2-18.0) 11.7 G/DL (14.2-18.0) Hematocrit 34.7 % (42.0-52.0) 35.3 % (42.0-52.0) Mean Corpuscular Volume 90 FL (80-99) 90 FL (80-99) Mean Corpuscular Hemoglobin 29.9 PG (27.0-31.0) 29.6 PG (27.0-31.0) Mean Corpuscular Hemoglobin Concent 33.2 G/DL (32.0-36.0) 33.0 G/DL (32.0-36.0) Red Cell Distribution Width 12.8 % (11.6-14.8) 12.5 % (11.6-14.8) Platelet Count 398 K/UL (150-450) 435 K/UL (150-450) Mean Platelet Volume 4.7 FL (6.5-10.1) 4.7 FL (6.5-10.1) Neutrophils (%) (Auto) 49.2 % (45.0-75.0) 42.2 % (45.0-75.0) Lymphocytes (%) (Auto) 38.4 % (20.0-45.0) 44.5 % (20.0-45.0) Monocytes (%) (Auto) 10.9 % (1.0-10.0) 12.1 % (1.0-10.0) Eosinophils (%) (Auto) 1.2 % (0.0-3.0) 0.7 % (0.0-3.0) Basophils (%) (Auto) 0.3 % (0.0-2.0) 0.6 % (0.0-2.0) Sodium Level 138 MMOL/L (136-145) 138 MMOL/L (136-145) Potassium Level 4.2 MMOL/L (3.5-5.1) 4.2 MMOL/L (3.5-5.1) Chloride Level 104 MMOL/L (98-107) 103 MMOL/L (98-107) Carbon Dioxide Level 27 MMOL/L (21-32) 26 MMOL/L (21-32) Anion Gap 7 mmol/L (5-15) 9 mmol/L (5-15) Blood Urea Nitrogen 14 mg/dL (7-18) 14 mg/dL (7-18) Creatinine 1.1 MG/DL (0.55-1.30) 1.1 MG/DL (0.55-1.30) Estimat Glomerular Filtration Rate > 60 mL/min (>60) > 60 mL/min (>60) Glucose Level 86 MG/DL (74-106) 91 MG/DL (74-106) Calcium Level 8.1 MG/DL (8.5-10.1) 8.1 MG/DL (8.5-10.1) Total Bilirubin 0.5 MG/DL (0.2-1.0) Aspartate Amino Transf (AST/SGOT) 38 U/L (15-37) Alanine Aminotransferase (ALT/SGPT) 38 U/L (12-78) Alkaline Phosphatase 47 U/L (46-116) Total Protein 7.4 G/DL (6.4-8.2) Albumin 3.3 G/DL (3.4-5.0) Globulin 4.1 g/dL Albumin/Globulin Ratio 0.8 (1.0-2.7) Height (Feet): 5 Height (Inches): 9.00 Weight (Pounds): 193 Objective PHYSICAL EXAMINATION: VITAL SIGNS: reviewed HEENT: Head exam reveals that the head is normocephalic, atraumatic without deformity or unusual swelling. CHEST AND LUNGS: Reveals clear, normal, symmetrical breath sounds with no adventitious sounds. CARDIOVASCULAR: Reveals normal S1, S2 without murmurs, rubs, or clicks. ABDOMEN: Obese, soft with no tenderness or organomegaly. A well-healed midline linear vertical scar in the abdomen ++ RECTAL: Deferred. MUSCULOSKELETAL: There is no tenderness to palpation. Range of motion is normal. NEUROLOGICAL: Alert and oriented x3 , nonfocal Alek Sabillon MD Oct 24, 2020 06:51
--- NOTE | 2020-10-24 07:31 | NUR ---
HAND-OFF: Report given to GONZALEZ Sanchez.
--- NOTE | 2020-10-24 07:50 | NUR ---
RN received the SBAR note from GONZALEZ Bunch. RN received the patient in bed, sleeping. He showed no s/s of respiratory distress on room air. No s/s of pain noted. IV intact, patent, dry, flushing without symptoms. Bed in lowest position and locked. Call light within reach. Will continue to monitor.
[2020-10-24 08:00] VITALS: BP 126/68
[2020-10-24 09:56] LABS: BASOPHILS % (AUTO) 0.7 % (0.0-2.0); EOSINOPHILS % (AUTO) 0.1 % (0.0-3.0); HEMATOCRIT 34.5 % (42.0-52.0); HEMOGLOBIN 11.8 G/DL (14.2-18.0); LYMPHOCYTES % (AUTO) 29.9 % (20.0-45.0); MEAN CORPUSCULAR VOLUME 85 FL (80-99); MONOCYTES % (AUTO) 9.9 % (1.0-10.0); NEUTROPHILS % (AUTO) 59.5 % (45.0-75.0); PLATELET COUNT 469 K/UL (150-450); RED BLOOD COUNT 4.03 M/UL (4.70-6.10); RED CELL DISTRIBUTION WIDTH 12.2 % (11.6-14.8); WHITE BLOOD COUNT 5.7 K/UL (4.8-10.8)
[2020-10-24 10:11] LABS: CALCIUM 9.1 MG/DL (8.5-10.1); CREATININE 1.4 MG/DL (0.55-1.30); POTASSIUM 4.5 MMOL/L (3.5-5.1)
--- NOTE | 2020-10-24 10:13 | NUR ---
CONSTRUCTION PLUMBER NOTE MESSAGE LEFT FOR DR LOPEZ IN RE TO DC PLAN. AWAITING CALL BACK.
--- NOTE | 2020-10-24 10:28 | Cardiac Electrophysiology PN ---
Assessment/Plan Assessment/Plan 1. Shortness of breath due to COVID-19 infection. On 1 liter NC. Fu by Dr. Shell. 2. Hypertension. On amlodipine 10 mg daily, Toprol-XL 50 mg daily and Avapro 150 bid 3. Psychiatric history. DW welder operator pending Subjective Subjective In isolation for Covid on 1 liter NC off tele. Placement pending when off O2 Objective Last 24 Hour Vital Signs Date Time Temp Pulse Resp B/P (MAP) Pulse Ox O2 Delivery O2 Flow Rate FiO2 10/24/20 04:00 96.8 91 18 158/82 (107) 95 10/24/20 00:00 97.0 87 20 147/87 (107) 99 10/23/20 23:20 Room Air 10/23/20 20:25 145/82 10/23/20 20:00 97.5 88 20 124/74 (91) 99 10/23/20 16:00 98.3 77 21 145/82 (103) 99 10/23/20 11:50 98.2 95 20 126/66 (86) 99 Intake and Output 10/23/20 10/24/20 19:00 07:00 Intake Total 480 ml 360 ml Balance 480 ml 360 ml Intake Oral 480 ml Other 360 ml # Voids 2 Laboratory Tests Test 10/24/20 08:56 White Blood Count Pending Red Blood Count Pending Hemoglobin Pending Hematocrit Pending Mean Corpuscular Volume Pending Mean Corpuscular Hemoglobin Pending Mean Corpuscular Hemoglobin Concent Pending Red Cell Distribution Width Pending Platelet Count Pending Mean Platelet Volume Pending Neutrophils (%) (Auto) Pending Lymphocytes (%) (Auto) Pending Monocytes (%) (Auto) Pending Eosinophils (%) (Auto) Pending Basophils (%) (Auto) Pending Sodium Level 139 MMOL/L (136-145) Potassium Level 4.5 MMOL/L (3.5-5.1) Chloride Level 103 MMOL/L (98-107) Carbon Dioxide Level 28 MMOL/L (21-32) Anion Gap 8 mmol/L (5-15) Blood Urea Nitrogen 20 mg/dL (7-18) H Creatinine 1.4 MG/DL (0.55-1.30) H Estimat Glomerular Filtration Rate 50.5 mL/min (>60) Glucose Level 105 MG/DL (74-106) Calcium Level 9.1 MG/DL (8.5-10.1) Objective HEAD AND NECK: Shows mild JVD. Bilateral eyelids are edematous and erythematous. LUNGS: Clear. CARDIOVASCULAR: Shows regular S1 and S2 with no gallop. ABDOMEN: Soft. EXTREMITIES: 1+ pitting edema. Kirit Dave MD Oct 24, 2020 10:28
[2020-10-24] MEDS: Metoprolol Succinate XL 50mg tab ORAL SCH (10:59)
[2020-10-24] MEDS: Irbesartan 150mg tablet ORAL SCH ×2 (11:00→20:16)
[2020-10-24] MEDS: Enoxaparin 40mg Inj SUBQ SCH (11:02)
[2020-10-24 12:00] VITALS: BP 127/70
--- NOTE | 2020-10-24 14:51 | NUR ---
CASE MANAGEMENT:REVIEW SI;COVID POSITIVE 97.9 105 20 158/82 95% ON RA BUN 20 CR 1.4 IS;LOVENOX SQ QD PROTONIX PO QD NORVASC PO QD TOPROL XL PO QD AVAPRO PO Q12 MED SURG STATUS DCP;FROM [facility]
--- NOTE | 2020-10-24 15:04 | Pulmonology Progress Note ---
Subjective ROS Limited/Unobtainable: Yes Interval Events: none reported per nursing Constitutional: Reports: other - feels better; Denies: fever HEENT: Repors: other - eye pain Respiratory: Reports: no symptoms Cardiovascular: Reports: no symptoms Gastrointestinal/Abdominal: Reports: no symptoms Genitourinary: Reports: no symptoms Allergies: Coded Allergies: No Known Allergies (Unverified , 07/31/20) Objective Last 24 Hour Vital Signs Date Time Temp Pulse Resp B/P (MAP) Pulse Ox O2 Delivery O2 Flow Rate FiO2 10/24/20 12:00 97.9 93 20 127/70 (89) 96 10/24/20 11:00 126/68 10/24/20 10:59 105 126/68 10/24/20 10:59 105 126/68 10/24/20 08:00 97.9 105 20 126/68 (87) 95 10/24/20 04:00 96.8 91 18 158/82 (107) 95 10/24/20 00:00 97.0 87 20 147/87 (107) 99 10/23/20 23:20 Room Air 10/23/20 20:25 145/82 10/23/20 20:00 97.5 88 20 124/74 (91) 99 10/23/20 16:00 98.3 77 21 145/82 (103) 99 Intake and Output 10/23/20 10/24/20 19:00 07:00 Intake Total 480 ml 360 ml Balance 480 ml 360 ml Intake Oral 480 ml Other 360 ml # Voids 2 Objective 10/24 now on room air saturating well 10/23 saturating at 99% on 1L NC 10/22 saturating at 92% on RA 10/19 saturating at 89% on RA; 92-94% on 3L NC 10/18 desated on room air to 89%, back on 2L NC saturating at 92% 10/17 no change; remains on 2L NC since weaning failed again yesterday 10/16 saturating at 94% on 1L NC; failed weaning yesterday 10/15 now saturating at 95% on 1L NC; will wean again as tolerated 10/14 saturating at 95% on 2L NC 10/12 saturating at 97% on 2L NC 10/11 now on 2L saturating well 10/10 on room air saturating well General Appearance: WD/WN, no acute distress Respiratory: lungs clear Cardiovascular: normal rate, regular rhythm Abdomen: soft, non tender Laboratory Tests 10/24/20 08:56: White Blood Count 5.7, Red Blood Count 4.03L, Hemoglobin 11.8L, Hematocrit 34.5L , Mean Corpuscular Volume 85, Mean Corpuscular Hemoglobin 29.4, Mean Corpuscular Hemoglobin Concent 34.4, Red Cell Distribution Width 12.2, Platelet Count 469H, Mean Platelet Volume 5.1L, Neutrophils (%) (Auto) 59.5, Lymphocytes (%) (Auto) 29.9, Monocytes (%) (Auto) 9.9, Eosinophils (%) (Auto) 0.1, Basophils (%) (Auto) 0.7, Sodium Level 139, Potassium Level 4.5, Chloride Level 103, Carbon Dioxide Level 28, Anion Gap 8, Blood Urea Nitrogen 20H, Creatinine 1.4H, Estimat Glomerular Filtration Rate 50.5, Glucose Level 105, Calcium Level 9.1 Current Medications Medications (Trade) Dose Ordered Sig/Sidney Route PRN Reason Start Time Stop Time Status Last Admin Dose Admin Acetaminophen (Tylenol) 650 mg Q6H PRN ORAL HEADACHE OR FEVER >100 10/09/20 22:45 11/08/20 22:44 10/13/20 22:27 Alfuzosin HCl (Uroxatrol) 10 mg DAILY ORAL 10/10/20 09:00 11/09/20 08:59 10/24/20 11:00 Amlodipine Besylate (Norvasc) 10 mg DAILY ORAL 10/10/20 09:00 11/09/20 08:59 10/24/20 10:59 Chlorhexidine Gluconate (Beryl-Hex 2%) 1 applic QHS TOPIC 10/09/20 21:00 01/07/21 20:59 10/19/20 21:57 Enoxaparin Sodium (Lovenox) 40 mg DAILY SUBQ 10/16/20 09:00 01/14/21 08:59 10/24/20 11:02 Irbesartan (Avapro) 150 mg Q12HR ORAL 10/09/20 21:00 01/07/21 20:59 10/24/20 11:00 Metoprolol Succinate (Toprol XL) 50 mg DAILY ORAL 10/10/20 09:00 01/08/21 08:59 10/24/20 10:59 Pantoprazole (Protonix) 40 mg DAILY ORAL 10/10/20 09:00 11/09/20 08:59 10/24/20 10:59 Quetiapine Fumarate (SEROqueL) 300 mg Q12HR ORAL 10/09/20 21:00 11/23/20 20:59 10/24/20 11:00 Risperidone (RisperDAL) 2 mg Q12HR ORAL 10/09/20 21:00 11/23/20 20:59 10/24/20 11:10 Assessment/Plan Assessment/Plan 1. COVID-19 infection - Saturating well on room air - s/p Azithromycin and ceftriaxone IV once in ER -Given his normoxemia without fever, clear lung sounds, and negative CXR, no specific therapy is required at this time -Continue monitoring SaO2 and provide supplemental oxygen as needed - Repeat CXR 10/12 shows subsegmental atelectasis in the left lung base. 2. Conjunctivitis - s/p ciprofloxacin ophthalmic solution - no ophthalmology consult available per primary MD despite much effort 3. Elevated CRP, D-dimer - s/p Lovenox in ER - Venous duplex US negative for DVT - on Lovenox 4. Hypertension - on metoprolol and amlodipine - monitor BP 5. Hypokalemia - per primary MD 7. New onset fever with tachycardia; resolved - better on antipyretics - likely sepsis secondary to COVID-19, vs UTI - consider UA if fever persistent - Venous duplex US negative for DVT - management per primary MD, and ID 8. Atelectasis - monitor at this point given his normoxemia 9. anorexia - per pt, he "can't see" his food due to conjunctivitis/corneal abrasion - seen by GI, who recommends feeding assistance prior to considering appetite stimulants - management per GI Medically stable for dc to SNF from pulmonary stand point Discharge pending placement The care for this patient was discussed with my supervising physician. Time spent for this case was approximately 31 minutes. Piyush Dent Oct 24, 2020 15:04
[2020-10-24 16:00] VITALS: BP 123/76
--- NOTE | 2020-10-24 16:10 | Infectious Diseases Prog Note ---
Assessment/Plan Assessment/Plan IMPRESSION: 1. Sepsis 2. COVID-19 disease. 3. Conjunctivitis treated 4. History of COPD. 5. History of hepatitis C. 6. History of corneal abrasion. 7. Atelectasis RECOMMENDATIONS: Observe off antibiotic Artificial tear Outpatient ophthalmology consult Subjective ROS Limited/Unobtainable: Yes Allergies: Coded Allergies: No Known Allergies (Unverified , 07/31/20) Objective Last 24 Hour Vital Signs Date Time Temp Pulse Resp B/P (MAP) Pulse Ox O2 Delivery O2 Flow Rate FiO2 10/24/20 12:00 97.9 93 20 127/70 (89) 96 10/24/20 11:00 126/68 10/24/20 10:59 105 126/68 10/24/20 10:59 105 126/68 10/24/20 08:00 97.9 105 20 126/68 (87) 95 10/24/20 04:00 96.8 91 18 158/82 (107) 95 10/24/20 00:00 97.0 87 20 147/87 (107) 99 10/23/20 23:20 Room Air 10/23/20 20:25 145/82 10/23/20 20:00 97.5 88 20 124/74 (91) 99 Height (Feet): 5 Height (Inches): 9.00 Weight (Pounds): 193 HEENT: mucous membranes moist Respiratory/Chest: no respiratory distress Cardiovascular: normal rate Abdomen: soft, non tender Extremities: no edema Neurologic/Psychiatric: other - sleeping Laboratory Tests Test 10/24/20 08:56 White Blood Count 5.7 K/UL (4.8-10.8) Red Blood Count 4.03 M/UL (4.70-6.10) L Hemoglobin 11.8 G/DL (14.2-18.0) L Hematocrit 34.5 % (42.0-52.0) L Mean Corpuscular Volume 85 FL (80-99) Mean Corpuscular Hemoglobin 29.4 PG (27.0-31.0) Mean Corpuscular Hemoglobin Concent 34.4 G/DL (32.0-36.0) Red Cell Distribution Width 12.2 % (11.6-14.8) Platelet Count 469 K/UL (150-450) H Mean Platelet Volume 5.1 FL (6.5-10.1) L Neutrophils (%) (Auto) 59.5 % (45.0-75.0) Lymphocytes (%) (Auto) 29.9 % (20.0-45.0) Monocytes (%) (Auto) 9.9 % (1.0-10.0) Eosinophils (%) (Auto) 0.1 % (0.0-3.0) Basophils (%) (Auto) 0.7 % (0.0-2.0) Sodium Level 139 MMOL/L (136-145) Potassium Level 4.5 MMOL/L (3.5-5.1) Chloride Level 103 MMOL/L (98-107) Carbon Dioxide Level 28 MMOL/L (21-32) Anion Gap 8 mmol/L (5-15) Blood Urea Nitrogen 20 mg/dL (7-18) H Creatinine 1.4 MG/DL (0.55-1.30) H Estimat Glomerular Filtration Rate 50.5 mL/min (>60) Glucose Level 105 MG/DL (74-106) Calcium Level 9.1 MG/DL (8.5-10.1) Current Medications Medications (Trade) Dose Ordered Sig/Sidney Route PRN Reason Start Time Stop Time Status Last Admin Dose Admin Acetaminophen (Tylenol) 650 mg Q6H PRN ORAL HEADACHE OR FEVER >100 10/09/20 22:45 11/08/20 22:44 10/13/20 22:27 Alfuzosin HCl (Uroxatrol) 10 mg DAILY ORAL 10/10/20 09:00 11/09/20 08:59 10/24/20 11:00 Amlodipine Besylate (Norvasc) 10 mg DAILY ORAL 10/10/20 09:00 11/09/20 08:59 10/24/20 10:59 Chlorhexidine Gluconate (Beryl-Hex 2%) 1 applic QHS TOPIC 10/09/20 21:00 01/07/21 20:59 10/19/20 21:57 Enoxaparin Sodium (Lovenox) 40 mg DAILY SUBQ 10/16/20 09:00 01/14/21 08:59 10/24/20 11:02 Irbesartan (Avapro) 150 mg Q12HR ORAL 10/09/20 21:00 01/07/21 20:59 10/24/20 11:00 Metoprolol Succinate (Toprol XL) 50 mg DAILY ORAL 10/10/20 09:00 01/08/21 08:59 10/24/20 10:59 Pantoprazole (Protonix) 40 mg DAILY ORAL 10/10/20 09:00 11/09/20 08:59 10/24/20 10:59 Quetiapine Fumarate (SEROqueL) 300 mg Q12HR ORAL 10/09/20 21:00 11/23/20 20:59 10/24/20 11:00 Risperidone (RisperDAL) 2 mg Q12HR ORAL 10/09/20 21:00 11/23/20 20:59 10/24/20 11:10 Harsh Bowser MD Oct 24, 2020 16:10
--- NOTE | 2020-10-24 18:00 | NUR ---
NURSE NOTES: Patient no s/s of infection except for conjunctivitis (MD previously notified). No s/s of electrolyte imbalance. Contact and droplet precautions are implemented for Covid positive. Skin protection measures are implemented. Environmental temperature is appropriate. Will continue to monitor.
--- NOTE | 2020-10-24 19:21 | General Progress Note ---
Subjective ROS Limited/Unobtainable: Yes Allergies: Coded Allergies: No Known Allergies (Unverified , 07/31/20) Objective Last 24 Hour Vital Signs Date Time Temp Pulse Resp B/P (MAP) Pulse Ox O2 Delivery O2 Flow Rate FiO2 10/24/20 12:00 97.9 93 20 127/70 (89) 96 10/24/20 11:00 126/68 10/24/20 10:59 105 126/68 10/24/20 10:59 105 126/68 10/24/20 08:00 97.9 105 20 126/68 (87) 95 10/24/20 04:00 96.8 91 18 158/82 (107) 95 10/24/20 00:00 97.0 87 20 147/87 (107) 99 10/23/20 23:20 Room Air 10/23/20 20:25 145/82 10/23/20 20:00 97.5 88 20 124/74 (91) 99 Intake and Output 10/23/20 10/24/20 19:00 07:00 Intake Total 480 ml 360 ml Balance 480 ml 360 ml Intake Oral 480 ml Other 360 ml # Voids 2 Laboratory Tests 10/24/20 08:56: White Blood Count 5.7, Red Blood Count 4.03L, Hemoglobin 11.8L, Hematocrit 34.5L , Mean Corpuscular Volume 85, Mean Corpuscular Hemoglobin 29.4, Mean Corpuscular Hemoglobin Concent 34.4, Red Cell Distribution Width 12.2, Platelet Count 469H, Mean Platelet Volume 5.1L, Neutrophils (%) (Auto) 59.5, Lymphocytes (%) (Auto) 29.9, Monocytes (%) (Auto) 9.9, Eosinophils (%) (Auto) 0.1, Basophils (%) (Auto) 0.7, Sodium Level 139, Potassium Level 4.5, Chloride Level 103, Carbon Dioxide Level 28, Anion Gap 8, Blood Urea Nitrogen 20H, Creatinine 1.4H, Estimat Glomerular Filtration Rate 50.5, Glucose Level 105, Calcium Level 9.1 Height (Feet): 5 Height (Inches): 9.00 Weight (Pounds): 193 Assessment/Plan Problem List: (1) Headache ICD Codes: R51.9 - Headache, unspecified SNOMED: 75163380 (2) COVID-19 ICD Codes: U07.1 - COVID-19 SNOMED: 432441580 Status: progressing, tolerating diet Assessment/Plan: covid + requires oxygen per rn Deng Liu MD Oct 24, 2020 19:21
[2020-10-24 20:00] VITALS: BP 132/87
--- NOTE | 2020-10-24 20:00 | NUR ---
NURSE NOTES: Patient received walking/pacing around the room, gait steady. Nonskid socks provided for patient. Needs attended. Appears in no acute distress. Will continue with plan of care.
--- NOTE | 2020-10-24 20:10 | NUR ---
NURSE HAND-OFF: Important Events on Shift:o2 around 94% ambulating on room air Patient Status: stable Diet: regular Pending Orders: n/a Pending Results/Labs:n/a Pending MD notification:n/a Latest Vital Signs: Temperature 96.6 , Pulse 67 , B/P 132 /87 , Respiratory Rate 18 , O2 SAT 96 , Room Air, O2 Flow Rate 2.0 . Vital Sign Comment: stable Latest Barreto Fall Score: 25 Fall Risk: Medium Risk Safety Measures: Call light Within Reach, Bed Alarm Zone 1, Side Rails Side Rails x2, Bed position Low and Locked. Fall Precautions: Yellow Socks Door Sign Patient Fall Education Report given to Ambrosio.
[2020-10-24] MEDS: Dyna-Hex 2% Top Sol 2oz TOPIC SCH (20:18)
[2020-10-25] VITALS: BP 125/76
[2020-10-25 04:00] VITALS: BP 115/76
[2020-10-25 06:08] LABS: BASOPHILS % (AUTO) 0.4 % (0.0-2.0); EOSINOPHILS % (AUTO) 0.7 % (0.0-3.0); HEMATOCRIT 36.4 % (42.0-52.0); HEMOGLOBIN 12.1 G/DL (14.2-18.0); LYMPHOCYTES % (AUTO) 34.5 % (20.0-45.0); MEAN CORPUSCULAR VOLUME 86 FL (80-99); MONOCYTES % (AUTO) 13.2 % (1.0-10.0); NEUTROPHILS % (AUTO) 51.2 % (45.0-75.0); PLATELET COUNT 485 K/UL (150-450); RED BLOOD COUNT 4.25 M/UL (4.70-6.10); RED CELL DISTRIBUTION WIDTH 12.1 % (11.6-14.8); WHITE BLOOD COUNT 5.4 K/UL (4.8-10.8)
--- NOTE | 2020-10-25 06:35 | Hematology/Onc Progress Note ---
Assessment/Plan Assessment/Plan 1. Leukopenia is related likely to COVID-19 infection+++++++++++ --> Patient is currently saturating well on room air, per pulm --> s/p Azithromycin and ceftriaxone IV once in ER --> Continue monitoring SaO2 and provide supplemental oxygen as needed --> smear reviewed --> wbc 4.7-->3.8->4 --> neupogen prn 2. Anemia due to likely chronic disease, infection --> trend hgb as needed --> hgb 13->11-->11 3. Elevated CRP, D-dimer --> s/p Lovenox in ER --> DVX ppx recommended --> duplex lower leg r/o dvt 4. Hypertension --> recommend continuing home antihypertensive meds --> as per cards 5. Covid 19 as per pulm/id 6. Dvt ppx lovenox sq Appreciate consultation and dw Rn Subjective Constitutional: Denies: no symptoms, chills, fever, malaise, weakness, other HEENT: Denies: no symptoms, eye pain, blurred vision, tearing, double vision, ear pain, ear discharge, nose pain, nose congestion, throat pain, throat swelling, mouth pain, mouth swelling, other Cardiovascular: Denies: no symptoms, chest pain, edema, irregular heart rate, lightheadedness, palpitations, syncope, other Respiratory: Denies: no symptoms, cough, shortness of breath, SOB with excertion, SOB at rest, sputum, wheezing, other Genitourinary: Denies: no symptoms, burning, discharge, frequency, flank pain, hematuria, incontinence, pain, urgency, other Neurologic/Psychiatric: Denies: no symptoms, anxiety, depressed, emotional problems, headache, numbness, paresthesia, pre-existing deficit, seizure, tingling, tremors, weakness, other Endocrine: Denies: no symptoms, excessive sweating, flushing, intolerance to cold, intolerance to heat, increased hunger, increased thirst, increased urine, unexplained weight gain, unexplained weight loss, other Hematologic/Lymphatic: Denies: no symptoms, anemia, easy bleeding, easy bruising, adenopathy, other Allergies: Coded Allergies: No Known Allergies (Unverified , 07/31/20) Subjective 10/11 awake, no new events, no bleeding, labs noted, ambulating 10/12 covid iso, is on ra, no bleeding, labs noted, meds reviewed 10/13: on RA saturating well no acute events. 10/14: no distress on O2 NC 2L, slight temp last night UA collected 10/15 is awake, alert, is on 2lnc, no bleeding, labs are noted 10/16 on 1lnc, no bleeding, labs ordered for am, no new events 10/17 nc, no bleeding, labs are pending, can't see, potential optho eval 10/18 nc, no bleeding, wbc 3, no new changes, dw rn 10/19: no acute events, no bleeding reported. 10/21 confused, remains disoriented, no bleeding, labs reviewed 10/22 confused, labs reviewed, meds noted, no bleeding, labs reviewed 10/23 less abd pain, no bleeding, labs noted, meds reviewed 10/24 labs noted, no night sweats, wbc 4, hgb 11 10/25 no new changes, meds reviewed, no bleeding Objective Objective Current Medications Medications (Trade) Dose Ordered Sig/Sidney Route PRN Reason Start Time Stop Time Status Last Admin Dose Admin Acetaminophen (Tylenol) 650 mg Q6H PRN ORAL HEADACHE OR FEVER >100 10/09/20 22:45 11/08/20 22:44 10/13/20 22:27 Alfuzosin HCl (Uroxatrol) 10 mg DAILY ORAL 10/10/20 09:00 11/09/20 08:59 10/24/20 11:00 Amlodipine Besylate (Norvasc) 10 mg DAILY ORAL 10/10/20 09:00 11/09/20 08:59 10/24/20 10:59 Artificial Tears (Akwa-Tears) 2 drop Q8H PRN BOTH EYES Dry Eyes 10/24/20 16:15 11/23/20 16:14 Chlorhexidine Gluconate (Beryl-Hex 2%) 1 applic QHS TOPIC 10/09/20 21:00 01/07/21 20:59 10/19/20 21:57 Enoxaparin Sodium (Lovenox) 40 mg DAILY SUBQ 10/16/20 09:00 01/14/21 08:59 10/24/20 11:02 Irbesartan (Avapro) 150 mg Q12HR ORAL 10/09/20 21:00 01/07/21 20:59 10/24/20 20:16 Metoprolol Succinate (Toprol XL) 50 mg DAILY ORAL 10/10/20 09:00 01/08/21 08:59 10/24/20 10:59 Pantoprazole (Protonix) 40 mg DAILY ORAL 10/10/20 09:00 11/09/20 08:59 10/24/20 10:59 Quetiapine Fumarate (SEROqueL) 300 mg Q12HR ORAL 10/09/20 21:00 11/23/20 20:59 10/24/20 20:16 Risperidone (RisperDAL) 2 mg Q12HR ORAL 10/09/20 21:00 11/23/20 20:59 10/24/20 20:16 Last 24 Hour Vital Signs Date Time Temp Pulse Resp B/P (MAP) Pulse Ox O2 Delivery O2 Flow Rate FiO2 10/25/20 04:00 97.2 102 17 115/76 (89) 94 10/25/20 00:00 97.9 91 17 125/76 (92) 90 10/24/20 21:00 Room Air 10/24/20 20:16 132/87 10/24/20 20:00 98.1 103 20 132/87 (102) 94 10/24/20 16:00 96.6 67 18 123/76 (92) 96 10/24/20 12:00 97.9 93 20 127/70 (89) 96 10/24/20 11:00 126/68 10/24/20 10:59 105 126/68 10/24/20 10:59 105 126/68 10/24/20 08:00 97.9 105 20 126/68 (87) 95 10/24/20 04:00 96.8 91 18 158/82 (107) 95 10/24/20 00:00 97.0 87 20 147/87 (107) 99 10/23/20 23:20 Room Air 10/23/20 20:25 145/82 10/23/20 20:00 97.5 88 20 124/74 (91) 99 10/23/20 16:00 98.3 77 21 145/82 (103) 99 10/23/20 11:50 98.2 95 20 126/66 (86) 99 10/23/20 09:00 Room Air 10/23/20 08:34 92 146/79 10/23/20 08:33 146/79 10/23/20 08:33 92 146/79 10/23/20 08:00 98.2 92 20 146/79 (101) 99 Intake and Output 10/24/20 10/25/20 19:00 07:00 Intake Total 500 ml 500 ml Balance 500 ml 500 ml Intake Oral 500 ml Other 500 ml # Voids 2 4 # Bowel Movements 1 Labs Test 10/23/20 07:05 10/24/20 08:56 10/25/20 04:40 White Blood Count 4.5 K/UL (4.8-10.8) 5.7 K/UL (4.8-10.8) 5.4 K/UL (4.8-10.8) Red Blood Count 3.95 M/UL (4.70-6.10) 4.03 M/UL (4.70-6.10) 4.25 M/UL (4.70-6.10) Hemoglobin 11.7 G/DL (14.2-18.0) 11.8 G/DL (14.2-18.0) 12.1 G/DL (14.2-18.0) Hematocrit 35.3 % (42.0-52.0) 34.5 % (42.0-52.0) 36.4 % (42.0-52.0) Mean Corpuscular Volume 90 FL (80-99) 85 FL (80-99) 86 FL (80-99) Mean Corpuscular Hemoglobin 29.6 PG (27.0-31.0) 29.4 PG (27.0-31.0) 28.5 PG (27.0-31.0) Mean Corpuscular Hemoglobin Concent 33.0 G/DL (32.0-36.0) 34.4 G/DL (32.0-36.0) 33.2 G/DL (32.0-36.0) Red Cell Distribution Width 12.5 % (11.6-14.8) 12.2 % (11.6-14.8) 12.1 % (11.6-14.8) Platelet Count 435 K/UL (150-450) 469 K/UL (150-450) 485 K/UL (150-450) Mean Platelet Volume 4.7 FL (6.5-10.1) 5.1 FL (6.5-10.1) 5.3 FL (6.5-10.1) Neutrophils (%) (Auto) 42.2 % (45.0-75.0) 59.5 % (45.0-75.0) 51.2 % (45.0-75.0) Lymphocytes (%) (Auto) 44.5 % (20.0-45.0) 29.9 % (20.0-45.0) 34.5 % (20.0-45.0) Monocytes (%) (Auto) 12.1 % (1.0-10.0) 9.9 % (1.0-10.0) 13.2 % (1.0-10.0) Eosinophils (%) (Auto) 0.7 % (0.0-3.0) 0.1 % (0.0-3.0) 0.7 % (0.0-3.0) Basophils (%) (Auto) 0.6 % (0.0-2.0) 0.7 % (0.0-2.0) 0.4 % (0.0-2.0) Sodium Level 138 MMOL/L (136-145) 139 MMOL/L (136-145) Potassium Level 4.2 MMOL/L (3.5-5.1) 4.5 MMOL/L (3.5-5.1) Chloride Level 103 MMOL/L (98-107) 103 MMOL/L (98-107) Carbon Dioxide Level 26 MMOL/L (21-32) 28 MMOL/L (21-32) Anion Gap 9 mmol/L (5-15) 8 mmol/L (5-15) Blood Urea Nitrogen 14 mg/dL (7-18) 20 mg/dL (7-18) Creatinine 1.1 MG/DL (0.55-1.30) 1.4 MG/DL (0.55-1.30) Estimat Glomerular Filtration Rate > 60 mL/min (>60) 50.5 mL/min (>60) Glucose Level 91 MG/DL (74-106) 105 MG/DL (74-106) Calcium Level 8.1 MG/DL (8.5-10.1) 9.1 MG/DL (8.5-10.1) Height (Feet): 5 Height (Inches): 9.00 Weight (Pounds): 193 Objective PHYSICAL EXAMINATION: VITAL SIGNS: reviewed HEENT: Head exam reveals that the head is normocephalic, atraumatic without deformity or unusual swelling. CHEST AND LUNGS: Reveals clear, normal, symmetrical breath sounds with no adventitious sounds. CARDIOVASCULAR: Reveals normal S1, S2 without murmurs, rubs, or clicks. ABDOMEN: Obese, soft with no tenderness or organomegaly. A well-healed midline linear vertical scar in the abdomen ++ RECTAL: Deferred. MUSCULOSKELETAL: There is no tenderness to palpation. Range of motion is normal. NEUROLOGICAL: Alert and oriented x3 , nonfocal Alek Sabillon MD Oct 25, 2020 06:35
[2020-10-25 06:39] LABS: CALCIUM 8.8 MG/DL (8.5-10.1); CREATININE 1.4 MG/DL (0.55-1.30)
--- NOTE | 2020-10-25 07:26 | NUR ---
NURSE HAND-OFF: Important Events on Shift:[uneventful] Patient Status: [stable] Diet: [Regular] Pending Orders: [] Pending Results/Labs:[] Pending MD notification:[] Latest Vital Signs: Temperature 97.2 , Pulse 102 , B/P 115 /76 , Respiratory Rate 17 , O2 SAT 94 , Room Air, O2 Flow Rate 2.0 . Vital Sign Comment: [] Latest Barreto Fall Score: 15 Fall Risk: Low Risk Safety Measures: Call light Within Reach, Bed Alarm Zone 1, Side Rails Side Rails x2, Bed position Low and Locked. Fall Precautions: Yellow Socks Door Sign Patient Fall Education Report given to [Daniel Moya RN].
--- NOTE | 2020-10-25 07:30 | NUR ---
NURSE NOTES: RN received the report from Ambrosio. RN received the patient sitting on the bed, eating breakfast. Patient's oxygen level is 94% when ambulating on room air and does not c/o of SOB or pain. IV is patent, dry, asymptomatic and flushed. Bed in lowest position and locked. Call light within reach. Will continue to monitor.
[2020-10-25 08:00] VITALS: BP 128/95
--- NOTE | 2020-10-25 08:47 | Pulmonology Progress Note ---
Subjective ROS Limited/Unobtainable: Yes Interval Events: none reported per nursing Constitutional: Reports: other - feels better; Denies: fever HEENT: Repors: other - eye pain Respiratory: Reports: no symptoms Cardiovascular: Reports: no symptoms Gastrointestinal/Abdominal: Reports: no symptoms Genitourinary: Reports: no symptoms Allergies: Coded Allergies: No Known Allergies (Unverified , 07/31/20) Objective Last 24 Hour Vital Signs Date Time Temp Pulse Resp B/P (MAP) Pulse Ox O2 Delivery O2 Flow Rate FiO2 10/25/20 04:00 97.2 102 17 115/76 (89) 94 10/25/20 00:00 97.9 91 17 125/76 (92) 90 10/24/20 21:00 Room Air 10/24/20 20:16 132/87 10/24/20 20:00 98.1 103 20 132/87 (102) 94 10/24/20 16:00 96.6 67 18 123/76 (92) 96 10/24/20 12:00 97.9 93 20 127/70 (89) 96 10/24/20 11:00 126/68 10/24/20 10:59 105 126/68 10/24/20 10:59 105 126/68 Intake and Output 10/24/20 10/25/20 19:00 07:00 Intake Total 500 ml 500 ml Balance 500 ml 500 ml Intake Oral 500 ml Other 500 ml # Voids 2 4 # Bowel Movements 1 Objective 10/25 remains on room air 10/24 now on room air saturating well 10/23 saturating at 99% on 1L NC 10/22 saturating at 92% on RA 10/19 saturating at 89% on RA; 92-94% on 3L NC 10/18 desated on room air to 89%, back on 2L NC saturating at 92% 10/17 no change; remains on 2L NC since weaning failed again yesterday 10/16 saturating at 94% on 1L NC; failed weaning yesterday 10/15 now saturating at 95% on 1L NC; will wean again as tolerated 10/14 saturating at 95% on 2L NC 10/12 saturating at 97% on 2L NC 10/11 now on 2L saturating well 10/10 on room air saturating well General Appearance: WD/WN, no acute distress Respiratory: lungs clear Cardiovascular: normal rate, regular rhythm Abdomen: soft, non tender Laboratory Tests 10/24/20 08:56: White Blood Count 5.7, Red Blood Count 4.03L, Hemoglobin 11.8L, Hematocrit 34.5L , Mean Corpuscular Volume 85, Mean Corpuscular Hemoglobin 29.4, Mean Corpuscular Hemoglobin Concent 34.4, Red Cell Distribution Width 12.2, Platelet Count 469H, Mean Platelet Volume 5.1L, Neutrophils (%) (Auto) 59.5, Lymphocytes (%) (Auto) 29.9, Monocytes (%) (Auto) 9.9, Eosinophils (%) (Auto) 0.1, Basophils (%) (Auto) 0.7, Sodium Level 139, Potassium Level 4.5, Chloride Level 103, Carbon Dioxide Level 28, Anion Gap 8, Blood Urea Nitrogen 20H, Creatinine 1.4H, Estimat Glomerular Filtration Rate 50.5, Glucose Level 105, Calcium Level 9.1 10/25/20 04:40: White Blood Count 5.4, Red Blood Count 4.25L, Hemoglobin 12.1L, Hematocrit 36.4L , Mean Corpuscular Volume 86, Mean Corpuscular Hemoglobin 28.5, Mean Corpuscular Hemoglobin Concent 33.2, Red Cell Distribution Width 12.1, Platelet Count 485H, Mean Platelet Volume 5.3L, Neutrophils (%) (Auto) 51.2, Lymphocytes (%) (Auto) 34.5, Monocytes (%) (Auto) 13.2H, Eosinophils (%) (Auto) 0.7, Basophils (%) (Auto) 0.4, Sodium Level 136, Potassium Level 4.0, Chloride Level 102, Carbon Dioxide Level 25, Anion Gap 10, Blood Urea Nitrogen 22H, Creatinine 1.4H, Estimat Glomerular Filtration Rate 50.5, Glucose Level 110H, Calcium Level 8.8 Current Medications Medications (Trade) Dose Ordered Sig/Sidney Route PRN Reason Start Time Stop Time Status Last Admin Dose Admin Acetaminophen (Tylenol) 650 mg Q6H PRN ORAL HEADACHE OR FEVER >100 10/09/20 22:45 11/08/20 22:44 10/13/20 22:27 Alfuzosin HCl (Uroxatrol) 10 mg DAILY ORAL 10/10/20 09:00 11/09/20 08:59 10/24/20 11:00 Amlodipine Besylate (Norvasc) 10 mg DAILY ORAL 10/10/20 09:00 11/09/20 08:59 10/24/20 10:59 Artificial Tears (Akwa-Tears) 2 drop Q8H PRN BOTH EYES Dry Eyes 10/24/20 16:15 11/23/20 16:14 Chlorhexidine Gluconate (Beryl-Hex 2%) 1 applic QHS TOPIC 10/09/20 21:00 01/07/21 20:59 10/19/20 21:57 Enoxaparin Sodium (Lovenox) 40 mg DAILY SUBQ 10/16/20 09:00 01/14/21 08:59 10/24/20 11:02 Irbesartan (Avapro) 150 mg Q12HR ORAL 10/09/20 21:00 01/07/21 20:59 10/24/20 20:16 Metoprolol Succinate (Toprol XL) 50 mg DAILY ORAL 10/10/20 09:00 01/08/21 08:59 10/24/20 10:59 Pantoprazole (Protonix) 40 mg DAILY ORAL 10/10/20 09:00 11/09/20 08:59 10/24/20 10:59 Quetiapine Fumarate (SEROqueL) 300 mg Q12HR ORAL 10/09/20 21:00 11/23/20 20:59 10/24/20 20:16 Risperidone (RisperDAL) 2 mg Q12HR ORAL 10/09/20 21:00 11/23/20 20:59 10/24/20 20:16 Assessment/Plan Assessment/Plan 1. COVID-19 infection - Saturating well on room air - s/p Azithromycin and ceftriaxone IV once in ER -Given his normoxemia without fever, clear lung sounds, and negative CXR, no specific therapy is required at this time -Continue monitoring SaO2 and provide supplemental oxygen as needed - Repeat CXR 10/12 shows subsegmental atelectasis in the left lung base. 2. Conjunctivitis - s/p ciprofloxacin ophthalmic solution - outpatient ophthalmology consult recommended 3. Elevated CRP, D-dimer - s/p Lovenox in ER - Venous duplex US negative for DVT - on Lovenox 4. Hypertension - on metoprolol and amlodipine - monitor BP 5. Hypokalemia - per primary MD 7. New onset fever with tachycardia; resolved - better on antipyretics - likely sepsis secondary to COVID-19, vs UTI - consider UA if fever persistent - Venous duplex US negative for DVT - management per primary MD, and ID 8. Atelectasis - monitor at this point given his normoxemia 9. anorexia - per pt, he "can't see" his food due to conjunctivitis/corneal abrasion - seen by GI, who recommends feeding assistance prior to considering appetite stimulants - management per GI Medically stable for dc to SNF from pulmonary stand point Discharge pending placement The care for this patient was discussed with my supervising physician. Time spent for this case was approximately 31 minutes. Piyush Dent Oct 25, 2020 08:47
--- NOTE | 2020-10-25 09:36 | Cardiac Electrophysiology PN ---
Assessment/Plan Assessment/Plan 1. Shortness of breath due to COVID-19 infection. On RA. Fu by Dr. Shell. 2. Hypertension. On amlodipine 10 mg daily, Toprol-XL 50 mg daily and Avapro 150 bid 3. Psychiatric history. DW core maker pending Subjective Subjective In isolation for Covid on RA off tele. Placement pending Objective Last 24 Hour Vital Signs Date Time Temp Pulse Resp B/P (MAP) Pulse Ox O2 Delivery O2 Flow Rate FiO2 10/25/20 04:00 97.2 102 17 115/76 (89) 94 10/25/20 00:00 97.9 91 17 125/76 (92) 90 10/24/20 21:00 Room Air 10/24/20 20:16 132/87 10/24/20 20:00 98.1 103 20 132/87 (102) 94 10/24/20 16:00 96.6 67 18 123/76 (92) 96 10/24/20 12:00 97.9 93 20 127/70 (89) 96 10/24/20 11:00 126/68 10/24/20 10:59 105 126/68 10/24/20 10:59 105 126/68 Intake and Output 10/24/20 10/25/20 19:00 07:00 Intake Total 500 ml 500 ml Balance 500 ml 500 ml Intake Oral 500 ml Other 500 ml # Voids 2 4 # Bowel Movements 1 Laboratory Tests Test 10/25/20 04:40 White Blood Count 5.4 K/UL (4.8-10.8) Red Blood Count 4.25 M/UL (4.70-6.10) L Hemoglobin 12.1 G/DL (14.2-18.0) L Hematocrit 36.4 % (42.0-52.0) L Mean Corpuscular Volume 86 FL (80-99) Mean Corpuscular Hemoglobin 28.5 PG (27.0-31.0) Mean Corpuscular Hemoglobin Concent 33.2 G/DL (32.0-36.0) Red Cell Distribution Width 12.1 % (11.6-14.8) Platelet Count 485 K/UL (150-450) H Mean Platelet Volume 5.3 FL (6.5-10.1) L Neutrophils (%) (Auto) 51.2 % (45.0-75.0) Lymphocytes (%) (Auto) 34.5 % (20.0-45.0) Monocytes (%) (Auto) 13.2 % (1.0-10.0) H Eosinophils (%) (Auto) 0.7 % (0.0-3.0) Basophils (%) (Auto) 0.4 % (0.0-2.0) Sodium Level 136 MMOL/L (136-145) Potassium Level 4.0 MMOL/L (3.5-5.1) Chloride Level 102 MMOL/L (98-107) Carbon Dioxide Level 25 MMOL/L (21-32) Anion Gap 10 mmol/L (5-15) Blood Urea Nitrogen 22 mg/dL (7-18) H Creatinine 1.4 MG/DL (0.55-1.30) H Estimat Glomerular Filtration Rate 50.5 mL/min (>60) Glucose Level 110 MG/DL (74-106) H Calcium Level 8.8 MG/DL (8.5-10.1) Objective HEAD AND NECK: Shows mild JVD. Bilateral eyelids are edematous and erythematous. LUNGS: Clear. CARDIOVASCULAR: Shows regular S1 and S2 with no gallop. ABDOMEN: Soft. EXTREMITIES: 1+ pitting edema. Kirit Dave MD Oct 25, 2020 09:36
[2020-10-25] MEDS: Metoprolol Succinate XL 50mg tab ORAL SCH (10:36)
[2020-10-25] MEDS: Irbesartan 150mg tablet ORAL SCH ×2 (10:37→20:06)
[2020-10-25] MEDS: Enoxaparin 40mg Inj SUBQ SCH (10:39)
[2020-10-25 12:00] VITALS: BP 124/73
[2020-10-25 16:00] VITALS: BP 137/76
[2020-10-25] MEDS: Dyna-Hex 2% Top Sol 2oz TOPIC SCH (19:08)
--- NOTE | 2020-10-25 19:20 | NUR ---
NURSE HAND-OFF: Important Events on Shift:ambulating without SOB Patient Status: stable Diet: regular Pending Orders: n/a Pending Results/Labs:n/a Pending MD notification:n/a Latest Vital Signs: Temperature 97.9 , Pulse 108 , B/P 137 /76 , Respiratory Rate 20 , O2 SAT 94 , Room Air, O2 Flow Rate 2.0 . Vital Sign Comment: stable Latest Barreto Fall Score: 15 Fall Risk: Low Risk Safety Measures: Call light Within Reach, Bed Alarm Zone 1, Side Rails Side Rails x2, Bed position Low and Locked. Fall Precautions: Yellow Socks Door Sign Patient Fall Education Report given to GONZALEZ Valente.
--- NOTE | 2020-10-25 19:56 | NUR ---
NURSE NOTES: Patient received walking around the room in room air, steady gait. No SOB noted. Will continue with plan of care.
[2020-10-25 20:31] VITALS: BP 133/74
--- NOTE | 2020-10-25 20:54 | General Progress Note ---
Subjective ROS Limited/Unobtainable: Yes Allergies: Coded Allergies: No Known Allergies (Unverified , 07/31/20) Objective Last 24 Hour Vital Signs Date Time Temp Pulse Resp B/P (MAP) Pulse Ox O2 Delivery O2 Flow Rate FiO2 10/25/20 20:31 97.7 99 20 133/74 (93) 94 10/25/20 20:06 133/74 10/25/20 16:00 97.9 108 20 137/76 (96) 94 10/25/20 12:00 97.8 99 20 124/73 (90) 95 10/25/20 10:37 128/95 10/25/20 10:37 112 128/95 10/25/20 10:36 112 128/95 10/25/20 09:00 Room Air 10/25/20 08:00 98.1 112 20 128/95 (106) 94 10/25/20 04:00 97.2 102 17 115/76 (89) 94 10/25/20 00:00 97.9 91 17 125/76 (92) 90 10/24/20 21:00 Room Air Intake and Output 10/24/20 10/25/20 19:00 07:00 Intake Total 500 ml 500 ml Balance 500 ml 500 ml Intake Oral 500 ml Other 500 ml # Voids 2 4 # Bowel Movements 1 Laboratory Tests 10/25/20 04:40: White Blood Count 5.4, Red Blood Count 4.25L, Hemoglobin 12.1L, Hematocrit 36.4L , Mean Corpuscular Volume 86, Mean Corpuscular Hemoglobin 28.5, Mean Corpuscular Hemoglobin Concent 33.2, Red Cell Distribution Width 12.1, Platelet Count 485H, Mean Platelet Volume 5.3L, Neutrophils (%) (Auto) 51.2, Lymphocytes (%) (Auto) 34.5, Monocytes (%) (Auto) 13.2H, Eosinophils (%) (Auto) 0.7, Basophils (%) (Auto) 0.4, Sodium Level 136, Potassium Level 4.0, Chloride Level 102, Carbon Dioxide Level 25, Anion Gap 10, Blood Urea Nitrogen 22H, Creatinine 1.4H, Es timat Glomerular Filtration Rate 50.5, Glucose Level 110H, Calcium Level 8.8 Height (Feet): 5 Height (Inches): 9.00 Weight (Pounds): 193 Assessment/Plan Problem List: (1) Headache ICD Codes: R51.9 - Headache, unspecified SNOMED: 18579050 (2) COVID-19 ICD Codes: U07.1 - COVID-19 SNOMED: 394647173 Status: progressing, tolerating diet Assessment/Plan: covid positive resp insuff afebrile requires oxygen still conjuctivitis reviewed chart and labs Deng Liu MD Oct 25, 2020 20:54
--- NOTE | 2020-10-25 23:10 | General Progress Note ---
Subjective Allergies: Coded Allergies: No Known Allergies (Unverified , 07/31/20) Subjective above noted no complaints eating Objective Last 24 Hour Vital Signs Date Time Temp Pulse Resp B/P (MAP) Pulse Ox O2 Delivery O2 Flow Rate FiO2 10/25/20 21:00 Room Air 10/25/20 20:31 97.7 99 20 133/74 (93) 94 10/25/20 20:06 133/74 10/25/20 16:00 97.9 108 20 137/76 (96) 94 10/25/20 12:00 97.8 99 20 124/73 (90) 95 10/25/20 10:37 128/95 10/25/20 10:37 112 128/95 10/25/20 10:36 112 128/95 10/25/20 09:00 Room Air 10/25/20 08:00 98.1 112 20 128/95 (106) 94 10/25/20 04:00 97.2 102 17 115/76 (89) 94 10/25/20 00:00 97.9 91 17 125/76 (92) 90 Intake and Output 10/24/20 10/25/20 19:00 07:00 Intake Total 500 ml 500 ml Balance 500 ml 500 ml Intake Oral 500 ml Other 500 ml # Voids 2 4 # Bowel Movements 1 Laboratory Tests 10/25/20 04:40: White Blood Count 5.4, Red Blood Count 4.25L, Hemoglobin 12.1L, Hematocrit 36.4L , Mean Corpuscular Volume 86, Mean Corpuscular Hemoglobin 28.5, Mean Corpuscular Hemoglobin Concent 33.2, Red Cell Distribution Width 12.1, Platelet Count 485H, Mean Platelet Volume 5.3L, Neutrophils (%) (Auto) 51.2, Lymphocytes (%) (Auto) 34.5, Monocytes (%) (Auto) 13.2H, Eosinophils (%) (Auto) 0.7, Basophils (%) (Auto) 0.4, Sodium Level 136, Potassium Level 4.0, Chloride Level 102, Carbon Dioxide Level 25, Anion Gap 10, Blood Urea Nitrogen 22H, Creatinine 1.4H, Estimat Glomerular Filtration Rate 50.5, Glucose Level 110H, Calcium Level 8.8 Height (Feet): 5 Height (Inches): 9.00 Weight (Pounds): 193 Objective NCAT supple CTA RR abd soft no edema Assessment/Plan Status: progressing, tolerating diet Assessment/Plan: Assessment - Poor po intake - improved - Decreased visual acuity and conjunctivitis - ? COVID related - COVID PNA - COPD - Schizoaffective disorder, anxiety - hepatitis C Recommendations - eye care - push po - outpatient HCV management Rudolph Griggs MD Oct 25, 2020 23:10
[2020-10-26] VITALS: BP 130/69
[2020-10-26 04:00] VITALS: BP 121/63
--- NOTE | 2020-10-26 06:52 | Hematology/Onc Progress Note ---
Assessment/Plan Assessment/Plan 1. Leukopenia is related likely to COVID-19 infection+++++++++++ --> Patient is currently saturating well on room air, per pulm --> s/p Azithromycin and ceftriaxone IV once in ER --> Continue monitoring SaO2 and provide supplemental oxygen as needed --> smear reviewed --> wbc 4.7-->3.8->4 --> neupogen prn 2. Anemia due to likely chronic disease, infection --> trend hgb as needed --> hgb 13->11-->11 3. Elevated CRP, D-dimer --> s/p Lovenox in ER --> DVX ppx recommended --> duplex lower leg r/o dvt 4. Hypertension --> recommend continuing home antihypertensive meds --> as per cards 5. Covid 19 as per pulm/id 6. Dvt ppx lovenox sq Appreciate consultation and marly Rn Subjective Constitutional: Denies: no symptoms, chills, fever, malaise, weakness, other HEENT: Denies: no symptoms, eye pain, blurred vision, tearing, double vision, ear pain, ear discharge, nose pain, nose congestion, throat pain, throat swelling, mouth pain, mouth swelling, other Cardiovascular: Denies: no symptoms, chest pain, edema, irregular heart rate, lightheadedness, palpitations, syncope, other Respiratory: Denies: no symptoms, cough, shortness of breath, SOB with excertion, SOB at rest, sputum, wheezing, other Gastrointestinal/Abdominal: Denies: no symptoms, abdomen distended, abdominal pain, black stools, tarry stools, blood in stool, constipated, diarrhea, difficulty swallowing, nausea, poor appetite, poor fluid intake, rectal bleeding, vomiting, other Allergies: Coded Allergies: No Known Allergies (Unverified , 07/31/20) Subjective 10/11 awake, no new events, no bleeding, labs noted, ambulating 10/12 covid iso, is on ra, no bleeding, labs noted, meds reviewed 10/13: on RA saturating well no acute events. 10/14: no distress on O2 NC 2L, slight temp last night UA collected 10/15 is awake, alert, is on 2lnc, no bleeding, labs are noted 1/5 on 1lnc, no bleeding, labs ordered for am, no new events 10/17 nc, no bleeding, labs are pending, can't see, potential optho eval 10/18 nc, no bleeding, wbc 3, no new changes, dw rn 10/19: no acute events, no bleeding reported. 10/21 confused, remains disoriented, no bleeding, labs reviewed 10/22 confused, labs reviewed, meds noted, no bleeding, labs reviewed 10/23 less abd pain, no bleeding, labs noted, meds reviewed 10/24 labs noted, no night sweats, wbc 4, hgb 11 10/25 no new changes, meds reviewed, no bleeding 10/26 no complaints, is eating, labs noted Objective Objective Current Medications Medications (Trade) Dose Ordered Sig/Sidney Route PRN Reason Start Time Stop Time Status Last Admin Dose Admin Acetaminophen (Tylenol) 650 mg Q6H PRN ORAL HEADACHE OR FEVER >100 10/09/20 22:45 11/08/20 22:44 10/13/20 22:27 Alfuzosin HCl (Uroxatrol) 10 mg DAILY ORAL 10/10/20 09:00 11/09/20 08:59 10/25/20 10:37 Amlodipine Besylate (Norvasc) 10 mg DAILY ORAL 10/10/20 09:00 11/09/20 08:59 10/25/20 10:37 Artificial Tears (Akwa-Tears) 2 drop Q8H PRN BOTH EYES Dry Eyes 10/24/20 16:15 11/23/20 16:14 Chlorhexidine Gluconate (Beryl-Hex 2%) 1 applic QHS TOPIC 10/09/20 21:00 01/07/21 20:59 10/19/20 21:57 Enoxaparin Sodium (Lovenox) 40 mg DAILY SUBQ 10/16/20 09:00 01/14/21 08:59 10/25/20 10:39 Irbesartan (Avapro) 150 mg Q12HR ORAL 10/09/20 21:00 01/07/21 20:59 10/25/20 20:06 Metoprolol Succinate (Toprol XL) 50 mg DAILY ORAL 10/10/20 09:00 01/08/21 08:59 10/25/20 10:36 Pantoprazole (Protonix) 40 mg DAILY ORAL 10/10/20 09:00 11/09/20 08:59 10/25/20 10:36 Quetiapine Fumarate (SEROqueL) 300 mg Q12HR ORAL 10/09/20 21:00 11/23/20 20:59 10/25/20 20:06 Risperidone (RisperDAL) 2 mg Q12HR ORAL 10/09/20 21:00 11/23/20 20:59 10/25/20 20:06 Last 24 Hour Vital Signs Date Time Temp Pulse Resp B/P (MAP) Pulse Ox O2 Delivery O2 Flow Rate FiO2 10/26/20 04:00 97.7 96 20 121/63 (82) 94 10/26/20 00:00 97.2 86 20 130/69 (89) 94 10/25/20 21:00 Room Air 10/25/20 20:31 97.7 99 20 133/74 (93) 94 10/25/20 20:06 133/74 10/25/20 16:00 97.9 108 20 137/76 (96) 94 10/25/20 12:00 97.8 99 20 124/73 (90) 95 10/25/20 10:37 128/95 10/25/20 10:37 112 128/95 10/25/20 10:36 112 128/95 10/25/20 09:00 Room Air 10/25/20 08:00 98.1 112 20 128/95 (106) 94 10/25/20 04:00 97.2 102 17 115/76 (89) 94 10/25/20 00:00 97.9 91 17 125/76 (92) 90 10/24/20 21:00 Room Air 10/24/20 20:16 132/87 10/24/20 20:00 98.1 103 20 132/87 (102) 94 10/24/20 16:00 96.6 67 18 123/76 (92) 96 10/24/20 12:00 97.9 93 20 127/70 (89) 96 10/24/20 11:00 126/68 10/24/20 10:59 105 126/68 10/24/20 10:59 105 126/68 10/24/20 09:00 Room Air 10/24/20 08:00 97.9 105 20 126/68 (87) 95 Intake and Output 10/25/20 10/26/20 19:00 07:00 Intake Total 600 ml Balance 600 ml Intake Oral 600 ml # Voids 2 Labs Test 10/23/20 07:05 10/24/20 08:56 10/25/20 04:40 White Blood Count 4.5 K/UL (4.8-10.8) 5.7 K/UL (4.8-10.8) 5.4 K/UL (4.8-10.8) Red Blood Count 3.95 M/UL (4.70-6.10) 4.03 M/UL (4.70-6.10) 4.25 M/UL (4.70-6.10) Hemoglobin 11.7 G/DL (14.2-18.0) 11.8 G/DL (14.2-18.0) 12.1 G/DL (14.2-18.0) Hematocrit 35.3 % (42.0-52.0) 34.5 % (42.0-52.0) 36.4 % (42.0-52.0) Mean Corpuscular Volume 90 FL (80-99) 85 FL (80-99) 86 FL (80-99) Mean Corpuscular Hemoglobin 29.6 PG (27.0-31.0) 29.4 PG (27.0-31.0) 28.5 PG (27.0-31.0) Mean Corpuscular Hemoglobin Concent 33.0 G/DL (32.0-36.0) 34.4 G/DL (32.0-36.0) 33.2 G/DL (32.0-36.0) Red Cell Distribution Width 12.5 % (11.6-14.8) 12.2 % (11.6-14.8) 12.1 % (11.6-14.8) Platelet Count 435 K/UL (150-450) 469 K/UL (150-450) 485 K/UL (150-450) Mean Platelet Volume 4.7 FL (6.5-10.1) 5.1 FL (6.5-10.1) 5.3 FL (6.5-10.1) Neutrophils (%) (Auto) 42.2 % (45.0-75.0) 59.5 % (45.0-75.0) 51.2 % (45.0-75.0) Lymphocytes (%) (Auto) 44.5 % (20.0-45.0) 29.9 % (20.0-45.0) 34.5 % (20.0-45.0) Monocytes (%) (Auto) 12.1 % (1.0-10.0) 9.9 % (1.0-10.0) 13.2 % (1.0-10.0) Eosinophils (%) (Auto) 0.7 % (0.0-3.0) 0.1 % (0.0-3.0) 0.7 % (0.0-3.0) Basophils (%) (Auto) 0.6 % (0.0-2.0) 0.7 % (0.0-2.0) 0.4 % (0.0-2.0) Sodium Level 138 MMOL/L (136-145) 139 MMOL/L (136-145) 136 MMOL/L (136-145) Potassium Level 4.2 MMOL/L (3.5-5.1) 4.5 MMOL/L (3.5-5.1) 4.0 MMOL/L (3.5-5.1) Chloride Level 103 MMOL/L (98-107) 103 MMOL/L (98-107) 102 MMOL/L (98-107) Carbon Dioxide Level 26 MMOL/L (21-32) 28 MMOL/L (21-32) 25 MMOL/L (21-32) Anion Gap 9 mmol/L (5-15) 8 mmol/L (5-15) 10 mmol/L (5-15) Blood Urea Nitrogen 14 mg/dL (7-18) 20 mg/dL (7-18) 22 mg/dL (7-18) Creatinine 1.1 MG/DL (0.55-1.30) 1.4 MG/DL (0.55-1.30) 1.4 MG/DL (0.55-1.30) Estimat Glomerular Filtration Rate > 60 mL/min (>60) 50.5 mL/min (>60) 50.5 mL/min (>60) Glucose Level 91 MG/DL (74-106) 105 MG/DL (74-106) 110 MG/DL (74-106) Calcium Level 8.1 MG/DL (8.5-10.1) 9.1 MG/DL (8.5-10.1) 8.8 MG/DL (8.5-10.1) Height (Feet): 5 Height (Inches): 9.00 Weight (Pounds): 193 Objective PHYSICAL EXAMINATION: VITAL SIGNS: reviewed HEENT: Head exam reveals that the head is normocephalic, atraumatic without deformity or unusual swelling. CHEST AND LUNGS: Reveals clear, normal, symmetrical breath sounds with no adventitious sounds. CARDIOVASCULAR: Reveals normal S1, S2 without murmurs, rubs, or clicks. ABDOMEN: Obese, soft with no tenderness or organomegaly. A well-healed midline linear vertical scar in the abdomen ++ RECTAL: Deferred. MUSCULOSKELETAL: There is no tenderness to palpation. Range of motion is normal. NEUROLOGICAL: Alert and oriented x3 , nonfocal Alek Sabillon MD Oct 26, 2020 06:51
--- NOTE | 2020-10-26 07:00 | NUR ---
NURSE NOTES: Received patient sitting on the edge of the bed,no sign of distress, denies pain or discomfort, HL patent, dry, asymptomatic and flushed. On fall precaution, instructed patient to call for assstance when in need, verbalized understanding,Bed in lowest position and locked. Call light within reach. Will continue to monitor. john pappas
--- NOTE | 2020-10-26 07:02 | NUR ---
NURSE HAND-OFF: Important Events on Shift:[uneventful] Patient Status: [stable] Diet: [Regular] Pending Orders: [discharge planning] Pending Results/Labs:[] Pending MD notification:[] Latest Vital Signs: Temperature 97.7 , Pulse 96 , B/P 121 /63 , Respiratory Rate 20 , O2 SAT 94 , Room Air, O2 Flow Rate 2.0 . Vital Sign Comment: [] Latest Barreto Fall Score: 35 Fall Risk: Medium Risk Safety Measures: Call light Within Reach, Bed Alarm Zone 1, Side Rails Side Rails x2, Bed position Low and Locked. Fall Precautions: Yellow Socks Door Sign Patient Fall Education Report given to [Zahra Conn RN].
[2020-10-26 08:00] VITALS: BP 136/68
[2020-10-26] MEDS: Enoxaparin 40mg Inj SUBQ SCH (08:45)
[2020-10-26] MEDS: Metoprolol Succinate XL 50mg tab ORAL SCH ×2 (08:46→08:47)
[2020-10-26] MEDS: Irbesartan 150mg tablet ORAL SCH ×2 (08:47→20:20)
--- NOTE | 2020-10-26 08:55 | Pulmonology Progress Note ---
Subjective ROS Limited/Unobtainable: Yes Interval Events: none reported per nursing Constitutional: Reports: other - feels better; Denies: fever HEENT: Repors: other - eye pain Respiratory: Reports: no symptoms Cardiovascular: Reports: no symptoms Gastrointestinal/Abdominal: Reports: no symptoms Genitourinary: Reports: no symptoms Allergies: Coded Allergies: No Known Allergies (Unverified , 07/31/20) Objective Last 24 Hour Vital Signs Date Time Temp Pulse Resp B/P (MAP) Pulse Ox O2 Delivery O2 Flow Rate FiO2 10/26/20 08:47 121/63 10/26/20 08:47 96 121/63 10/26/20 08:47 96 121/63 10/26/20 08:46 96 121/63 10/26/20 04:00 97.7 96 20 121/63 (82) 94 10/26/20 00:00 97.2 86 20 130/69 (89) 94 10/25/20 21:00 Room Air 10/25/20 20:31 97.7 99 20 133/74 (93) 94 10/25/20 20:06 133/74 10/25/20 16:00 97.9 108 20 137/76 (96) 94 10/25/20 12:00 97.8 99 20 124/73 (90) 95 10/25/20 10:37 128/95 10/25/20 10:37 112 128/95 10/25/20 10:36 112 128/95 10/25/20 09:00 Room Air Intake and Output 10/25/20 10/26/20 19:00 07:00 Intake Total 600 ml 400 ml Balance 600 ml 400 ml Intake Oral 600 ml Other 400 ml # Voids 2 2 Objective 10/26 no change 10/25 remains on room air 10/24 now on room air saturating well 10/23 saturating at 99% on 1L NC 10/22 saturating at 92% on RA 10/19 saturating at 89% on RA; 92-94% on 3L NC 10/18 desated on room air to 89%, back on 2L NC saturating at 92% 10/17 no change; remains on 2L NC since weaning failed again yesterday 10/16 saturating at 94% on 1L NC; failed weaning yesterday 10/15 now saturating at 95% on 1L NC; will wean again as tolerated 10/14 saturating at 95% on 2L NC 10/12 saturating at 97% on 2L NC 10/11 now on 2L saturating well 10/10 on room air saturating well General Appearance: WD/WN, no acute distress Respiratory: lungs clear Cardiovascular: normal rate, regular rhythm Abdomen: soft, non tender Current Medications Medications (Trade) Dose Ordered Sig/Sidney Route PRN Reason Start Time Stop Time Status Last Admin Dose Admin Acetaminophen (Tylenol) 650 mg Q6H PRN ORAL HEADACHE OR FEVER >100 10/09/20 22:45 11/08/20 22:44 10/13/20 22:27 Alfuzosin HCl (Uroxatrol) 10 mg DAILY ORAL 10/10/20 09:00 11/09/20 08:59 10/26/20 08:52 Amlodipine Besylate (Norvasc) 10 mg DAILY ORAL 10/10/20 09:00 11/09/20 08:59 10/26/20 08:47 Artificial Tears (Akwa-Tears) 2 drop Q8H PRN BOTH EYES Dry Eyes 10/24/20 16:15 11/23/20 16:14 Chlorhexidine Gluconate (Beryl-Hex 2%) 1 applic QHS TOPIC 10/09/20 21:00 01/07/21 20:59 10/19/20 21:57 Enoxaparin Sodium (Lovenox) 40 mg DAILY SUBQ 10/16/20 09:00 01/14/21 08:59 10/26/20 08:45 Irbesartan (Avapro) 150 mg Q12HR ORAL 10/09/20 21:00 01/07/21 20:59 10/26/20 08:47 Metoprolol Succinate (Toprol XL) 50 mg DAILY ORAL 10/10/20 09:00 01/08/21 08:59 10/26/20 08:47 Pantoprazole (Protonix) 40 mg DAILY ORAL 10/10/20 09:00 11/09/20 08:59 10/26/20 08:46 Quetiapine Fumarate (SEROqueL) 300 mg Q12HR ORAL 10/09/20 21:00 11/23/20 20:59 10/26/20 08:46 Risperidone (RisperDAL) 2 mg Q12HR ORAL 10/09/20 21:00 11/23/20 20:59 10/26/20 08:47 Assessment/Plan Assessment/Plan 1. COVID-19 infection - Saturating well on room air - s/p Azithromycin and ceftriaxone IV once in ER -Given his normoxemia without fever, clear lung sounds, and negative CXR, no specific therapy is required at this time -Continue monitoring SaO2 and provide supplemental oxygen as needed - Repeat CXR 10/12 shows subsegmental atelectasis in the left lung base. 2. Conjunctivitis - s/p ciprofloxacin ophthalmic solution - outpatient ophthalmology consult recommended 3. Elevated CRP, D-dimer - s/p Lovenox in ER - Venous duplex US negative for DVT - on Lovenox 4. Hypertension - on metoprolol and amlodipine - monitor BP 5. Hypokalemia - per primary MD 7. New onset fever with tachycardia; resolved - better on antipyretics - likely sepsis secondary to COVID-19, vs UTI - consider UA if fever persistent - Venous duplex US negative for DVT - management per primary MD, and ID 8. Atelectasis - monitor at this point given his normoxemia 9. anorexia - per pt, he "can't see" his food due to conjunctivitis/corneal abrasion - seen by GI, who recommends feeding assistance prior to considering appetite stimulants - management per GI Medically stable for dc to SNF from pulmonary stand point Discharge pending placement The care for this patient was discussed with my supervising physician. Time spent for this case was approximately 31 minutes. Piyush Dent Oct 26, 2020 08:55
--- NOTE | 2020-10-26 10:15 | NUR ---
RD ASSESSMENT & RECOMMENDATIONS SEE CARE ACTIVITY FOR COMPLETE ASSESSMENT DAILY ESTIMATED NEEDS: Needs based on Cardiac, Pulmonary, 76.5kg abw 25-30 kcals/kg 2536-7442 total kcals 1-1.3 g protein/kg 76-99 g total protein 25-30 mL/kg 7963-7262 total fluid mLs NUTRITION DIAGNOSIS: Inadequate oral intake R/T "unable to see food" as per pt's report as evidenced by pt admitted w/ dx of conjunctivitis, poor and variable intake, mostly 0-25% since adm, now improved w/ meal assistance. CURRENT DIET:REGULAR PO DIET RECOMMENDATIONS: LOW NA/ texture as tolerated ADDITIONAL RECOMMENDATIONS: * Calibrated bedscale wt * Monitor for improved PO intake-> now 50% -> cont to assist pt with meals and snacks * Monitor lytes, replete as needed
[2020-10-26 12:05] VITALS: BP 118/69
--- NOTE | 2020-10-26 12:46 | Infectious Diseases Prog Note ---
Assessment/Plan Assessment/Plan IMPRESSION: 1. Sepsis 2. COVID-19 disease. 3. Conjunctivitis treated 4. History of COPD. 5. History of hepatitis C. 6. History of corneal abrasion. 7. Atelectasis RECOMMENDATIONS: Observe off antibiotic Artificial tear Outpatient ophthalmology consult Subjective ROS Limited/Unobtainable: No HEENT: Reports: other - watery eyes Respiratory: Reports: dry cough Gastrointestinal/Abdominal: Reports: no symptoms Genitourinary: Reports: no symptoms Allergies: Coded Allergies: No Known Allergies (Unverified , 07/31/20) Objective Last 24 Hour Vital Signs Date Time Temp Pulse Resp B/P (MAP) Pulse Ox O2 Delivery O2 Flow Rate FiO2 10/26/20 12:05 97.3 85 18 118/69 (85) 94 10/26/20 08:47 121/63 10/26/20 08:47 96 121/63 10/26/20 08:47 96 121/63 10/26/20 08:46 96 121/63 10/26/20 08:40 Room Air 10/26/20 08:00 97.5 85 18 136/68 (90) 94 10/26/20 04:00 97.7 96 20 121/63 (82) 94 10/26/20 00:00 97.2 86 20 130/69 (89) 94 10/25/20 21:00 Room Air 10/25/20 20:31 97.7 99 20 133/74 (93) 94 10/25/20 20:06 133/74 10/25/20 16:00 97.9 108 20 137/76 (96) 94 Height (Feet): 5 Height (Inches): 9.00 Weight (Pounds): 193 HEENT: mucous membranes moist Respiratory/Chest: lungs clear Cardiovascular: normal rate Abdomen: soft, non tender Extremities: no edema Neurologic/Psychiatric: alert, responsive Current Medications Medications (Trade) Dose Ordered Sig/Sidney Route PRN Reason Start Time Stop Time Status Last Admin Dose Admin Acetaminophen (Tylenol) 650 mg Q6H PRN ORAL HEADACHE OR FEVER >100 10/09/20 22:45 11/08/20 22:44 10/13/20 22:27 Alfuzosin HCl (Uroxatrol) 10 mg DAILY ORAL 10/10/20 09:00 11/09/20 08:59 10/26/20 08:52 Amlodipine Besylate (Norvasc) 10 mg DAILY ORAL 10/10/20 09:00 11/09/20 08:59 10/26/20 08:47 Artificial Tears (Akwa-Tears) 2 drop Q8H PRN BOTH EYES Dry Eyes 10/24/20 16:15 11/23/20 16:14 Chlorhexidine Gluconate (Beryl-Hex 2%) 1 applic QHS TOPIC 10/09/20 21:00 01/07/21 20:59 10/19/20 21:57 Enoxaparin Sodium (Lovenox) 40 mg DAILY SUBQ 10/16/20 09:00 01/14/21 08:59 10/26/20 08:45 Irbesartan (Avapro) 150 mg Q12HR ORAL 10/09/20 21:00 01/07/21 20:59 10/26/20 08:47 Metoprolol Succinate (Toprol XL) 50 mg DAILY ORAL 10/10/20 09:00 01/08/21 08:59 10/26/20 08:47 Pantoprazole (Protonix) 40 mg DAILY ORAL 10/10/20 09:00 11/09/20 08:59 10/26/20 08:46 Quetiapine Fumarate (SEROqueL) 300 mg Q12HR ORAL 10/09/20 21:00 11/23/20 20:59 10/26/20 08:46 Risperidone (RisperDAL) 2 mg Q12HR ORAL 10/09/20 21:00 11/23/20 20:59 10/26/20 08:47 Harsh Bowser MD Oct 26, 2020 12:46
--- NOTE | 2020-10-26 15:11 | Cardiac Electrophysiology PN ---
Assessment/Plan Assessment/Plan 1. Shortness of breath due to COVID-19 infection. On RA. Fu by Dr. Shell. 2. Hypertension. On amlodipine 10 mg daily, Toprol-XL 50 mg daily and Avapro 150 bid 3. Psychiatric history. VICTORIA section weaver pending Subjective Subjective In isolation for Covid on RA off tele. Placement pending Objective Last 24 Hour Vital Signs Date Time Temp Pulse Resp B/P (MAP) Pulse Ox O2 Delivery O2 Flow Rate FiO2 10/26/20 12:05 97.3 85 18 118/69 (85) 94 10/26/20 08:47 121/63 10/26/20 08:47 96 121/63 10/26/20 08:47 96 121/63 10/26/20 08:46 96 121/63 10/26/20 08:40 Room Air 10/26/20 08:00 97.5 85 18 136/68 (90) 94 10/26/20 04:00 97.7 96 20 121/63 (82) 94 10/26/20 00:00 97.2 86 20 130/69 (89) 94 10/25/20 21:00 Room Air 10/25/20 20:31 97.7 99 20 133/74 (93) 94 10/25/20 20:06 133/74 10/25/20 16:00 97.9 108 20 137/76 (96) 94 Intake and Output 10/25/20 10/26/20 19:00 07:00 Intake Total 600 ml 400 ml Balance 600 ml 400 ml Intake Oral 600 ml Other 400 ml # Voids 2 2 Objective HEAD AND NECK: Shows mild JVD. Bilateral eyelids are edematous and erythematous. LUNGS: Clear. CARDIOVASCULAR: Shows regular S1 and S2 with no gallop. ABDOMEN: Soft. EXTREMITIES: 1+ pitting edema. Kirit Dave MD Oct 26, 2020 15:11
--- NOTE | 2020-10-26 15:16 | NUR ---
CASE MANAGEMENT:REVIEW SI;SEPSIS. COVID-19 VIRAL INFECTION. 97.7 96 20 136/68 94% ON RA PLT+ 485 BUN+ 22 CR+ 1.4 GLU+ 110 IS;LOVENOX SQ QD PROTONIX PO QD TOPROL XL PO QD NORVASC PO QD AVAPRO PO Q12 SEROQUEL PO Q12 MED SURG STATUS DCP;FROM [facility]
[2020-10-26 16:00] VITALS: BP 129/70
--- NOTE | 2020-10-26 19:32 | NUR ---
NURSE NOTES: Received report from Zahra. AAO x 3, on RA, steady gait. IV in place and patent. Denies pain or discomfort. No acute distress noted. Bed locked, lowest position, alarm on, side rails up, call light within reach. Will continue to monitor.
--- NOTE | 2020-10-26 19:32 | NUR ---
HAND-OFF: Report given to Ms Evan RN accordingly GONZALEZ Jay.
[2020-10-26 20:00] VITALS: BP 135/67
--- NOTE | 2020-10-26 20:09 | General Progress Note ---
Subjective ROS Limited/Unobtainable: Yes Allergies: Coded Allergies: No Known Allergies (Unverified , 07/31/20) Objective Last 24 Hour Vital Signs Date Time Temp Pulse Resp B/P (MAP) Pulse Ox O2 Delivery O2 Flow Rate FiO2 10/26/20 16:00 97.9 94 18 129/70 (89) 94 10/26/20 12:05 97.3 85 18 118/69 (85) 94 10/26/20 08:47 121/63 10/26/20 08:47 96 121/63 10/26/20 08:47 96 121/63 10/26/20 08:46 96 121/63 10/26/20 08:40 Room Air 10/26/20 08:00 97.5 85 18 136/68 (90) 94 10/26/20 04:00 97.7 96 20 121/63 (82) 94 10/26/20 00:00 97.2 86 20 130/69 (89) 94 10/25/20 21:00 Room Air 10/25/20 20:31 97.7 99 20 133/74 (93) 94 Intake and Output 10/25/20 10/26/20 19:00 07:00 Intake Total 600 ml 400 ml Balance 600 ml 400 ml Intake Oral 600 ml Other 400 ml # Voids 2 2 Height (Feet): 5 Height (Inches): 9.00 Weight (Pounds): 193 Assessment/Plan Problem List: (1) Headache ICD Codes: R51.9 - Headache, unspecified SNOMED: 17294457 (2) COVID-19 ICD Codes: U07.1 - COVID-19 SNOMED: 641722175 Status: progressing, tolerating diet Assessment/Plan: covid + no change requires oxygen still conjuctivitis reviewed chart and labs Deng Liu MD Oct 26, 2020 20:09
[2020-10-26] MEDS: Dyna-Hex 2% Top Sol 2oz TOPIC SCH (20:19)
--- NOTE | 2020-10-26 22:21 | General Progress Note ---
Subjective Allergies: Coded Allergies: No Known Allergies (Unverified , 07/31/20) Subjective above noted walking around his room Objective Last 24 Hour Vital Signs Date Time Temp Pulse Resp B/P (MAP) Pulse Ox O2 Delivery O2 Flow Rate FiO2 10/26/20 20:47 Room Air 10/26/20 20:20 135/67 10/26/20 20:00 98.8 94 18 135/67 (89) 94 10/26/20 16:00 97.9 94 18 129/70 (89) 94 10/26/20 12:05 97.3 85 18 118/69 (85) 94 10/26/20 08:47 121/63 10/26/20 08:47 96 121/63 10/26/20 08:47 96 121/63 10/26/20 08:46 96 121/63 10/26/20 08:40 Room Air 10/26/20 08:00 97.5 85 18 136/68 (90) 94 10/26/20 04:00 97.7 96 20 121/63 (82) 94 10/26/20 00:00 97.2 86 20 130/69 (89) 94 Intake and Output 10/25/20 10/26/20 19:00 07:00 Intake Total 600 ml 400 ml Balance 600 ml 400 ml Intake Oral 600 ml Other 400 ml # Voids 2 2 Height (Feet): 5 Height (Inches): 9.00 Weight (Pounds): 193 Objective NCAT eye redness improved supple CTA RR abd soft no edema Assessment/Plan Status: progressing, tolerating diet Assessment/Plan: Assessment - Poor po intake - improved - conjunctivitis - ? COVID related - improving - COVID PNA - COPD - Schizoaffective disorder, anxiety - hepatitis C Recommendations - eye care - push po - outpatient HCV management Rudolph Griggs MD Oct 26, 2020 22:20
[2020-10-27] VITALS: BP 148/74
[2020-10-27 04:00] VITALS: BP 152/79
--- NOTE | 2020-10-27 07:10 | NUR ---
NURSE NOTES: Received patient resting comfortably in bed, patient awake, alert, oriented x3,no sign of distress, denies pain or discomfort, HL patent, On fall precaution, instructed patient to call for assistance when in need, verbalized understanding,Bed in lowest position and locked. Call light within reach. Will continue to monitor. john pappas
--- NOTE | 2020-10-27 07:32 | NUR ---
NURSE HAND-OFF: Important Events on Shift: Patient Status: stable Diet: Reg Pending Orders: Pending Results/Labs: Pending MD notification: Latest Vital Signs: Temperature 98.1 , Pulse 90 , B/P 152 /79 , Respiratory Rate 18 , O2 SAT 93 , Room Air, O2 Flow Rate 2.0 . Vital Sign Comment: [] Latest Barreto Fall Score: 15 Fall Risk: Low Risk Safety Measures: Call light Within Reach, Bed Alarm Zone 1, Side Rails Side Rails x2, Bed position Low and Locked. Fall Precautions: Yellow Socks Door Sign Patient Fall Education Report given to [Zahra].
[2020-10-27 07:58] VITALS: BP 132/72
[2020-10-27] MEDS: Enoxaparin 40mg Inj SUBQ SCH (08:22)
[2020-10-27] MEDS: Metoprolol Succinate XL 50mg tab ORAL SCH (08:23)
[2020-10-27] MEDS: Irbesartan 150mg tablet ORAL SCH ×2 (08:23→20:42)
[2020-10-27 11:50] VITALS: BP 147/68
--- NOTE | 2020-10-27 12:50 | Pulmonology Progress Note ---
Subjective ROS Limited/Unobtainable: Yes Interval Events: none reported per nursing Constitutional: Reports: other - feels better; Denies: fever HEENT: Repors: other - eye pain Respiratory: Reports: no symptoms Cardiovascular: Reports: no symptoms Gastrointestinal/Abdominal: Reports: no symptoms Genitourinary: Reports: no symptoms Allergies: Coded Allergies: No Known Allergies (Unverified , 07/31/20) Objective Last 24 Hour Vital Signs Date Time Temp Pulse Resp B/P (MAP) Pulse Ox O2 Delivery O2 Flow Rate FiO2 10/27/20 11:50 98.1 85 18 147/68 (94) 92 10/27/20 08:23 132/72 10/27/20 08:23 92 132/72 10/27/20 08:23 92 132/72 10/27/20 08:10 Room Air 10/27/20 07:58 99.0 92 18 132/72 (92) 94 10/27/20 04:00 98.1 90 18 152/79 (103) 93 10/27/20 00:00 98.6 88 18 148/74 (98) 93 10/26/20 20:47 Room Air 10/26/20 20:20 135/67 10/26/20 20:00 98.8 94 18 135/67 (89) 94 10/26/20 16:00 97.9 94 18 129/70 (89) 94 Intake and Output 10/26/20 10/27/20 19:00 07:00 Intake Total 600 ml 480 ml Output Total 200 ml Balance 600 ml 280 ml Intake Oral 600 ml 480 ml Output Urine Total 200 ml # Voids 4 1 Objective 10/27 no change 10/26 no change 10/25 remains on room air 10/24 now on room air saturating well 10/23 saturating at 99% on 1L NC 10/22 saturating at 92% on RA 10/19 saturating at 89% on RA; 92-94% on 3L NC 10/18 desated on room air to 89%, back on 2L NC saturating at 92% 10/17 no change; remains on 2L NC since weaning failed again yesterday 10/16 saturating at 94% on 1L NC; failed weaning yesterday 10/15 now saturating at 95% on 1L NC; will wean again as tolerated 10/14 saturating at 95% on 2L NC 10/12 saturating at 97% on 2L NC 10/11 now on 2L saturating well 10/10 on room air saturating well General Appearance: WD/WN, no acute distress Respiratory: lungs clear Cardiovascular: normal rate, regular rhythm Abdomen: soft, non tender Current Medications Medications (Trade) Dose Ordered Sig/Sidney Route PRN Reason Start Time Stop Time Status Last Admin Dose Admin Acetaminophen (Tylenol) 650 mg Q6H PRN ORAL HEADACHE OR FEVER >100 10/09/20 22:45 11/08/20 22:44 10/13/20 22:27 Alfuzosin HCl (Uroxatrol) 10 mg DAILY ORAL 10/10/20 09:00 11/09/20 08:59 10/27/20 08:22 Amlodipine Besylate (Norvasc) 10 mg DAILY ORAL 10/10/20 09:00 11/09/20 08:59 10/27/20 08:23 Artificial Tears (Akwa-Tears) 2 drop Q8H PRN BOTH EYES Dry Eyes 10/24/20 16:15 11/23/20 16:14 Chlorhexidine Gluconate (Beryl-Hex 2%) 1 applic QHS TOPIC 10/09/20 21:00 01/07/21 20:59 10/19/20 21:57 Enoxaparin Sodium (Lovenox) 40 mg DAILY SUBQ 10/16/20 09:00 01/14/21 08:59 10/27/20 08:22 Irbesartan (Avapro) 150 mg Q12HR ORAL 10/09/20 21:00 01/07/21 20:59 10/27/20 08:23 Metoprolol Succinate (Toprol XL) 50 mg DAILY ORAL 10/10/20 09:00 01/08/21 08:59 10/27/20 08:23 Pantoprazole (Protonix) 40 mg DAILY ORAL 10/10/20 09:00 11/09/20 08:59 10/27/20 08:23 Quetiapine Fumarate (SEROqueL) 300 mg Q12HR ORAL 10/09/20 21:00 11/23/20 20:59 10/27/20 08:22 Risperidone (RisperDAL) 2 mg Q12HR ORAL 10/09/20 21:00 11/23/20 20:59 10/27/20 08:23 Assessment/Plan Assessment/Plan 1. COVID-19 infection - Saturating well on room air - s/p Azithromycin and ceftriaxone IV once in ER -Given his normoxemia without fever, clear lung sounds, and negative CXR, no specific therapy is required at this time -Continue monitoring SaO2 and provide supplemental oxygen as needed - Repeat CXR 10/12 shows subsegmental atelectasis in the left lung base. 2. Conjunctivitis - s/p ciprofloxacin ophthalmic solution - outpatient ophthalmology consult recommended 3. Elevated CRP, D-dimer - s/p Lovenox in ER - Venous duplex US negative for DVT - on Lovenox 4. Hypertension - on metoprolol and amlodipine - monitor BP 5. Hypokalemia - per primary MD 7. New onset fever with tachycardia; resolved - better on antipyretics - likely sepsis secondary to COVID-19, vs UTI - consider UA if fever persistent - Venous duplex US negative for DVT - management per primary MD, and ID 8. Atelectasis - monitor at this point given his normoxemia 9. anorexia - per pt, he "can't see" his food due to conjunctivitis/corneal abrasion - seen by GI, who recommends feeding assistance prior to considering appetite stimulants - management per GI Medically stable for dc to SNF from pulmonary stand point Discharge pending placement The care for this patient was discussed with my supervising physician. Time spent for this case was approximately 31 minutes. Piyush Dent Oct 27, 2020 12:49
[2020-10-27 15:49] VITALS: BP 126/72
--- NOTE | 2020-10-27 16:42 | Cardiac Electrophysiology PN ---
Assessment/Plan Assessment/Plan 1. Shortness of breath due to COVID-19 infection. On RA. Fu by Dr. Shell. 2. Hypertension. On amlodipine 10 mg daily, Toprol-XL 50 mg daily and Avapro 150 bid 3. Psychiatric history. DW civil preparedness coordinator pending Subjective Subjective In isolation for Covid on RA off tele. Placement pending Ne events Objective Last 24 Hour Vital Signs Date Time Temp Pulse Resp B/P (MAP) Pulse Ox O2 Delivery O2 Flow Rate FiO2 10/27/20 15:49 98.2 85 20 126/72 (90) 93 10/27/20 11:50 98.1 85 18 147/68 (94) 92 10/27/20 08:23 132/72 10/27/20 08:23 92 132/72 10/27/20 08:23 92 132/72 10/27/20 08:10 Room Air 10/27/20 07:58 99.0 92 18 132/72 (92) 94 10/27/20 04:00 98.1 90 18 152/79 (103) 93 10/27/20 00:00 98.6 88 18 148/74 (98) 93 10/26/20 20:47 Room Air 10/26/20 20:20 135/67 10/26/20 20:00 98.8 94 18 135/67 (89) 94 Intake and Output 10/26/20 10/27/20 19:00 07:00 Intake Total 600 ml 480 ml Output Total 200 ml Balance 600 ml 280 ml Intake Oral 600 ml 480 ml Output Urine Total 200 ml # Voids 4 1 Objective HEAD AND NECK: Shows mild JVD. Bilateral eyelids are edematous and erythematous. LUNGS: Clear. CARDIOVASCULAR: Shows regular S1 and S2 with no gallop. ABDOMEN: Soft. EXTREMITIES: 1+ pitting edema. Kirit Dave MD Oct 27, 2020 16:42
--- NOTE | 2020-10-27 19:32 | NUR ---
NURSE HAND-OFF: Important Events on Shift:[NONE] Patient Status: [STABLE] Diet: [REGULAR] Pending Orders: [NONE] Pending Results/Labs:[NONE] Pending MD notification:[NONE] Latest Vital Signs: Temperature 98.2 , Pulse 85 , B/P 126 /72 , Respiratory Rate 20 , O2 SAT 93 , Room Air, O2 Flow Rate 2.0 . Vital Sign Comment: [STABLE] Latest Barreto Fall Score: 15 Fall Risk: Low Risk Safety Measures: Call light Within Reach, Bed Alarm Zone 1, Side Rails Side Rails x2, Bed position Low and Locked. Fall Precautions: Yellow Socks Door Sign Patient Fall Education Report given to [Ms CAMARA].
--- NOTE | 2020-10-27 19:33 | NUR ---
NURSE NOTES: Patient in bed, awake and alert x4. No signs of distress or SOB. IV intact and patent. Bed locked and in lowest position. Call light in reach. Will continue plan of care.
[2020-10-27 20:00] VITALS: BP 145/78
[2020-10-27] MEDS: Dyna-Hex 2% Top Sol 2oz TOPIC SCH (20:40)
--- NOTE | 2020-10-27 21:02 | General Progress Note ---
Subjective Allergies: Coded Allergies: No Known Allergies (Unverified , 07/31/20) Subjective above noted walking around his room Objective Last 24 Hour Vital Signs Date Time Temp Pulse Resp B/P (MAP) Pulse Ox O2 Delivery O2 Flow Rate FiO2 10/27/20 20:42 145/78 10/27/20 20:29 Room Air 10/27/20 15:49 98.2 85 20 126/72 (90) 93 10/27/20 11:50 98.1 85 18 147/68 (94) 92 10/27/20 08:23 132/72 10/27/20 08:23 92 132/72 10/27/20 08:23 92 132/72 10/27/20 08:10 Room Air 10/27/20 07:58 99.0 92 18 132/72 (92) 94 10/27/20 04:00 98.1 90 18 152/79 (103) 93 10/27/20 00:00 98.6 88 18 148/74 (98) 93 Intake and Output 10/26/20 10/27/20 19:00 07:00 Intake Total 600 ml 480 ml Output Total 200 ml Balance 600 ml 280 ml Intake Oral 600 ml 480 ml Output Urine Total 200 ml # Voids 4 1 Height (Feet): 5 Height (Inches): 9.00 Weight (Pounds): 193 Objective NCAT eye redness improved supple CTA RR abd soft no edema Assessment/Plan Status: progressing, tolerating diet Assessment/Plan: Assessment - Poor po intake - improved - conjunctivitis - ? COVID related - improving - COVID PNA - COPD - Schizoaffective disorder, anxiety - hepatitis C Recommendations - eye care - push po - outpatient HCV management Rudolph Griggs MD Oct 27, 2020 21:02
--- NOTE | 2020-10-27 21:54 | General Progress Note ---
Subjective ROS Limited/Unobtainable: Yes Allergies: Coded Allergies: No Known Allergies (Unverified , 07/31/20) Objective Last 24 Hour Vital Signs Date Time Temp Pulse Resp B/P (MAP) Pulse Ox O2 Delivery O2 Flow Rate FiO2 10/27/20 20:42 145/78 10/27/20 20:29 Room Air 10/27/20 15:49 98.2 85 20 126/72 (90) 93 10/27/20 11:50 98.1 85 18 147/68 (94) 92 10/27/20 08:23 132/72 10/27/20 08:23 92 132/72 10/27/20 08:23 92 132/72 10/27/20 08:10 Room Air 10/27/20 07:58 99.0 92 18 132/72 (92) 94 10/27/20 04:00 98.1 90 18 152/79 (103) 93 10/27/20 00:00 98.6 88 18 148/74 (98) 93 Intake and Output 10/26/20 10/27/20 19:00 07:00 Intake Total 600 ml 480 ml Output Total 200 ml Balance 600 ml 280 ml Intake Oral 600 ml 480 ml Output Urine Total 200 ml # Voids 4 1 Height (Feet): 5 Height (Inches): 9.00 Weight (Pounds): 193 Assessment/Plan Problem List: (1) Headache ICD Codes: R51.9 - Headache, unspecified SNOMED: 90785918 (2) COVID-19 ICD Codes: U07.1 - COVID-19 SNOMED: 559637985 Status: progressing, tolerating diet Assessment/Plan: covid + s/p hypoxic oxygen afebrile Deng Liu MD Oct 27, 2020 21:54
[2020-10-28] VITALS (7 sets, daily range): BP systolic 136–157; BP diastolic 71–82
--- NOTE | 2020-10-28 06:27 | NUR ---
NURSE HAND-OFF: Important Events on Shift: No acute events Patient Status: Stable Diet: Reg Pending Orders: N/A Pending Results/Labs: No labs Pending MD notification: N/A Latest Vital Signs: Temperature 98.2 , Pulse 94 , B/P 155 /82 , Respiratory Rate 18 , O2 SAT 92 , Room Air, O2 Flow Rate 2.0 . Vital Sign Comment: N/A Latest Barreto Fall Score: 15 Fall Risk: Low Risk Safety Measures: Call light Within Reach, Bed Alarm Zone 1, Side Rails Side Rails x2, Bed position Low and Locked. Fall Precautions: Yellow Socks Door Sign Patient Fall Education
--- NOTE | 2020-10-28 07:41 | NUR ---
NURSE NOTES: Received patient sitting on the edge of the bed, patient awake, alert, oriented x3,no sign of distress, denies pain or discomfort, HL patent, On fall precaution, instructed patient to call for assistance when in need, verbalized understanding,Bed in lowest position and locked. Call light within reach. Will continue to monitor. john pappas
[2020-10-28] MEDS: Metoprolol Succinate XL 50mg tab ORAL SCH (08:12)
[2020-10-28] MEDS: Enoxaparin 40mg Inj SUBQ SCH (08:13)
[2020-10-28] MEDS: Irbesartan 150mg tablet ORAL SCH ×2 (08:13→21:25)
--- NOTE | 2020-10-28 09:43 | Pulmonology Progress Note ---
Subjective ROS Limited/Unobtainable: Yes Interval Events: none reported per nursing Constitutional: Reports: other - feels better; Denies: fever HEENT: Repors: other - eye pain Respiratory: Reports: no symptoms Cardiovascular: Reports: no symptoms Gastrointestinal/Abdominal: Reports: no symptoms Genitourinary: Reports: no symptoms Allergies: Coded Allergies: No Known Allergies (Unverified , 07/31/20) Objective Last 24 Hour Vital Signs Date Time Temp Pulse Resp B/P (MAP) Pulse Ox O2 Delivery O2 Flow Rate FiO2 10/28/20 08:13 157/79 10/28/20 08:12 98 157/79 10/28/20 08:12 98 157/79 10/28/20 08:09 98.4 98 18 157/79 (105) 92 10/28/20 08:00 Room Air 10/28/20 04:00 98.2 94 18 155/82 (106) 92 10/28/20 00:00 98.1 83 18 136/75 (95) 92 10/27/20 20:42 145/78 10/27/20 20:29 Room Air 10/27/20 20:00 98.2 89 18 145/78 (100) 91 10/27/20 15:49 98.2 85 20 126/72 (90) 93 10/27/20 11:50 98.1 85 18 147/68 (94) 92 Intake and Output 10/27/20 10/28/20 19:00 07:00 Intake Total 750 ml 240 ml Output Total 700 ml Balance 50 ml 240 ml Intake Oral 750 ml 240 ml Output Urine Total 700 ml # Voids 1 Objective 10/28 no change 10/27 no change 10/26 no change 10/25 remains on room air 10/24 now on room air saturating well 10/23 saturating at 99% on 1L NC 10/22 saturating at 92% on RA 10/19 saturating at 89% on RA; 92-94% on 3L NC 10/18 desated on room air to 89%, back on 2L NC saturating at 92% 10/17 no change; remains on 2L NC since weaning failed again yesterday 10/16 saturating at 94% on 1L NC; failed weaning yesterday 10/15 now saturating at 95% on 1L NC; will wean again as tolerated 10/14 saturating at 95% on 2L NC 10/12 saturating at 97% on 2L NC 10/11 now on 2L saturating well 10/10 on room air saturating well General Appearance: WD/WN, no acute distress Respiratory: lungs clear Cardiovascular: normal rate, regular rhythm Abdomen: soft, non tender Current Medications Medications (Trade) Dose Ordered Sig/Sidney Route PRN Reason Start Time Stop Time Status Last Admin Dose Admin Acetaminophen (Tylenol) 650 mg Q6H PRN ORAL HEADACHE OR FEVER >100 10/09/20 22:45 11/08/20 22:44 10/13/20 22:27 Alfuzosin HCl (Uroxatrol) 10 mg DAILY ORAL 10/10/20 09:00 11/09/20 08:59 10/28/20 08:12 Amlodipine Besylate (Norvasc) 10 mg DAILY ORAL 10/10/20 09:00 11/09/20 08:59 10/28/20 08:12 Artificial Tears (Akwa-Tears) 2 drop Q8H PRN BOTH EYES Dry Eyes 10/24/20 16:15 11/23/20 16:14 Chlorhexidine Gluconate (Beryl-Hex 2%) 1 applic QHS TOPIC 10/09/20 21:00 01/07/21 20:59 10/19/20 21:57 Enoxaparin Sodium (Lovenox) 40 mg DAILY SUBQ 10/16/20 09:00 01/14/21 08:59 10/28/20 08:13 Irbesartan (Avapro) 150 mg Q12HR ORAL 10/09/20 21:00 01/07/21 20:59 10/28/20 08:13 Metoprolol Succinate (Toprol XL) 50 mg DAILY ORAL 10/10/20 09:00 01/08/21 08:59 10/28/20 08:12 Pantoprazole (Protonix) 40 mg DAILY ORAL 10/10/20 09:00 11/09/20 08:59 10/28/20 08:12 Quetiapine Fumarate (SEROqueL) 300 mg Q12HR ORAL 10/09/20 21:00 11/23/20 20:59 10/28/20 08:12 Risperidone (RisperDAL) 2 mg Q12HR ORAL 10/09/20 21:00 11/23/20 20:59 10/28/20 08:12 Assessment/Plan Assessment/Plan 1. COVID-19 infection - Saturating well on room air - s/p Azithromycin and ceftriaxone IV once in ER -Given his normoxemia without fever, clear lung sounds, and negative CXR, no specific therapy is required at this time -Continue monitoring SaO2 and provide supplemental oxygen as needed - Repeat CXR 10/12 shows subsegmental atelectasis in the left lung base. 2. Conjunctivitis - s/p ciprofloxacin ophthalmic solution - outpatient ophthalmology consult recommended 3. Elevated CRP, D-dimer - s/p Lovenox in ER - Venous duplex US negative for DVT - on Lovenox 4. Hypertension - on metoprolol and amlodipine - monitor BP 5. Hypokalemia - per primary MD 7. New onset fever with tachycardia; resolved - better on antipyretics - likely sepsis secondary to COVID-19, vs UTI - consider UA if fever persistent - Venous duplex US negative for DVT - management per primary MD, and ID 8. Atelectasis - monitor at this point given his normoxemia 9. anorexia - per pt, he "can't see" his food due to conjunctivitis/corneal abrasion - seen by GI, who recommends feeding assistance prior to considering appetite stimulants - management per GI Medically stable for dc to SNF from pulmonary stand point Discharge pending placement The care for this patient was discussed with my supervising physician. Time spent for this case was approximately 31 minutes. Piyush Dent Oct 28, 2020 09:43
--- NOTE | 2020-10-28 10:16 | Hematology/Onc Progress Note ---
Assessment/Plan Assessment/Plan 1. Leukopenia is related likely to COVID-19 infection+++++++++++ --> Patient is currently saturating well on room air, per pulm --> s/p Azithromycin and ceftriaxone IV once in ER --> Continue monitoring SaO2 and provide supplemental oxygen as needed --> smear reviewed --> wbc 4.7-->3.8->4 --> neupogen prn 2. Anemia due to likely chronic disease, infection --> trend hgb as needed --> hgb 13->11-->11 3. Elevated CRP, D-dimer --> s/p Lovenox in ER --> DVX ppx recommended --> duplex lower leg r/o dvt 4. Hypertension --> recommend continuing home antihypertensive meds --> as per cards 5. Covid 19 as per pulm/id 6. Dvt ppx lovenox sq Appreciate consultation and marly Rn Subjective Constitutional: Denies: no symptoms, chills, fever, malaise, weakness, other HEENT: Denies: no symptoms, eye pain, blurred vision, tearing, double vision, ear pain, ear discharge, nose pain, nose congestion, throat pain, throat swelling, mouth pain, mouth swelling, other Genitourinary: Denies: no symptoms, burning, discharge, frequency, flank pain, hematuria, incontinence, pain, urgency, other Neurologic/Psychiatric: Denies: no symptoms, anxiety, depressed, emotional problems, headache, numbness, paresthesia, pre-existing deficit, seizure, tingling, tremors, weakness, other Endocrine: Denies: no symptoms, excessive sweating, flushing, intolerance to cold, intolerance to heat, increased hunger, increased thirst, increased urine, unexplained weight gain, unexplained weight loss, other Allergies: Coded Allergies: No Known Allergies (Unverified , 07/31/20) Subjective 10/11 awake, no new events, no bleeding, labs noted, ambulating 10/12 covid iso, is on ra, no bleeding, labs noted, meds reviewed 10/13: on RA saturating well no acute events. 10/14: no distress on O2 NC 2L, slight temp last night UA collected 10/15 is awake, alert, is on 2lnc, no bleeding, labs are noted 10/16 on 1lnc, no bleeding, labs ordered for am, no new events 10/17 nc, no bleeding, labs are pending, can't see, potential optho eval 10/18 nc, no bleeding, wbc 3, no new changes, dw rn 10/19: no acute events, no bleeding reported. 10/21 confused, remains disoriented, no bleeding, labs reviewed 10/22 confused, labs reviewed, meds noted, no bleeding, labs reviewed 10/23 less abd pain, no bleeding, labs noted, meds reviewed 10/24 labs noted, no night sweats, wbc 4, hgb 11 10/25 no new changes, meds reviewed, no bleeding 10/26 no complaints, is eating, labs noted 10/28 awake, alert sitting up in bed, labs reviewed Objective Objective Current Medications Medications (Trade) Dose Ordered Sig/Sidney Route PRN Reason Start Time Stop Time Status Last Admin Dose Admin Acetaminophen (Tylenol) 650 mg Q6H PRN ORAL HEADACHE OR FEVER >100 10/09/20 22:45 11/08/20 22:44 10/13/20 22:27 Alfuzosin HCl (Uroxatrol) 10 mg DAILY ORAL 10/10/20 09:00 11/09/20 08:59 10/28/20 08:12 Amlodipine Besylate (Norvasc) 10 mg DAILY ORAL 10/10/20 09:00 11/09/20 08:59 10/28/20 08:12 Artificial Tears (Akwa-Tears) 2 drop Q8H PRN BOTH EYES Dry Eyes 10/24/20 16:15 11/23/20 16:14 Chlorhexidine Gluconate (Beryl-Hex 2%) 1 applic QHS TOPIC 10/09/20 21:00 01/07/21 20:59 10/19/20 21:57 Enoxaparin Sodium (Lovenox) 40 mg DAILY SUBQ 10/16/20 09:00 01/14/21 08:59 10/28/20 08:13 Irbesartan (Avapro) 150 mg Q12HR ORAL 10/09/20 21:00 01/07/21 20:59 10/28/20 08:13 Metoprolol Succinate (Toprol XL) 50 mg DAILY ORAL 10/10/20 09:00 01/08/21 08:59 10/28/20 08:12 Pantoprazole (Protonix) 40 mg DAILY ORAL 10/10/20 09:00 11/09/20 08:59 10/28/20 08:12 Quetiapine Fumarate (SEROqueL) 300 mg Q12HR ORAL 10/09/20 21:00 11/23/20 20:59 10/28/20 08:12 Risperidone (RisperDAL) 2 mg Q12HR ORAL 10/09/20 21:00 11/23/20 20:59 10/28/20 08:12 Last 24 Hour Vital Signs Date Time Temp Pulse Resp B/P (MAP) Pulse Ox O2 Delivery O2 Flow Rate FiO2 10/28/20 08:13 157/79 10/28/20 08:12 98 157/79 10/28/20 08:12 98 157/79 10/28/20 08:09 98.4 98 18 157/79 (105) 92 10/28/20 08:00 Room Air 10/28/20 04:00 98.2 94 18 155/82 (106) 92 10/28/20 00:00 98.1 83 18 136/75 (95) 92 10/27/20 20:42 145/78 10/27/20 20:29 Room Air 10/27/20 20:00 98.2 89 18 145/78 (100) 91 10/27/20 15:49 98.2 85 20 126/72 (90) 93 10/27/20 11:50 98.1 85 18 147/68 (94) 92 10/27/20 08:23 132/72 10/27/20 08:23 92 132/72 10/27/20 08:23 92 132/72 10/27/20 08:10 Room Air 10/27/20 07:58 99.0 92 18 132/72 (92) 94 10/27/20 04:00 98.1 90 18 152/79 (103) 93 10/27/20 00:00 98.6 88 18 148/74 (98) 93 10/26/20 20:47 Room Air 10/26/20 20:20 135/67 10/26/20 20:00 98.8 94 18 135/67 (89) 94 10/26/20 16:00 97.9 94 18 129/70 (89) 94 1/15/21 12:05 97.3 85 18 118/69 (85) 94 Intake and Output 10/27/20 10/28/20 19:00 07:00 Intake Total 750 ml 240 ml Output Total 700 ml Balance 50 ml 240 ml Intake Oral 750 ml 240 ml Output Urine Total 700 ml # Voids 1 Height (Feet): 5 Height (Inches): 9.00 Weight (Pounds): 193 Objective PHYSICAL EXAMINATION: VITAL SIGNS: reviewed HEENT: Head exam reveals that the head is normocephalic, atraumatic without deformity or unusual swelling. CHEST AND LUNGS: Reveals clear, normal, symmetrical breath sounds with no adventitious sounds. CARDIOVASCULAR: Reveals normal S1, S2 without murmurs, rubs, or clicks. ABDOMEN: Obese, soft with no tenderness or organomegaly. A well-healed midline linear vertical scar in the abdomen ++ RECTAL: Deferred. MUSCULOSKELETAL: There is no tenderness to palpation. Range of motion is normal. NEUROLOGICAL: Alert and oriented x3 , nonfocal Alek Sabillon MD Oct 28, 2020 10:16
[2020-10-28] MEDS: Dyna-Hex 2% Top Sol 2oz TOPIC SCH (19:12)
--- NOTE | 2020-10-28 19:26 | NUR ---
NURSE HAND-OFF: Important Events on Shift:[NO CHANGE] Patient Status: [STABLE] Diet: [REGULAR] Pending Orders: [NONE] Pending Results/Labs:[NONE] Pending MD notification:[NONE] Latest Vital Signs: Temperature 98.0 , Pulse 90 , B/P 154 /82 , Respiratory Rate 18 , O2 SAT 92 , Room Air, O2 Flow Rate 2.0 . Vital Sign Comment: [STABLE] Latest Barreto Fall Score: 15 Fall Risk: Low Risk Safety Measures: Call light Within Reach, Bed Alarm Zone 1, Side Rails Side Rails x2, Bed position Low and Locked. Fall Precautions: Yellow Socks Door Sign Patient Fall Education Report given to [Ms Charles RN].
--- NOTE | 2020-10-28 20:20 | General Progress Note ---
Subjective Allergies: Coded Allergies: No Known Allergies (Unverified , 07/31/20) Subjective above noted feels OK no new complaints Objective Last 24 Hour Vital Signs Date Time Temp Pulse Resp B/P (MAP) Pulse Ox O2 Delivery O2 Flow Rate FiO2 10/28/20 16:00 98.0 90 18 154/82 (106) 92 10/28/20 11:48 98.6 90 18 151/75 (100) 91 10/28/20 08:13 157/79 10/28/20 08:12 98 157/79 10/28/20 08:12 98 157/79 10/28/20 08:09 98.4 98 18 157/79 (105) 92 10/28/20 08:00 Room Air 10/28/20 04:00 98.2 94 18 155/82 (106) 92 10/28/20 00:00 98.1 83 18 136/75 (95) 92 10/27/20 20:42 145/78 10/27/20 20:29 Room Air Intake and Output 10/27/20 10/28/20 19:00 07:00 Intake Total 750 ml 240 ml Output Total 700 ml Balance 50 ml 240 ml Intake Oral 750 ml 240 ml Output Urine Total 700 ml # Voids 1 Height (Feet): 5 Height (Inches): 9.00 Weight (Pounds): 193 Objective NCAT eye redness improved supple CTA RR abd soft no edema Assessment/Plan Status: progressing, tolerating diet Assessment/Plan: Assessment - Poor po intake - improved - conjunctivitis - ? COVID related - improving - COVID PNA - COPD - Schizoaffective disorder, anxiety - hepatitis C Recommendations - eye care - push po - outpatient HCV management Rudolph Griggs MD Oct 28, 2020 20:20
--- NOTE | 2020-10-28 21:58 | General Progress Note ---
Subjective ROS Limited/Unobtainable: Yes Allergies: Coded Allergies: No Known Allergies (Unverified , 07/31/20) Objective Last 24 Hour Vital Signs Date Time Temp Pulse Resp B/P (MAP) Pulse Ox O2 Delivery O2 Flow Rate FiO2 10/28/20 21:25 142/82 10/28/20 20:00 100.4 101 18 142/82 (102) 92 10/28/20 16:00 98.0 90 18 154/82 (106) 92 10/28/20 11:48 98.6 90 18 151/75 (100) 91 10/28/20 08:13 157/79 10/28/20 08:12 98 157/79 10/28/20 08:12 98 157/79 10/28/20 08:09 98.4 98 18 157/79 (105) 92 10/28/20 08:00 Room Air 10/28/20 04:00 98.2 94 18 155/82 (106) 92 10/28/20 00:00 98.1 83 18 136/75 (95) 92 Intake and Output 10/27/20 10/28/20 18:59 06:59 Intake Total 750 ml 240 ml Output Total 700 ml Balance 50 ml 240 ml Intake Oral 750 ml 240 ml Output Urine Total 700 ml # Voids 1 Height (Feet): 5 Height (Inches): 9.00 Weight (Pounds): 193 Assessment/Plan Problem List: (1) Headache ICD Codes: R51.9 - Headache, unspecified SNOMED: 27923980 (2) COVID-19 ICD Codes: U07.1 - COVID-19 SNOMED: 576584236 Status: progressing, tolerating diet Assessment/Plan: covid + resp insuff s/p hypoxia dc planning conjuctivitis Deng Liu MD Oct 28, 2020 21:58
[2020-10-29 04:00] VITALS: BP 142/76
--- NOTE | 2020-10-29 07:05 | Hematology/Onc Progress Note ---
Assessment/Plan Assessment/Plan 1. Leukopenia is related likely to COVID-19 infection+++++++++++ --> Patient is currently saturating well on room air, per pulm --> s/p Azithromycin and ceftriaxone IV once in ER --> Continue monitoring SaO2 and provide supplemental oxygen as needed --> smear reviewed --> wbc 4.7-->3.8->4 --> neupogen prn 2. Anemia due to likely chronic disease, infection --> trend hgb as needed --> hgb 13->11-->11 3. Elevated CRP, D-dimer --> s/p Lovenox in ER --> DVX ppx recommended --> duplex lower leg r/o dvt 4. Hypertension --> recommend continuing home antihypertensive meds --> as per cards 5. Covid 19 as per pulm/id 6. Dvt ppx lovenox sq Appreciate consultation and marly Rn Subjective HEENT: Denies: no symptoms, eye pain, blurred vision, tearing, double vision, ear pain, ear discharge, nose pain, nose congestion, throat pain, throat swelling, mouth pain, mouth swelling, other Cardiovascular: Denies: no symptoms, chest pain, edema, irregular heart rate, lightheadedness, palpitations, syncope, other Gastrointestinal/Abdominal: Denies: no symptoms, abdomen distended, abdominal pain, black stools, tarry stools, blood in stool, constipated, diarrhea, difficulty swallowing, nausea, poor appetite, poor fluid intake, rectal bleeding, vomiting, other Genitourinary: Denies: no symptoms, burning, discharge, frequency, flank pain, hematuria, incontinence, pain, urgency, other Allergies: Coded Allergies: No Known Allergies (Unverified , 07/31/20) Subjective 10/11 awake, no new events, no bleeding, labs noted, ambulating 10/12 covid iso, is on ra, no bleeding, labs noted, meds reviewed 10/13: on RA saturating well no acute events. 10/14: no distress on O2 NC 2L, slight temp last night UA collected 10/15 is awake, alert, is on 2lnc, no bleeding, labs are noted 10/16 on 1lnc, no bleeding, labs ordered for am, no new events 10/17 nc, no bleeding, labs are pending, can't see, potential optho eval 10/18 nc, no bleeding, wbc 3, no new changes, dw rn 10/19: no acute events, no bleeding reported. 10/21 confused, remains disoriented, no bleeding, labs reviewed 10/22 confused, labs reviewed, meds noted, no bleeding, labs reviewed 10/23 less abd pain, no bleeding, labs noted, meds reviewed 10/24 labs noted, no night sweats, wbc 4, hgb 11 10/25 no new changes, meds reviewed, no bleeding 10/26 no complaints, is eating, labs noted 10/28 awake, alert sitting up in bed, labs reviewed 10/29 meds reviewed, labs are noted, no bleeding, dw rn Objective Objective Current Medications Medications (Trade) Dose Ordered Sig/Sidney Route PRN Reason Start Time Stop Time Status Last Admin Dose Admin Acetaminophen (Tylenol) 650 mg Q6H PRN ORAL HEADACHE OR FEVER >100 10/09/20 22:45 11/08/20 22:44 10/28/20 21:27 Alfuzosin HCl (Uroxatrol) 10 mg DAILY ORAL 10/10/20 09:00 11/09/20 08:59 10/28/20 08:12 Amlodipine Besylate (Norvasc) 10 mg DAILY ORAL 10/10/20 09:00 11/09/20 08:59 10/28/20 08:12 Artificial Tears (Akwa-Tears) 2 drop Q8H PRN BOTH EYES Dry Eyes 10/24/20 16:15 11/23/20 16:14 Chlorhexidine Gluconate (Beryl-Hex 2%) 1 applic QHS TOPIC 10/09/20 21:00 01/07/21 20:59 10/19/20 21:57 Enoxaparin Sodium (Lovenox) 40 mg DAILY SUBQ 10/16/20 09:00 01/14/21 08:59 10/28/20 08:13 Irbesartan (Avapro) 150 mg Q12HR ORAL 10/09/20 21:00 01/07/21 20:59 10/28/20 21:25 Metoprolol Succinate (Toprol XL) 50 mg DAILY ORAL 10/10/20 09:00 01/08/21 08:59 10/28/20 08:12 Pantoprazole (Protonix) 40 mg DAILY ORAL 10/10/20 09:00 11/09/20 08:59 10/28/20 08:12 Quetiapine Fumarate (SEROqueL) 300 mg Q12HR ORAL 10/09/20 21:00 11/23/20 20:59 10/28/20 21:17 Risperidone (RisperDAL) 2 mg Q12HR ORAL 10/09/20 21:00 11/23/20 20:59 10/28/20 21:17 Last 24 Hour Vital Signs Date Time Temp Pulse Resp B/P (MAP) Pulse Ox O2 Delivery O2 Flow Rate FiO2 10/29/20 04:00 98.1 99 18 142/76 (98) 93 10/28/20 23:52 98.2 94 18 138/71 (93) 92 10/28/20 21:58 98.8 10/28/20 21:57 98.8 10/28/20 21:25 142/82 10/28/20 21:00 Room Air 10/28/20 20:00 100.4 101 18 142/82 (102) 92 10/28/20 16:00 98.0 90 18 154/82 (106) 92 10/28/20 11:48 98.6 90 18 151/75 (100) 91 10/28/20 08:13 157/79 10/28/20 08:12 98 157/79 10/28/20 08:12 98 157/79 10/28/20 08:09 98.4 98 18 157/79 (105) 92 10/28/20 08:00 Room Air 10/28/20 04:00 98.2 94 18 155/82 (106) 92 10/28/20 00:00 98.1 83 18 136/75 (95) 92 10/27/20 20:42 145/78 10/27/20 20:29 Room Air 10/27/20 20:00 98.2 89 18 145/78 (100) 91 10/27/20 15:49 98.2 85 20 126/72 (90) 93 10/27/20 11:50 98.1 85 18 147/68 (94) 92 10/27/20 08:23 132/72 10/27/20 08:23 92 132/72 10/27/20 08:23 92 132/72 10/27/20 08:10 Room Air 10/27/20 07:58 99.0 92 18 132/72 (92) 94 Intake and Output 10/28/20 10/29/20 19:00 07:00 Intake Total 400 ml 250 ml Balance 400 ml 250 ml Intake Oral 400 ml 250 ml # Voids 2 1 Height (Feet): 5 Height (Inches): 9.00 Weight (Pounds): 193 Objective PHYSICAL EXAMINATION: VITAL SIGNS: reviewed HEENT: Head exam reveals that the head is normocephalic, atraumatic without deformity or unusual swelling. CHEST AND LUNGS: Reveals clear, normal, symmetrical breath sounds with no adventitious sounds. CARDIOVASCULAR: Reveals normal S1, S2 without murmurs, rubs, or clicks. ABDOMEN: Obese, soft with no tenderness or organomegaly. A well-healed midline linear vertical scar in the abdomen ++ RECTAL: Deferred. MUSCULOSKELETAL: There is no tenderness to palpation. Range of motion is normal. NEUROLOGICAL: Alert and oriented x3 , nonfocal Alek Sabillon MD Oct 29, 2020 07:05
--- NOTE | 2020-10-29 07:38 | NUR ---
NURSE HAND-OFF: Important Events on Shift: Temp 100.4 Patient Status: Stable Diet: Reg Pending Orders: Discharge (placement pending) Pending Results/Labs: CBC Pending MD notification: N/A Latest Vital Signs: Temperature 98.1 , Pulse 99 , B/P 142 /76 , Respiratory Rate 18 , O2 SAT 93 , Room Air, O2 Flow Rate 2.0 . Vital Sign Comment: [] Latest Barreto Fall Score: 15 Fall Risk: Low Risk Safety Measures: Call light Within Reach, Bed Alarm Zone 1, Side Rails Side Rails x2, Bed position Low and Locked. Fall Precautions: Yellow Socks Door Sign Patient Fall Education Report given to GONZALEZ Reyes.
--- NOTE | 2020-10-29 07:45 | NUR ---
NURSE NOTES: received report from Meliza ROTH, patient a/a/o, none verbal, flat affected. no signs of distress noted at this time. per report patient is able to ambulate. call light with in reach, bed in lowest position. side rales up x2. I will f/u as needed. plan to go back to previous SNF once bed becomes available. (Tasha Melendez conv)
[2020-10-29 08:00] VITALS: BP_SYST 142; BP_SYST 154; BP_DIAS 76; BP_DIAS 82
[2020-10-29] MEDS: Irbesartan 150mg tablet ORAL SCH (08:34)
[2020-10-29] MEDS: Enoxaparin 40mg Inj SUBQ SCH (08:35)
[2020-10-29] MEDS: Metoprolol Succinate XL 50mg tab ORAL SCH (08:36)
--- NOTE | 2020-10-29 08:43 | Pulmonology Progress Note ---
Subjective ROS Limited/Unobtainable: Yes Interval Events: none reported per nursing Constitutional: Reports: other - feels better; Denies: fever HEENT: Repors: other - eye pain Respiratory: Reports: no symptoms Cardiovascular: Reports: no symptoms Gastrointestinal/Abdominal: Reports: no symptoms Genitourinary: Reports: no symptoms Allergies: Coded Allergies: No Known Allergies (Unverified , 07/31/20) Objective Last 24 Hour Vital Signs Date Time Temp Pulse Resp B/P (MAP) Pulse Ox O2 Delivery O2 Flow Rate FiO2 10/29/20 08:36 106 154/82 10/29/20 08:36 106 154/82 10/29/20 08:34 154/82 10/29/20 04:00 98.1 99 18 142/76 (98) 93 10/28/20 23:52 98.2 94 18 138/71 (93) 92 10/28/20 21:58 98.8 10/28/20 21:57 98.8 10/28/20 21:25 142/82 10/28/20 21:00 Room Air 10/28/20 20:00 100.4 101 18 142/82 (102) 92 10/28/20 16:00 98.0 90 18 154/82 (106) 92 10/28/20 11:48 98.6 90 18 151/75 (100) 91 Intake and Output 10/28/20 10/29/20 19:00 07:00 Intake Total 400 ml 250 ml Balance 400 ml 250 ml Intake Oral 400 ml 250 ml # Voids 2 1 Objective 10/29 no change 10/28 no change 10/27 no change 10/26 no change 10/25 remains on room air 10/24 now on room air saturating well 10/23 saturating at 99% on 1L NC 10/22 saturating at 92% on RA 10/19 saturating at 89% on RA; 92-94% on 3L NC 10/18 desated on room air to 89%, back on 2L NC saturating at 92% 10/17 no change; remains on 2L NC since weaning failed again yesterday 10/16 saturating at 94% on 1L NC; failed weaning yesterday 10/15 now saturating at 95% on 1L NC; will wean again as tolerated 10/14 saturating at 95% on 2L NC 10/12 saturating at 97% on 2L NC 10/11 now on 2L saturating well 10/10 on room air saturating well General Appearance: WD/WN, no acute distress Respiratory: lungs clear Cardiovascular: normal rate, regular rhythm Abdomen: soft, non tender Current Medications Medications (Trade) Dose Ordered Sig/Sidney Route PRN Reason Start Time Stop Time Status Last Admin Dose Admin Acetaminophen (Tylenol) 650 mg Q6H PRN ORAL HEADACHE OR FEVER >100 10/09/20 22:45 11/08/20 22:44 10/28/20 21:27 Alfuzosin HCl (Uroxatrol) 10 mg DAILY ORAL 10/10/20 09:00 11/09/20 08:59 10/29/20 08:34 Amlodipine Besylate (Norvasc) 10 mg DAILY ORAL 10/10/20 09:00 11/09/20 08:59 10/29/20 08:36 Artificial Tears (Akwa-Tears) 2 drop Q8H PRN BOTH EYES Dry Eyes 10/24/20 16:15 11/23/20 16:14 Chlorhexidine Gluconate (Ebryl-Hex 2%) 1 applic QHS TOPIC 10/09/20 21:00 01/07/21 20:59 10/19/20 21:57 Enoxaparin Sodium (Lovenox) 40 mg DAILY SUBQ 10/16/20 09:00 01/14/21 08:59 10/29/20 08:35 Irbesartan (Avapro) 150 mg Q12HR ORAL 10/09/20 21:00 01/07/21 20:59 10/29/20 08:34 Metoprolol Succinate (Toprol XL) 50 mg DAILY ORAL 10/10/20 09:00 01/08/21 08:59 10/29/20 08:36 Pantoprazole (Protonix) 40 mg DAILY ORAL 10/10/20 09:00 11/09/20 08:59 10/29/20 08:33 Quetiapine Fumarate (SEROqueL) 300 mg Q12HR ORAL 10/09/20 21:00 11/23/20 20:59 10/29/20 08:37 Risperidone (RisperDAL) 2 mg Q12HR ORAL 10/09/20 21:00 11/23/20 20:59 10/29/20 08:37 Assessment/Plan Assessment/Plan 1. COVID-19 infection - Saturating well on room air - s/p Azithromycin and ceftriaxone IV once in ER -Given his normoxemia without fever, clear lung sounds, and negative CXR, no specific therapy is required at this time -Continue monitoring SaO2 and provide supplemental oxygen as needed - Repeat CXR 10/12 shows subsegmental atelectasis in the left lung base. 2. Conjunctivitis - s/p ciprofloxacin ophthalmic solution - outpatient ophthalmology consult recommended 3. Elevated CRP, D-dimer - s/p Lovenox in ER - Venous duplex US negative for DVT - on Lovenox 4. Hypertension - on metoprolol and amlodipine - monitor BP 5. Hypokalemia - per primary MD 7. New onset fever with tachycardia; resolved - better on antipyretics - likely sepsis secondary to COVID-19, vs UTI - consider UA if fever persistent - Venous duplex US negative for DVT - management per primary MD, and ID 8. Atelectasis - monitor at this point given his normoxemia 9. anorexia - per pt, he "can't see" his food due to conjunctivitis/corneal abrasion - seen by GI, who recommends feeding assistance prior to considering appetite stimulants - management per GI Medically stable for dc to SNF from pulmonary stand point Discharge pending placement The care for this patient was discussed with my supervising physician. Time spent for this case was approximately 31 minutes. Piyush Dent Oct 29, 2020 08:43
--- NOTE | 2020-10-29 11:29 | NUR ---
*-*DISCHARGE PLANNING*-* PATIENT HAS BEEN REFERRED BACK TO: [facility] P: [phone] S/W ANANDA, REQUESTING COVID RESULTS FROM WITH IN THE PAST 48 HOURS.
[2020-10-29 12:00] VITALS: BP 136/75
--- NOTE | 2020-10-29 13:11 | Infectious Diseases Prog Note ---
Assessment/Plan Assessment/Plan IMPRESSION: 1. Sepsis 2. COVID-19 disease. 3. Conjunctivitis treated 4. History of COPD. 5. History of hepatitis C. 6. History of corneal abrasion. 7. Atelectasis RECOMMENDATIONS: Observe off antibiotic Artificial tear Outpatient ophthalmology consult Subjective ROS Limited/Unobtainable: Yes Allergies: Coded Allergies: No Known Allergies (Unverified , 07/31/20) Objective Last 24 Hour Vital Signs Date Time Temp Pulse Resp B/P (MAP) Pulse Ox O2 Delivery O2 Flow Rate FiO2 10/29/20 12:00 98.1 109 18 136/75 (95) 94 10/29/20 09:00 Room Air 10/29/20 08:36 106 154/82 10/29/20 08:36 106 154/82 10/29/20 08:34 154/82 10/29/20 08:00 98.5 106 18 154/82 (106) 93 10/29/20 04:00 98.1 99 18 142/76 (98) 93 10/28/20 23:52 98.2 94 18 138/71 (93) 92 10/28/20 21:58 98.8 10/28/20 21:57 98.8 10/28/20 21:25 142/82 10/28/20 21:00 Room Air 10/28/20 20:00 100.4 101 18 142/82 (102) 92 10/28/20 16:00 98.0 90 18 154/82 (106) 92 Height (Feet): 5 Height (Inches): 9.00 Weight (Pounds): 193 General Appearance: no acute distress Respiratory/Chest: no respiratory distress Cardiovascular: tachycardia Abdomen: soft, non tender Extremities: no edema Neurologic/Psychiatric: other - sleeping Current Medications Medications (Trade) Dose Ordered Sig/Sidney Route PRN Reason Start Time Stop Time Status Last Admin Dose Admin Acetaminophen (Tylenol) 650 mg Q6H PRN ORAL HEADACHE OR FEVER >100 10/09/20 22:45 11/08/20 22:44 10/28/20 21:27 Alfuzosin HCl (Uroxatrol) 10 mg DAILY ORAL 10/10/20 09:00 11/09/20 08:59 10/29/20 08:34 Amlodipine Besylate (Norvasc) 10 mg DAILY ORAL 10/10/20 09:00 11/09/20 08:59 10/29/20 08:36 Artificial Tears (Akwa-Tears) 2 drop Q8H PRN BOTH EYES Dry Eyes 10/24/20 16:15 11/23/20 16:14 Chlorhexidine Gluconate (Beryl-Hex 2%) 1 applic QHS TOPIC 10/09/20 21:00 01/07/21 20:59 10/19/20 21:57 Enoxaparin Sodium (Lovenox) 40 mg DAILY SUBQ 10/16/20 09:00 01/14/21 08:59 10/29/20 08:35 Irbesartan (Avapro) 150 mg Q12HR ORAL 10/09/20 21:00 01/07/21 20:59 10/29/20 08:34 Metoprolol Succinate (Toprol XL) 50 mg DAILY ORAL 10/10/20 09:00 01/08/21 08:59 10/29/20 08:36 Pantoprazole (Protonix) 40 mg DAILY ORAL 10/10/20 09:00 11/09/20 08:59 10/29/20 08:33 Quetiapine Fumarate (SEROqueL) 300 mg Q12HR ORAL 10/09/20 21:00 11/23/20 20:59 10/29/20 08:37 Risperidone (RisperDAL) 2 mg Q12HR ORAL 10/09/20 21:00 11/23/20 20:59 10/29/20 08:37 Harsh Bowser MD Oct 29, 2020 13:11
--- NOTE | 2020-10-29 14:13 | Cardiac Electrophysiology PN ---
Assessment/Plan Assessment/Plan 1. Shortness of breath due to COVID-19 infection. On RA. Fu by Dr. Shell. 2. Hypertension. On amlodipine 10 mg daily, Toprol-XL 50 mg daily and Avapro 150 bid 3. Psychiatric history. VICTORIA RN Subjective Subjective In isolation for Covid on RA off tele. Placement pending Objective Last 24 Hour Vital Signs Date Time Temp Pulse Resp B/P (MAP) Pulse Ox O2 Delivery O2 Flow Rate FiO2 10/29/20 12:00 98.1 109 18 136/75 (95) 94 10/29/20 09:00 Room Air 10/29/20 08:36 106 154/82 10/29/20 08:36 106 154/82 10/29/20 08:34 154/82 10/29/20 08:00 98.5 106 18 154/82 (106) 93 10/29/20 04:00 98.1 99 18 142/76 (98) 93 10/28/20 23:52 98.2 94 18 138/71 (93) 92 10/28/20 21:58 98.8 10/28/20 21:57 98.8 10/28/20 21:25 142/82 10/28/20 21:00 Room Air 10/28/20 20:00 100.4 101 18 142/82 (102) 92 10/28/20 16:00 98.0 90 18 154/82 (106) 92 Intake and Output 10/28/20 10/29/20 19:00 07:00 Intake Total 400 ml 250 ml Balance 400 ml 250 ml Intake Oral 400 ml 250 ml # Voids 2 1 Objective HEAD AND NECK: Shows mild JVD. Bilateral eyelids are edematous and erythematous. LUNGS: Clear. CARDIOVASCULAR: Shows regular S1 and S2 with no gallop. ABDOMEN: Soft. EXTREMITIES: 1+ pitting edema. Kirit Dave MD Oct 29, 2020 14:13
[2020-10-29 16:00] VITALS: BP 131/77
--- NOTE | 2020-10-29 17:08 | NUR ---
*-*DISCHARGE PLANNED*-* PATIENT HAS BEEN ACCEPTED AND WILL BE DISCHARGED BACK TO: [facility] P: [phone] FOR NURSE TO NURSE REPORT ROOM# 102.[facility]SP[facility] SET FOR 6:30PM S/W [id number]. PLACED A CALL TO PATIENT BROTHER, SIMA FUENTES, NO ANSWER LEFT VOICE MESSAGE IN REGARDS TO DISCHARGE PLAN.
--- NOTE | 2020-10-29 18:21 | NUR ---
NURSE NOTES: Called [facility] at [phone] s/w Vika, she state that she will be the one receiving patient. I will f/u as needed.
--- NOTE | 2020-10-29 19:18 | NUR ---
NURSE HAND-OFF: Important Events on Shift: Patient Status: full code/ stable Diet: regular Pending Orders: [] Pending Results/Labs:[] Pending MD notification:[] Latest Vital Signs: Temperature 98.2 , Pulse 99 , B/P 131 /77 , Respiratory Rate 18 , O2 SAT 92 , Room Air, O2 Flow Rate 2.0 . Vital Sign Comment: Tachy Latest Barreto Fall Score: 15 Fall Risk: Low Risk Safety Measures: Call light Within Reach, Bed Alarm Zone 1, Side Rails Side Rails x2, Bed position Low and Locked. Fall Precautions: Yellow Socks Door Sign Patient Fall Education Report given to Bridgett RN, patient in stable condition, patient with is aphasic. plan to go back to his previous [facility] in [facility]. Elda the caregiver is aware as well as pt's brother.
--- NOTE | 2020-10-29 19:35 | NUR ---
NURSE NOTES: Received report from Amy. AAO x 3, on RA, steady gait. IV in place and patent. Denies pain or discomfort. No acute distress noted. Bed locked, lowest position, alarm on, side rails up, call light within reach. Will continue to monitor. Awaiting ambulance for DC.
[2020-10-29 20:00] VITALS: BP 125/70
--- NOTE | 2020-10-29 20:13 | General Progress Note ---
Subjective Allergies: Coded Allergies: No Known Allergies (Unverified , 07/31/20) Subjective above noted feels OK no new complaints Objective Last 24 Hour Vital Signs Date Time Temp Pulse Resp B/P (MAP) Pulse Ox O2 Delivery O2 Flow Rate FiO2 10/29/20 16:00 98.2 99 18 131/77 (95) 92 10/29/20 12:00 98.1 109 18 136/75 (95) 94 10/29/20 09:00 Room Air 10/29/20 08:36 106 154/82 10/29/20 08:36 106 154/82 10/29/20 08:34 154/82 10/29/20 08:00 98.5 106 18 154/82 (106) 93 10/29/20 04:00 98.1 99 18 142/76 (98) 93 10/28/20 23:52 98.2 94 18 138/71 (93) 92 10/28/20 21:58 98.8 10/28/20 21:57 98.8 10/28/20 21:25 142/82 10/28/20 21:00 Room Air Intake and Output 10/28/20 10/29/20 19:00 07:00 Intake Total 400 ml 250 ml Balance 400 ml 250 ml Intake Oral 400 ml 250 ml # Voids 2 1 Height (Feet): 5 Height (Inches): 9.00 Weight (Pounds): 193 Objective NCAT eye redness improved supple CTA RR abd soft no edema Assessment/Plan Status: progressing, tolerating diet Assessment/Plan: Assessment - Poor po intake - improved - conjunctivitis - ? COVID related - improving - COVID PNA - COPD - Schizoaffective disorder, anxiety - hepatitis C Recommendations - eye care - push po - outpatient HCV management Rudolph Griggs MD Oct 29, 2020 20:13
--- NOTE | 2020-10-29 20:54 | NUR ---
NURSE NOTES: Ambulance came and Pt discharged @ 2049 with stable condition. ID band and IV removed. All belongings reviewed including leary $86 and sent with patient. DC instruction given to patient.
--- NOTE | 2020-10-31 15:43 | Discharge Summary ---
Discharge Summary Discharge Summary _ Date of admission: 10/09/2020 Date of discharge: 10/29/[address] Liu History of Present Illness and Brief Hospital Course Mr. Zavala is a 65-year-old male with past medical history of COPD, hypertension, neuroleptic malignant syndrome, and schizophrenia, who presented to the ED from [facility] with 6/10 bilateral eye pain, intermittent dry cough and upset stomach. Patient tested positive for COVID-19 via rapid gene assay in the ER. Initial laboratory studies were notable for leukopenia, stable H&H with electrolytes that were within normal limits. EKG showed normal sinus rhythm. Chest x-ray showed no evidence of acute cardiopulmonary disease. Patient received IV azithromycin, ceftriaxone, Lovenox, and IV fluids in the ER and was admitted to the hospital for further management of the conjunctivitis and monitoring/management of symptoms associated with COVID-19 positivity. Despite testing positive for COVID-19 in the ER, patient remained saturating well on room air. Patient was provided with low flow oxygen for comfort. Given his normoxemia on room air without fever, and negative x-ray findings, no specific therapy for COVID-19 was required at the time. A repeat chest x-ray on 10/12/2020 showed subsegmental atelectasis in the left lung base which was clinically monitored. He also presented with elevated inflammatory markers. Venous duplex ultrasound of the lower extremities was negative for DVT and he was continued on Lovenox for DVT prophylaxis. Given his complaint of eye pain, patient was treated with ciprofloxacin eyedrops. However, patient still complained of eye pains. Despite much effort to find an contract law specialist to evaluate the patient, patient could not be evaluated during his hospitalization. He is to see an contract law specialist as an outpatient. Due to his history of hypertension, patient received antihypertensives during his admission. On the day of his discharge, patient was medically stable. He was found to have normal work of breathing on room air. He was discharged back to SNF on 10/29/2020. consultants: Gastroenterology Dr. Griggs Infectious Disease Dr. Bowser Hematology Oncology Dr. Sabillon Cardiology Dr. Dave Pulmonology Dr. Shell Discharge Condition Improved and stable Final diagnoses Hypertension Leukopenia Anemia, of chronic disease Sepsis Conjunctivitis History of COPD History of hepatitis C History of corneal abrasion Atelectasis Schizophrenia Hypokalemia I have been assigned to dictate discharge summary for this account. Piyush Dent Oct 31, 2020 15:43
== END 2020-10-29 20:55 | DRG 177 ==
LOC: EDBD 09:18 → EMR 10:01 → 4E 11:25 → EDBEDREQ 16:34 → 4E 10-17 12:49
DX: U07.1 COVID-19 (principal); G21.0 Malignant neuroleptic syndrome; A41.89 Other specified sepsis; J98.11 Atelectasis; S05.02XA Injury of conjunctiva and corneal abrasion without foreign body, left eye, initial encounter; X58.XXXA Exposure to other specified factors, initial encounter; R06.02 Shortness of breath; I10 Essential (primary) hypertension; D63.8 Anemia in other chronic diseases classified elsewhere; H10.9 Unspecified conjunctivitis; J44.9 Chronic obstructive pulmonary disease, unspecified; E87.6 Hypokalemia; R51.9 Headache, unspecified; R63.0 Anorexia; F25.9 Schizoaffective disorder, unspecified; F41.9 Anxiety disorder, unspecified; Z86.19 Personal history of other infectious and parasitic diseases
CPT/HCPCS: 36415; 71045; 80048; 80053; 81003; 82728; 83615; 83880; 84484; 85007; 85025; 85379; 85610; 85730; 86140; 87081; 93005; 93970; 96361; 96365; 96367; 99285; J7030; J8499; U0002